=== PATIENT | female | born 1975 | race Caucasian/White ===

== ENCOUNTER 2022-07-23 10:43 | Emergency (ER) | payer OTHER, SELFPAY ==
[2022-07-23 10:50] VITALS: BP 126/62; PULSE 91; RESP 18; O2SAT 98
--- NOTE | 2022-07-23 10:52 | HMH.EDGENADL ---
Discharge Plan Disposition Patient Disposition: Home, Self-Care Prescriptions Prescriptions: New ondansetron 4 mg tablet,disintegrating 4 mg PO Q6H PRN (Reason: nausea and vomiting) 5 Days Qty: 20 0RF Referrals Follow up/Referrals: Provider,Referral, MD [Primary Care Provider] - See instructions Activity Restrictions/Add. Instructions Additional Instructions/Restrictions: Return with worsening abdominal pain or inability to tolerate anything by mouth. Otherwise this should be self-limiting viral illness that should be gone within 2 to 3 days. Please stay well-hydrated as discussed. Clinical Impressions Clinical Impression: Nausea vomiting and diarrhea Instructions Patient Instructions: DI for Diarrhea and Traveler's Diarrhea -- Adult, DI for Diarrhea and Traveler's Diarrhea -- Child, DI for Nausea -- Adult, DI for Nausea -- Child Discharge ED Provider: Jovan Packer General Adult HPI General Chief complaint: Nausea/Vomiting/Diarrhea Stated complaint: Vomiting, Diarrhea Time Seen by Provider: 07/23/22 10:52 History of Present Illness HPI narrative: 47-year-old female presenting with nausea vomiting diarrhea. She has a sick contact her son at home has the same symptoms currently. She states that she is vomiting too numerous to count times. No hematemesis nonbilious. No fevers. She has had some chills. Stools have been diarrhea in nature no hematochezia or melena. She has had some abdominal cramping some epigastric discomfort associated with this. Related Data Previous Rx's Medication Instructions Recorded ondansetron 4 mg disintegrating 4 mg PO Q6H PRN nausea and 07/23/22 tablet vomiting 5 days #20 tabs Allergies Allergy/AdvReac Type Severity Reaction Status Date / Time amitriptyline Allergy Verified 07/23/22 11:04 hydromorphone [From Dilaudid] Allergy Verified 07/23/22 11:04 morphine Allergy Verified 07/23/22 11:04 sulfamethoxazole Allergy Verified 07/23/22 11:04 [From Bactrim] trimethoprim [From Bactrim] Allergy Verified 07/23/22 11:04 [facility] Disclaimer: The information contained in this section may have been updated after the patient was seen, as this information can be updated by other users. Social History Smoking Status: Never smoker alcohol intake: never current occupational status: other Travel in the last 8 weeks: None ROS Obtained: Yes All systems reviewed & no additional complaints except as documented Physical Exam General General appearance: alert and in no apparent distress Respiratory Respiratory exam: Present normal lung sounds bilaterally Cardiovascular Cardiovascular exam: Present regular rate and other (Good capillary refill); Absent tachycardia Abdominal Exam Abdominal exam: Present soft and tenderness (Epigastric tenderness to deep palpation otherwise throughout the rest of her abdomen there is no tenderness no rebound no guarding no rigidity) Neurological Exam Neurological exam: Present alert and oriented X3 Medical Decision Making [place] Inquiry Pt receiving controlled substance: No Vital Signs: 07/23/22 10:58 07/23/22 10:50 07/23/22 11:30 Temperature 98.4 F Temperature Source Oral Pulse Rate 91 H 71 Pulse Rate [Left Radial] 96 H Respiratory Rate 20 18 18 Blood Pressure 126/62 102/49 L Blood Pressure [Right Arm] 126/62 Blood Pressure Mean 88 74 Blood Pressure Mean [Right Arm] 83 02 Sat by Pulse Oximetry 97 98 97 Oxygen Delivery Method Room Air Lab Data Lab results reviewed: Yes I reviewed the patient's lab results. Lab Results 07/23/22 11:10: WBC 12.2 H, RBC 4.69, Hgb 14.5, Hct 42.8, MCV 91.3, MCH 31.0, MCHC 33.9, RDW 12.9, Plt Count 266, MPV 8.5, Neut % (Auto) 86.5 H, Lymph % (Auto) 7.9 L, [place] % (Auto) 4.3, Eos % (Auto) 1.1, Baso % (Auto) 0.2, Neut # (Auto) 10.5 H, Lymph # (Auto) 1.0, [place] # (Auto) 0.5, Eos # (Auto) 0.1, Baso # (Auto) 0.0, Total Counted 100, Neutrophils % (Manual) 84 H, Lymphoc
[2022-07-23 10:58] VITALS: BP 126/62; PULSE 96; RESP 20; TEMP 36.9; O2SAT 97; BMI 38.9
[2022-07-23 11:27] LABS: Basophils % 0.2 % (0.1-2.0); Eosinophils # 0.1 K/mm3 (0.0-0.4); Eosinophils % 1.1 % (0.1-12.0); Hematocrit 42.8 % (37.0-47.0); Hemoglobin 14.5 g/dL (12.2-16.2); Lymphocytes % 7.9 % (10-50); Mean Corpuscular HGB Conc 33.9 g/dL (31.8-35.4); Mean Corpuscular Volume 91.3 fl (81-99); Mean Platelet Volume 8.5 fl (7.4-10.4); Monocytes # 0.5 K/mm3 (0.1-1.0); Monocytes % 4.3 % (1.7-9.3); Neutrophils # 10.5 K/mm3 (1.8-7.8); Neutrophils % 86.5 % (37.0-80.0); Platelet Count 266 K/mm3 (142-424); Red Blood Count 4.69 M/mm3 (4.20-5.40); Red Cell Distribution Width 12.9 % (11.5-17.5); White Blood Count 12.2 K/mm3 (4.8-10.8)
[2022-07-23 11:30] VITALS: BP 102/49; PULSE 71; RESP 18; O2SAT 97
[2022-07-23 11:32] LABS: MANUAL DIFFERENTIAL MANUAL DIFFERENTIAL (MANUAL DIFF)
[2022-07-23 11:54] LABS: Eosinophils % 1 % (0-3); Lymphocytes % 9 % (10-50); Monocytes % 6 % (2-9); Neutrophils % 84 % (42-76); Total Cells Counted 100
[2022-07-23 11:55] LABS: Platelet Estimate Normal; RBC Morphology Normal
[2022-07-23 12:18] LABS: Chloride 102 mmol/L (98-107); Potassium 3.8 mmoL/L (3.5-5.1); Sodium 135 mmol/L (136-145)
[2022-07-23 12:20] LABS: Blood Urea Nitrogen 21 mg/dl (7-17); Creatinine Clearance Estimated 190 mL/min (50-200); Estimated Glomerular Filt Rate 108 ml/min (>60); GFR (African American) 130 ML/MIN (>60)
[2022-07-23 12:21] LABS: Alanine Aminotransferase 17 U/L (12-78); Albumin Level 3.7 g/dl (3.5-5.0); Albumin/Globulin Ratio 1.2 (1.1-1.8); Alkaline Phosphatase 71 U/L (38-126); Anion Gap 10.8 mEq/L (5-15); Aspartate Amino Transferase 21 U/L (14-36); Bilirubin,Total 0.8 mg/dl (0.2-1.3); Calcium 8.2 mg/dl (8.4-10.2); Carbon Dioxide 26 mmol/L (22.0-30.0); Glucose 91 mg/dl (74-100); Lipase 32 U/L (23-300); Total Protein,Serum 6.7 g/dl (6.3-8.2)
[2022-07-23 12:48] VITALS: BP 117/78; PULSE 78; RESP 20; TEMP 36.9; O2SAT 98
== END 2022-07-23 12:50 | disposition home or self-care (01) ==
PROVIDERS: Emergency Provider Student in an Organized Health Care Education/Training Program
DX: R19.7 Diarrhea, unspecified; E86.0 Dehydration; R11.2 Nausea with vomiting, unspecified
CPT/HCPCS: 80053; 83690; 85007; 85025; 96361; 96374; 96375; 99284; J2405

== ENCOUNTER 2023-04-21 08:06 | Emergency (ER) | payer OTHER, SELFPAY ==
[2023-04-21 08:15] VITALS: BP 139/77; PULSE 74; RESP 19; TEMP 36.7; O2SAT 99; BMI 40.3
[2023-04-21 08:28] VITALS: BP 139/77; PULSE 74; RESP 19; TEMP 36.7; O2SAT 99
--- NOTE | 2023-04-21 08:34 | ED_ITS ---
Discharge Plan Disposition Patient Disposition: Home, Self-Care Condition: Good Prescriptions Prescriptions: New amoxicillin 875 mg tablet 875 mg PO Q12H Qty: 20 0RF ofloxacin 0.3 % drops 10 drp otic (ear) Q12H 14 Days Qty: 20 0RF Rx Instructions: in left ear as directed fluconazole 150 mg tablet 150 mg PO Q3D 1 Days Qty: 1 0RF No Action buspirone 10 mg tablet 10 mg PO TIDP PRN (Reason: Anxiety) Patient Comments: TAKE 1 TABLET BY MOUTH 3 TIMES DAILY NEEDED FOR ANXIETY. ergocalciferol (vitamin D2) 1,250 mcg (50,000 unit) capsule 1,250 mcg PO DAILY Patient Comments: TAKE 1 CAPSULE BY MOUTH ONCE A WEEK. azelastine 137 mcg (0.1 %) aerosol,spray 2 spray INTRANASAL DAILY Patient Comments: PLACE 2 SPRAYS INTO EACH NOSTRIL 2 TIMES DAILY oxycodone-acetaminophen 7.5-325 mg tablet 1 tab PO QID Patient Comments: TAKE 1 TABLET BY MOUTH FOUR TIMES A DAY FOR 30 DAYS fluticasone propionate 50 mcg/actuation spray,suspension 2 spray INTRANASAL DAILY Patient Comments: USE 1 SPRAY IN EACH NOSTRIL ONCE DAILY. Referrals Follow up/Referrals: Provider,Referral, MD [Primary Care Provider] - See instructions Activity Restrictions/Add. Instructions Additional Instructions/Restrictions: Take medication as prescribed Use ear drops as prescribed Follow up with your Family Doctor if no improvement or any worsening of symptms Over the counter Motrin and/or Tylenol for pain and fever Clinical Impressions Clinical Impression: Otitis media Qualifiers: Otitis media type: unspecified Laterality: left Qualified Code(s): H66.92 - Otitis media, unspecified, left ear Otitis externa Qualifiers: Otitis externa type: unspecified type Chronicity: unspecified Laterality: left Qualified Code(s): H60.92 - Unspecified otitis externa, left ear Stand Alone Forms Stand Alone Forms: Work/School Release Instructions Patient Instructions: Sore Throat, Middle Ear Infection, DI for Otitis Externa Discharge ED Provider: Geno Warner [facility] General Stated complaint: ear pain, sore throat Mode of Arrival: Ambulatory Source of Information: Patient Limitations: No Limitations Time Seen by Provider: 04/21/23 08:34 Description of Symptoms (Recalled from Triage Doc. by RN): PATIENT C/O SORE THROAT AND EAR PAIN X 2 DAYS HEENT Symptoms (Recalled from RN notes): Yes Resp Symptoms (Recalled from RN notes): No Skin Symptoms (Recalled from RN notes): No MS Symptoms (Recalled from RN notes): No Functional Status (Recalled from RN notes): WNL History of Present Illness Provider Complaint: Patient states that for the last couple days she has been having sore throat and pain in her left ear States that her ear is sore to the touch and hurts when she touches it or moves it so today she came in to get checked Related Data Home Medications Medication Instructions Recorded Confirmed azelastine 137 mcg (0.1 %) nasal 2 spray intranasal DAILY 04/21/23 04/21/23 spray aerosol buspirone 10 mg tablet 10 mg PO TIDP PRN Anxiety 04/21/23 04/21/23 ergocalciferol (vitamin D2) 1,250 1,250 mcg PO DAILY 04/21/23 04/21/23 mcg (50,000 unit) capsule fluticasone propionate 50 2 spray intranasal DAILY 04/21/23 04/21/23 mcg/actuation nasal spray,suspension oxycodone-acetaminophen 7.5 mg-325 1 tab PO QID 04/21/23 04/21/23 mg tablet Previous Rx's Medication Instructions Recorded amoxicillin 875 mg tablet 875 mg PO Q12H #20 tabs 04/21/23 fluconazole 150 mg tablet 150 mg PO Q3D 1 day #1 tab 04/21/23 ofloxacin 0.3 % ear drops 10 drp otic (ear) Q12H 14 days #20 04/21/23 mL Allergies Allergy/AdvReac Type Severity Reaction Status Date / Time amitriptyline Allergy Verified 07/23/22 11:04 hydromorphone [From Dilaudid] Allergy Verified 07/23/22 11:04 morphine Allergy Verified 07/23/22 11:04 sulfamethoxazole Allergy Verified 07/23/22 11:04 [From Bactrim] trimethoprim [From Bactrim] Allergy Verified 07/23/22 11:04 Worker's Comp Is this a Worker's Comp case?: No [facility] Disclaimer: The information contained in this section may have been updated after the patient was seen, as this information can be updated by other users. Medical History (Updated 04/21/23 @ 08:47 by Geno Warner APRN) Anxiety Migraine Surgical History (Updated 04/21/23 @ 08:24 by Winsome Orozco RN) History of appendectomy History of section History of cholecystectomy History of hysterectomy Social History (Updated 07/23/22 @ 12:42 by Jovan Packer MD) Smoking Status: Never smoker alcohol intake: never current occupational status: other Travel in the last 8 weeks: None ROS Obtained: Yes All systems reviewed & no additional complaints except as documented and Yes Systems reviewed as appropriate & no additional complaints except as documented Constitutional Constitutional: Reports system reviewed and no additional complaints, except as documented and Reports as per HPI ENT Ears, Nose, Mouth, and Throat: Reports system reviewed and no additional complaints, except as documented, Reports as per HPI, Reports otalgia and R eports sore throat Cardiovascular Cardiovascular: Reports system reviewed and no additional complaints, except as documented and Reports as per HPI Respiratory Respiratory: Reports system reviewed and no additional complaints, except as documented and Reports as per HPI Gastrointestinal Gastrointestingal: Reports system reviewed and no additional complaints, except as documented and as per HPI Physical Exam General General appearance: alert and in no apparent distress ENT ENT exam: Present mucous membranes moist Expanded ENT Exam External ear exam: Present pain with movement (left) and external tenderness TM/Canal exam: Left TM: erythema and loss of landmarks Respiratory Respiratory exam: Present normal lung sounds bilaterally; Absent respiratory distress or wheezes Cardiovascular Cardiovascular exam: Present regular rate, normal rhythm and normal heart sounds Neurological Exam Neurological exam: Present alert, oriented X3 and normal gait Medical Decision Making [place] Inquiry Pt receiving controlled substance: No [place] was queried for this patient: No Vital Signs: 04/21/23 08:15 04/21/23 08:28 Temperature 98.1 F 98.1 F Temperature Source Oral Pulse Rate 74 Pulse Rate [Right Brachial] 74 Respiratory Rate 19 19 Blood Pressure 139/77 Blood Pressure [Right Arm] 139/77 Blood Pressure Mean [Right Arm] 97 Blood Pressure Source [Right Arm] Automatic Cuff Blood Pressure Position [Right Arm] Sitting 02 Sat by Pulse Oximetry 99 Oxygen Delivery Method Room Air Lab Data Lab results reviewed: Yes I reviewed the patient's lab results. Medical Decision Narrative: Patient states that she has taken Diflucan before without complications or reactions
[2023-04-21 09:02] LABS: UTC Strep Screen (Rapid) Negative (Negative)
== END 2023-04-21 09:12 | disposition home or self-care (01) ==
PROVIDERS: Emergency Provider Nurse Practitioner
DX: H66.92 Otitis media, unspecified, left ear (principal); H60.92 Unspecified otitis externa, left ear; R07.0 Pain in throat
CPT/HCPCS: 87880; 99204; 99212; G0463

== ENCOUNTER 2023-05-22 08:52 | Emergency (ER) | payer OTHER, SELFPAY ==
[2023-05-22 08:53] VITALS: BP 118/88; PULSE 83; RESP 16; TEMP 36.7; O2SAT 99; BMI 34.9
--- NOTE | 2023-05-22 08:56 | HMH.EDGENADL ---
Discharge Plan Disposition Patient Disposition: Home, Self-Care Chief Complaint: Headache Prescriptions Prescriptions: No Action buspirone 10 mg tablet 10 mg PO TIDP PRN (Reason: Anxiety) Patient Comments: TAKE 1 TABLET BY MOUTH 3 TIMES DAILY NEEDED FOR ANXIETY. ergocalciferol (vitamin D2) 1,250 mcg (50,000 unit) capsule 1,250 mcg PO DAILY Patient Comments: TAKE 1 CAPSULE BY MOUTH ONCE A WEEK. azelastine 137 mcg (0.1 %) aerosol,spray 2 spray INTRANASAL DAILY Patient Comments: PLACE 2 SPRAYS INTO EACH NOSTRIL 2 TIMES DAILY oxycodone-acetaminophen 7.5-325 mg tablet 1 tab PO QID Patient Comments: TAKE 1 TABLET BY MOUTH FOUR TIMES A DAY FOR 30 DAYS fluticasone propionate 50 mcg/actuation spray,suspension 2 spray INTRANASAL DAILY Patient Comments: USE 1 SPRAY IN EACH NOSTRIL ONCE DAILY. amoxicillin 875 mg tablet 875 mg PO Q12H Qty: 20 0RF ofloxacin 0.3 % drops 10 drp otic (ear) Q12H 14 Days Qty: 20 0RF Rx Instructions: in left ear as directed fluconazole 150 mg tablet 150 mg PO Q3D 1 Days Qty: 1 0RF Referrals Follow up/Referrals: Provider,Referral, MD [Primary Care Provider] - See instructions Activity Restrictions/Add. Instructions Additional Instructions/Restrictions: Call your family doctor to establish care for this visit to the emergency department and schedule follow-up within 48 hours to ensure improvement. If you have any worsening of your condition or any other concerning signs or symptoms, return to the emergency department or your primary care doctor for further evaluation. Take Tylenol 1000 mg every 6 hours (4 times daily) and ibuprofen 400 mg every 6 hours (4 times daily) as needed with food and water to prevent GI upset and kidney damage. Clinical Impressions Clinical Impression: Migraine Qualifiers: Migraine type: unspecified Status migrainosus presence: with status migrainosus Intractability: intractable Qualified Code(s): G43.911 - Migraine, unspecified, intractable, with status migrainosus Discharge ED Provider: Kapil Chamberlain General Adult HPI General Chief complaint: Headache Stated complaint: headache, vomiting Time Seen by Provider: 05/22/23 08:53 History of Present Illness HPI narrative: 47-year-old female history of lupus, Sjogren's not currently on any medication, previous history of migraines not currently on prophylaxis medication presenting with headache. Patient states that she has had headaches on and off for the last 10 days. They have gotten worse over the past 24 hours really. 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 Patient states that headache starts in her neck, radiates upward through her scalp, is mostly left-sided. She states that after she woke up today, she vomited nonbloody, nonbilious vomiting and thinks the left side of her face was swollen. This is gone down since that time. No history of the symptoms in the past with her previous headaches, no fevers or chills, neck stiffness, or any other concerns. Related Data Home Medications Medication Instructions Recorded Confirmed azelastine 137 mcg (0.1 %) nasal 2 spray intranasal DAILY 04/21/23 04/21/23 spray aerosol buspirone 10 mg tablet 10 mg PO TIDP PRN Anxiety 04/21/23 04/21/23 ergocalciferol (vitamin D2) 1,250 1,250 mcg PO DAILY 04/21/23 04/21/23 mcg (50,000 unit) capsule fluticasone propionate 50 2 spray intranasal DAILY 04/21/23 04/21/23 mcg/actuation nasal spray,suspension oxycodone-acetaminophen 7.5 mg-325 1 tab PO QID 04/21/23 04/21/23 mg tablet Previous Rx's Medication Instructions Recorded amoxicillin 875 mg tablet 875 mg PO Q12H #20 tabs 04/21/23 fluconazole 150 mg tablet 150 mg PO Q3D 1 day #1 tab 04/21/23 ofloxacin 0.3 % ear drops 10 drp otic (ear) Q12H 14 days #20 04/21/23 mL Allergies Allergy/AdvReac Type Severity Reaction Status Date / Time amitriptyline Allergy Verified 07/23/22 11:04 hydromorphone [From Dilaudid] Allergy Verified 07/23/22 11:04 morphine Allergy Verified 07/23/22 11:04 sulfamethoxazole Allergy Verified 07/23/22 11:04 [From Bactrim] trimethoprim [From Bactrim] Allergy Verified 07/23/22 11:04 [facility] Disclaimer: The information contained in this section may have been updated after the patient was seen, as this information can be updated by other users. Medical History (Updated 05/22/23 @ 10:51 by Kapil Chamberlain MD) Anxiety Migraine Surgical History (Updated 04/21/23 @ 08:24 by Winsome Orozco RN) History of appendectomy History of section History of cholecystectomy History of hysterectomy Social History (Updated 07/23/22 @ 12:42 by Jovan Packer MD) Smoking Status: Current every day smoker alcohol intake: never current occupational status: other Travel in the last 8 weeks: None ROS Obtained: Yes All systems reviewed & no additional complaints except as documented Physical Exam General General appearance: alert and in no apparent distress Head Head exam: atraumatic and normocephalic Eye Eye exam: Present normal appearance, PERRL and EOMI ENT ENT exam: Present mucous membranes moist Neck Neck exam: Present normal inspection, full ROM and trachea midline Respiratory Respiratory exam: Absent respiratory distress, wheezes, stridor, accessory muscle use or prolonged expiratory phase Cardiovascular Cardiovascular exam: Present normal rhythm Abdominal Exam Abdominal exam: Present soft; Absent distention, tenderness, guarding, rebound or rigidity Extremities Exam Extremities exam: Absent edema Neurological Exam Neurological exam: Present alert, oriented X3, CN II-XII intact and normal gait; Absent motor sensory deficit Skin Skin exam: Present warm and dry; Absent diaphoresis or erythema Medical Decision Making Medical Records Medical records reviewed: Yes I reviewed the patient's medical records. [place] Inquiry Pt receiving controlled substance: No [place] was queried for this patient: No Vital Signs: 05/22/23 08:53 05/22/23 09:00 05/22/23 10:12 Temperature 98.0 F Temperature Source Oral Pulse Rate 65 58 L Pulse Rate [Left Radial] 83 Respiratory Rate 16 18 Blood Pressure 117/62 117/55 L Blood Pressure [Right Arm] 118/88 Blood Pressure Mean 80 75 Blood Pressure Mean [Right Arm] 98 02 Sat by Pulse Oximetry 99 100 98 Oxygen Delivery Method Room Air 05/22/23 10:30 Temperature Temperature Source Pulse Rate 58 L Pulse Rate [Left Radial] Respiratory Rate 20 Blood Pressure 113/63 Blood Pressure [Right Arm] Blood Pressure Mean 74 Blood Pressure Mean [Right Arm] 02 Sat by Pulse Oximetry 99 Oxygen Delivery Method Lab Data Lab Results 05/22/23 09:11: WBC 6.6, RBC 4.13 L, Hgb 13.1, Hct 38.8, MCV 94.1, MCH 31.7 H, MCHC 33.7, RDW 13.2, Plt Count 238, MPV 8.2, Neut % (Auto) 62.6, Lymph % (Auto) 29.0, [place] % (Auto) 5.2, Eos % (Auto) 2.1, Baso % (Auto) 1.0, Neut # (Auto) 4.1, Lymph # (Auto) 1.9, [place] # (Auto) 0.4, Eos # (Auto) 0.1, Baso # (Auto) 0.1, ESR 16, Sodium 139, Potassium 4.1, Chloride 106, Carbon Dioxide 30, Anion Gap 7.1, BUN 17, Creatinine 0.80, Estimated Creat Clear 132, Estimated GFR 77, Est GFR ( Amer) 93, Glucose 72 L, Calcium 8.9, Total Bilirubin 0.5, AST 26, ALT 21, Alkaline Phosphatase 68, C-Reactive Protein 3.0, Total Protein 7.2, Albumin 4.0, Globulin 3.2, Albumin/Globulin Ratio 1.3, HCG, Quant < 2 05/22/23 09:11 05/22/23 09:11 Orders (Tests/Meds): ED MEDICATIONS Discontinued Medications Generic Name Dose Route Start Last Admin Trade Name Sonnyq PRN Reason Stop Dose Admin Acetaminophen 1,000 mg 05/22/23 09:15 05/22/23 09:40 Acetaminophen 1,000mg/100ml Vial IV 05/22/23 09:16 1,000 mg ONCE ONE Administration Dexamethasone Sodium Phosphate 10 mg 05/22/23 09:15 05/22/23 09:40 Dexamethasone 4mg/Ml 1ml Vial IV 05/22/23 09:16 10 mg ONCE ONE Administration Diphenhydramine HCl 25 mg 05/22/23 09:15 05/22/23 09:42 Diphenhydramine 50mg/Ml Vial IV 05/22/23 09:16 25 mg ONCE ONE Administration Lactated Ringer's 1,000 mls @ 999 mls/hr 05/22/23 09:15 05/22/23 10:15 Lactated Ringer's 1000 Ml Bag IV 05/22/23 10:15 999 mls/hr .Q1H1M ONE Administration Iopamidol 100 ml 05/22/23 09:58 05/22/23 10:00 Iopamidol-370 (76%);100ml Bottle IV 05/22/23 09:59 100 ml ONCE ONE Administration Prochlorperazine Edisylate 10 mg 05/22/23 09:15 05/22/23 09:40 Prochlorperazine 10mg/2ml Vial IV 05/22/23 09:16 10 mg ONCE ONE Administration Sodium Chloride 50 ml 05/22/23 09:58 05/22/23 09:59 0.9 % Sodium Chloride 50 Ml Vial IV 05/22/23 09:59 50 ml ONCE ONE Administration Sodium Chloride 10 ml 05/22/23 09:58 05/22/23 09:59 Sodium Chloride 0.9% 10ml Syr (Rad Only) IV 05/22/23 09:59 10 ml ONCE ONE Administration ORDERS Category Date Time Status CT Venogram head Stat Cat Scan 05/22/23 09:[address] head/brain wo con Stat Cat Scan 05/22/23 09:17 Completed CBC w/Auto Diff [Complete Blood Count Auto Diff] Stat Lab 05/22/23 09:11 Completed CMP [Comprehensive Metabolic Panel] Stat Lab 05/22/23 09:11 Completed CRP [C-Reactive Protein] Stat Lab 05/22/23 09:11 Completed ESR [Erythrocyte Sedimentation Rate] Stat Lab 05/22/23 09:11 Completed HCG,Quantitative Stat Lab 05/22/23 09:11 Completed Medical Decision Narrative: 47-year-old female history of lupus, Sjogren's not currently on any medication, previous history of migraines not currently on prophylaxis medication presenting with headache. Patient states that she has had headaches on and off for the last 10 days. They have gotten worse over the past 24 hours really. 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 Patient states that headache starts in her neck, radiates upward through her scalp, is mostly left-sided. She states that after she woke up today, she vomited nonbloody, nonbilious vomiting and thinks the left side of her face was swollen. This is gone down since that time. No history of the symptoms in the past with her previous headaches, no fevers or chills, neck stiffness, or any other concerns. History was obtained via conversation with patient. On arrival, patient hemodynamically stable, alert, oriented x4, appropriate, GCS 15, moving all extremities spontaneously, pupils equal and reactive to light. Full physical exam performed and significant for neurologically intact female who is in no acute distress. Towel roll over her eyes because she has photophobia. No evidence of phonophobia. No obvious facial swelling, EOM abnormalities, or any other concerns on physical exam. Differential includes migraine, tension headache, cerebral DVT, intracranial bleed, vasculitis, among others. Patient was given Tylenol, Decadron, Benadryl, Compazine, fluid bolus for symptomatic management and correction of underlying abnormalities. Patient took 800 mg ibuprofen prior to arrival. Workup independently interpreted and significant for nonactionable CBC or chemistry. CT head without acute intracranial hemorrhage, CTV head without acute dural venous thrombosis. See radiology read for full review of final results. On reevaluation, patient feeling much better and ready to go home. Given patient presentation, workup, history, this most likely represents acute migraine headache. Because patient at baseline without signs or symptoms of clinical decompensation, deemed appropriate for discharge. Results were relayed to patient who voiced understanding and were agreeable to outpatient management and follow up. At the time of discharge the patient was hemodynamically stable, tolerating PO, and mobilizing appropriately. Critical Care Critical Care Time Critical Care Time: No
[2023-05-22 09:00] VITALS: BP 117/62; PULSE 65; RESP 18; O2SAT 100
--- NOTE | 2023-05-22 09:15 | CT_ITS ---
PROCEDURE INFORMATION: Exam: CTA Head With Contrast, Venography Exam date and time: 05/22/2023 9:52 AM Age: 47 years old Clinical indication: Pain; Headache; Additional info: New morning headache, L facial swelling, HX lupus TECHNIQUE: Imaging protocol: Computed tomography angiography of the head with contrast. Exam focused on the veins. 3D rendering (Not supervised by radiologist): MIP and/or 3D reconstructed images were created by the technologist. Radiation optimization: All CT scans at this facility use at least one of these dose optimization techniques: automated exposure control; mA and/or kV adjustment per patient size (includes targeted exams where dose is matched to clinical indication); or iterative reconstruction. Contrast material: ISOVUE 360; Contrast volume: 100 ml; Contrast route: INTRAVENOUS (IV); COMPARISON: CT HEAD/BRAIN WO CON 05/22/2023 9:42 AM FINDINGS: Superior sagittal sinus: Patent. Straight sinus: Patent. Transverse sinuses: Patent. Sigmoid sinuses: Patent. Internal jugular veins: Limited visualized internal jugular veins are patent. Brain: No definite mass, mass effect, or midline shift. Cerebral ventricles: No ventriculomegaly. Soft tissues: The left periorbital soft tissue swelling. IMPRESSION: No evidence of dural venous thrombus.
--- NOTE | 2023-05-22 09:17 | CT_ITS ---
PROCEDURE INFORMATION: Exam: CT Head Without Contrast Exam date and time: 05/22/2023 9:42 AM Age: 47 years old Clinical indication: Pain; Headache; Additional info: CONTRERAS facial swelling TECHNIQUE: Imaging protocol: Computed tomography of the head without contrast. Radiation optimization: All CT scans at this facility use at least one of these dose optimization techniques: automated exposure control; mA and/or kV adjustment per patient size (includes targeted exams where dose is matched to clinical indication); or iterative reconstruction. COMPARISON: No relevant prior studies available. FINDINGS: Brain: No hemorrhage. Unremarkable white matter for the patient's age. No mass effect. No evolving territorial infarct. Cerebral ventricles: No ventriculomegaly. Pituitary gland and sella: There is a partially empty sella turcica. Paranasal sinuses: Visualized sinuses are unremarkable. No fluid levels. Mastoid air cells: Visualized mastoid air cells are well aerated. Bones/joints: Unremarkable. No acute fracture. Soft tissues: Left periorbital soft tissue swelling. IMPRESSION: No acute intracranial abnormality seen.
[2023-05-22 09:22] LABS: Basophils # 0.1 K/mm3 (0-0.2); Eosinophils # 0.1 K/mm3 (0.0-0.4); Eosinophils % 2.1 % (0.1-12.0); Hematocrit 38.8 % (37.0-47.0); Hemoglobin 13.1 g/dL (12.2-16.2); Lymphocytes # 1.9 K/mm3 (0.7-4.5); Mean Corpuscular HGB Conc 33.7 g/dL (31.8-35.4); Mean Corpuscular Hemoglobin 31.7 pg (27.0-31.2); Mean Corpuscular Volume 94.1 fl (81-99); Mean Platelet Volume 8.2 fl (7.4-10.4); Monocytes # 0.4 K/mm3 (0.1-1.0); Monocytes % 5.2 % (1.7-9.3); Neutrophils # 4.1 K/mm3 (1.8-7.8); Neutrophils % 62.6 % (37.0-80.0); Platelet Count 238 K/mm3 (142-424); Red Blood Count 4.13 M/mm3 (4.20-5.40); Red Cell Distribution Width 13.2 % (11.5-17.5); White Blood Count 6.6 K/mm3 (4.8-10.8)
[2023-05-22 09:35] LABS: Chloride 106 mmol/L (98-107)
[2023-05-22 09:36] LABS: Potassium 4.1 mmoL/L (3.5-5.1); Sodium 139 mmol/L (136-145)
[2023-05-22 09:38] LABS: Alanine Aminotransferase 21 U/L (12-78); Alkaline Phosphatase 68 U/L (38-126); Aspartate Amino Transferase 26 U/L (14-36); Bilirubin,Total 0.5 mg/dl (0.2-1.3); Blood Urea Nitrogen 17 mg/dl (7-17); Creatinine Clearance Estimated 132 mL/min (50-200); Estimated Glomerular Filt Rate 77 ml/min (>60); GFR (African American) 93 ML/MIN (>60)
[2023-05-22 09:39] LABS: Albumin/Globulin Ratio 1.3 (1.1-1.8); Anion Gap 7.1 mEq/L (5-15); Calcium 8.9 mg/dl (8.4-10.2); Carbon Dioxide 30 mmol/L (22.0-30.0); Globulin 3.2 g/dL (1.3-3.2); Glucose 72 mg/dl (74-100); Total Protein,Serum 7.2 g/dl (6.3-8.2)
[2023-05-22] MEDS: ACETAMINOPHEN 1,000MG/100ML VIAL 1000 MG IV (09:40)
[2023-05-22] MEDS: DEXAMETHASONE 4MG/ML 1ML VIAL 10 MG IV (09:40)
[2023-05-22] MEDS: PROCHLORPERAZINE 10MG/2ML VIAL 10 MG IV (09:40)
[2023-05-22] MEDS: diphenhydrAMINE 50MG/ML VIAL 25 MG IV (09:42)
[2023-05-22 09:59] LABS: HCG,Quantitative < 2 mIU/ml (0-5.42)
[2023-05-22] MEDS: SODIUM CHLORIDE 0.9% 10ML SYR (RAD ONLY) 10 ML IV (09:59)
[2023-05-22] MEDS: 0.9 % SODIUM CHLORIDE 50 ML VIAL IV (09:59)
[2023-05-22] MEDS: IOPAMIDOL-370 (76%);100ML BOTTLE 100 ML IV (10:00)
[2023-05-22 10:02] LABS: Erythrocyte Sedimentation Rate 16 mm/hr (0-20)
[2023-05-22 10:12] VITALS: BP 117/55; PULSE 58; O2SAT 98
[2023-05-22] MEDS: LACTATED RINGERS 1000ML 1,000 ML 999 ML IV (10:15)
[2023-05-22 10:30] VITALS: BP 113/63; PULSE 58; RESP 20; O2SAT 99
[2023-05-22 11:07] VITALS: BP 124/66; PULSE 60; RESP 15; TEMP 36.7
== END 2023-05-22 11:08 | disposition home or self-care (01) ==
PROVIDERS: Emergency Provider Emergency Medicine
DX: G43.911 Migraine, unspecified, intractable, with status migrainosus (principal); M35.00 Sjogren syndrome, unspecified; R11.10 Vomiting, unspecified; F17.210 Nicotine dependence, cigarettes, uncomplicated
CPT/HCPCS: 70450; 70496; 80053; 84702; 85025; 85651; 86140; 96361; 96374; 96375; 99285; J0131; Q9967

== ENCOUNTER 2023-08-21 21:56 | Emergency (ER) | payer OTHER, SELFPAY ==
[2023-08-21 21:58] VITALS: BP 171/79; PULSE 83; RESP 16; TEMP 36.9; O2SAT 97; BMI 39.1
--- NOTE | 2023-08-21 23:04 | CT_ITS ---
PROCEDURE INFORMATION: Exam: CT Abdomen And Pelvis With Contrast Exam date and time: 08/21/2023 11:57 PM Age: 48 years old Clinical indication: Abdominal pain; Additional info: Epigastric abd pain TECHNIQUE: Imaging protocol: Computed tomography of the abdomen and pelvis with contrast. Radiation optimization: All CT scans at this facility use at least one of these dose optimization techniques: automated exposure control; mA and/or kV adjustment per patient size (includes targeted exams where dose is matched to clinical indication); or iterative reconstruction. Contrast material: ISOVUE; Contrast volume: 75 ml; Contrast route: IV; COMPARISON: No relevant prior studies available. FINDINGS: Liver: Normal. No mass. Gallbladder and bile ducts: Cholecystectomy. Pancreas: Normal. No ductal dilation. Spleen: Normal. No splenomegaly. Adrenal glands: Normal. No mass. Kidneys and ureters: Normal. No hydronephrosis. Stomach and bowel: Moderate stool within the proximal colon. Colonic diverticulosis. No obstruction. No mucosal thickening. Appendix: No evidence of appendicitis. Intraperitoneal space: Unremarkable. No free air. No significant fluid collection. Vasculature: Mild atherosclerosis. No abdominal aortic aneurysm. Lymph nodes: Unremarkable. No enlarged lymph nodes. Urinary bladder: Unremarkable as visualized. Reproductive: Hysterectomy. Bones/joints: Mild degenerative changes. No acute fracture. Soft tissues: Fat containing umbilical hernia. IMPRESSION: 1. No acute findings. 2. Colonic diverticulosis.
--- NOTE | 2023-08-21 23:06 | ED_ITS ---
Discharge Plan Disposition Patient Disposition: Home, Self-Care Prescriptions Prescriptions: New ondansetron HCl 4 mg tablet 4 mg PO Q8H PRN (Reason: nausea and vomiting) 5 Days Qty: 30 0RF No Action buspirone 10 mg tablet 10 mg PO TIDP PRN (Reason: Anxiety) Patient Comments: TAKE 1 TABLET BY MOUTH 3 TIMES DAILY NEEDED FOR ANXIETY. ergocalciferol (vitamin D2) 1,250 mcg (50,000 unit) capsule 1,250 mcg PO DAILY Patient Comments: TAKE 1 CAPSULE BY MOUTH ONCE A WEEK. azelastine 137 mcg (0.1 %) aerosol,spray 2 spray INTRANASAL DAILY Patient Comments: PLACE 2 SPRAYS INTO EACH NOSTRIL 2 TIMES DAILY oxycodone-acetaminophen 7.5-325 mg tablet 1 tab PO QID Patient Comments: TAKE 1 TABLET BY MOUTH FOUR TIMES A DAY FOR 30 DAYS fluticasone propionate 50 mcg/actuation spray,suspension 2 spray INTRANASAL DAILY Patient Comments: USE 1 SPRAY IN EACH NOSTRIL ONCE DAILY. amoxicillin 875 mg tablet 875 mg PO Q12H Qty: 20 0RF ofloxacin 0.3 % drops 10 drp otic (ear) Q12H 14 Days Qty: 20 0RF Rx Instructions: in left ear as directed fluconazole 150 mg tablet 150 mg PO Q3D 1 Days Qty: 1 0RF Referrals Follow up/Referrals: Provider,Referral, MD [Primary Care Provider] - See instructions Activity Restrictions/Add. Instructions Additional Instructions/Restrictions: Please use Pepto/Maalox as needed for pain. Please take Prilosec and Pepcid as prescribed. Please avoid NSAIDs. Please follow-up with your primary care provider. Please return to the emergency department if you develop any new or worsening symptoms or become concerned for your health. Clinical Impressions Clinical Impression: Gastritis Qualifiers: Gastritis type: unspecified gastritis Chronicity: acute Stand Alone Forms Stand Alone Forms: Work/School Release Instructions Patient Instructions: DI for Acute Abdominal Pain Discharge ED Provider: Ilan Mendoza Adult HPI General Chief complaint: Abdominal Pain Stated complaint: Abdominal Pain,HBP,face flushed,nausea Time Seen by Provider: 08/21/23 22:55 Mode of Arrival: Ambulatory Source of Information: Patient Limitations: No Limitations Description of Symptoms (Recalled from ER Triage Doc. by RN): pt c/o abd pain with nauesa x 3 days and High blood pressre History of Present Illness HPI narrative: 48-year-old female with history of lupus and Sjogren's on no immunosuppressants presents with abdominal pain. She reports that the pain started a few days ago but has been worsening. She reports it is burning, gnawing, localized in her epigastric region and radiating to her bellybutton. It is worse after eating, worse after drinking, especially coffee. She reports nothing like this has happened before. She has had her gallbladder out and had a , otherwise has had no abdominal surgeries. She does take ibuprofen intermittently for headaches, but does not take it every day. She was previously on immunosuppressants but stopped taking them approximately 9 months ago. She is taking Prilosec, Pepcid, Tums, but they have not been helpful. She took several doses of Pepcid today, reports that she feels somewhat dizzy and her face is flushed as well. She also reports that she thinks she is having somewhat darker stools over the last couple of days. Denies any diarrhea. She reports some nausea but no vomiting. Denies regular alcohol use Related Data Home Medications Medication Instructions Recorded Confirmed azelastine 137 mcg (0.1 %) nasal 2 spray intranasal DAILY 04/21/23 04/21/23 spray aerosol buspirone 10 mg tablet 10 mg PO TIDP PRN Anxiety 04/21/23 04/21/23 ergocalciferol (vitamin D2) 1,250 1,250 mcg PO DAILY 04/21/23 04/21/23 mcg (50,000 unit) capsule fluticasone propionate 50 2 spray intranasal DAILY 04/21/23 04/21/23 mcg/actuation nasal spray,suspension oxycodone-acetaminophen 7.5 mg-325 1 tab PO QID 04/21/23 04/21/23 mg tablet Previous Rx's Medication Instructions Recorded amoxicillin 875 mg tablet 875 mg PO Q12H #20 tabs 04/21/23 fluconazole 150 mg tablet 150 mg PO Q3D 1 day #1 tab 04/21/23 ofloxacin 0.3 % ear drops 10 drp otic (ear) Q12H 14 days #20 04/21/23 mL ondansetron HCl 4 mg tablet 4 mg PO Q8H PRN nausea and 08/22/23 vomiting 5 days #30 tabs Allergies Allergy/AdvReac Type Severity Reaction Status Date / Time amitriptyline Allergy Verified 07/23/22 11:04 hydromorphone [From Dilaudid] Allergy Verified 07/23/22 11:04 morphine Allergy Verified 07/23/22 11:04 sulfamethoxazole Allergy Verified 07/23/22 11:04 [From Bactrim] trimethoprim [From Bactrim] Allergy Verified 07/23/22 11:04 [facility] Disclaimer: The information contained in this section may have been updated after the patient was seen, as this information can be updated by other users. Medical History (Updated 08/22/23 @ 01:27 by Ilan Mendoza MD) Anxiety Migraine Surgical History (Updated 04/21/23 @ 08:24 by Winsome Orozco RN) History of hysterectomy History of section History of cholecystectomy History of appendectomy Social History (Updated 07/23/22 @ 12:42 by Jovan Packer MD) Smoking Status: Current every day smoker alcohol intake: never current occupational status: other Travel in the last 8 weeks: None ROS Obtained: Yes All systems reviewed & no additional complaints except as documented Physical Exam General General appearance: alert and in no apparent distress Head Head exam: atraumatic and normocephalic Eye Eye exam: Present normal appearance, PERRL and EOMI ENT ENT exam: Present normal oropharynx and normal external ear exam Neck Neck exam: Present normal inspection and full ROM Chest Chest inspection: Present normal inspection and symmetric chest wall rise; Absent tenderness Respiratory Respiratory exam: Present normal lung sounds bilaterally; Absent respiratory distress Cardiovascular Cardiovascular exam: Present regular rate and normal rhythm Abdominal Exam Abdominal exam: Present soft; Absent distention, tenderness or guarding Extremities Exam Extremities exam: Present normal inspection; Absent edema or joint swelling Back Exam Back exam: Present normal inspection; Absent tenderness Neurological Exam Neurological exam: Present alert and oriented X3; Absent motor sensory deficit Psychiatric Psychiatric exam: Present normal affect and normal mood Skin Skin exam: Present warm, dry and normal color Lymphatic Lymphatic Findings: no adenopathy Medical Decision Making Medical Records Medical records reviewed: Yes I reviewed the patient's medical records. [place] Inquiry Pt receiving controlled substance: No [place] was queried for this patient: No Vital Signs: 08/21/23 21:58 08/22/23 01:45 Temperature 98.4 F 97.9 F Temperature Source Oral Oral Pulse Rate 67 Pulse Rate [Right] 83 Respiratory Rate 16 16 Blood Pressure 160/97 H Blood Pressure [Right Arm] 171/79 H Blood Pressure Mean [Right Arm] 109 Blood Pressure Source Automatic Cuff Blood Pressure Position Sitting 02 Sat by Pulse Oximetry 97 Oxygen Delivery Method Room Air Lab Data Lab results reviewed: Yes I reviewed the patient's lab results. Lab Results 08/21/23 22:25: WBC 12.9 H, RBC 4.47, Hgb 14.2, Hct 42.4, MCV 94.8, MCH 31.8 H, MCHC 33.5, RDW 13.4, Plt Count 274, MPV 8.8, Neut % (Auto) 84.3 H, Lymph % (Auto) 10.6, Nicholas % (Auto) 4.6, Eos % (Auto) 0.1, Baso % (Auto) 0.5, Neut # (Auto) 10.9 H, Lymph # (Auto) 1.4, Nicholas # (Auto) 0.6, Eos # (Auto) 0.0, Baso # (Auto) 0.1, Sodium 139, Potassium 4.2, Chloride 108 H, Carbon Dioxide 21 L, Anion Gap 14.2, BUN 17, Creatinine 0.50 L, Estimated Creat Clear 227, Estimated GFR 132, Est GFR ( Amer) 160, Glucose 109 H, Calcium 10.1, Total Bilirubin 0.5, AST 35, ALT 22, Alkaline Phosphatase 85, Total Protein 7.8, Albumin 4.5, Globulin 3.3 H, Albumin/Globulin Ratio 1.4, Lipase 39, Serum HCG, Qual Negative 08/21/23 22:25 08/21/23 22:25 Orders (Tests/Meds): ED MEDICATIONS Discontinued Medications Generic Name Dose Route Start Last Admin Trade Name Freq PRN Reason Stop Dose Admin Belladonna Alkaloids 60 ml 08/21/23 23:04 08/21/23 23:12 Belladonna Alkaloids 60 Ml Ml PO 08/21/23 23:05 60 ml ONCE ONE Administration Fentanyl Citrate 25 mcg 08/21/23 23:12 08/21/23 23:15 Fentanyl 100mcg/2ml Vial IV 08/21/23 23:13 25 mcg ONCE ONE Administration Iopamidol 75 ml 08/22/23 00:01 08/22/23 00:02 Iopamidol-370 (76%);100ml Bottle IV 08/22/23 00:02 75 ml ONCE ONE Administration Lidocaine HCl 15 ml 08/22/23 00:28 08/22/23 00:30 Lidocaine 2% Viscous Clau 15ml Udc PO 08/22/23 00:29 15 ml ONCE ONE Administration Sodium Chloride 10 ml 08/22/23 00:01 08/22/23 00:02 Sodium Chloride 0.9% 10ml Syr (Rad Only) IV 09/21/23 00:00 10 ml NEEDED PRN Administration Maintain IV Site ORDERS Category Date Time Status CT abdomen pelvis w con Stat Cat Scan 08/21/23 23:04 Completed CBC w/Auto Diff [Complete Blood Count Auto Diff] Stat Lab 08/21/23 22:25 Completed CMP [Comprehensive Metabolic Panel] Stat Lab 08/21/23 22:25 Completed HCG Qualitative, Serum Stat Lab 08/21/23 22:25 Completed Lipase Stat Lab 08/21/23 22:25 Completed Medical Decision Narrative: 48-year-old female with history of lupus and Sjogren's, on no immunosuppression, presents with epigastric abdominal pain, burning in quality, worsening over the last several days.. History was obtained interactive discussion with patient, chart review. On arrival, patient is [afebrile, hemodynamically stable, satting appropriately, alert, oriented x4, GCS 15], moving all extremities spontaneously. Full physical exam performed and significant for mild epigastric abdominal tenderness. Differential includes but is not limited to gastritis, lupus flare, stomach ulcer, GERD, pancreatitis, upper GI bleed, Patient was given 25 of fentanyl, p.o. Tylenol, GI cocktail for symptomatic management and correction of underlying abnormalities. Workup initiated including CBC CMP lipase test CT abdomen pelvis with IV contrast. On re-evaluation, patient [remains afebrile, HD stable.] Reports pain was improved after GI cocktail, requesting additional medication. She was given viscous lidocaine with near instant relief. Laboratory workup independently interpreted by me and significant for minimal leukocytosis, no significant electrolyte derangements. Imaging independently interpreted by me and significant for colonic diverticulosis, otherwise unremarkable CT abdomen pelvis without acute pathology. See radiology read for full review of final results. Given patient history, exam and workup, patient's presentation most likely represents gastritis. Unclear underlying etiology, could be autoimmune in nature. Extensive discussion with patient regarding her presentation and workup. Recommend she follow-up with PCP for further evaluation and consideration of endoscopy. She was given instructions regarding symptomatic care. Procedures Risk/Benefits of Procedure(s) Were Explained: Yes Critical Care Critical Care Time Critical Care Time: No
[2023-08-21] MEDS: BELLADONNA ALKALOIDS 60 ML ML PO (23:12)
[2023-08-21 23:15] LABS: Basophils # 0.1 K/mm3 (0-0.2); Basophils % 0.5 % (0.1-2.0); Eosinophils % 0.1 % (0.1-12.0); Hematocrit 42.4 % (37.0-47.0); Hemoglobin 14.2 g/dL (12.2-16.2); Lymphocytes # 1.4 K/mm3 (0.7-4.5); Lymphocytes % 10.6 % (10-50); Mean Corpuscular HGB Conc 33.5 g/dL (31.8-35.4); Mean Corpuscular Hemoglobin 31.8 pg (27.0-31.2); Mean Corpuscular Volume 94.8 fl (81-99); Mean Platelet Volume 8.8 fl (7.4-10.4); Monocytes # 0.6 K/mm3 (0.1-1.0); Monocytes % 4.6 % (1.7-9.3); Neutrophils # 10.9 K/mm3 (1.8-7.8); Neutrophils % 84.3 % (37.0-80.0); Platelet Count 274 K/mm3 (142-424); Red Blood Count 4.47 M/mm3 (4.20-5.40); Red Cell Distribution Width 13.4 % (11.5-17.5); White Blood Count 12.9 K/mm3 (4.8-10.8)
[2023-08-21] MEDS: FENTANYL 100MCG/2ML VIAL 25 MCG IV (23:15)
[2023-08-21 23:21] LABS: Chloride 108 mmol/L (98-107); Potassium 4.2 mmoL/L (3.5-5.1); Sodium 139 mmol/L (136-145)
[2023-08-21 23:24] LABS: Alanine Aminotransferase 22 U/L (12-78); Albumin Level 4.5 g/dl (3.5-5.0); Albumin/Globulin Ratio 1.4 (1.1-1.8); Alkaline Phosphatase 85 U/L (38-126); Anion Gap 14.2 mEq/L (5-15); Aspartate Amino Transferase 35 U/L (14-36); Bilirubin,Total 0.5 mg/dl (0.2-1.3); Blood Urea Nitrogen 17 mg/dl (7-17); Calcium 10.1 mg/dl (8.4-10.2); Carbon Dioxide 21 mmol/L (22.0-30.0); Creatinine Clearance Estimated 227 mL/min (50-200); Estimated Glomerular Filt Rate 132 ml/min (>60); GFR (African American) 160 ML/MIN (>60); Globulin 3.3 g/dL (1.3-3.2); Glucose 109 mg/dl (74-100); Lipase 39 U/L (23-300); Total Protein,Serum 7.8 g/dl (6.3-8.2)
[2023-08-21 23:42] LABS: HCG Qualitative, Serum Negative (Negative)
[2023-08-22] MEDS: SODIUM CHLORIDE 0.9% 10ML SYR (RAD ONLY) 10 ML IV (00:02)
[2023-08-22] MEDS: IOPAMIDOL-370 (76%);100ML BOTTLE 75 ML IV (00:02)
[2023-08-22] MEDS: LIDOCAINE 2% VISCOUS SOL 15ML UDC 15 ML PO (00:30)
[2023-08-22 01:45] VITALS: BP 160/97; PULSE 67; RESP 16; TEMP 36.6; O2SAT 99
== END 2023-08-22 01:46 | disposition home or self-care (01) ==
PROVIDERS: Emergency Provider Emergency Medicine
DX: K29.00 Acute gastritis without bleeding (principal); R10.13 Epigastric pain; R42 Dizziness and giddiness; R11.0 Nausea; F17.210 Nicotine dependence, cigarettes, uncomplicated; M32.9 Systemic lupus erythematosus, unspecified; M35.00 Sjogren syndrome, unspecified
CPT/HCPCS: 74177; 80053; 83690; 84703; 85025; 96374; 99285; Q9967

== ENCOUNTER 2024-01-27 15:21 | Emergency (ER) | payer OTHER, SELFPAY ==
[2024-01-27 15:35] VITALS: BP 146/93; PULSE 83; RESP 18; TEMP 36.9; O2SAT 96; BMI 39.4
[2024-01-27 15:35] LABS: Microscopic, Urine URINE MICROSCOPIC (MICROSCOPIC)
[2024-01-27 15:38] LABS: Appearance,Urine CLEAR (Clear); Bilirubin,Urine Negative (Negative); Blood, Urine Negative (Negative); Color,Urine YELLOW (Yellow); Glucose,Urine (UA) Negative (Negative); Ketones,Urine Negative (Negative); Leukocyte Esterase,Urine Negative (Negative); Nitrate,Urine Negative (Negative); PH,Urine 7.5 (5.0-8.5); Protein,Urine Negative (Negative); Specific Gravity, Urine 1.015 (1.005-1.030); Urobilinogen,Urine 0.2 EU/dl (0.2)
--- NOTE | 2024-01-27 15:47 | EXP.UTC ---
Discharge Plan Disposition Patient Disposition: Home, Self-Care Condition: Good Prescriptions Prescriptions: New pantoprazole [Protonix] 20 mg tablet,delayed release (DR/EC) 20 mg PO DAILY 30 Days Qty: 30 5RF sucralfate [Carafate] 1 gram tablet 1 g PO QID 10 Days Qty: 40 0RF No Action ergocalciferol (vitamin D2) 1,250 mcg (50,000 unit) capsule 1,250 mcg PO DAILY Patient Comments: TAKE 1 CAPSULE BY MOUTH ONCE A WEEK. oxycodone-acetaminophen 7.5-325 mg tablet 1 tab PO QID Patient Comments: TAKE 1 TABLET BY MOUTH FOUR TIMES A DAY FOR 30 DAYS Referrals Follow up/Referrals: Jr Costello II, MD [Staff Physician] - See instructions Provider,MD Marv [Primary Care Provider] - See instructions Activity Restrictions/Add. Instructions Additional Instructions/Restrictions: Take the medications as directed. Follow up with your regular doctor. Follow up with Dr. 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 I put in a referral, but you will need to call and schedule an appointment. His office phone number will be on this paperwork. GO TO THE ER FOR ANY WORSENING SYMPTOMS Clinical Impressions Clinical Impression: Abdominal pain, Acid reflux Stand Alone Forms Stand Alone Forms: Work/School Release Instructions Patient Instructions: Gastroesophageal Reflux Disease -- Adolescent, DI for Gastroesophageal Reflux Disease (GERD), Pantoprazole Print Language Print Language: [place] Discharge ED Provider: Wilberto Núñez [facility] General Stated complaint: acid reflux, abdominal cramping. Time Seen by Provider: 01/27/24 15:47 History of Present Illness Provider Complaint: She states that for the 1 month she has had worsening acid reflux and gi upset. She denies abdominal pain. In the past, she has took protonix when she felt like this and it did help then. She stopped it because she ran out of it. Related Data Home Medications ?Medication ?Instructions ?Recorded ?Confirmed ergocalciferol (vitamin D2) 1,250 1,250 mcg PO DAILY 04/21/23 01/27/24 mcg (50,000 unit) capsule oxycodone-acetaminophen 7.5 mg-325 1 tab PO QID 04/21/23 01/27/24 mg tablet Previous Rx's ?Medication ?Instructions ?Recorded pantoprazole 20 mg tablet,delayed 20 mg PO DAILY 30 days #30 tabs 01/27/24 release (Protonix) sucralfate 1 gram tablet (Carafate) 1 g PO QID 10 days #40 tabs 01/27/24 Allergies Allergy/AdvReac Type Severity Reaction Status Date / Time amitriptyline Allergy Unknown Verified 01/27/24 15:50 allergy reaction hydromorphone [From Dilaudid] Allergy Unknown Verified 01/27/24 15:50 allergy reaction morphine Allergy Unknown Verified 01/27/24 15:50 allergy reaction ondansetron Allergy Unknown Verified 01/27/24 15:50 allergy reaction sulfamethoxazole Allergy Unknown Verified 01/27/24 15:50 [From Bactrim] allergy reaction sumatriptan [From Imitrex] Allergy Unknown Verified 01/27/24 15:50 allergy reaction trimethoprim [From Bactrim] Allergy Unknown Verified 01/27/24 15:50 allergy reaction PFSH PFSH Disclaimer: The information contained in this section may have been updated after the patient was seen, as this information can be updated by other users. Medical History (Updated 01/27/24 @ 16:14 by Wilberto Núñez APRN) Anxiety Migraine Surgical History (Updated 04/21/23 @ 08:24 by Winsome Orozco RN) History of hysterectomy History of section History of cholecystectomy History of appendectomy Social History (Updated 07/23/22 @ 12:42 by Jovan Packer MD) Smoking Status: Current every day smoker alcohol intake: never current occupational status: other Travel in the last 8 weeks: None ROS Obtained: Yes All systems reviewed & no additional complaints except as documented Constitutional Constitutional: Denies chills, Denies fever(s) and Reports poor appetite ENT Ears, Nose, Mouth, and Throat: Denies dizziness and Denies sore throat Cardiovascular Cardiovascular: Denies dyspnea Respiratory Respiratory: Denies chest congestion, Denies cough and Denies dyspnea Gastrointestinal Gastrointestingal: Reports as per HPI Genitourinary Female Genitourinary: Denies difficulty voiding, Denies dysuria, Denies hematuria, Denies urinary frequency, Denies urinary incontinence, Denies urinary hesitancy and Denies urinary urgency Musculoskeletal Musculoskeletal: Denies arthralgias Integumentary/Breasts Skin/Breast: Denies rash Neurologic Neurologic: Denies dizziness Physical Exam General General appearance: alert and in no apparent distress Head Head exam: atraumatic and normocephalic Eye Eye exam: Present normal appearance, PERRL and EOMI ENT ENT exam: Present normal exam, normal oropharynx, mucous membranes moist, TM's normal bilaterally and normal external ear exam Neck Neck exam: Present normal inspection, full ROM and trachea midline; Absent tenderness, meningismus or lymphadenopathy Chest Chest inspection: Present normal inspection and symmetric chest wall rise; Absent tenderness, rash or abscess Respiratory Respiratory exam: Present normal lung sounds bilaterally; Absent respiratory distress, wheezes or stridor Cardiovascular Cardiovascular exam: Present regular rate and normal rhythm; Absent irregular rhythm, systolic murmur, diastolic murmur or JVD Abdominal Exam Abdominal exam: Present soft and normal bowel sounds; Absent distention, tenderness, guarding, rebound, rigidity, psoas sign, obturator sign, heel tap sign, Corea's sign, Rovsing's sign or tenderness at McBurney's Point Extremities Exam Extremities exam: Present normal inspection and full ROM; Absent tenderness Back Exam Back exam: Present normal inspection and full ROM; Absent tenderness, CVA tenderness (R) or CVA tenderness (L) Neurological Exam Neurological exam: Present alert, oriented X3 and CN II-XII intact Psychiatric Psychiatric exam: Present normal affect and normal mood Skin Skin exam: Present warm, dry, intact and normal color Lymphatic Lymphatic Findings: no adenopathy Medical Decision Making Medical Records Medical records reviewed: No I reviewed the patient's medical records. Screening: Per USPSTF and CDC recommendations, given the prevalence of disease in our region, it is our hospital?s policy to screen for HIV and viral Hepatitis for all patients aged 18 and over and those with ongoing risk factors. [place] Inquiry Pt receiving controlled substance: No Lab Data Lab results reviewed: Yes I reviewed the patient's lab results. Orders (Tests/Meds): ORDERS Category Date Time Status UA [Urinalysis and Microscopic] Stat Lab 01/27/24 15:30 Received
[2024-01-27] MEDS: BELLADONNA ALKALOIDS 60 ML ML PO (16:00)
[2024-01-27 16:20] VITALS: BP 146/93; PULSE 83; RESP 18; TEMP 36.9; O2SAT 96
[2024-01-27 17:14] LABS: Bacteria,Urine 1+ /lpf; WBC,Urine Occasional #/hpf (0-3)
== END 2024-01-27 16:24 | disposition home or self-care (01) ==
PROVIDERS: Emergency Provider Nurse Practitioner Family
DX: R10.9 Unspecified abdominal pain (principal); K21.9 Gastro-esophageal reflux disease without esophagitis
CPT/HCPCS: 81001; 99213; G0381

== ENCOUNTER 2024-01-31 19:15 | Emergency (ER) | payer OTHER, SELFPAY ==
[2024-01-31 19:18] VITALS: BP 200/120; PULSE 87; RESP 18; TEMP 37.1; O2SAT 100; BMI 38.2
--- NOTE | 2024-01-31 19:32 | CT_ITS ---
PROCEDURE INFORMATION: Exam: CT Abdomen And Pelvis With Contrast Exam date and time: 01/31/2024 8:24 PM Age: 48 years old Clinical indication: Abdominal pain TECHNIQUE: Imaging protocol: Computed tomography of the abdomen and pelvis with contrast. Radiation optimization: All CT scans at this facility use at least one of these dose optimization techniques: automated exposure control; mA and/or kV adjustment per patient size (includes targeted exams where dose is matched to clinical indication); or iterative reconstruction. Contrast material: ISOVUE; Contrast volume: 75 ml; Contrast route: IV; COMPARISON: CT ABDOMEN PELVIS W CON 08/21/2023 11:57 PM FINDINGS: Lungs: Lung bases are clear. Liver: Normal. No mass. Gallbladder and biliary ducts: Status post cholecystectomy. No evident bile duct dilatation allowing for prior cholecystectomy. Pancreas: Normal. No ductal dilation. Spleen: Normal. No splenomegaly. Adrenal glands: Normal. No mass. Kidneys and ureters: Normal. No hydronephrosis. Stomach and bowel: Multiple diverticula in the sigmoid colon. Colon otherwise unremarkable. Appendix: No evidence of appendicitis. Intraperitoneal space: Unremarkable. No free air. No significant fluid collection. Vasculature: Unremarkable. No abdominal aortic aneurysm. Lymph nodes: Unremarkable. No enlarged lymph nodes. Urinary bladder: Unremarkable as visualized. Reproductive: Hysterectomy. Interval development of a benign-appearing 4.3 cm right adnexal cyst. Bones/joints: Unremarkable. No acute fracture. Soft tissues: Unremarkable. IMPRESSION: 1. No acute abnormalities of the abdomen and pelvis. 2. Interval development of a 4.3 cm right adnexal region cystic lesion. This may reflect a ovarian cyst. However, if the ovaries are known to be surgically absent some other indeterminate cystic lesion cannot be excluded and follow-up ultrasound or CT in 2-3 months for reassessment should be considered.
--- NOTE | 2024-01-31 19:35 | ED_ITS ---
<Statement entered by Julia Ortiz DO - 01/31/24 22:52> I was consulted by the KP, and we discussed the complexity of the problems being addressed. I approved the treatment and management plan for this patient's care in the emergency department, thus performing a substantive portion of the medical decision making. Julia Ortiz DO Discharge Plan Disposition Chief Complaint: Abdominal Pain Prescriptions Prescriptions: No Action ergocalciferol (vitamin D2) 1,250 mcg (50,000 unit) capsule 1,250 mcg PO DAILY Patient Comments: TAKE 1 CAPSULE BY MOUTH ONCE A WEEK. oxycodone-acetaminophen 7.5-325 mg tablet 1 tab PO QID Patient Comments: TAKE 1 TABLET BY MOUTH FOUR TIMES A DAY FOR 30 DAYS pantoprazole [Protonix] 20 mg tablet,delayed release (DR/EC) 20 mg PO DAILY 30 Days Qty: 30 5RF sucralfate [Carafate] 1 gram tablet 1 g PO QID 10 Days Qty: 40 0RF Referrals Follow up/Referrals: Provider,Referral, MD [Primary Care Provider] - See instructions Instructions Patient Instructions: DI for Acute Abdominal Pain Print Language Print Language: Brazilian Discharge ED Provider: Julia Ortiz General Adult HPI <Ivon Marie (ED), ACTUARIAL TECHNICIAN - Last Filed: 01/31/24 21:40> General Chief complaint: Abdominal Pain Stated complaint: vomiting, abd pain Time Seen by Provider: 01/31/24 19:23 Mode of Arrival: Ambulatory Source of Information: Patient Limitations: No Limitations Description of Symptoms (Recalled from ER Triage Doc. by RN): Patient presented to the ED for abd pain. Patient states she was seen in [facility] for abd pain 3-4 days ago and was told she had an ulcer and prescribed Protonix which has helped until today. Patient states a couple hours ago she started having nausea and vomited blood streaked emesis; she did take Protonix today and says it is the first day it has not helped. Patient has burning pain in epigastric area that radiates around into back. She was supposed to see GI but has not been able to yet. On side note, patient's blood pressure is 200/120- she has been out of her blood pressure medication for about a month. History of Present Illness HPI narrative: 48-year-old female presents to the ED today with complaint of epigastric abdominal pain that has been going on for about 2 weeks. She tells me that she is under a lot of stress and has been to the urgent treatment center 3 to 4 days ago and given Protonix. She says she was supposed to follow-up with GI but the Protonix that helped until today. She noticed that today it started to get worse. She had been taking Pepto-Bismol until her stool became black. She stopped that. She says the pain became worse this evening so she came here. She has lost 6 pounds in a week. She says eating food hurts. She says that she is in so much pain her blood pressure has risen to what it is now 200/120. She has been out of her blood pressure medicines for a month. She tells me that they have been at the pharmacy she just does not taken time to get them. 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 She does have lupus and Sjogren's. She is tearful because she is under so much stress and is in a lot of pain. She knows she needs to get in with GI as well. Patient denies any chest pain. Related Data Home Medications ?Medication ?Instructions ?Recorded ?Confirmed ergocalciferol (vitamin D2) 1,250 1,250 mcg PO DAILY 04/21/23 01/27/24 mcg (50,000 unit) capsule oxycodone-acetaminophen 7.5 mg-325 1 tab PO QID 04/21/23 01/27/24 mg tablet Previous Rx's ?Medication ?Instructions ?Recorded pantoprazole 20 mg tablet,delayed 20 mg PO DAILY 30 days #30 tabs 01/27/24 release (Protonix) sucralfate 1 gram tablet (Carafate) 1 g PO QID 10 days #40 tabs 01/27/24 Allergies Allergy/AdvReac Type Severity Reaction Status Date / Time amitriptyline Allergy Unknown Verified 01/27/24 15:50 allergy reaction hydromorphone [From Dilaudid] Allergy Unknown Verified 01/27/24 15:50 allergy reaction morphine Allergy Unknown Verified 01/27/24 15:50 allergy reaction ondansetron Allergy Unknown Verified 01/27/24 15:50 allergy reaction sulfamethoxazole Allergy Unknown Verified 01/27/24 15:50 [From Bactrim] allergy reaction sumatriptan [From Imitrex] Allergy Unknown Verified 01/27/24 15:50 allergy reaction trimethoprim [From Bactrim] Allergy Unknown Verified 01/27/24 15:50 allergy reaction PFSH <Ivon Marie (ED), ACTUARIAL TECHNICIAN - Last Filed: 01/31/24 21:40> PFS Disclaimer: The information contained in this section may have been updated after the patient was seen, as this information can be updated by other users. Medical History (Updated 01/27/24 @ 16:14 by Wilberto Núñez APRN) Anxiety Migraine Surgical History (Updated 04/21/23 @ 08:24 by Winsome Orozco RN) History of hysterectomy History of section History of cholecystectomy History of appendectomy Social History (Updated 07/23/22 @ 12:42 by Jovan aPcker MD) Smoking Status: Current every day smoker alcohol intake: never current occupational status: other Travel in the last 8 weeks: None <Ivon Marie (ED), ACTUARIAL TECHNICIAN - Last Filed: 01/31/24 21:40> ROS Obtained: Yes Systems reviewed as appropriate & no additional complaints except as documented Constitutional Constitutional: Reports as per HPI Physical Exam <Ivon Marie (ED), ACTUARIAL TECHNICIAN - Last Filed: 01/31/24 21:40> General General appearance: alert and in distress Head Head exam: atraumatic and normocephalic Eye Eye exam: Present normal appearance, PERRL and EOMI ENT ENT exam: Present normal exam, normal oropharynx and mucous membranes moist Neck Neck exam: Present normal inspection, full ROM and trachea midline Chest Chest inspection: Present normal inspection Respiratory Respiratory exam: Present normal lung sounds bilaterally Cardiovascular Cardiovascular exam: Present regular rate, normal rhythm, normal heart sounds, +S1 and +S2 Abdominal Exam Abdominal exam: Present soft and tenderness Abdominal tenderness: Present LUQ and epigastrium Extremities Exam Extremities exam: Present normal inspection, full ROM and normal capillary refill Neurological Exam Neurological exam: Present alert and oriented X3 Skin Skin exam: Present warm, dry and intact Medical Decision Making <Ivon Marie (ED), ACTUARIAL TECHNICIAN - Last Filed: 01/31/24 21:40> Medical Records Screening: Per USPSTF and CDC recommendations, given the prevalence of disease in our region, it is our hospital?s policy to screen for HIV and viral Hepatitis for all patients aged 18 and over and those with ongoing risk factors. [place] Inquiry Pt receiving controlled substance: No [place] was queried for this patient: No Vital Signs: 01/31/24 19:18 Temperature 98.7 F Temperature Source Oral Pulse Rate [Right Brachial] 87 Respiratory Rate 18 Blood Pressure [Right Arm] 200/120 H Blood Pressure Mean [Right Arm] 146 02 Sat by Pulse Oximetry 100 Oxygen Delivery Method Room Air Lab Data Lab Results 01/31/24 19:55: WBC 9.0, RBC 4.62, Hgb 14.5, Hct 42.6, MCV 92.2, MCH 31.4 H, MCHC 34.0, RDW 12.6, Plt Count 236, MPV 8.1, Neut % (Auto) 63.3, Lymph % (Auto) 28.9, [place] % (Auto) 5.2, Eos % (Auto) 1.0, Baso % (Auto) 1.5, Neut # (Auto) 5.7, Lymph # (Auto) 2.6, [place] # (Auto) 0.5, Eos # (Auto) 0.1, Baso # (Auto) 0.1, Sodium 138, Potassium 3.9, Chloride 104, Carbon Dioxide 27, Anion Gap 10.9, BUN 16, Creatinine 0.60, Estimated Creat Clear 185, Estimated GFR 107, Est GFR ( Amer) 130, Glucose 85, Calcium 9.8, Total Bilirubin 0.4, AST 31, ALT 18, Alkaline Phosphatase 64, Troponin I < 0.01, Total Protein 7.7, Albumin 4.4, Globulin 3.3 H, Albumin/Globulin Ratio 1.3, Lipase 40, Urine Color Yellow, Urine Appearance Clear, Urine pH 6.5, Ur Specific [place] >= 1.030, Urine Protein Negative, Urine Glucose (UA) Negative, Urine Ketones Negative, Urine Blood Negative, Urine Nitrate Negative, Urine Bilirubin Negative, Urine Urobilinogen 0.2, Ur Leukocyte Esterase Negative, Urine RBC 10-20, Urine WBC 3-5, Ur Squamous Epith Cells 10-20, Urine Bacteria 4+, Urine Mucus 4+, HIV 1&2 Antibody Rapid Nonreactive 01/31/24 19:55 01/31/24 19:55 Orders (Tests/Meds): ED MEDICATIONS Generic Name Dose Route Start Last Admin Trade Name Freq PRN Reason Stop Dose Admin Sodium Chloride 10 ml 01/31/24 19:31 01/31/24 20:09 Sodium Chloride 0.9% 10ml Vial IV 03/01/24 19:30 10 ml NEEDED PRN Administration dilute protonix Sodium Chloride 10 ml 01/31/24 20:36 01/31/24 20:36 Sodium Chloride 0.9% 10ml Syr (Rad Only) IV 03/01/24 20:35 10 ml NEEDED PRN Administration Maintain IV Site Sucralfate 1 gm 01/31/24 21:00 01/31/24 20:15 Sucralfate 1gm Tablet PO 03/01/24 20:59 1 gm ACHS TAYE Administration Discontinued Medications Generic Name Dose Route Start Last Admin Trade Name Nicolette PRN Reason Stop Dose Admin Iopamidol 75 ml 01/31/24 20:36 01/31/24 20:36 Iopamidol-370 (76%);100ml Bottle IV 01/31/24 20:37 75 ml ONCE ONE Administration Pantoprazole Sodium 40 mg 01/31/24 19:31 01/31/24 20:09 Pantoprazole 40mg Vial IV 01/31/24 19:32 40 mg ONCE ONE Administration Promethazine HCl 12.5 mg 01/31/24 19:34 01/31/24 20:09 Promethazine Hcl 25mg/Ml 1ml Vial IV 01/31/24 19:35 12.5 mg ONCE ONE Administration Sodium Chloride 25 ml 01/31/24 19:34 01/31/24 20:09 Sodium Chloride 0.9% 25ml Bag IV 01/31/24 19:35 25 ml ONCE ONE Administration ORDERS Category Date Time Status CT abdomen pelvis w con Stat Cat Scan 01/31/24 19:32 Completed Complete Blood Count Auto Diff Stat Lab 01/31/24 19:55 Completed Comprehensive Metabolic Panel Stat Lab 01/31/24 19:55 Completed HIV (1&2) Antibody Rapid Stat Lab 01/31/24 19:55 Completed Hep C Ab with Reflex to RNA Stat Lab 01/31/24 19:55 Received Lipase Stat Lab 01/31/24 19:55 Completed Troponin I Stat Lab 01/31/24 19:55 Completed Urinalysis and Microscopic Stat Lab 01/31/24 19:55 Completed Urine Culture Stat Micro 01/31/24 19:55 Received Medical Decision Narrative: Insert review patient is a 48-year-old female presenting to the emergency department for evaluation of abdominal pain. Patient is hemodynamically stable and nontoxic-appearing upon arrival, afebrile. Differential diagnosis includes ulcer, cholecystitis, pancreatitis among others. Workup will be conducted with hematologic labs, specific imaging including a CT scan. Initial inventions include analgesics, Carafate, Protonix. Initial workup reviewed by me which shows a negative CT with exception of a ovarian cyst which patient already knew about. Formal imaging read remarkable fo ovarian cyst which we saw on the CT scan but otherwise negative. Upon repeat evaluation patient was improved with both blood pressure and abdominal pain. We discussed picking up her blood pressure medication along with her Carafate and Protonix. Patient is safe for discharge home <Julia Ortiz, - Last Filed: 01/31/24 19:48> Vital Signs: 01/31/24 19:18 Temperature 98.7 F Temperature Source Oral Pulse Rate [Right Brachial] 87 Respiratory Rate 18 Blood Pressure [Right Arm] 200/120 H Blood Pressure Mean [Right Arm] 146 02 Sat by Pulse Oximetry 100 Oxygen Delivery Method Room Air Lab Data Lab Results 01/31/24 19:55: WBC 9.0, RBC 4.62, Hgb 14.5, Hct 42.6, MCV 92.2, MCH 31.4 H, MCHC 34.0, RDW 12.6, Plt Count 236, MPV 8.1, Neut % (Auto) 63.3, Lymph % (Auto) 28.9, [place]ws[place] % (Auto) 5.2, Eos % (Auto) 1.0, Baso % (Auto) 1.5, Neut # (Auto) 5.7, Lymph # (Auto) 2.6, [place] # (Auto) 0.5, Eos # (Auto) 0.1, Baso # (Auto) 0.1, Sodium 138, Potassium 3.9, Chloride 104, Carbon Dioxide 27, Anion Gap 10.9, BUN 16, Creatinine 0.60, Estimated Creat Clear 185, Estimated GFR 107, Est GFR ( Amer) 130, Glucose 85, Calcium 9.8, Total Bilirubin 0.4, AST 31, ALT 18, Alkaline Phosphatase 64, Troponin I < 0.01, Total Protein 7.7, Albumin 4.4, Globulin 3.3 H, Albumin/Globulin Ratio 1.3, Lipase 40, Urine Color Yellow, Urine Appearance Clear, Urine pH 6.5, Ur Specific [place] >= 1.030, Urine Protein Negative, Urine Glucose (UA) Negative, Urine Ketones Negative, Urine Blood Negative, Urine Nitrate Negative, Urine Bilirubin Negative, Urine Urobilinogen 0.2, Ur Leukocyte Esterase Negative, Urine RBC 10-20, Urine WBC 3-5, Ur Squamous Epith Cells 10-20, Urine Bacteria 4+, Urine Mucus 4+, HIV 1&2 Antibody Rapid Nonreactive Orders (Tests/Meds): ED MEDICATIONS Generic Name Dose Route Start Last Admin Trade Name Sonnyq PRN Reason Stop Dose Admin Sodium Chloride 10 ml 01/31/24 19:31 01/31/24 20:09 Sodium Chloride 0.9% 10ml Vial IV 03/01/24 19:30 10 ml NEEDED PRN Administration dilute protonix Sodium Chloride 10 ml 01/31/24 20:36 01/31/24 20:36 Sodium Chloride 0.9% 10ml Syr (Rad Only) IV 03/01/24 20:35 10 ml NEEDED PRN Administration Maintain IV Site Sucralfate 1 gm 01/31/24 21:00 01/31/24 20:15 Sucralfate 1gm Tablet PO 03/01/24 20:59 1 gm ACHS TAYE Administration Discontinued Medications Generic Name Dose Route Start Last Admin Trade Name Nicolette PRN Reason Stop Dose Admin Iopamidol 75 ml 01/31/24 20:36 01/31/24 20:36 Iopamidol-370 (76%);100ml Bottle IV 01/31/24 20:37 75 ml ONCE ONE Administration Pantoprazole Sodium 40 mg 01/31/24 19:31 01/31/24 20:09 Pantoprazole 40mg Vial IV 01/31/24 19:32 40 mg ONCE ONE Administration Promethazine HCl 12.5 mg 01/31/24 19:34 01/31/24 20:09 Promethazine Hcl 25mg/Ml 1ml Vial IV 01/31/24 19:35 12.5 mg ONCE ONE Administration Sodium Chloride 25 ml 01/31/24 19:34 01/31/24 20:09 Sodium Chloride 0.9% 25ml Bag IV 01/31/24 19:35 25 ml ONCE ONE Administration ORDERS Category Date Time Status CT abdomen pelvis w con Stat Cat Scan 01/31/24 19:32 Completed Complete Blood Count Auto Diff Stat Lab 01/31/24 19:55 Completed Comprehensive Metabolic Panel Stat Lab 01/31/24 19:55 Completed HIV (1&2) Antibody Rapid Stat Lab 01/31/24 19:55 Completed Hep C Ab with Reflex to RNA Stat Lab 01/31/24 19:55 Received Lipase Stat Lab 01/31/24 19:55 Completed Troponin I Stat Lab 01/31/24 19:55 Completed Urinalysis and Microscopic Stat Lab 01/31/24 19:55 Completed Urine Culture Stat Micro 01/31/24 19:55 Received ECG Data Tracing #1: I reviewed this ECG and interpreted as documented below: Normal sinus rhythm with a ventricular rate of 72 bpm. Normal axis and intervals. No acute ST changes concerning for ischemia. ECG initial impression date: 01/31/24 ECG initial impression time: 19:47 Critical Care <Ivon Marie (ED), ACTUARIAL TECHNICIAN - Last Filed: 01/31/24 21:40> Critical Care Time Critical Care Time: No
--- NOTE | 2024-01-31 19:44 | ECG_ITS ---
APPROVED REPORT Exam: Resting ECG HR:72 bpm ECG Measurements Heart Rate 72 AXES DC 145 P 69 QRSd 84 QRS 58 QT 383 T 51 QTc 407 Conclusion SINUS RHYTHM NORMAL ECG Electronically signed by : OH INGRAM, 01/31/2024 23:25:25
[2024-01-31 20:04] LABS: Microscopic, Urine URINE MICROSCOPIC (MICROSCOPIC)
[2024-01-31 20:06] LABS: Appearance,Urine CLEAR (Clear); Bilirubin,Urine Negative (Negative); Blood, Urine Negative (Negative); Color,Urine YELLOW (Yellow); Glucose,Urine (UA) Negative (Negative); Ketones,Urine Negative (Negative); Leukocyte Esterase,Urine Negative (Negative); Nitrate,Urine Negative (Negative); PH,Urine 6.5 (5.0-8.5); Protein,Urine Negative (Negative); Specific Gravity, Urine >= 1.030 (1.005-1.030); Urobilinogen,Urine 0.2 EU/dl (0.2)
[2024-01-31] MEDS: PANTOPRAZOLE 40MG VIAL 40 MG IV (20:09)
[2024-01-31] MEDS: SODIUM CHLORIDE 0.9% 10ML VIAL 10 ML IV (20:09)
[2024-01-31] MEDS: SODIUM CHLORIDE 0.9% 25ML BAG 25 ML IV (20:09)
[2024-01-31] MEDS: PROMETHAZINE HCL 25MG/ML 1ML VIAL 12.5 MG IV (20:09)
[2024-01-31 20:15] LABS: Albumin Level 4.4 g/dl (3.5-5.0); Chloride 104 mmol/L (98-107); Potassium 3.9 mmoL/L (3.5-5.1); Sodium 138 mmol/L (136-145)
[2024-01-31] MEDS: SUCRALFATE 1GM TABLET 1 GM PO (20:15)
[2024-01-31 20:17] LABS: Blood Urea Nitrogen 16 mg/dl (7-17); Creatinine Clearance Estimated 185 mL/min (50-200); Estimated Glomerular Filt Rate 107 ml/min (>60); GFR (African American) 130 ML/MIN (>60)
[2024-01-31 20:18] LABS: Alanine Aminotransferase 18 U/L (12-78); Albumin/Globulin Ratio 1.3 (1.1-1.8); Alkaline Phosphatase 64 U/L (38-126); Anion Gap 10.9 mEq/L (5-15); Aspartate Amino Transferase 31 U/L (14-36); Bilirubin,Total 0.4 mg/dl (0.2-1.3); Calcium 9.8 mg/dl (8.4-10.2); Carbon Dioxide 27 mmol/L (22.0-30.0); Globulin 3.3 g/dL (1.3-3.2); Glucose 85 mg/dl (74-100); Total Protein,Serum 7.7 g/dl (6.3-8.2)
[2024-01-31 20:20] LABS: Basophils # 0.1 K/mm3 (0-0.2); Basophils % 1.5 % (0.1-2.0); Eosinophils # 0.1 K/mm3 (0.0-0.4); Hematocrit 42.6 % (37.0-47.0); Hemoglobin 14.5 g/dL (12.2-16.2); Lymphocytes # 2.6 K/mm3 (0.7-4.5); Lymphocytes % 28.9 % (10-50); Mean Corpuscular Hemoglobin 31.4 pg (27.0-31.2); Mean Corpuscular Volume 92.2 fl (81-99); Mean Platelet Volume 8.1 fl (7.4-10.4); Monocytes # 0.5 K/mm3 (0.1-1.0); Monocytes % 5.2 % (1.7-9.3); Neutrophils # 5.7 K/mm3 (1.8-7.8); Neutrophils % 63.3 % (37.0-80.0); Platelet Count 236 K/mm3 (142-424); Red Blood Count 4.62 M/mm3 (4.20-5.40); Red Cell Distribution Width 12.6 % (11.5-17.5)
[2024-01-31 20:27] LABS: Bacteria,Urine 4+ /lpf; Mucus,Urine 4+ /lpf
[2024-01-31] MEDS: IOPAMIDOL-370 (76%);100ML BOTTLE 75 ML IV (20:36)
[2024-01-31] MEDS: SODIUM CHLORIDE 0.9% 10ML SYR (RAD ONLY) 10 ML IV (20:36)
[2024-01-31 20:48] LABS: Lipase 40 U/L (23-300)
[2024-01-31 21:02] LABS: Troponin I < 0.01 ng/ml (0.00-0.034)
[2024-01-31 21:21] LABS: HIV (1&2) Antibody Rapid NONREACTIVE (NONREACTIVE)
[2024-01-31 21:49] VITALS: BP 189/105; PULSE 74; RESP 18; TEMP 36.6; O2SAT 99
[2024-02-02 08:29] LABS: HCV Ab Non Reactive (Non Reactive)
== END 2024-01-31 21:51 | disposition home or self-care (01) ==
PROVIDERS: Nurse Practitioner; Emergency Provider Emergency Medicine
DX: K25.9 Gastric ulcer, unspecified as acute or chronic, without hemorrhage or perforation (principal); R10.13 Epigastric pain; R11.2 Nausea with vomiting, unspecified
CPT/HCPCS: 74177; 80053; 81001; 83690; 84484; 85025; 86803; 87086; 87389; 93005; 96374; 96375; 99285; J2550; Q9967

== ENCOUNTER 2024-02-13 10:20 | Day surgery (SDC) | payer OTHER, SELFPAY ==
--- NOTE | 2024-02-07 13:24 | SUR.PREOP ---
1324: left with arrival time and call back number.
[2024-02-11 12:41] VITALS: BMI 38.6
[2024-02-13] MEDS: LACTATED RINGERS 1000ML 1,000 ML 25 ML IV (10:36)
[2024-02-13 10:40] VITALS: BP 124/74; PULSE 57; RESP 18; TEMP 36.1; O2SAT 99
--- NOTE | 2024-02-13 10:58 | EXP.ANES.CKL ---
[facility] Disclaimer: The information contained in this section may have been updated after the patient was seen, as this information can be updated by other users. Medical History History of gastroesophageal reflux (GERD) Hypertension Anxiety Migraine Surgical History History of hysterectomy History of section History of cholecystectomy History of appendectomy Family History Other No significant family history Social History Smoking Status: Current every day smoker alcohol intake: never substance use type: denies use current occupational status: other Travel in the last 8 weeks: None [facility] Anesthesia Checklist Patient Identification Patient Identification: Arm Band Structural Data Admitted From: Home Planned Operative Procedure/s: EGD Consent for Planned Operative Procedure(s) Verified: Yes Verified Documents: Surgical Consent and History and Physical NPO Status Verified Time NPO: 00:00 Additional verifications Anesthesia Reactions: No Airway Assessment Mallampati Score:: Class II C-Spine Mobility Assessed: Yes TMJ Mobility Assessed: Yes Dentition: Good Dentition Neurological Assessment Level of Consciousness: Awake, Alert and Appropriate Anesthesia Plan Anesthesia Risk discussed: Yes Anesthesia Plan: Verified ASA Class: II Anesthesia Type: MAC
--- NOTE | 2024-02-13 11:02 | EXP.HP ---
History of Present Illness *Admission Date: 02/13/24 *Reason for visit:: Epigastric pain/nausea and vomiting/hematemesis *History of present illness: Mrs. Arizmendi is a 48-year-old female who is here for epigastric pain, nausea, vomiting and hematemesis. She has gone to the emergency department twice and urgent care once. She has been on Protonix and Carafate. She has a long history of chronic NSAID use.. The examination is deemed medically necessary for EGD. The patient has been seen, interviewed and examined prior to the procedure by both myself and the anesthesia provider. [facility] Disclaimer: The information contained in this section may have been updated after the patient was seen, as this information can be updated by other users. Medical History History of gastroesophageal reflux (GERD) Hypertension Anxiety Migraine Surgical History History of hysterectomy History of section History of cholecystectomy History of appendectomy Family History Other No significant family history Social History (Updated 02/13/24 @ 10:59 by Darin Calvo CRNA) Smoking Status: Current every day smoker alcohol intake: never substance use type: denies use current occupational status: other Travel in the last 8 weeks: None Review of Systems Review of Systems Review of systems (narrative): Negative *Cardiovascular Comments: Negative *Gastrointestinal Comments: Negative *Genitourinary Comments: Negative *Musculoskeletal Comments: Negative *Neurologic Comments: Negative Meds Home Medications and Allergies Home Medications ?Medication ?Instructions ?Recorded ?Confirmed ?Type ergocalciferol (vitamin D2) 1,250 1,250 mcg PO DAILY 04/21/23 02/11/24 History mcg (50,000 unit) capsule oxycodone-acetaminophen 7.5 mg-325 1 tab PO QID 04/21/23 02/11/24 History mg tablet amlodipine 2.5 mg tablet 2.5 mg PO DAILY 02/05/24 02/11/24 History pantoprazole 40 mg tablet,delayed 40 mg PO DAILY 4 weeks #30 tabs 02/05/24 02/11/24 Rx release (Protonix) sucralfate 1 gram tablet (Carafate) 1 g PO BID #60 tabs 02/05/24 02/11/24 Rx New Prescriptions to Start Prescriptions: Allergies Allergy/AdvReac Type Severity Reaction Status Date / Time amitriptyline Allergy Unknown Verified 02/13/24 10:38 allergy reaction hydromorphone [From Dilaudid] Allergy Unknown Verified 02/13/24 10:38 allergy reaction morphine Allergy Unknown Verified 02/13/24 10:38 allergy reaction ondansetron Allergy Unknown Verified 02/13/24 10:38 allergy reaction sulfamethoxazole Allergy Unknown Verified 02/13/24 10:38 [From Bactrim] allergy reaction sumatriptan [From Imitrex] Allergy Unknown Verified 02/13/24 10:38 allergy reaction trimethoprim [From Bactrim] Allergy Unknown Verified 02/13/24 10:38 allergy reaction Exam Data for Last 24 hours Vital signs and Labs for Last 24 Hours: Temp Pulse Resp BP Pulse Ox O2 Del Method 97.0 F L 57 L 18 124/74 99 Room Air 02/13/24 10:40 02/13/24 10:40 02/13/24 10:40 02/13/24 10:40 02/13/24 10:40 02/13/24 10:40 I & O for Last 24 hours: Intake & Output 02/10/24 02/11/24 02/12/24 02/13/24 23:59 23:59 23:59 23:59 Weight 225 lb *Routine HEENT Exam Head: Present normocephalic Eye: Present EOMI and PERRL ENT: Present mucous membranes moist *Routine Neck Exam Neck: Present supple *Routine Respiratory Exam Respiratory: Present CTA bilaterally *Routine Cardiovascular Exam Cardiovascular: Present RRR *Routine Abdominal Exam Abdominal: Present soft and normoactive bowel sounds; Absent tenderness *Routine Rectal Exam Rectal:: deferred *Routine Genitalia Exam Genitalia:: deferred *Routine Extremities Exam Extremities: Absent cyanosis, clubbing or edema *Routine Skin Exam Skin: Present warm; Absent rash *Routine Neurological Exam Neurological: Present alert and oriented X3 Assessment and Plan *Assessment and plan (1) Epigastric pain: Status: Acute Category: Medical Code(s): R10.13 - Epigastric pain (2) Nausea & vomiting: Status: Acute Category: Medical Code(s): R11.2 - Nausea with vomiting, unspecified (3) Hematemesis: Status: Acute Category: Medical Code(s): K92.0 - Hematemesis Plan A/P: 1. Epigastric pain, nausea and vomiting and hematemesis is the preprocedural diagnosis. The patient will be anesthetized/sedated using MAC sedation. The patient has been seen and examined. Cardiac and lung assessment prior to the examination is stable. Proceed with planned EGD
--- NOTE | 2024-02-13 11:06 | P.PCN_ITS ---
[facility] Procedure Note Date: 02/13/24 Time: 11:25 Procedure Note:: Upper Endoscopy Procedure Report: Esophagogastroduodenoscopy with cold biopsies and TTS balloon dilation Endoscopost: Jr Costello II, MD Referring Physician: Marely Gonzalez MD ([address] [place] [address]) Date of Procedure: February 13, 2024 Equipment: Olympus GIF 190 standard upper endoscope Sedation: MAC sedation Indications: Mrs. Arizmendi is a 48-year-old female who had influenza 3 to 4 weeks ago and has since had severe epigastric pain. She has been to the emergency department twice in urgent treatment center once. She has been on Protonix which did not help and this was increased from 20 to 40 mg. She also was on Carafate. Her CAT scan showed no significant abnormalities. Her boyfriend had H. pylori a year ago. The patient has been taking ibuprofen 800 mg once or twice a day for years. At [address] to the emergency department she had nausea, vomiting and had 1 episode of hematemesis. She has bloating, belching and gassiness. She is under a lot of stress. She reports no melena. Her father had gastric ulcers. The patient is having ongoing dyspepsia despite now taking Protonix twice daily. She can only take the Carafate once daily. She does report nausea, early satiety, bloating and some belching. She has occasional dysphagia. This is her first EGD. Procedure: Prior to the procedure, a history and physical exam was performed, and patient's medications and allergies were reviewed. The risks, benefits and alternatives of the sedation and procedure were discussed with the patient. All questions were answered and informed consent was obtained. The patient was brought to the procedure room. Patient identification and proposed procedure were verified by the physician and the nurse. The patient was placed in a left lateral decubitus position and the scope was passed under direct vision. Throughout the procedure, the patient's blood pressure, pulse, and oxygen saturations were monitored continuously. The upper GI endoscopy was accomplished without difficulty. The patient tolerated the procedure well. Findings: The scope was passed directly into the upper esophagus and advanced to the third portion of the duodenum. The post bulbar duodenum and duodenal bulb were normal with normal mucosa and conniventes. The scope was withdrawn through a normal duodenal bulb and pylorus into the stomach. There was some linear reactive gastropathy of the prepyloric antrum. There was also a clean-based healing antral ulcer (7-day mm) in the prepyloric region most consistent with NSAID induced ulceration. The remainder of the body and fundus of the stomach are grossly normal. Biopsies were taken along the lesser curvature to rule out H. pylori. Upon retroflexion there was a very small sliding 1 to 2 cm hiatal hernia. The scope was then withdrawn into the esophagus. There was no evidence of reflux esophagitis or Singh's. There was no Schatzki's ring or corrugation. There were no rings or strictures. There was evidence of tertiary contractions and mild esophageal dysmotility. The entire esophagus was dilated to 60 Georgian/20 mm with a TTS hydrostatic balloon. The remainder of the esophageal mucosa was normal. Impression: 1. Healing prepyloric antral clean-based gastric ulceration (7 to 8 mm) with adjacent regenerative mucosa 2. Linear reactive gastropathy with some bile reflux 3. Nonerosive GERD with moderate esophageal dysmotility and small 1 to 2 cm hiatal hernia status post dilation to 20 mm Plan: I will follow-up the biopsies to rule out H. pylori. I suspect that this is entirely NSAID ulceration. I would avoid NSAIDs altogether. Interestingly, 90% of NSAID ulcerations occur without clinical abdominal pain. I do feel that some of her dyspepsia is related to the mild gastropathy and functional dysp epsia. We will discuss treatment options. Clearly if she is using NSAIDs, I would add misoprostol. I would also consider other dyspeptic therapies including Iberogast.
[2024-02-13 11:10] VITALS: O2SAT 100
[2024-02-13 11:26] VITALS: BP 115/78; PULSE 74; RESP 14; TEMP 36.5; O2SAT 95
[2024-02-13 11:36] VITALS: BP 146/74; PULSE 76; RESP 14; O2SAT 96
[2024-02-13 11:46] VITALS: BP 135/86; PULSE 60; RESP 18; O2SAT 99
[2024-02-13 11:56] VITALS: BP 133/86; PULSE 61; RESP 18; O2SAT 98
== END 2024-02-13 12:17 | disposition home or self-care (01) ==
PROVIDERS: Visit Provider Internal Medicine Gastroenterology
PROC: 0DJ08ZZ Inspection of Upper Intestinal Tract, Via Natural or Artificial Opening Endoscopic (ICD-10-PCS; CPT 43235; principal; 2024-02-13 10:30)
DX: R10.13 Epigastric pain (principal); K92.0 Hematemesis; K25.9 Gastric ulcer, unspecified as acute or chronic, without hemorrhage or perforation; K44.9 Diaphragmatic hernia without obstruction or gangrene; K31.9 Disease of stomach and duodenum, unspecified; K21.9 Gastro-esophageal reflux disease without esophagitis; K22.4 Dyskinesia of esophagus
CPT/HCPCS: 43239; 43249; C1726; J7120

== ENCOUNTER 2024-02-24 08:30 | Emergency (ER) | payer OTHER, SELFPAY ==
[2024-02-24 08:45] VITALS: BP 141/76; PULSE 85; RESP 16; TEMP 37.1; O2SAT 96; BMI 38.5
--- NOTE | 2024-02-24 08:54 | EXP.UTC ---
Discharge Plan Disposition Patient Disposition: Home, Self-Care Condition: Good Prescriptions Prescriptions: New benzonatate 100 mg capsule 100 mg PO TID PRN (Reason: cough) Qty: 30 0RF No Action amlodipine 2.5 mg tablet 2.5 mg PO DAILY Patient Comments: TAKE 1 TABLET BY MOUTH EVERY DAY pantoprazole [Protonix] 40 mg tablet,delayed release (DR/EC) 40 mg PO DAILY 28 Days Qty: 30 2RF sucralfate [Carafate] 1 gram tablet 1 g PO BID Qty: 60 2RF Relistor 150 mg tablet 450 mg PO DAILY Qty: 90 12RF Rx Instructions: Please take 3 tablets p.o. daily misoprostol 100 mcg tablet 100 mcg PO BID Qty: 120 2RF Rx Instructions: Please take 1 tablet p.o. twice daily ergocalciferol (vitamin D2) 1,250 mcg (50,000 unit) capsule 1,250 mcg PO DAILY Patient Comments: TAKE 1 CAPSULE BY MOUTH ONCE A WEEK. oxycodone-acetaminophen 7.5-325 mg tablet 1 tab PO QID Patient Comments: TAKE 1 TABLET BY MOUTH FOUR TIMES A DAY FOR 30 DAYS Referrals Follow up/Referrals: Provider,Referral, MD [Primary Care Provider] - See instructions Activity Restrictions/Add. Instructions Additional Instructions/Restrictions: *Monitor Temp, Over the counter Motrin or Tylenol as directed/as needed Tylenol every 4 hours and Motrin every 6 hours (as long as your family doctor has told you that you can take it) for fever or pain. and straight to ER if unable to lower temp less than 101.0 after medication given *Warm salt water gargles may help to soothe the throat *Throat Lozenges? *Warm fluids like tea with honey may help to soothe the throat? *Sleep elevated *Humidifier/Vaporizer Follow up IMMEDIATELY for new or worsening symptoms or no Noticeable improvement over the next 48-72 hours. 911 for difficulty breathing or swallowing You were tested for today for COVID19 your test result should be back in the next 24 hours, you may check your results on the [facility] Clinical Impressions Clinical Impression: Viral syndrome Instructions Patient Instructions: DI for Viral Syndrome, Cough Print Language Print Language: Nigerian Discharge ED Provider: Geno Warner [facility] [place] H[place] General Stated complaint: body aches, low grade fever, cough Mode of Arrival: Ambulatory Source of Information: Patient Limitations: No Limitations Time Seen by Provider: 02/24/24 08:54 Description of Symptoms (Recalled from Triage Doc. by RN): Patient reports body aches, fever, cough, congestion and fatigue. HEENT Symptoms (Recalled from RN notes): Yes Resp Symptoms (Recalled from RN notes): No Skin Symptoms (Recalled from RN notes): No MS Symptoms (Recalled from RN notes): Yes Functional Status (Recalled from RN notes): wnl History of Present Illness Provider Complaint: Patient states that she started feeling bad yesterdays with body aches, chills, headache, feeling feverish and fatigue States she feels like she did when she had COVID States wants to get tested for flu and COVID States today she was still feeling bad so she came in to get tested Related Data Home Medications ?Medication ?Instructions ?Recorded ?Confirmed ergocalciferol (vitamin D2) 1,250 1,250 mcg PO DAILY 04/21/23 02/11/24 mcg (50,000 unit) capsule oxycodone-acetaminophen 7.5 mg-325 1 tab PO QID 04/21/23 02/11/24 mg tablet amlodipine 2.5 mg tablet 2.5 mg PO DAILY 02/05/24 02/11/24 Previous Rx's ?Medication ?Instructions ?Recorded pantoprazole 40 mg tablet,delayed 40 mg PO DAILY 4 weeks #30 tabs 02/05/24 release (Protonix) sucralfate 1 gram tablet (Carafate) 1 g PO BID #60 tabs 02/05/24 methylnaltrexone 150 mg tablet 450 mg (3 x 150 mg) PO DAILY #90 02/17/24 (Relistor) tabs misoprostol 100 mcg tablet 100 mcg PO BID #120 tabs 02/17/24 benzonatate 100 mg capsule 100 mg PO TID PRN cough #30 caps 02/24/24 Allergies Allergy/AdvReac Type Severity Reaction Status Date / Time amitriptyline Allergy Unknown Verified 02/13/24 10:38 allergy reaction hydromorphone [From Dilaudid] Allergy Unknown Verified 02/13/24 10:38 allergy reaction morphine Allergy Unknown Verified 02/13/24 10:38 allergy reaction ondansetron Allergy Unknown Verified 02/13/24 10:38 allergy reaction sulfamethoxazole Allergy Unknown Verified 02/13/24 10:38 [From Bactrim] allergy reaction sumatriptan [From Imitrex] Allergy Unknown Verified 02/13/24 10:38 allergy reaction trimethoprim [From Bactrim] Allergy Unknown Verified 02/13/24 10:38 allergy reaction Worker's Comp Is this a Worker's Comp case?: No [facility] Disclaimer: The information contained in this section may have been updated after the patient was seen, as this information can be updated by other users. Medical History (Updated 02/24/24 @ 09:03 by Geno Warner APRN) Gastric ulcer History of gastroesophageal reflux (GERD) Hypertension Anxiety Migraine Surgical History History of hysterectomy History of section History of cholecystectomy History of appendectomy Family History Other No significant family history Social History (Updated 02/13/24 @ 10:59 by Darin Calvo CRNA) Smoking Status: Current every day smoker alcohol intake: never substance use type: denies use current occupational status: other Travel in the last 8 weeks: None ROS Obtained: Yes All systems reviewed & no additional complaints except as documented and Yes Systems reviewed as appropriate & no additional complaints except as documented Constitutional Constitutional: Reports system reviewed and no additional complaints, except as documented, Reports as per HPI, Reports body ache, Reports chills, Reports fatigue, Reports fever(s) and Reports headache(s) ENT Ears, Nose, Mouth, and Throat: Reports system reviewed and no additional complaints, except as documented, Reports as per HPI and Reports headache(s) Cardiovascular Cardiovascular: Reports system reviewed and no additional complaints, except as documented and Reports as per HPI Respiratory Respiratory: Reports system reviewed and no additional complaints, except as documented and Reports as per HPI Gastrointestinal Gastrointestingal: Reports system reviewed and no additional complaints, except as documented and as per HPI Neurologic Neurologic: Reports headache(s) Endocrine Endocrine: Reports fatigue Physical Exam General General appearance: alert and in no apparent distress ENT ENT exam: Present normal exam, normal oropharynx, mucous membranes moist and TM's normal bilaterally Respiratory Respiratory exam: Present normal lung sounds bilaterally; Absent respiratory distress or wheezes Cardiovascular Cardiovascular exam: Present regular rate, normal rhythm and normal heart sounds Abdominal Exam Abdominal exam: Present soft and normal bowel sounds; Absent distention or tenderness Neurological Exam Neurological exam: Present alert, oriented X3 and normal gait Medical Decision Making Medical Records Screening: Per USPSTF and CDC recommendations, given the prevalence of disease in our region, it is our hospital?s policy to screen for HIV and viral Hepatitis for all patients aged 18 and over and those with ongoing risk factors. [place] Inquiry Pt receiving controlled substance: No [place] was queried for this patient: No Vital Signs: 02/24/24 08:45 Temperature 98.7 F Temperature Source Oral Pulse Rate [Radial] 85 Respiratory Rate 16 Blood Pressure [Right Arm] 141/76 H Blood Pressure Mean [Right Arm] 97 Blood Pressure Source [Right Arm] Automatic Cuff Blood Pressure Position [Right Arm] Sitting 02 Sat by Pulse Oximetry 96 Oxygen Delivery Method Room Air Lab Data Lab results reviewed: Yes I reviewed the patient's lab results.
[2024-02-24 08:59] LABS: UTC Influenza A Antigen Negative (Negative); UTC Influenza B Antigen Negative (Negative)
[2024-02-24 09:14] VITALS: BP 141/76; PULSE 85; RESP 16; TEMP 37.1; O2SAT 96
== END 2024-02-24 09:15 | disposition home or self-care (01) ==
PROVIDERS: Emergency Provider Nurse Practitioner
DX: B34.9 Viral infection, unspecified (principal); R05.9 Cough, unspecified; R50.9 Fever, unspecified; R53.83 Other fatigue; R09.81 Nasal congestion; R51.9 Headache, unspecified
CPT/HCPCS: 87635; 87804; 99212; G0381

== ENCOUNTER 2024-05-28 19:20 | Emergency (ER) | payer OTHER, SELFPAY ==
[2024-05-28 19:38] VITALS: BP 179/90; PULSE 83; RESP 18; TEMP 37.4; O2SAT 99; BMI 39.4
[2024-05-28 19:50] LABS: Coronavirus 19, PCR Not Detected (NotDetected); Influenza B, PCR Not Detected (NotDetected)
[2024-05-28 20:18] LABS: Influenza A, PCR Not Detected (NotDetected)
[2024-05-28 20:49] VITALS: BP 000/00; PULSE 0; RESP 0; TEMP -17.7; TEMP 0; O2SAT 0
== END 2024-05-28 20:50 | disposition left against medical advice (07) ==
PROVIDERS: Emergency Provider Emergency Medicine
DX: R11.0 Nausea (principal); M79.18 Myalgia, other site
CPT/HCPCS: 87636; 99281

== ENCOUNTER 2024-07-03 19:19 | Emergency (ER) | payer OTHER, SELFPAY ==
--- NOTE | 2024-07-03 19:22 | ECG_ITS ---
APPROVED REPORT Exam: Resting ECG HR:75 bpm ECG Measurements Heart Rate 75 AXES OK 143 P 56 QRSd 79 QRS 57 QT 375 T 52 QTc 404 Conclusion SINUS RHYTHM NORMAL ECG Electronically signed by : OH INGRAM, 07/03/2024 23:19:40
[2024-07-03 19:26] VITALS: BP 165/96; PULSE 80; RESP 18; TEMP 36.7; O2SAT 99; BMI 38.4
[2024-07-03 19:30] VITALS: BP 162/101; PULSE 77; RESP 15; O2SAT 100
--- NOTE | 2024-07-03 19:32 | XR_ITS ---
PROCEDURE INFORMATION: Exam: XR Chest Exam date and time: 07/03/2024 7:35 PM Age: 48 years old Clinical indication: Pain; Chest pressure; Additional info: Chest pain TECHNIQUE: Imaging protocol: Radiologic exam of the chest. Views: 2 views. COMPARISON: CT ABDOMEN PELVIS W CON 01/31/2024 8:24 PM FINDINGS: Lungs: Unremarkable. No consolidation. Pleural spaces: Unremarkable. No pleural effusion. No pneumothorax. Heart/Mediastinum: Unremarkable. No cardiomegaly. Bones/joints: Unremarkable. IMPRESSION: No acute findings.
--- NOTE | 2024-07-03 19:32 | CT_ITS ---
PROCEDURE INFORMATION: Exam: CT Head Without Contrast Exam date and time: 07/03/2024 7:43 PM Age: 48 years old Clinical indication: Pain; Headache; Additional info: Headache, new features TECHNIQUE: Imaging protocol: Computed tomography of the head without contrast. Radiation optimization: All CT scans at this facility use at least one of these dose optimization techniques: automated exposure control; mA and/or kV adjustment per patient size (includes targeted exams where dose is matched to clinical indication); or iterative reconstruction. COMPARISON: CT VENOGRAM HEAD 05/22/2023 9:52 AM FINDINGS: Brain: Normal. No hemorrhage. Unremarkable white matter. No mass effect. Cerebral ventricles: No ventriculomegaly. Paranasal sinuses: Visualized sinuses are unremarkable. No fluid levels. Mastoid air cells: Visualized mastoid air cells are well aerated. Bones: Unremarkable. No acute fracture. Soft tissues: Unremarkable. IMPRESSION: No acute intracranial abnormality.
[2024-07-03] MEDS: LACTATED RINGERS 1000ML 1,000 ML 999 ML IV (19:40)
[2024-07-03] MEDS: PROCHLORPERAZINE 10MG/2ML VIAL 5 MG IV (19:41)
[2024-07-03] MEDS: KETOROLAC 30MG/ML VIAL 15 MG IV (19:42)
--- NOTE | 2024-07-03 19:42 | ED_ITS ---
Discharge Plan Disposition Patient Disposition: Home, Self-Care Condition: Good Prescriptions Prescriptions: No Action amlodipine 2.5 mg tablet 2.5 mg PO DAILY Patient Comments: TAKE 1 TABLET BY MOUTH EVERY DAY pantoprazole [Protonix] 40 mg tablet,delayed release (DR/EC) 40 mg PO DAILY 28 Days Qty: 30 2RF sucralfate [Carafate] 1 gram tablet 1 g PO BID Qty: 60 2RF Relistor 150 mg tablet 450 mg PO DAILY Qty: 90 12RF Rx Instructions: Please take 3 tablets p.o. daily misoprostol 100 mcg tablet 100 mcg PO BID Qty: 120 2RF Rx Instructions: Please take 1 tablet p.o. twice daily ergocalciferol (vitamin D2) 1,250 mcg (50,000 unit) capsule 1,250 mcg PO DAILY Patient Comments: TAKE 1 CAPSULE BY MOUTH ONCE A WEEK. oxycodone-acetaminophen 7.5-325 mg tablet 1 tab PO QID Patient Comments: TAKE 1 TABLET BY MOUTH FOUR TIMES A DAY FOR 30 DAYS [id number]-[id number]-[id number] [Bromfed DM] 2-30-10 mg/5 mL syrup 10 ml PO Q6H PRN (Reason: cold symptoms) Qty: 200 0RF Referrals Follow up/Referrals: Mc Serrano MD [Staff Physician] - See instructions Provider,MD Marv [Primary Care Provider] - See instructions Josep Perla MD [Staff Physician] - See instructions Activity Restrictions/Add. Instructions Additional Instructions/Restrictions: You were evaluated in the emergency department today. At this time, your workup is very reassuring. Your heart enzyme is negative, your x-ray of your heart and lungs looks good, and your CT scan of your brain looks good. Given that you are feeling better after treatment of your migraine, I feel this likely was related to your migraine. Keep an eye on your blood pressure at home by taking it twice daily, once in the morning and once at night. Provide your primary care provider with a log of blood pressure so they can make adjustments to your medications as needed. Given your chest pain, I recommend close follow-up with cardiology. Return to the emergency department for new or worsening symptoms. Clinical Impressions Clinical Impression: Migraine, Chest pain, High blood pressure Stand Alone Forms Stand Alone Forms: Work/School Release Instructions Patient Instructions: DI for Migraine, DI for Atypical Chest Pain Print Language Print Language: Romansh Discharge ED Provider: Julia Ortiz [facility] General Chief Complaint: Chest Pain Stated Complaint: Chest Pain Time Seen by Provider: 07/03/24 19:20 Mode of Arrival: Ambulatory Source of Information: Patient Description of Symptoms (Recalled from ER Triage Doc. by RN): Patient ambulatory to ED with complaints of headache, elevated BP on home monitor, and intermitted chest pressure radiating to left arm. Patient states that she was shopping with daughter when she developed headache, and not feeling well. She states that she took tylenol and advil when returning home without relief. Patient reports on way to ER she developed chest pressure, and left arm numbness. Patient states she takes amlodipine daily for diagnosed HTN. History of Present Illness HPI narrative: This patient is a 48-year-old female with a history of hypertension and migraines presenting to the emergency department for evaluation with concern for high blood pressure, headache, and chest pain. Patient states that since she woke up this morning, she has been having really bad headaches that just have not gone away despite taking Tylenol and her usual medications at home. She notes that feels similar to prior migraines but slightly worse. She notes that it is gradually gotten worse. She also states that she is having significant nausea. No visual disturbance, photophobia, phonophobia. She also notes that she has been taking her blood pressure at home throughout the day given her severe headache, and she notes it has been high with systolics in the 150s and diastolics in the 100s. She also notes that she has developed chest pressure that radiates to her left arm. She states her left arm feels tingly. No other acute concerns or complaints noted. Related Data Home Medications ?Medication ?Instructions ?Recorded ?Confirmed ergocalciferol (vitamin D2) 1,250 1,250 mcg PO DAILY 04/21/23 02/11/24 mcg (50,000 unit) capsule oxycodone-acetaminophen 7.5 mg-325 1 tab PO QID 04/21/23 02/11/24 mg tablet amlodipine 2.5 mg tablet 2.5 mg PO DAILY 02/05/24 02/11/24 Previous Rx's ?Medication ?Instructions ?Recorded pantoprazole 40 mg tablet,delayed 40 mg PO DAILY 4 weeks #30 tabs 02/05/24 release (Protonix) sucralfate 1 gram tablet (Carafate) 1 g PO BID #60 tabs 02/05/24 methylnaltrexone 150 mg tablet 450 mg (3 x 150 mg) PO DAILY #90 02/17/24 (Relistor) tabs misoprostol 100 mcg tablet 100 mcg PO BID #120 tabs 02/17/24 nstbrfgbkciypjw-swvbzmiklzqwvre-XP 10 ml PO Q6H PRN cold symptoms 02/24/24 2 mg-30 mg-10 mg/5 mL oral syrup #200 mL (Bromfed DM) Allergies Allergy/AdvReac Type Severity Reaction Status Date / Time amitriptyline Allergy Unknown Verified 02/13/24 10:38 allergy reaction hydromorphone (From Dilaudid) Allergy Unknown Verified 02/13/24 10:38 allergy reaction morphine Allergy Unknown Verified 02/13/24 10:38 allergy reaction ondansetron Allergy Unknown Verified 02/13/24 10:38 allergy reaction sulfamethoxazole (From Allergy Unknown Verified 02/13/24 10:38 Bactrim) allergy reaction sumatriptan (From Imitrex) Allergy Unknown Verified 02/13/24 10:38 allergy reaction trimethoprim (From Bactrim) Allergy Unknown Verified 02/13/24 10:38 allergy reaction PFSH PFSH Disclaimer: The information contained in this section may have been updated after the patient was seen, as this information can be updated by other users. Medical History Gastric ulcer History of gastroesophageal reflux (GERD) Hypertension Anxiety Migraine Surgical History History of hysterectomy History of section History of cholecystectomy History of appendectomy Family History Other No significant family history Social History Smoking Status: Never smoker alcohol intake: never substance use type: denies use current occupational status: other Travel in the last 8 weeks: None Have you lived/traveled outside [place] in past 30 days?: No Contact w/someone who lives/traveled outside [place] past 30 days?: No Exposure to someone with infectious disease in past 14 days?: No Do you have a fever (greater than 100.4 F or 38 C)?: No Have you tested positive for COVID-19: No Exposed to someone with COVID-19 in past 14 days?: No Do you have a sore throat?: No Do you have a cough?: No Do you have any weakness?: No Do you have any diarrhea?: No Are you experiencing any unusual bleeding?: No Do you have any muscle aches/pain?: No Do you have any abdominal pain?: No Are you experiencing loss of taste or smell?: No ROS Obtained: Yes All systems reviewed & no additional complaints except as documented Physical Exam General General appearance: alert and in no apparent distress Head Head exam: atraumatic and normocephalic Eye Eye exam: Present normal appearance, PERRL and EOMI ENT ENT exam: Present normal exam, normal oropharynx, mucous membranes moist and normal external ear exam Neck Neck exam: Present normal inspection, full ROM and trachea midline; Absent tenderness Chest Chest inspection: Present normal inspection and symmetric chest wall rise; Absent tenderness Respiratory Respiratory exam: Present normal lung sounds bilaterally; Absent respiratory distress, wheezes, stridor or accessory muscle use Cardiovascular Cardiovascular exam: Present regular rate and normal rhythm Abdominal Exam Abdominal exam: Present soft; Absent distention, tenderness or guarding Extremities Exam Extremities exam: Present normal inspection, full ROM and normal capillary refill; Absent tenderness or edema Back Exam Back exam: Present normal inspection and full ROM; Absent tenderness Neurological Exam Neurological exam: Present alert, oriented X3, CN II-XII intact and normal gait; Absent motor sensory deficit Psychiatric Psychiatric exam: Present normal affect and normal mood Skin Skin exam: Present warm and dry HEART Score HEART Score HEART Score assessment performed?: Yes History (anamnesis): Slightly suspicious ECG: Normal Age: 45-65 years Risk factors: 1-2 risk factors Troponin: </= normal limit HEART Score: 2 Critical Care Critical Care Time Critical Care Time: No Medical Decision Making [place] Inquiry Pt receiving controlled substance: No Vital Signs Vital Signs: 07/03/24 19:26 07/03/24 19:30 07/03/24 19:49 Temperature 98.0 F Temperature Source Oral Pulse Rate 77 83 Pulse Rate [Left] 80 Respiratory Rate 18 15 Blood Pressure 162/101 H Blood Pressure [Right Arm] 165/96 H Blood Pressure Mean [Right Arm] 119 Blood Pressure Source Blood Pressure Source [Right Arm] Automatic Cuff Blood Pressure Position Blood Pressure Position [Right Arm] Supine 02 Sat by Pulse Oximetry 99 100 Oxygen Delivery Method Room Air 07/03/24 20:00 07/03/24 20:34 07/03/24 21:23 Temperature 97.9 F Temperature Source Oral Pulse Rate 72 65 78 Pulse Rate [Left] Respiratory Rate 23 16 Blood Pressure 140/86 145/85 H 128/72 Blood Pressure [Right Arm] Blood Pressure Mean [Right Arm] Blood Pressure Source Automatic Cuff Blood Pressure Source [Right Arm] Blood Pressure Position Supine Blood Pressure Position [Right Arm] 02 Sat by Pulse Oximetry 98 94 L Oxygen Delivery Method Room Air Lab Data Labs: Lab Results 07/03/24 19:42: WBC 7.9, RBC 4.63, Hgb 14.6, Hct 41.9, MCV 90.5, MCH 31.5 H, MCHC 34.8, RDW 12.1, Plt Count 273, MPV 9.9, Neut % (Auto) 58.8, Lymph % (Auto) 33.2, [place] % (Auto) 6.1, Eos % (Auto) 1.1, Baso % (Auto) 0.5, Neut # (Auto) 4.6, Lymph # (Auto) 2.6, [place] # (Auto) 0.5, Eos # (Auto) 0.1, Baso # (Auto) 0.0, Sodium 139, Potassium 3.8, Chloride 104, Carbon Dioxide 35 H, Anion Gap 3.8 L, BUN 12, Creatinine 0.70, Estimated Creat Clear 159, Estimated GFR 90, Est GFR ( Amer) 109, Glucose 80, Calcium 9.4, Total Bilirubin 0.5, AST 31, ALT 27, Alkaline Phosphatase 70, Troponin I < 0.01, Total Protein 8.1, Albumin 4.7, Globulin 3.4 H, Albumin/Globulin Ratio 1.4 07/03/24 19:42 07/03/24 19:42 Response Orders (Tests/Meds): ED MEDICATIONS Discontinued Medications Generic Name Dose Route Start Last Admin Trade Name Freq PRN Reason Stop Dose Admin Acetaminophen 1,000 mg 07/03/24 19:32 07/03/24 19:43 Acetaminophen 1,000mg/100ml Vial IV 07/03/24 19:33 1,000 mg ONCE ONE Administration Diphenhydramine HCl 50 mg 07/03/24 19:32 07/03/24 19:43 Diphenhydramine 50mg/Ml Vial IV 07/03/24 19:33 50 mg ONCE ONE Administration Lactated Ringer's 1,000 mls @ 999 mls/hr 07/03/24 19:32 07/03/24 19:40 Lactated Ringer's 1000 Ml Bag IV 07/03/24 20:32 999 mls/hr .Q1H1M ONE Administration Magnesium Sulfate 2 gm in 50 mls @ 50 mls/hr 07/03/24 19:32 07/03/24 19:45 Magnesium Sulfate 2gm/50ml Premix IV 07/03/24 20:31 50 mls/hr ONCE ONE Administration Ketorolac Tromethamine 15 mg 07/03/24 19:32 07/03/24 19:42 Ketorolac 30mg/Ml Vial IV 07/03/24 19:33 15 mg ONCE ONE Administration Prochlorperazine Edisylate 5 mg 07/03/24 19:32 07/03/24 19:41 Prochlorperazine 10mg/2ml Vial IV 07/03/24 19:33 5 mg ONCE ONE Administration ORDERS Category Date Time Status CT head/brain wo con Stat Cat Scan 07/03/24 19:32 Completed CXR 2 view (NOT portable) [XR chest 2V] Stat Exams 07/03/24 19:32 Completed Complete Blood Count Auto Diff Stat Lab 07/03/24 19:42 Completed Comprehensive Metabolic Panel Stat Lab 07/03/24 19:42 Completed Trop I [Troponin I] Stat Lab 07/03/24 19:42 Completed Troponin I Q3H Lab 07/03/24 22:45 Ordered Troponin I Q3H Lab 07/04/24 01:45 Ordered ECG Data Tracing #1: Attestation: I reviewed this ECG and interpreted as documented below: ECG Narrative: Normal sinus rhythm with a ventricular rate of [address] changes concerning for ischemia. Some artifact in V5. Normal intervals ECG initial impression date: 07/03/24 ECG initial impression time: 19:23 MDM Narrative Medical Decision Narrative: In summary, this patient is a 48-year-old female presenting to the Emergency Department for evaluation of headache, high blood pressure, and chest pain radiating down her left arm. Differential diagnoses considered include but are not limited to ACS, hypertensive urgency, hypertensive emergency, migraine, tension headache, anxiety. Ruling out the most morbid conditions drove assessment. It should be noted patient's history includes hypertension and migraines which is not at goal therapy. This complicates all aspects of care by increasing patient's risk for morbidity. On exam, the patient is sitting upright in no acute distress. She is neurologically intact without focal deficit. She has symmetric equal pulses bilaterally and has reassuring cardiopulmonary exam. Vitals are reassuring on cardiac telemetry with the exception of hypertension with systolics in the 160s. Workup included CBC, CMP, troponin, CT head without contrast, chest x-ray, EKG. I independently interpreted CT scan and chest x-ray prior to the radiologist read and noted no large space-occupying lesion of the brain, no intracranial hemorrhage, no significant cardiomegaly or focal lung consolidation. Please see their read for final interpretation. Labs were obtained that demonstrated reassuring CBC with no significant leukocytosis, reassuring chemistry with normal kidney function, negative troponin. Patient is PERC negative for pulmonary embolus, so CT PE and D-dimer not obtained. Patient was given a migraine cocktail of a bolus of IV fluids, IV Toradol, Compazine, Benadryl, acetaminophen, and 2 g of IV magnesium On reassessment, patient had great improvement after administration of migraine cocktail. Her blood pressure improved with now systolics in the 120s, she remains neurologically intact. Cardiopulmonary exam remains reassuring. Ultimately at this time, I feel her symptoms were likely accommodation of high blood pressure, migraine. I feel we have excluded acute life-threatening pathology and given the patient's reassuring exam, workup, and improvement in symptoms, I feel that she is appropriate for discharge home with close follow-up with primary care. Also gave her information for possible cardiology follow-up given her chest pain. She was discharged with strict return precautions and instructions for blood pressure monitoring at home
[2024-07-03] MEDS: ACETAMINOPHEN 1,000MG/100ML VIAL 1000 MG IV (19:43)
[2024-07-03] MEDS: diphenhydrAMINE 50MG/ML VIAL 50 MG IV (19:43)
[2024-07-03] MEDS: MAGNESIUM SULFATE IN WATER 2 GM/50 ML PIGGYBACK IV (19:45)
[2024-07-03 19:47] LABS: Basophils % 0.5 % (0.1-2.0); Eosinophils # 0.1 K/mm3 (0.0-0.4); Eosinophils % 1.1 % (0.1-12.0); Hematocrit 41.9 % (37.0-47.0); Hemoglobin 14.6 g/dL (12.2-16.2); Lymphocytes # 2.6 K/mm3 (0.7-4.5); Lymphocytes % 33.2 % (10-50); Mean Corpuscular HGB Conc 34.8 g/dL (31.8-35.4); Mean Corpuscular Hemoglobin 31.5 pg (27.0-31.2); Mean Corpuscular Volume 90.5 fl (81-99); Mean Platelet Volume 9.9 fl (7.4-10.4); Monocytes # 0.5 K/mm3 (0.1-1.0); Monocytes % 6.1 % (1.7-9.3); Neutrophils # 4.6 K/mm3 (1.8-7.8); Neutrophils % 58.8 % (37.0-80.0); Platelet Count 273 K/mm3 (142-424); Red Blood Count 4.63 M/mm3 (4.20-5.40); Red Cell Distribution Width 12.1 % (11.5-17.5); White Blood Count 7.9 K/mm3 (4.8-10.8)
[2024-07-03 19:49] VITALS: PULSE 83
[2024-07-03 19:57] LABS: Alanine Aminotransferase 27 U/L (12-78); Albumin Level 4.7 g/dl (3.5-5.0); Albumin/Globulin Ratio 1.4 (1.1-1.8); Alkaline Phosphatase 70 U/L (38-126); Anion Gap 3.8 mEq/L (5-15); Aspartate Amino Transferase 31 U/L (14-36); Bilirubin,Total 0.5 mg/dl (0.2-1.3); Blood Urea Nitrogen 12 mg/dl (7-17); Calcium 9.4 mg/dl (8.4-10.2); Carbon Dioxide 35 mmol/L (22.0-30.0); Chloride 104 mmol/L (98-107); Creatinine Clearance Estimated 159 mL/min (50-200); Estimated Glomerular Filt Rate 90 ml/min (>60); GFR (African American) 109 ML/MIN (>60); Globulin 3.4 g/dL (1.3-3.2); Glucose 80 mg/dl (74-100); Potassium 3.8 mmoL/L (3.5-5.1); Sodium 139 mmol/L (136-145); Total Protein,Serum 8.1 g/dl (6.3-8.2)
[2024-07-03 20:00] VITALS: BP 140/86; PULSE 72; RESP 23; O2SAT 98
[2024-07-03 20:15] LABS: Troponin I < 0.01 ng/ml (0.00-0.034)
[2024-07-03 20:34] VITALS: BP 145/85; PULSE 65; O2SAT 94
[2024-07-03 21:23] VITALS: BP 128/72; PULSE 78; RESP 16; TEMP 36.6; O2SAT 96
--- NOTE | 2024-07-03 21:24 | PC.NURSE ---
IV removed; catheter tip intact. Bleeding controlled
== END 2024-07-03 21:30 | disposition home or self-care (01) ==
PROVIDERS: Emergency Provider Emergency Medicine
DX: G43.909 Migraine, unspecified, not intractable, without status migrainosus (principal); R07.9 Chest pain, unspecified; R03.0 Elevated blood-pressure reading, without diagnosis of hypertension
CPT/HCPCS: 70450; 71046; 80053; 84484; 85025; 93005; 96365; 96375; 99285; J0131; J0780; J1200; J1885; J3475; J7120

== ENCOUNTER 2024-11-08 09:54 | Outpatient (CLI) | payer OTHER, SELFPAY ==
--- OUTSIDE RECORDS SUMMARY | 2016-09-03 20:00 | XMS_ITS | Continuity of Care Document ---
Author Organization [facility] Physicians Address [address] [place] [address] Phone Care Team Providers Care Magnetic Resonance Imaging Coordinator Name Role Phone Corporate MD, Doctor Unavailable Unavailable Allergies, Adverse Reactions, Alerts Substance Reaction Status Criticality morphine Active No Information HYDROMORPHONE HCL Active No Informa tion trimethoprim Active No Information sulfamethoxazole Active No Informat ion Medications Medication Instructions Dosage Effective Dates (start - stop) Status Comments Refresh Optive Advanced 0.5 %-1 %-0.5 % eye drops Instill 1 drop by ophthalmic route 4-5 times a day both eyes - Active bacitracin 500 unit/gram eye ointment apply to both eyelids every bedtime x 2 wks then continue twice weekly - Active Dry Eye Aurora Benefits 667 mg-250 unit capsule 2 capsules by mouth twice daily - Active Zoloft 100 mg tablet take 1 tablet by or al route every day 100 MG - Active biotin 1 mg tablet - Active Vitamin D ORAL - Active Heyburn 5 mg-325 mg tablet take 1 tablet by oral route every 6 hours as needed for pain - Active vitamin E 1,000 unit capsule - Active Procedures Procedure Date Medical Records Copied OFFICE/OUTPATIENT VISIT, EST OFFICE/OUTPATIENT VISIT, NEW MICROFLUID KARIN TEARS MICROFLUID KARIN TEARS Advance Directives Directive Yes / No Effective Date File Name No Information Encounters Encounter Description Practice Location Reason(s) For Visit Diagnoses Date Provider Providers Copied on Encounter [facility] Physician s, [address] [place], [address], [place] tel:[phone] [facility] [place] No Information 7 Corporate Doctor. [address] [place], [place], [id number], [place]. tel:[phone] Referring Provider: Doctor Timiate, [address] [place], [address] . tel:[phone] OFFICE/OUTPA TIENT VISIT, [facility] Physician s, [address] [place], [address], [place] [phone] - 1 stabbing pain (chief complaint) Sjogren's diseaseTear Film InsufficiencyFloppy eyelid syndromeSquamous blepharitis left upper eyelidSquamous blepharitis right upper eyelid 6 Mar Ordoñez. [address], [address], [place], [place], [id number], [place]. tel:[phone] Referring Provider: No Ref Doc No Referring Doc. OFFICE/OUTPA TIENT VISIT, [facility] Physician s, [address] [place], [address], [place] [phone] [facility] [place] pain (chief complaint) Tear Film InsufficiencySquamou s blepharitis right upper eyelidSquamous blepharitis left upper eyelid 6 Ann Martinez. [address] [place], [place], [id number], [place]. tel:[phone] Referring Provider: No Ref Doc No Referring Doc. Family History Family Member Type Diagnosis Age At Onset Mother Problem (finding) hypertension Maternal grandmother Problem (finding) hypertension Maternal grandmother Problem (finding) Maternal history of diabetes mellitus Mother Problem (finding) Maternal histo ry of diabetes mellitus Maternal grandmother Problem (finding) cataract Payers Payer name Insurance type Covered constitution party ID Authoriza tion(s) No Information Social History Type Description Quantity Date Captured Comments Sex Female Smoking Status No Information Chief Complaint And Reason For Visit No Information Reason For Referral Reason For Referral No Information History Of Present Illness Encounter Date Complaint History Of Prese nt Illness stabbing pain The 40 year old female presents for evaluation of stabbing pain in the right and left eyes. I feel like someone has an ice pick behind my eyes, the left eye is worse than right , patient states. Patient states it's affecting her vision. She once was driving and got a pain and her vision was very blurry. Patient states her eyes get very swollen and she has a terrible headache. Patient has been dx'd with Sjogren's by Dr. Harper per patient. Patient said this all started about 6 months ago but has gotten worse in the past 2 weeks. She says it doesn't happen everyday but it is frequent. Her eyes are very dry per patient. Patient says she's using all drops and wipes per [facility]. Patient says eyes are light sensitive. Patient is very upset about condition. Patient has also been dx'd with fibromyalgia. She was put on medication yesterday due to Sjogren's but can't recall the name. She says she's in the middle of a flare. pain The 40 year old female presents for evaluation of pain in the right and left eyes. It started about 6 month(s) ago. The onset was progressive. The patient feels it is unchanged. The condition is described as blurry vision and now having mucous in the morning. Pain is behind the eye and a headache. Sometimes she sees spots, other times vision is completely blurry. Is intermittent. Has a family hx of Sjogren's & Lupus....Hx as above Functional Status Date Functional Assessmen t No Information Instructions Date Instruction Additional Infor courtney - 2 weeks for dry eye follow up. Related to See impression details - Osmo normal but do es have staining OU, and Kianna's II is normal OU.Recommend Lid hygiene routine: Use microwaveable hot pack 2 x a day for 5-10 minutes. Follow immediately with lid cleanser (Lid & Lash) - sample givenBacitracin guru to lids OU qhs x 2 wks then cont 2 x a wk (sample given)Discussed importance of Aurora 3 EFA as part of daily routine. Recommend PRN Dry Eye Aurora Benefits 2 caps po bid. Ordering information given to pt (sample given) Dry eyes account for the patient's complaints. There is no evidence of permanent changes to the cornea. Explained that this condition does not have a cure. The options explained to the patient include topical lubricants, punctal plugs, and laser or thermal punctal occlusion. Dry eye patient information packet given to patient. Related to See impression details - Return - PRN Related to See i mpression details - Osmo normal but do es have staining OU Recommend Lid hygiene routine: Use microwaveable hot pack 2 x a day for 5-10 minutes. Follow immediately with lid cleanser (Lid & Lash) - sample given Bacitracin guru to lids OU qhs x 2 wks then cont 2 x a wk (sample given) Discussed importance of Aurora 3 EFA as part of daily routine. Recommend PRN Dry Eye Aurora Benefits 2 caps po bid. Ordering information given to pt (sample given)Refresh Advanced gtt (sample given) 4-5 x/day OUPatient wants Sjogrens test - to order blood work at [facility] - will call pt with resultsFollow up with certified endoscopy technician ([facility] [place], [place]) in a few monthsLetter to OD, Dr Marely Gonzalez and Dr Jackie Cardozo ([facility] [place])Letter to Related to See impression details Assessments Type Assessment Date No Information Patient Care Teams Name Effective Dates (start - stop) Status Members No Information
--- OUTSIDE RECORDS SUMMARY | 2022-10-26 04:51 | XMS_ITS | Continuity of Care Document ---
Author Organization [facility] Address [address] [place] [address] Phone Care Team Providers Care Motorcycle Assembler Name Role Phone Anmol ZUNIGA, Yon Unavailable Unavailable Allergies, Adverse Reactions, Alerts Substance Reaction Status Criticality phenytoin DifficultyBreathing, Swelling Active No Information morphine Swelling Active No Information SUMATRIPTAN SUCCINATE Allergy to Imitrex Active No Information sumatriptan Allergy to Imitrex Active No Inform ation trimethoprim Allergy to Bactrim Active No Inform ation sulfamethoxazole Allergy to Bactrim Active No In formation HYDROMORPHONE HCL Allergy to Dilaudid Active No Information morphine Active No Information Medications Medication Instructions Dosage Effective Dates (start - stop) Status Comments naproxen 500 mg tablet take 1 tablet by oral route 2 times every day with food 500 MG - Active diclofenac sodium 75 mg tablet,delayed release take 1 tablet by oral route 2 times every day 75 MG - Active hydroxychloroquine 200 mg tablet - Active oxycodone-acetaminophen 7.5 mg-325 mg tablet - Active Procedures Procedure Date Office/outpatient visit,est, mod 2022 X-ray exam of ankle, 2 views X-ray exam of foot, complete Ft arch suprt premold longit Ft arch suprt premold longit No Charge Office/outpatient visit,est, mod 2022 KO adj jnt pos rigid support Crutch underarm pair no wood Office/outpatient visit,newkelly 2022 X-ray exam of knee, 4+ views Ko elas w/ condyle pads & heri Advance Directives Directive Yes / No Effective Date File Name No Information Encounters Encounter Description Practice Location Reason(s) For Visit Diagnoses Date Provider Providers Copied on Encounter [facility] [address], [place], [address], [place] tel:[phone] Brenda Reyes No Information 3 Anmol Pimentelua. [address], [place], [address], [place]. tel:[phone] Office/outpa tient visit,est, mod [facility], [address], [place], [address], [place] tel:[phone] [facility] Posterior tibial tendinitis, left legFlat foot [pes planus] (acquired), left foot 3 Fei Molina. [address] [place], [place], [id number], [place]. tel:[phone] Referring Provider: Jesse Jackson, [place], [address] . tel:[phone] [facility] [place] [address] [place], [address], [place] tel:[phone] [facility] No Information 3 Fei Molina. [address] [place], [place], [id number], [place]. tel:[phone] Referring Provider: Jesse Jackson, [address] [place], [address] . tel:[phone] [facility], [facility] [place], [address], [place] tel:[phone] Brenda Reyes Rt tibial plateau Fx 09-12-22 (chief complaint) Nondisplaced fracture of lateral condyle of right tibia, initial encounter for closed fractureNondi sp fx of lateral condyle of r tibia, 7thD 3 Anmol Marvin. [address], [place], [facility], [place]. tel:[phone] Referring Provider: Yon Corea, [address], [place], [place], [facility]. tel:[phone] [facility] [place] [address] [place], [place], [facility], tel:[phone] [facility] No Information Sep-0 3 Anmol Marvin. [address], [place], [facility], [place]. tel:[phone] Referring Provider: Yon Corea, [address] [place], [facility]. tel:[phone] [facility] [place] [address] [place], [place], [facility], [place] tel:[phone] Brenda Reyes MRI results of the right knee (chief complaint) Nondisplaced fracture of lateral condyle of right tibia, initial encounter for closed fracture 3 Anmol Marvin. [address], [place], [facility], [place]. tel:[phone] Office/outpa tient visit,est, mod [facility] [place] [address] [place], [place], [facility], [place] tel:[phone] Brenda Reyes Nondisp fx of lateral condyle of right tibia, init 3 Anmol Marvin. [address], [place], [facility], [place]. tel:[phone] Referring Provider: Marely Gonzalez, [address] [place] [address] [address], [place], [address] . tel:[phone] [facility] [place] [address] [place], [place], [facility], [place] tel:[phone] Brenda Reyes No Information 3 Anmol Marvin. [address], [facility], [place]. tel:[phone] Referring Provider: Yon Corea, [address] [place], [place], [facility]. tel:[phone] Office/outpa tient visit,[facility] [place] [address] [place], [place], [facility], tel:[phone] Brenda Reyes Rt knee pain (chief complaint) Pain in right knee 3 Anmol Marvin. [address], [place], [facility], [place]. tel:[phone] Referring Provider: Marely Gonzalez, [address] [place] [address] [address], [place], [address] . tel:[phone] [facility] [place] [address] [place], [place], [facility], tel:[phone] Brenda Reyes No Information 3 Anmol Marvin. [address], [facility], [place]. tel:[phone] [facility] [place] [address] [place], [facility], [place] tel:[phone] Brenda Reyes No Information 3 Anmol Marvin. [address], [facility], [place]. tel:[phone] Referring Provider: Yon Corea, [address] [place], [place], [facility]. tel:[phone] [facility] [place] [address] [place], [place], [facility], [place] tel:[phone] Brenda Castrejon Family History of Diabetes 6 No Information Family History Family Member Type Diagnosis Age At Onset Mother Problem (finding) Diabetes mellitus Mother Problem (finding) Hypertension Gen Fam Hx Problem (finding) yes family hx of diabet es mellitus Payers Payer name Insurance type Covered green party ID Authoriza tion(s) [employer] [facility] Medicaid - [id number] 1 Social History Type Description Quantity Date Captured Comments Alcohol Use Details Unknown Caffeine Use Details Unknown Tobacco Use Status Smoking Status No Information Sex Female Sexual Orientation Choose not to disclose Gender Identity Choose not to disclose 023 Chief Complaint And Reason For Visit No Information Reason For Referral Reason For Referral No Information History Of Present Illness Encounter Date Complaint History Of Prese nt Illness ankle Rt tibial plateau Fx 09-12-22 Aida pastrana is a very pleasant 47-year-old female who returns clinic today for follow-up of her right knee. We are treating her nonoperatively for a right tibial plateau fracture which she experienced back in August. She has been compliant with her brace. She has been partial weightbearing. Overall she feels like she is improving. She does complain of some ongoing medial soreness today. MRI results of the right knee Nielsh estrella is a very pleasant 47-year-old female who returns to clinic today for follow-up, and MRI review of her right knee. She continues to complain of ongoing, severe pain. Rt knee pain Patient is a 47- year-old female presents clinic today for evaluation of her right knee. She says she injured her knee last night when she stepped into a hole, and her knee twisted. She says she felt, and heard a pop. Today she says she is unable to bear weight on her right knee. She says she is unable to bend or extend her knee. She complains of significant swelling throughout her whole lower leg. She complains of a feeling of tightness. She does mention that she has had a previous iliotibial band lengthening procedure 1 year ago at [place]. Today she localizes her pain diffusely about her knee. So far she is taken [id number] Tylenol with minimal relief. Functional Status Date Functional Assessmen t No Information Instructions Date Instruction Additional Infor mation Patient is doing delmer y well with her right lateral tibial plateau fracture. She has been compliant with her partial weightbearing status, as well as her knee brace. We reviewed her x-rays in detail and I do not see any collapse of her lateral tibial plateau. Her tenderness is much improved, as is her pain. Today recommend that we continue with conservative management for her tibial plateau fracture. Recommend that she continue with partial weightbearing with her knee brace for the next 4 weeks or so. She may return to work doing sitting work only starting tomorrow. We will give her a note for this. I will have her follow-up in 4 to 5 weeks for repeat evaluation, and new x-rays. Related to Nondisplaced fracture of lateral condyle of right tibia, initial encounter for closed fracture Reviewed MRI finding s with patient in detail today. Looks like her knee is stable ligamentously. She does not have an ACL or PCL tear which I was originally concerned for. She does have a grade 1 MCL sprain, as well as a lateral tibial plateau fracture. We discussed this in detail today. I recommended a trial of conservative management for her right knee injury. I will have her fitted for a postoperative knee brace for stability and support. This may remain open for full range of motion. We will get her fitted for some crutches today. She may go partial weightbearing over the next month. I would like to see her in 4 weeks for repeat evaluation, and a new x-ray. Related to Nondisplaced fracture of lateral condyle of right tibia, initial encounter for closed fracture Discussed ongoing ri ght knee pain the patient today. She had a significant injury yesterday when she stepped into a hole and felt a pop. Today she has significant swelling, and a large effusion on exam. Her range of motion is limited secondary to pain. Exam was extremely limited secondary to her significant pain and swelling. She does have diffuse tenderness about the knee. Given the nature of her injury I am concerned for significant internal derangement. Today I recommended that we get her fit for a hinged knee brace for stability and support. I will also start her on diclofenac as a daily, [id number] anti-inflammatory. I will also give her a prescription for Medrol Dosepak for her acute pain and inflammation. Additionally I recommended that we order an MRI of her right knee to further evaluate for internal derangement, including ACL tear. We will send a prescription of Valium so that she may go through with the MRI. We will see her back after the MRI is complete. Related to Pain in right knee Assessments Type Assessment Date No Information Patient Care Teams Name Effective Dates (start - stop) Status Members No Information
--- OUTSIDE RECORDS SUMMARY | 2024-09-10 15:15 | XMS_ITS | Encounter Summary ---
Author Organization [facility] [place] [address] Care Team Providers Care Cash Application Representative Name Role Phone Go Campos MD Unavailable [phone] Marely Gonzalez MD Primary Care Provider + Flavio Arreguin MD Unavailable [phone] Encounter Details Date Type Department Care Team (Latest Contact Info) Description 09/10/2024 3:15 PM EDT - 09/10/2024 11:59 PM EDT Hospital Encounter [facility] [address], [place] [id number] Sjogren syndrome with inflammatory arthritis; Sacroiliitis, not elsewhere classified Discharge Disposition: Home or Self Care Social History Tobacco Use Types Packs/Day Years Used Date Smoking Tobacco: Some Days Cigarettes 0.1 5 Started: 2007; Last attempted to quit: 07/14/2012 Smokeless Tobacco: Never Alcohol Use Standard Drinks/Week Comments Yes 0 (1 standard drink = 0.6 oz pur e alcohol) occ. Overall Financial Resource Strain (CARDIA) Answe r Date Recorded How hard is it for you to pa y for the very basics like food, housing, medical care, and heating? Not hard at all 01/06/2020 PHQ-2 Answer Date Recorded PHQ-2 Total Score 0 05/11/2024 Hunger Vital Sign Answer Date Recorded Within the past 12 months, y ou worried that your food would run out before you got the money to buy more. Never true 01/06/20 20 Within the past 12 months, t he food you bought just didn't last and you didn't have money to get more. Never true 01/06/2020 PRAPARE - Transportation Answer Date Re corded In the past 12 months, has l ack of transportation kept you from medical appointments or from getting medications? No 12/15 In the past 12 months, has l ack of transportation kept you from meetings, work, or from getting things needed for daily living? No 01/06/2020 Sexually Active Control Partners Comments Yes Condom Male NOT EVERY TIME Comments No Sex and Gender Information Value Date Recorded Sex Assigned at Not on file Legal Sex Female 1:26 PM EDT Gender Identity Not on file Sexual Orientation Not on file Occupation Industry Job Start Date Job End Date Not on file Not on file Not on file Not on file documented as of this encounter Functional Status * Is the person deaf or does he/she have serious difficulty hearing? Answer Date of Assessment Author No 05/11/2024 10:08 AM Nnamdi Tovar LPN * Is the person blind or does he/she have serious difficulty seeing even when wearing glasses? Answer Date of Assessment Author No 05/11/2024 10:08 AM Nnamdi Tovar LPN * Does this person have serious difficulty walking or climbing stairs? Answer Date of Assessment Author No 05/11/2024 10:08 AM Nnamdi Tovar LPN * Does this person have difficulty dressing or bathing? Answer Date of Assessment Author No 05/11/2024 10:08 AM Nnamdi Tovar LPN * Because of a physical, mental or emotional condition, does this person have difficulty doing errands alone such as visiting a doctor's office or shopping? Answer Date of Assessment Author No 05/11/2024 10:08 AM Nnamdi Tovar LPN documented as of this encounter Mental Status * Because of a physical, mental or emotional condition, does this person have serious difficulty concentrating, remembering or making decisions? Answer Entry Date Author No 05/11/2024 10:08 AM Nnamdi Tovar LPN documented in this encounter Medications at Time of Discharge amLODIPine (NORVASC) 5 mg Oral TabletIndications: Elevated blood pressure reading in office without diagnosis of hypertension,Myke cronin hypertension Take 1 Tablet by mouth daily. 90 Tablet 1 05/25/2024 Brompheniramine-Ps eudoeph-DM 2-30-10 mg/5 mL Oral SyrupIndications:I nfluenza B Take 5 mL by mouth every 4 hours as needed. 473 mL 06/04/2024 busPIRone (BUSPAR) 10 mg Oral TabletIndications: Generalized anxiety disorder Take 1 Tablet by mouth 3 times daily as needed for anxiety. 90 Tablet 1 04/05/2023 ergocalciferol (VITAMIN D) 1,250 mcg (50,000 unit) Oral CapsuleIndications :Vitamin D deficiency Take 1 Capsule by mouth once a week. 4 Capsule 2 01/15/2024 fish oil OTC (OMEGA-3 DHA-EPA 300 MG) 300-1,000 mg Oral Capsule, Delayed Release(E.C.)Indic ations:Sjogren's syndrome, with unspecified organ involvement Take 2 g by mouth daily. mupirocin (BACTROBAN) 2 % Top OintmentIndication s:Nasal sore Apply topically 3 times daily. 15 g 09/09/2024 olmesartan-hydroch lorothiazide (BENICAR HCT) 40-25 mg Oral TabletIndications: Essential hypertension Take 1 Tablet by mouth daily. 90 Tablet 1 06/26/2024 ondansetron (ZOFRAN-ODT) 4 mg Oral Tablet, Rapid DissolveIndication s:Flu-like symptoms Take 1 Tablet by mouth every 6 hours as needed for Nausea. 30 Tablet 06/04/2024 oxyCODONE-acetamin ophen (PERCOCET) 7.5-325 mg Oral Tablet TAKE 1 TABLET BY MOUTH 4 TIMES DAILY FOR 30 DAYS. DNF UNTIL 05/29/24 05/29/2024 progesterone (PROMETRIUM) 200 mg Oral Capsule 12/14/2021 valACYclovir (VALTREX) 500 mg Oral TabletIndications: Recurrent cold sores Take 1 Tablet by mouth daily. 90 Tablet 1 03/08/2023 pantoprazole (PROTONIX) 40 mg Oral Tablet, Delayed Release (E.C.)Indications: Epigastric abdominal pain,Acute superficial gastritis without hemorrhage Take 1 Tablet by mouth daily. 90 Tablet 1 08/22/2023 documented as of this encounter Discharge Disposition Disposition Code Departure Means Destination Home or Self Care documented in this encounter Plan of Treatment Not on file documented as of this encounter Goals Goal Patient Goal Type Associated Problems Recent Progress Patient-Stated? Author Maintain a healthy diet, exercise regularly and maintain an ideal body weight General No Bernie Hooks MA Stay Tobacco Free Lifestyle No Bernie Hooks MA documented as of this encounter Procedures Procedure Name Priority Date/Time Associated Diagnosis Comments URINALYSIS Routine 09/10/2024 3:30 PM EDT Sjogren syndrome with inflammatory arthritis Sacroiliitis, not elsewhere classified CBC WITH DIFF Routine 09/10/2024 3:23 PM EDT Sjogren syndrome with inflammatory arthritis COMPREHENSIVE METABOLIC PANEL Routine 09/10/2024 3:23 PM EDT Sjogren syndrome with inflammatory arthritis documented in this encounter Results * (ABNORMAL) URINALYSIS (09/10/2024 3:30 PM EDT) UA Color Light Yellow 09/10/2024 8:22 PM EDT [facility] UA Appear Clear Clear 09/10/2024 8:22 PM EDT [facility] UA Glucose Negative Negative mg/dL 09/10/2024 8:22 PM EDT [facility] UA Ketones Negative Negative mg/dL 09/10/2024 8:22 PM EDT [facility] UA Blood Negative Negative 09/10/2024 8:22 PM EDT [facility] UA pH 6.0 5.0 - 8.0 pH 09/10/2024 8:22 PM EDT [facility] UA Protein Negative Negative mg/dL 09/10/2024 8:22 PM EDT [facility] UA Urobilinogen Normal <=1 mg/dL 8:22 PM EDT [facility] UA Bili Negative Negative 09/10/2024 8:22 PM EDT [facility] UA Nitrite Negative Negative 09/10/2024 8:22 PM EDT [facility] UA Leuk Est 1+ (25 Ivett/mcl)(A) Negative 09/10/2024 8:22 PM EDT [facility] UA Spec Grav 1.026 1.001 - 1.035 no units 09/10/2024 8:22 PM EDT [facility] Comment:Reference range alejandrina d for random specimens only. UA WBC 1 0 - 4 /HPF 09/10/2024 8:22 PM EDT [facility] UA RBC 2 0 - 3 /HPF 09/10/2024 8:22 PM EDT [facility] UA Squam Epi 4+ /LPF 09/10/2024 8:22 PM EDT [facility] UA Mucus 2+ /LPF 09/10/2024 8:22 PM EDT [facility] UA Bacteria 4+(A) Negative /HPF 09/10/2024 8:22 PM EDT [facility] Urine STRUCTURE OF URINARY TRACT PROPER / Unknown 09/10/2024 3:30 PM EDT 09/10/2024 3:31 PM EDT Torri Santiago DO URINE ORDERABLES Final Result [facility] [address] [facility] , [place] [address] * CBC WITH DIFF (09/10/2024 3:23 PM EDT) WBC 7.7 3.7 - 10.3 x10(3)/mcL 09/10/2024 8:48 PM EDT [facility] RBC 4.50 3.90 - 5.20 x10(6)/mcL 09/10/2024 8:48 PM EDT [facility] Hgb 13.9 11.2 - 15.7 g/dL 09/10/2024 8:48 PM EDT [facility] Hct 42.5 34.0 - 45.0 % 09/10/2024 8:48 PM EDT [facility] MCV 94.4 80.0 - 100.0 fL 09/10/2024 8:48 PM EDT [facility] MCH 30.9 26.0 - 34.0 pg 09/10/2024 8:48 PM EDT [facility] MCHC 32.7 30.7 - 35.5 g/dL 09/10/2024 8:48 PM EDT [facility] RDW 12.2 <=14.9 % 09/10/2024 8:48 PM EDT [facility] Platelet 262 155 - 369 x10(3)/mcL 09/10/2024 8:48 PM EDT [facility] MPV 11.5 8.8 - 12.5 fL 09/10/2024 8:48 PM EDT [facility] Neut Percent 64.8 % 09/10/2024 8:48 PM EDT [facility] Comment:Neutrophils equals s egs plus bands Imm Gran% 0.3 % 09/10/2024 8:48 PM EDT [facility] Comment:Automated count of m etamyelocytes, myelocytes and promyelocytes. Lymph Percent 26.5 % 09/10/2024 8:48 PM EDT [facility] [place] Percent 6.4 % 09/10/2024 8:48 PM EDT [facility] Eos Percent 1.3 % 09/10/2024 8:48 PM EDT [facility] Baso Percent 0.7 % 09/10/2024 8:48 PM EDT [facility] Neut # 5.0 1.6 - 6.1 x10(3)/mcL 09/10/2024 8:48 PM EDT [facility] Comment:Neutrophils equals s egs plus bands IMMGRAN# 0.0 0.0 - 0.1 x10(3)/mcL 09/10/2024 8:48 PM EDT [facility] Comment:Automated count of m etamyelocytes, myelocytes and promyelocytes. An absolute IG <0.1 is reported as 0.0. Lymph # 2.0 1.2 - 3.9 x10(3)/mcL 09/10/2024 8:48 PM EDT [facility] [place] # 0.5 0.3 - 0.9 x10(3)/mcL 09/10/2024 8:48 PM EDT [facility] Eos# 0.1 0.0 - 0.5 x10(3)/mcL 09/10/2024 8:48 PM EDT [facility] Baso # 0.1 0.0 - 0.1 x10(3)/mcL 09/10/2024 8:48 PM EDT [facility] Blood VENOUS BLOOD / Unknown Venipuncture / Unknown 09/10/2024 3:23 PM EDT 09/10/2024 3:23 PM EDT Torri Santiago DO HEMATOLOGY ORDERABLES Final Res ult [facility] [address] [facility] , [address] [place] [id number] * COMPREHENSIVE METABOLIC PANEL (09/10/2024 3:23 PM EDT) Sodium 139 136 - 145 mmol/L 09/11/2024 12:15 AM EDT [facility] Potassium 4.3 3.5 - 5.0 mmol/L 09/11/2024 12:15 AM EDT [facility] Chloride 105 98 - 107 mmol/L 09/11/2024 12:15 AM EDT [facility] Total CO2 23 22 - 29 mmol/L 09/11/2024 12:15 AM EDT [facility] Anion Gap 11 7 - 16 mmol/L 09/11/2024 12:15 AM EDT [facility] Calcium 9.8 8.6 - 10.4 mg/dL 09/11/2024 12:15 AM EDT [facility] Glucose Lvl 89 70 - 99 mg/dL 09/11/2024 12:15 AM EDT [facility] BUN 16 6 - 20 mg/dL 09/11/2024 12:15 AM EDT [facility] Creatinine 0.73 0.51 - 1.30 mg/dL 09/11/2024 12:15 AM EDT [facility] Albumin 4.2 3.5 - 5.2 gm/dL 09/11/2024 12:15 AM EDT [facility] Total Protein 7.9 6.4 - 8.3 gm/dL 09/11/2024 12:15 AM EDT [facility] Bili Total 0.3 0.2 - 1.3 mg/dL 09/11/2024 12:15 AM EDT [facility] ALT 14 <=41 U/L 09/11/2024 12:15 AM EDT [facility] AST 16 <=40 U/L 09/11/2024 12:15 AM EDT [facility] Alk Phos 88 36 - 123 U/L 09/11/2024 12:15 AM EDT [facility] eGFR (CKD-EPIcr 2020) 101 >=60 mL/min/1.7 3 m2 09/11/2024 12:15 AM EDT [facility] Comment:Estimated GFR was ca lculated using the CKD-EPIcr (2020) equation refit without race. The equation is recommended by the [employer] - [place] [employer] Task Force. Blood VENOUS BLOOD / Unknown Venipuncture / Unknown 09/10/2024 3:23 PM EDT 09/10/2024 3:23 PM EDT Torri Santiago DO CHEMISTRY ORDERABLES Final Resu lt [facility] [address] [facility] , [place] [address] documented in this encounter Visit Diagnoses Diagnosis Sjogren syndrome with inflammatory arthritis Sacroiliitis, not elsewhere classified documented in this encounter Care Teams Cash Application Representative Relationship Specialty Start Date End Date Go Campos MD [address] [place] [address] PCP - OBGYN Obstetrics & Gynecology 06/02/11 Marely Gonzalez MD [address] [place] [address] PCP - General Family Medicine 01/07/13 Flavio Arreguin MD [address] [place] [address] Pain Medicine-Pain Medicine 10/20/21 documented as of this encounter
--- OUTSIDE RECORDS SUMMARY | 2024-09-21 11:43 | XMS_ITS | Encounter Summary ---
Author [place] [address] Care Team Providers Care Breakfast And Room Attendant Name Role Phone Go Campos MD Unavailable [phone] Marely Gonzalez MD Primary Care Provider + Flavio Arreguin MD Unavailable [phone] Reason for Visit * Reason Comments Abdominal Pain stomach ulcer acting up, ran out of protonix 4-5 days ago Encounter Details Date Type Department Care Team (Late st Contact Info) Description 09/21/2024 11:43 AM EDT - 09/21/2024 1:02 PM EDT Emergency [facility] Emergency [address] [place] [address] Toan Fernandez MD [address] [place] [address] Epigastric abdominal pain (Primary Dx) Discharge Disposition: Home or Self Care Social [...] on file documented as of this encounter Last Filed Vital Signs Vital Sign Reading Time Taken Comments Blood Pressure 144/92 09/21/2024 12:51 PM EDT Pulse 62 09/21/2024 11:32 AM EDT Temperature 36.3 C (97.3 F) 09/21/2024 11:34 AM EDT Respiratory Rate 18 09/21/2024 11:32 AM EDT Oxygen Saturation 100% 09/21/2024 1:00 PM EDT Inhaled Oxygen Concentration - - Weight 103 kg (227 lb) 09/21/2024 11:32 AM EDT Height 162.6 cm (5' 4 ) 09/21/2024 11:32 AM EDT Body Mass Index 38.96 09/21/2024 11:32 AM EDT documented in this encounter Functional Status * Is the [...] 05/11/2024 10:08 AM Nnamdi Tovar LPN * Suicide Severity Rating Answer Date of Assessment Author No Risk 09/21/2024 11:31 AM Opal Carpio RN * [place] Suicide Severity Rating Scale (Q shift for moderate and high) Question Answer Date of Assessment Author 1. In the past month, have y ou wished you were or wished you could go to sleep and not wake up? 0 09/21/2024 11:31 AM Opal Segura RN 2. In the past month, have y ou actually had any thoughts of killing yourself? (If no, skip to question 6) 0 09/21/2024 11:31 AM Opal Carpio RN 6. Have you ever done anythi ng, started to do anything, or prepared to do anything to end your life? 0 09/21/2024 11:31 AM Opal Carpio RN documented as of this encounter Mental Status * Because of a physical, mental or emotional condition, does this person have serious difficulty concentrating, remembering or making decisions? Answer Entry Date Author No 05/11/2024 10:08 AM Nnamdi Tovar LPN documented in this encounter Discharge Instructions * Discharge Instructions* Jackie Andersen PA - 09/21/2024 12:53 PM EDT Take Protonix daily. Follow-up with GI. Take Carafate as needed for pain. I recommend a bland diet.Return with worsening pain, vomiting or changing symptoms documented in this encounter Medications at Time [...] FOR 30 DAYS. DNF UNTIL 05/29/24 05/29/2024 pantoprazole (PROTONIX) 40 mg Oral Tablet, Delayed Release (E.C.)Indications: Epigastric abdominal pain,Acute superficial gastritis without hemorrhage Take 1 Tablet by mouth daily. 90 Tablet 1 09/21/2024 progesterone (PROMETRIUM) 200 mg Oral Capsule 12/14/2021 sucralfate (CARAFATE) 100 mg/mL Oral Suspension Take 10 mL by mouth 3 times daily as needed. 414 mL 09/21/2024 valACYclovir (VALTREX) 500 mg Oral TabletIndications: Recurrent cold sores Take 1 Tablet by mouth daily. 90 Tablet 1 03/08/2023 documented as of this encounter Ordered Prescriptions Prescription Sig Dispense Quantity Refills Last Filled Start Date End Date sucralfate (CARAFATE) 100 mg/mL Oral Suspension Take 10 mL by mouth 3 times daily as needed. 414 mL 09/21/2024 pantoprazole (PROTONIX) 40 mg Oral Tablet, Delayed Release (E.C.)Indications:E pigastric abdominal pain,Acute superficial gastritis without hemorrhage Take 1 Tablet by mouth daily. 90 Tablet 1 09/21/2024 documented in this encounter Discharge Disposition Disposition Code Departure Means Destination Comment s Home or Self Shelter documented in this encounter ED Notes * Jackie Andersen PA - 09/21/2024 11:30 AM EDT Chief Complaint Patient presents with Abdominal Pain stomach ulcer acting up, ran out of protonix 4-5 days ago 49-year-old female presenting with epigastric pain. Patient states she has a known stomach ulcer that was diagnosed via EGD 6 months ago. She has been on daily Protonix with control of her pain. States she ran out of her medication 5 days ago. States 2 days ago, she started having epigastric pain. Has been taking Pepto-Bismol without improvement of her pain. States she feels nauseous. No vomitingor diarrhea. Patient states this feels like stomach ulcer pain Abdominal Pain Associated symptoms: nausea Associated symptoms: no chest pain, no chills, no cough, no diarrhea, no dysuria, no fever, no shortness of breath and no vomiting Patient History Allergies Allergen Reactions Bactrim [Septra I.V.] Anxiety and Rash Ciprofloxacin Rash Clindamycin Swelling Facial swelling Dilaudid [Hydromorphone (Bulk)] Rash Severe burning of her skin Imitrex [Sumatriptan Succinate] Other (See Comments) Doesn't work Morphine Itching Amitriptyline Other (See Comments) Trimethoprim Other (See Comments) Zofran [Ondansetron Hcl] Anxiety Sulfa (Sulfonamide Antibiotics) Rash Sulfamethoxazole-Trimethoprim Rash Home Medications: Prior to Admission medications Medication Sig Start Date End Date Last Dose Authorizing Provider amLODIPine (NORVASC) 5 mg Oral Tablet Take 1 Tablet by mouth daily. 05/25/24 Flavio Garrido MD Uukmiftbkmgqifr-Neyvtoaqc-PS 2-30-10 mg/5 mL Oral Syrup Take 5 mL by mouth every 4 hours as needed. Patient not taking: Reported on 09/09/2024 06/04/24 Flavio Garrido MD busPIRone (BUSPAR) 10 mg Oral Tablet Take 1 Tablet by mouth 3 times daily as needed for anxiety. 04/05/23 Derrick Cline APRN ergocalciferol (VITAMIN D) 1,250 mcg (50,000 unit) Oral Capsule Take 1 Capsule by mouth once a week. 01/15/24 Derrick Cline APRN fish oil OTC (OMEGA-3 DHA-EPA 300 MG) 300-1,000 mg Oral Capsule, Delayed Release(E.C.) Take 2 g by mouth daily. Patient not taking: Reported on 09/09/2024 Provider, Historical mupirocin (BACTROBAN) 2 % Top Ointment Apply topically 3 times daily. 09/09/24 Torri Santiago DO olmesartan-hydrochlorothiazide (BENICAR HCT) 40-25 mg Oral Tablet Take 1 Tablet by mouth daily. 06/26/24 Marely Gonzalez MD ondansetron (ZOFRAN-ODT) 4 mg Oral Tablet, Rapid Dissolve Take 1 Tablet by mouth every 6 hours as needed for Nausea. Patient not taking: Reported on 09/09/2024 06/04/24 Flavio Garrido MD oxyCODONE-acetaminophen (PERCOCET) 7.5-325 mg Oral Tablet TAKE 1 TABLET BY MOUTH 4 TIMES DAILY FOR 30 DAYS. DNF UNTIL 05/29/24 05/29/24 Provider, Historical pantoprazole (PROTONIX) 40 mg Oral Tablet, Delayed Release (E.C.) Take 1 Tablet by mouth daily. 08/22/23 Flavio Garrido MD progesterone (PROMETRIUM) 200 mg Oral Capsule 12/14/21 Provider, Historical valACYclovir (VALTREX) 500 mg Oral Tablet Take 1 Tablet by mouth daily. 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 She started smoking about 17 years ago. She has a 0.5 pack-year smoking history. She has never used smokeless tobacco. She reports current alcohol use. She reports being sexually active and has had partner(s) who are male. She reports using the following method of control/protection: Condom. She reports that she does not use drugs. E-Cigarettes (such as Vapes or Juul) E-Cigarette Use Never User Family History: Family History Problem Relation Age of Onset Cancer Mother CERVICAL Substance Abuse Mother Drug abuse. Heart Disease Mother Lupus Mother Anesth Problems Mother trouble waking up Diabetes Maternal Grandmother Hypertension Paternal Grandfather Depression Father Mental Illness Father Substance Abuse Father Drug abuse. Arthritis Paternal Grandmother Heart Disease Paternal Grandmother Learning Disabilities Paternal Grandmother Vision Loss Paternal Grandmother Breast Cancer Neg Hx Colon Cancer Neg Hx Eclampsia Neg Hx Ovarian Cancer Neg Hx Labor Neg Hx Spont Abortions Neg Hx Stroke Neg Hx Surgical History: Past Surgical History: Procedure Laterality Date APPENDECTOMY age 13 SECTION CHOLECYSTECTOMY HYSTERECTOMY, TOTAL 09/17/2018 INCONTINENCE SURGERY SHOULDER ARTHROSCOPY Right 03/08/2015 RIGHT SHOULDER ARTHROSCOPIC ROTATOR CUFF REPAIR DECOMPRESSION ACROMIOPLASTY ACROMIOCLAVICULAR JOINTEXCISION; Surgeon: Jairo Finn MD; Location: [facility]; Service: Orthopedics Review of Systems Review of Systems Constitutional: Negative for chills and fever. HENT: Negative. Eyes: Negative. Respiratory: Negative for cough and shortness of breath. Cardiovascular: Negative for chest pain, palpitations and leg swelling. Gastrointestinal: Positive for abdominal pain and nausea. Negative for diarrhea and vomiting. Genitourinary: Negative for dysuria and frequency. Musculoskeletal: Negative. Skin: Negative for rash. Neurological: Negative. Psychiatric/Behavioral: Negative. All other systems reviewed and are negative. Physical Exam Blood pressure 134/83, pulse 62, temperature 97.3 ??F (36.3 ??C), resp. rate 18, height 5' 4 (1.626 m), weight 227 lb (103 kg), last menstrual period 08/11/2018, SpO2 100%, not currently . Physical Exam Vitals and nursing note reviewed. Constitutional: General: She is not in acute distress. Appearance: She is well-developed. Eyes: Conjunctiva/sclera: Conjunctivae normal. Pupils: Pupils are equal, round, and reactive to light. Cardiovascular: Rate and Rhythm: Normal rate and regular rhythm. Heart sounds: No murmur heard. No friction rub. No gallop. Pulmonary: Effort: Pulmonary effort is normal. Breath sounds: Normal breath sounds. Abdominal: General: Bowel sounds are normal. There is no distension. Palpations: Abdomen is soft. Tenderness: There is abdominal tenderness in the epigastric area. Musculoskeletal: Cervical back: Normal range of motion and neck supple. Lymphadenopathy: Cervical: No cervical adenopathy. Skin: General: Skin is warm and dry. Findings: No rash. Neurological: Mental Status: She is alert and oriented to person, place, and time. Radiology/EKG/Labs: Results for orders placed or performed during the hospital encounter of 09/21/24 CBC WITH DIFF Result Value Ref Range WBC 6.4 3.7 - 10.3 x10(3)/mcL RBC 4.25 3.90 - 5.20 x10(6)/mcL Hgb 13.3 11.2 - 15.7 g/dL Hct 39.2 34.0 - 45.0 % MCV 92.2 80.0 - 100.0 fL MCH 31.3 26.0 - 34.0 pg MCHC 33.9 30.7 - 35.5 g/dL RDW 11.8 <=14.9 % Platelet 256 155 - 369 x10(3)/mcL MPV 10.4 8.8 - 12.5 fL Neut Percent 58.6 % Imm Gran% 0.3 % Lymph Percent 30.9 % [place] Percent 7.8 % Eos Percent 1.9 % Baso Percent 0.5 % Neut # 3.8 1.6 - 6.1 x10(3)/mcL IMMGRAN# 0.0 0.0 - 0.1 x10(3)/mcL Lymph # 2.0 1.2 - 3.9 x10(3)/mcL [place] # 0.5 0.3 - 0.9 x10(3)/mcL Eos# 0.1 0.0 - 0.5 x10(3)/mcL Baso # 0.0 0.0 - 0.1 x10(3)/mcL COMPREHENSIVE METABOLIC PANEL Result Value Ref Range Sodium 138 136 - 145 mmol/L Potassium 4.4 3.5 - 5.0 mmol/L Chloride 105 98 - 107 mmol/L Total CO2 22 22 - 29 mmol/L Anion Gap 11 7 - 16 mmol/L Calcium 9.4 8.6 - 10.4 mg/dL Glucose Lvl 90 70 - 99 mg/dL BUN 14 6 - 20 mg/dL Creatinine 0.62 0.51 - 1.30 mg/dL Albumin 4.2 3.5 - 5.2 gm/dL Total Protein 7.6 6.4 - 8.3 gm/dL Bili Total 0.4 0.2 - 1.3 mg/dL ALT 14 <=41 U/L AST 24 <=40 U/L Alk Phos 85 36 - 123 U/L eGFR (CKD-EPIcr 2020) 109 >=60 mL/min/1.73 m2 LIPASE LEVEL Result Value Ref Range Lipase Lvl 18 13 - 60 U/L ED Course: Appropriate laboratory and radiology studies reviewed ED Clinical Impression: epigastric pain MDM Medical Decision Making 49-year-old female present with epigastric pain. Patient has known PUD. She has been off of her Protonix for 5 days. She does have epigastric tenderness here. No guarding or rebound. Basic lab work appears reassuring. She was given IV Protonix, Carafate and Phenergan with resolution of her pain. Likely PUD as a cause of her pain. Low suspicion for pancreatitis, perforated ulcer, or other acute emergent pathology. Do not believe any imaging is warranted. Will prescribe the Protonix and Carafate for pain symptoms. Recommend close GI follow-up. Return precautions were discussed Condition at Discharge/Transfer from Department: Stable This chart was completed using voice recognition technology and may contain unintended errors Jackie Andersen PA 09/21/24 [id number] Cosigned by Toan Fernandez MD at 09/21/2024 12:59 PM EDT Associated attestation - Toan Fernnadez MD - 09/21/2024 12:59 PM EDT I have participated in the care of this patient and I have reviewed and agree with all pertinent clinical information above including history, exam, and recommendations. I personally approve the management plan for this patient and take responsibility for patient management. I interpreted EKG/x-rays independently and results were as follows: CBC, CMP, lipase normal This chart was completed using voice recognition technology and may contain unintended errors documented in this encounter Plan of Treatment [...] Procedure Name Priority Date/Time Associated Diagnosis Comments CBC WITH DIFF STAT 09/21/2024 12:23 PM EDT LIPASE LEVEL STAT 09/21/2024 12:23 PM EDT COMPREHENSIVE METABOLIC PANEL STAT 09/21/2024 12:23 PM EDT documented in this encounter Results * LIPASE LEVEL (09/21/2024 12:23 PM EDT) Lipase Lvl 18 13 - 60 U/L 09/21/2024 12:44 PM EDT [facility] Blood VENOUS BLOOD / Unknown Venipuncture / Unknown 09/21/2024 12:23 PM EDT 09/21/2024 12:25 PM EDT us Jackie MACK CHEMISTRY ORDERABLES Final Res ult [facility] [address] [place] [address] * COMPREHENSIVE METABOLIC PANEL (09/21/2024 12:23 PM EDT) Sodium 138 136 - 145 mmol/L 09/21/2024 12:44 PM EDT [facility] Potassium 4.4 3.5 - 5.0 mmol/L 09/21/2024 12:44 PM EDT [facility] Chloride 105 98 - 107 mmol/L 09/21/2024 12:44 PM EDT [facility] Total CO2 22 22 - 29 mmol/L 09/21/2024 12:44 PM T [facility] Anion Gap 11 7 - 16 mmol/L 09/21/2024 12:44 PM T [facility] Calcium 9.4 8.6 - 10.4 mg/dL 09/21/2024 12:44 PM T [facility] Glucose Lvl 90 70 - 99 mg/dL 09/21/2024 12:44 PM T [facility] BUN 14 6 - 20 mg/dL 09/21/2024 12:44 PM T [facility] Creatinine 0.62 0.51 - 1.30 mg/dL 09/21/2024 12:44 PM T [facility] Albumin 4.2 3.5 - 5.2 gm/dL 09/21/2024 12:44 PM [facility] Total Protein 7.6 6.4 - 8.3 gm/dL 09/21/2024 12:44 PM T [facility] Bili Total 0.4 0.2 - 1.3 mg/dL 09/21/2024 12:44 PM T [facility] ALT 14 <=41 U/L 09/21/2024 12:44 PM [facility] AST 24 <=40 U/L 09/21/2024 12:44 PM EDT [facility] Alk Phos 85 36 - 123 U/L 09/21/2024 12:44 PM T [facility] eGFR (CKD-EPIcr 2020) 109 >=60 mL/min/1.7 3 m2 09/21/2024 12:44 PM EDT [facility] Comment:Estimated GFR was ca lculated using the CKD-EPIcr (2020) equation refit without race. The equation is recommended by the National Kidney Foundation - [place] [employer] of Neph[employer] Task Force. Blood VENOUS BLOOD / Unknown Venipuncture / Unknown 09/21/2024 12:23 PM EDT 09/21/2024 12:25 PM EDT us Jackie MACK CHEMISTRY ORDERABLES Final Res ult [facility] [address] [place], [place] [id number] * CBC WITH DIFF (09/21/2024 12:23 PM EDT) WBC 6.4 3.7 - 10.3 x10(3)/mcL 09/21/2024 12:27 PM EDT [facility] RBC 4.25 3.90 - 5.20 x10(6)/mcL 09/21/2024 12:27 PM EDT [facility] Hgb 13.3 11.2 - 15.7 g/dL 09/21/2024 12:27 PM EDT [facility] Hct 39.2 34.0 - 45.0 % 09/21/2024 12:27 PM EDT [facility] MCV 92.2 80.0 - 100.0 fL 09/21/2024 12:27 PM EDT [facility] MCH 31.3 26.0 - 34.0 pg 09/21/2024 12:27 PM EDT [facility] MCHC 33.9 30.7 - 35.5 g/dL 09/21/2024 12:27 PM EDT [facility] RDW 11.8 <=14.9 % 09/21/2024 12:27 PM EDT [facility] Platelet 256 155 - 369 x10(3)/mcL 09/21/2024 12:27 PM EDT [facility] MPV 10.4 8.8 - 12.5 fL 09/21/2024 12:27 PM EDT [facility] Neut Percent 58.6 % 09/21/2024 12:27 PM EDT [facility] Comment:Neutrophils equals s egs plus bands Imm Gran% 0.3 % 09/21/2024 12:27 PM EDT [facility] Comment:Automated count of m etamyelocytes, myelocytes and promyelocytes. Lymph Percent 30.9 % 09/21/2024 12:27 PM EDT [facility] [place] Percent 7.8 % 09/21/2024 12:27 PM EDT [facility] Eos Percent 1.9 % 09/21/2024 12:27 PM EDT [facility] Baso Percent 0.5 % 09/21/2024 12:27 PM EDT [facility] Neut # 3.8 1.6 - 6.1 x10(3)/[facility] 09/21/2024 12:27 PM EDT [facility] Comment:Neutrophils equals s egs plus bands IMMGRAN# 0.0 0.0 - 0.1 x10(3)/[facility] 09/21/2024 12:27 PM EDT [facility] Comment:Automated count of m etamyelocytes, myelocytes and promyelocytes. An absolute IG <0.1 is reported as 0.0. Lymph # 2.0 1.2 - 3.9 x10(3)/mcL 09/21/2024 12:27 PM EDT [facility] [place] # 0.5 0.3 - 0.9 x10(3)/[facility] 09/21/2024 12:27 PM EDT [facility] Eos# 0.1 0.0 - 0.5 x10(3)/[facility] 09/21/2024 12:27 PM EDT [facility] Baso # 0.0 0.0 - 0.1 x10(3)/[facility] 09/21/2024 12:27 PM EDT [facility] Blood VENOUS BLOOD / Unknown Venipuncture / Unknown 09/21/2024 12:23 PM EDT 09/21/2024 12:25 PM EDT Jackie MACK HEMATOLOGY ORDERABLES Final Re sult [facility] [address] [facility] [place] [address] documented in this encounter Visit Diagnoses Diagnosis Epigastric abdominal pain- Primary Abdominal pain, epigastric Acute superficial gastritis without hemorrhage documented in this encounter Administered Medications Inactive Administered Medications - up to 1 most recent administrations Medication Order MAR Action Action Date Dose Rate Site pantoprazole (PROTONIX) 40 mg in sodium chloride 0.9% 10 mL injection 40 mg, Intravenous, ONCE, 1 dose, On Sat09/21/24 at 1200, Reconstitute the appropriate number of 40 mg vials with 10 mL of 0.9% sodium chloride injection for EACH VIAL to a final concentration of approximately 4 mg/mL; administer total volume IV over a period of at least 2 minutes Given 09/21/2024 12:30 PM EDT 40 mg promethazine (PHENERGAN) tablet 25 mg 25 mg, Oral, ONCE, 1 dose, On Sat09/21/24 at 1200 Given 09/21/2024 12:30 PM EDT 25 mg sucralfate (CARAFATE) 100 mg/mL suspension 1 g 1 g, Oral, ONCE, 1 dose, On Sat09/21/24 at 1200, Hold enteral feeding 1 hour before and 1 hour after administration Given 09/21/2024 12:31 PM EDT 1 g documented in this encounter Discontinued Medications Medication Sig Discontinue Reason Start Date End Da te pantoprazole (PROTONIX) 40 mg Oral Tablet, Delayed Release (E.C.)Indications:Epigast reynaldo abdominal pain,Acute superficial gastritis without hemorrhage Take 1 Tablet by mouth daily. 08/22/2023 09/21/2024 documented as of this encounter Active and Recently Administered Medications Times are shown in EDT. Scheduled Medication Order 09/19/2024 09/20/2024 09/21/2024 pantoprazole (PROTONIX) 40 mg in sodium chloride 0.9% 10 mL injection (COMPLETED) 40 mg, Intravenous, ONCE, 1 dose, On Sat09/21/24 at 1200, Reconstitute the appropriate number of 40 mg vials with 10 mL of 0.9% sodium chloride injection for EACH VIAL to a final concentration of approximately 4 mg/mL; administer total volume IV over a period of at least 2 minutes 1230 (Given - Provid er: Wojciech Lindsay RN) promethazine (PHENERGAN) tablet 25 mg (COMPLETED) 25 mg, Oral, ONCE, 1 dose, On Sat09/21/24 at 1200 1230 (Given - Provid er: Wojciech Lindsay RN) sucralfate (CARAFATE) 100 mg/mL suspension 1 g (COMPLETED) 1 g, Oral, ONCE, 1 dose, On Sat09/21/24 at 1200, Hold enteral feeding 1 hour before and 1 hour after administration 1231 (Given - Provid er: Wojciech Lindsay RN) documented in this encounter Care Teams Breakfast And Room Attendant Relationship Specialty Start Date End Date Go Campos MD [address] [place] [address] PCP - OBGYN Obstetrics & Gynecology 06/02/11 Marely Gonzalez MD [address] [place] [address] PCP - General Family Medicine 01/07/13 Flavio Arreguin MD [address] [place] [address] Pain Medicine-Pain Medicine 10/20/21 documented as of this encounter
[2024-11-08 20:52] LABS: Coronavirus 19, PCR Not Detected (NotDetected); Influenza A, PCR Not Detected (NotDetected); Influenza B, PCR Not Detected (NotDetected)
--- OUTSIDE RECORDS SUMMARY | 2024-11-10 10:01 | XMS_ITS | Clinical Summary ---
Author Organization Healthcare Address [facility] [place] [id number] Care Team Providers Care Pedodontist Name Role Phone Unavailable Primary Care Provider Unavailabl e Encounters Date Type Department Care Team Description 09/02/2024 Telephone [facility] [address] [place] [address] Pcp, No from Last 3 Months Family History Medical History Relation Name Comments Bipolar disorder Father Conversions - Other Mother Sjogren' s disease Diabetes Mother Lupus Mother Relation Name Status Comments Father Mother Social History Tobacco Use Types Packs/Day Years Used Date Smoking Tobacco: Former Comments Unknown Sex and Gender Information Value Date Recorded Sex Assigned at Not on file Legal Sex Female 6:17 PM EDT Gender Identity Not on file Sexual Orientation Not on file Last Filed Vital Signs Vital Sign Reading Time Taken Comments Blood Pressure - - Pulse - - Temperature - - Respiratory Rate - - Oxygen Saturation - - Inhaled Oxygen Concentration - - Weight 117 kg (258 lb 4 oz) 05/17/2016 7:[address] Height 163.8 cm (5' 4.5 ) 05/17/2016 7:56 AM EST Body Mass Index 43.64 05/17/2016 7:56 AM EST Plan of Treatment Upcoming Encounters Date Type Department Care Team (Late st Contact Info) Description 11/19/2024 8:30 AM EDT Office Visit [facility] [address] [place] [address] Health Maintenance Due Date Last Done Comments [facility]-Depression Screening 1976 [facility]-HIV Screening 1976 [facility]-Hepatitis C Screening 1976 [facility]-/Child/Adol SDOH Screenings 1976 [facility]-DTaP,Tdap,and Td Vaccines (2 - Tdap) 03/16/1992 03/15/1992 [facility]- SDOH Screenings 1994 [facility]-Adult SDOH Screenings 1994 [facility]-Hepatitis B Vaccines (1 of 3 - 19+ 3-dose series) 07/16/1995 [facility]-Pap Smear 1997 [facility]-Cervical Cancer Screening 2006 [facility]-HPV/Cotest 2006 CT Colonography 2021 Colonoscopy 2021 FIT-DNA 2021 FIT 2021 FOBT 2021 Sigmoidoscopy 2021 [facility]-Colorectal Cancer Screening 2021 [id number] Vaccine ( season) 2023 12/02/2020, 11/11/2020 [facility]-Influenza Vaccine (#1) 12/14/202402/26, 03/07/2016, 01/21/2015, Additional history exists [facility]-Zoster Vaccines (1 of 2) 2026 [facility]-Hepatitis A Vaccines Aged Out 01/22/2018 No longer eligible based on patient's age to complete this topic HPV Vaccines Aged Out No longer eligi ble based on patient's age to complete this topic [facility]-HIB Vaccines Aged Out No longer e ligible based on patient's age to complete this topic [facility]-IPV Vaccines Aged Out No longer e ligible based on patient's age to complete this topic [facility]-Pneumococcal Vaccine: Pediatrics (0 to 5 Years) and At-Risk Patients (6 to 49 Years) Aged Out No longer eligible based on patient's age to complete this topic [facility]-Rotavirus Vaccines Aged Out No lo nger eligible based on patient's age to complete this topic Insurance [facility] MED[facility] [place] [facility]
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
--- OUTSIDE RECORDS SUMMARY | 2024-11-10 10:01 | XMS_ITS | Encounter Summary ---
Author Organization [facility] Address [address] [place] [address] Care Team Providers Care Oyster Culler Name Role Phone Marely Gonzalez MD Primary Care Provider Alan Villanueva MD Unavailable [phone] Dixie Doss MD Unavailable [phone] Angela Lee Unavailable [phone] Link Flores MD Unavailable [phone] Adamaris Ladd RN Unavailable [phone] Katrina Ruiz MD Unavailable Verenice Luevano RN Unavailable [phone] Encounter Details Date Type Department Care Team (Latest Contact Info) Description 12/28/2020 Preop Surgical Orders [facility] Physicians - Urogynecology, NyLu[place] Daniel BaileyM[address] [place] [phone] Adamaris Ladd, RN [address] [place] [address] Female pelvic pain (Primary Dx) Social History Tobacco Use Types Packs/Day Years Used Date Smoking Tobacco: Every Day Cigarettes 0.5 6 Started: 06/02/2012; Last attempted to quit: 09/10/2016 Smokeless Tobacco: Never Alcohol Use Standard Drinks/Week Comments No 0 (1 standard drink = 0.6 oz pur e alcohol) Comments No Sex and Gender Information Value Date Recorded Sex Assigned at Not on file Legal Sex Female 7:15 PM EST Gender Identity Not on file Sexual Orientation Not on file 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 No / Unsure 12/29/2020 9:24 AM EDT documented as of this encounter Plan of Treatment Not on file documented as of this encounter Visit Diagnoses Diagnosis Female pelvic pain- Primary Unspecified symptom associated with female genital organs documented in this encounter Care Teams Oyster Culler Relationship Specialty Start Date End Date Marely Gonzalez MD PCP - General Family Medicine 03/01/22 Alan Villanueva MD Family Medicine 05/31/14 Dixie Doss MD [address] [facility] [place] [address] Obstetrics & Gynecology 07/26/20 Angela Lee PA [address] [facility] [address] [place] [address] Physician Senior Chemical Process Engineer Urology 10/28/20 Link Flores MD [address] [facility] [place] [address] Female Pelvic Medicine and Reconstructive Surgery 12/12/20 Adamaris Ladd RN [address] [place] [address] Registered Nurse 12/28/20 Katrina Ruiz MD [address] [place] [address] Resident Obstetrics & Gynecology 03/01/21 Verenice Luevano, RN [address] [place] [address] Registered Nurse 03/01/21 documented as of this encounter
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
--- OUTSIDE RECORDS SUMMARY | 2024-11-10 10:01 | XMS_ITS | Encounter Summary ---
Author Organization [facility] Address [address] [place] [address] Care Team Providers Care Racing Manager Name Role Phone Marely Gonzalez MD Primary Care Provider [phone] Dorita Paulino MD Unavailable [phone] Duane Graves RN Unavailable Unavailable Sindy Oneill DEVELOPMENT TRAINER Unavailable [phone] Source Comments This information has been disclosed to you from confidential records protectfrom disclosure by state law. You shall make no further disclosure of thisinformation without the specific, written, and informed release of theindividual to whom it pertains, or as otherwise permitted by law. A generalauthorization for the release of medical or other information is not sufficientfor the purposes of the release of HIV test results or diagnoses. [id number] Health Encounter Details Date Type Department Care Team (Late st Contact Info) Description 06/22/2016 Orders Only [facility] at [facility] Office [address] [facility] [address] [place] [address] Arnulfo Sanchez MD [address] [facility] [address] [place] [address] Social History Tobacco Use Types Packs/Day Years Used Date Smoking Tobacco: Former Alcohol Use Standard Drinks/Week Comments Not Asked 0 (1 standard drink = 0.6 oz pur e alcohol) Comments Unknown Sex and Gender Information Value Date Recorded Sex Assigned at Female 08/15/2021 9:24 AM EDT Legal Sex Female 3:27 PM EST Gender Identity Female 08/15/2021 9:24 AM EDT Sexual Orientation Not on file documented as of this encounter Plan of Treatment Not on file documented as of this encounter Procedures Procedure Name Priority Date/Time Associated Diagnosis Comments [facility] EXTERNAL IMAGING 06/22/2016 4:55 PM EST documented in this encounter Results * [facility] External Imaging (06/22/2016 4:55 PM EST) Anatomical Region Laterality Modality Radiographic Hilda ging 06/22/2016 4:55 PM EST Narrative 06/23/2016 6:45 PM EST MRI SHOULDER RIGHT WO CONTRAST 06/22/2016 4:55 PM HISTORY: Chronic right shoulder pain M25.511-Pain in right [id number]-CM G89.29-Other chronic [id number] TECHNIQUE: Routine MRI of the right shoulder without contrast COMPARISON: February 15, 2014 FINDINGS: There are postsurgical changes of rotator cuff repair. No significant recurrent tear is identified. There is mild supraspinatus and infraspinatus tendinosis, with minor articular surface fraying at the dorsal supraspinatus fibers. The teres minor and subscapularis tendons are intact. Biceps tendon is intact. Degenerative signal within the superior labrum is noted. No significant chondral loss. No joint effusion. There is moderate fluid in the subacromial subdeltoid bursa. Probable postsurgical changes of subacromial decompression. There is no fracture or marrow replacing process. IMPRESSION: 1. No new or recurrent rotator cuff tear is identified. There is mild supraspinous and infraspinatus tendinosis with minimal articular surface fraying of the supraspinatus as described. 2. Moderate fluid within the subacromial subdeltoid bursa. If there has not been a recent subacromial injection, this is compatible with moderate bursitis. 3. Interval subacromial decompression. Procedure Note Unknown, Attending Provider - 06/24/2016 MRI SHOULDER RIGHT WO CONTRAST 06/22/2016 4:55 PM HISTORY: Chronic right shoulder pain M25.511-Pain in right [id number]-CM G89.29-Other chronic [id number]-CM TECHNIQUE: Routine MRI of the right shoulder without contrast COMPARISON: February 15, 2014 FINDINGS: There are postsurgical changes of rotator cuff repair. No significant recurrent tear is identified. There is mild supraspinatus and infraspinatus tendinosis, with minor articular surface fraying at the dorsal supraspinatus fibers. The teres minor and subscapularis tendons are intact. Biceps tendon is intact. Degenerative signal within the superior labrumis noted. No significant chondral loss. No joint effusion. There is moderate fluid in the subacromial subdeltoid bursa. Probable postsurgical changes of subacromial decompression. There is no fractureor marrow replacing process. IMPRESSION: 1. No new or recurrent rotator cuff tear is identified. There is mild supraspinous and infraspinatus tendinosis with minimal articular surface fraying of the supraspinatus as described. 2. Moderate fluid within the subacromial subdeltoid bursa. If there hasnot been a recent subacromial injection, this is compatible with moderatebursitis. 3. Interval subacromial decompression. Arnulfo Sanchez MD IMG DIAGNOSTIC IMAGING ORDERABLE S Final Result documented in this encounter Visit Diagnoses Not on filedocumented in this encounter Care Teams Racing Manager Relationship Specialty Start Date End Date Marely Gonzalez MD [address] [place] [address] PCP - General Family Medicine 06/19/16 Dorita Paulino MD [address] [place] [address] Surgeon Surgical Oncology 10/09/17 Duane Graves, NILSON Registered Nurse 11/28/17 Sindy Oneill, DEVELOPMENT TRAINER [facility] [place] [address] Nurse Practitioner Oncology 12/04/17 documented as of this encounter
--- OUTSIDE RECORDS SUMMARY | 2024-11-10 10:01 | XMS_ITS | Clinical Summary ---
Author Organization [facility] Address [address] [place] [id number] Care Team Providers Care Print Journalist Name Role Phone Marely Gonzalez MD Primary Care Provider [phone] Dorita Paulino MD Unavailable [phone] Duane Graves RN Unavailable Unavailable Sindy Oneill ACCESSIBILITY LIFT TECHNICIAN Unavailable [phone] Source Comments This information has been disclosed to you from confidential records protectedfrom disclosure by state law. You shall make no further disclosure of thisinformation without the specific, written, and informed release of theindividual to whom it pertains, or as otherwise permitted by law. A generalauthorization for the release of medical or other information is not sufficientfor the purposes of therelease of HIV test results or diagnoses. [id number] Allergies Active Allergy Reactions Criticality Noted Date Comments Amitriptyline Other (See Comments) 01/27/2024 Ciprofloxacin Rash High 06/19/2016 Clindamycin Anaphylaxis,Swelling High 10/25/2021 Facial swelling Facial swelling Cotrim Shortness Of Breath High 06/02/2014 Hydromorphone Shortness Of Breath,Other (See Comments) High 06/19/2016 Hydromorphone Hcl Shortness Of Breath High 7 Morphine Itching,Other (See Comments) High 06/27/2011 Ondansetron Hcl Nausea And Vomiting,Swelling,Ot her (See Comments) Medium 06/19/2016 swelling around my chest area per pt. Opioids - Morphine Analogues Anxiety Low 06/19/2016 Sulfa (Sulfonamide Antibiotics) Other (See Comments) 04/27/2021 Sulfamethoxazole-Trimeth oprim Other (See Comments),Rash,Short ness Of Breath High 06/19/2016 Sumatriptan Other (See Comments) 06/19/2016 Sumatriptan Succinate Other (See Comments) High 06/14 Doesn't work Trimethoprim Other (See Comments) 01/27/2024 Medications ergocalciferol (ERGOCALCIFEROL ) 50,000 unit capsule Take by mouth. 03/03/2018 Active busPIRone (BUSPAR) 5 MG tablet Take 1 tablet (5 mg total) by mouth 2 times a day. Active proMETHazine (PHENERGAN) 25 MG tablet Take 1 tablet (25 mg total) by mouth every 6 hours as needed for Nausea. 30 tablet 08/15/2021 Active diclofenac (VOLTAREN) 50 MG EC tablet Take 1 tablet (50 mg total) by mouth 2 times a day. 60 tablet 10/26/2022 Active oxyCODONE-aceta minophen (PRIMLEV) 7.5-300 mg per tablet Take 1 tablet by mouth every 6 hours as needed for Pain. Active aspirin 325 MG tablet Take 1 tablet (325 mg total) by mouth daily. 14 tablet 11/12/2022 Active naloxone (NARCAN) 4 mg/actuation Venturia Apply 1 spray in one nostril if needed. Call 911. May repeat dose in other nostril if no response in 3 minutes. 2 each 1 11/12/2022 Active senna-docusate (SENNOSIDES-DOC USATE SODIUM) 8.6-50 mg per tablet Take 1 tablet by mouth every 12 hours as needed for Constipation. 60 tablet 11/12/2022 Active proMETHazine (PHENERGAN) 25 MG tablet Take 1 tablet (25 mg total) by mouth every 6 hours as needed for Nausea. 30 tablet 11/13/2022 Active ibuprofen (MOTRIN) 800 MG tablet Take 1 tablet (800 mg total) by mouth every 8 hours as needed for Pain. 60 tablet 1 11/13/2022 Active acetaminophen (TYLENOL) 325 MG tablet Take 2 tablets (650 mg total) by mouth every 6 hours as needed. Do not exceed 3000 mg in one day 90 tablet 1 11/13/2022 Active ketorolac (TORADOL) 10 mg tabletIndicatio ns:Left hip pain Take 1 tablet (10 mg total) by mouth 3 times a day. 15 tablet 07/14/2024 Active Hospital, Clinic, or Other Facility Administered Medication Ordered Dose Route Frequency Start Date End Date Status betamethasone acetate-betamethasone sodium phosphate (CELESTONE) injection 6 mgIndications:Right hip pain 6 mg IAtc Once 12/07/2022 Active Active Problems Problem Noted Date Diagnosed Date S/P hip arthroscopy 08/30/2021 Tear of right gluteus medius tendon 10/14/2018 Overview (10/14/2018): Added automatically from request for surgery [id number] Fibroadenoma of left breast 11/11/2017 Overview (11/11/2017): Added automatically from request for surgery [id number] Right shoulder pain 01/23/2017 Shoulder impingement 01/23/2017 Sjogren's syndrome 09/03/2016 Left hip pain 06/21/2016 Labral tear of hip, degenerative 06/21/2016 Greater trochanteric bursitis of left hip 2016 Morbid obesity due to excess calories 04/24/2016 Intractable migraine with aura without status mi grainosus 04/24/2016 Ruptured ovarian cyst 06/12/2014 Nausea 05/15/2014 GERD (gastroesophageal reflux disease) 5 Depressive disorder, not elsewhere classified Chest pain 02/19/2013 Abnormal stress test 02/19/2013 Overview (11/12/2017): Overview: Cardiology consult Anticipate angio today Immunizations Immunization Administration Dates Next Due Influenza, unspecified 03/07/2016,2014,01/13/2014,2012 MMR 07/31/2013 Pneumococcal polysaccharide, 23-valent 02/18/2013 tdap 09/13/2012 Family History * Patient is adopted Medical History Relation Comments Depression Father Breast Cancer Maternal Grandmother Heart failure Mother Lupus Mother Seizures Mother Sjogren's syndrome Mother Relation Status Comments Father Alive Maternal Grandmother Mother Alive Social History Tobacco Use Types Packs/Day Years Used Date Smoking Tobacco: Every Day Cigarettes 0.3 10 Smokeless Tobacco: Never Tobacco Cessation:Ready to Q uit: Not Asked; Counseling Given: Not Answered Alcohol Use Standard Drinks/Week Comments No 0 (1 standard drink = 0.6 oz pur e alcohol) Comments No Sex and Gender Information Value Date Recorded Sex Assigned at Female 08/15/2021 9:24 AM EDT Legal Sex Female 3:27 PM EST Gender Identity Female 08/15/2021 9:24 AM EDT Sexual Orientation Not on file Last Filed Vital Signs Vital Sign Reading Time Taken Comments Blood Pressure 121/68 11/12/2022 3:15 PM EDT Pulse 57 11/12/2022 3:15 PM EDT Temperature 36.3 C (97.3 F) 11/12/2022 1:36 PM EDT Respiratory Rate 15 11/12/2022 3:15 PM EDT Oxygen Saturation 93% 11/12/2022 3:05 PM EDT Inhaled Oxygen Concentration 93% 11/12/2022 3 :05 PM EDT Weight 106.1 kg (234 lb) 01/30/2023 9:30 AM EDT Height 162.6 cm (5' 4 ) 01/30/2023 9:30 AM EDT Body Mass Index 40.17 01/30/2023 9:30 AM EDT Plan of Treatment Health Maintenance Due Date Last Done Comments ASCVD Assessment 1976 Abnormal Colonoscopy Follow Up 1976 Depression Monitoring (PHQ-9) 1976 Diabetes Screening 1976 Hepatitis C Screening (Scalixt) 1976 Alcohol Misuse Screening 1994 HIV Screening 1994 Immunization: Hepatitis B (1 of 3 - 19+ 3-dose series) 07/16/1995 Cervical Cancer Screening/Pa p Smear (Scalixt) 2006 Mammogram (Scalixt) 11/08/2019 11/07/2017, 7 Immunization: Pneumococcal ( 2 of 2 - PCV) 05/14/2020 05/14/2019, 11/06/2018, 09/11/2018, Additional history exists Cologuard (FIT-DNA) 2021 Colonoscopy 2021 Colorectal Cancer Screening (RampedMediahart) 2021 Stool Testing (gFOBT) 2021 Immunization: DTaP/Tdap/Td ( 3 - Td or Tdap) 09/13/2022 09/13/2012, 03/15/1992 Immunization: COVID-19 ( season) 2023 12/02/2020, 11/11/2020 Immunization: Influenza (MyC wells) (#1) 2024 05/14/2019, 11/06/2018, 09/11/2018, Additional history exists Medical Devices Implanted Type Area Tax Manager Public Device Identifier Shelf Expiration Date Model / Serial / Lot Hobucken Sut 5.5mm 3 Ft Healicoil Ulbrd Shldr Preld Cobraid Regenesorb Blk Serge - [id number] Implanted:Qty: 1 on 11/12/2022 by Venkatesh Cole MD at [facility] Plate Right: Hip [employer] 02/08/2023 [id number] / / [id number] Hobucken Sut 5.5mm Multifix S Ult Kntls Peek - [id number] Implanted:Qty: 1 on 11/12/2022 by Venkatesh Cole MD at [facility] Plate Right: Hip [employer] 08/16/2025 [id number] / / [id number] Hobucken Sut 5.5mm 3 Ft Healicoil Ulbrd Shldr Preld Cobraid Regenesorb Blk Serge - [id number] Implanted:Qty: 1 on 11/12/2022 by Venkatesh Cole MD at [facility] Plate Right: Hip [employer] 08/27/2023 [id number] / / [id number] Hobucken Sut 5.5mm Multifix S Ult Kntls Peek - [id number] Implanted:Qty: 1 on 11/12/2022 by Venkatesh Cole MD at [facility] Plate Right: Hip [employer] 11/08/2024 [id number] / / [id number] Procedures Procedure Name Priority Date/Time Associated Diagnosis Comments MAMMO DIAGNOSTIC DIGITAL BILATERAL INCL CAD Routine 11/07/2017 2:43 PM EDT Abnormal breast exam from Last 3 Months or Most Recently Relevant to Health Maintenance Results * Mammo Diagnostic Bilateral incl CAD (11/07/2017 2:43 PM EDT) Anatomical Region Laterality Modality Breast Bilateral Mammography 11/07/2017 1:44 PM EDT Impressions 11/07/2017 4:34 PM EDT IMPRESSION: 1. Mild interval growth of the left breast mass which may be within normal limits for a fibroadenoma. 2. Otherwise, no mammographic evidence of malignancy within either breast. Recommendation: The patient reports that she desires excision for the mass as it is symptomatic. This seems reasonable. If excision is not performed, then a 6-12 month follow-up ultrasound is recommended to document stability. These findings and recommendations were discussed with the patient and given to her in written form. A preliminary report was also provided for the patient's health care provider. ACR BI-RADS Category: 3 (probably benign) Approved by Shashank Foster on 11/07/2017 3:33 PM EDT I have personally reviewed the images and I agree with this report. Report Verified by: GAGE GRANADOS at 11/07/2017 4:34 PM EDT Narrative 11/07/2017 4:34 PM EDT Digital diagnostic bilateral breast mammogram with tomosynthesis and CAD, and targeted left breast ultrasound on 11/07/2017 1:44 PM EDT. Indication: The patient is a 42-year-old woman who underwent diagnostic workup for a palpable lump in the left breast in September 2016. This revealed a corresponding hypoechoic mass that was subsequently sampled with pathology demonstrating myxoid fibroadenoma. A six-month follow-up ultrasound was recommended to document stability. The patient presents today because the mass is tender, and she feels that it is increased in size. Comparison: Diagnostic mammogram dated 09/20/2016. Views performed:Combination 2-D/3-D digital mammograms of both breasts were obtained in the CC and MLO projections. Targeted left breast ultrasound was performed. Breast Density: There are scattered areas of fibroglandular density. Findings: The circumscribed, oval mass in the lateral aspect of the left breast at mid depth now measures 4.6 x 3.7 cm, previously measuring 4.1 x 3.5 cm on 09/20/2016. A tissue marker is present within the mass. No other suspicious masses, calcifications, or architectural distortions identified in either breast. Targeted ultrasound of the left breast at the 3:00 position 7 cm from the nipple again demonstrates the hypoechoic mass with gently lobulated margins. This mass is parallel lies in parallel orientation and measures 4.6 x 3.7 x 2.1 cm, previously 3.9 x 3.5 x 2.0 cm. Internal vascularity and posterior acoustic enhancement appear similar. Fredy Snider MD IMG MAMMOGRAPHY ORDERABLES Fin al Result from Last 3 Months or Most Recently Relevant to Health Maintenance Insurance [employer] MDCD [facility] Care Teams Print Journalist Relationship Specialty Start Date End Date Marely Gonzalez MD [address] [place] [address] PCP - General Family Medicine 06/19/16 Dorita Paulino MD [address] [place] [address] Surgeon Surgical Oncology 10/09/17 Duane Graves, NILSON Registered Nurse 11/28/17 Sindy Oneill, ACCESSIBILITY LIFT TECHNICIAN [address] [place] [address] [place] [address] Nurse Practitioner Oncology 12/04/17
--- OUTSIDE RECORDS SUMMARY | 2024-11-10 10:01 | XMS_ITS | Clinical Summary ---
Author Organization [facility] Address [address] [place] [address] Phone Care Team Providers Care Cnc Technician Name Role Phone Go Campos MD Unavailable [phone] Marely Gonzalez MD Primary Care Provider + Flavio Arreguin MD Unavailable [phone] Allergies Active Allergy Reactions Criticality Noted Date Comments Amitriptyline Other (See Comments) 01/27/2024 Septra I.V. Anxiety,Rash High 03/19/2012 Ciprofloxacin Rash High 09/26/2010 Clindamycin Swelling High 10/25/2021 Facial swelling Hydromorphone (Bulk) Rash High 12/16/2009 Severe burning of her skin Sumatriptan Succinate Other (See Comments) High 06/14 Doesn't work Morphine Itching High 06/27/2011 Sulfa (Sulfonamide Antibiotics) Rash Low 04/27/2021 Sulfamethoxazole-Trimeth oprim Rash Low 01/26/2021 Trimethoprim Other (See Comments) 01/27/2024 Ondansetron Hcl Anxiety 11/09/2022 Medications * This document contains information received from the source organization and may not represent a complete record from that organization. progesterone (PROMETRIUM) 200 mg Oral Capsule 2 Active valACYclovir (VALTREX) 500 mg Oral TabletIndication s:Recurrent cold sores Take 1 Tablet by mouth daily. 90 Tablet 1 3 Active busPIRone (BUSPAR) 10 mg Oral TabletIndication s:Generalized anxiety disorder Take 1 Tablet by mouth 3 times daily as needed for anxiety. 90 Tablet 1 3 Active fish oil OTC (OMEGA-3 DHA-EPA 300 MG) 300-1,000 mg Oral Capsule, Delayed Release(E.C.)Ind ications:Sjogren 's syndrome, with unspecified organ involvement Take 2 g by mouth daily. Active ergocalciferol (VITAMIN D) 1,250 mcg (50,000 unit) Oral CapsuleIndicatio ns:Vitamin D deficiency Take 1 Capsule by mouth once a week. 4 Capsule 2 4 Active amLODIPine (NORVASC) 5 mg Oral TabletIndication s:Elevated blood pressure reading in office without diagnosis of hypertension,Ess ential hypertension Take 1 Tablet by mouth daily. 90 Tablet 1 5 Active oxyCODONE-acetam inophen (PERCOCET) 7.5-325 mg Oral Tablet TAKE 1 TABLET BY MOUTH 4 TIMES DAILY FOR 30 DAYS. DNF UNTIL 05/29/24 5 Active ondansetron (ZOFRAN-ODT) 4 mg Oral Tablet, Rapid DissolveIndicati ons:Flu-like symptoms Take 1 Tablet by mouth every 6 hours as needed for Nausea. 30 Tablet 5 Active Additional Information Patient not taking.Reason: Pt electing to not take the medication, Reported on 09/09/2024 Brompheniramine- Pseudoeph-DM 2-30-10 mg/5 mL Oral SyrupIndications :Influenza B Take 5 mL by mouth every 4 hours as needed. 473 mL 5 Active Additional Information Patient not taking.Reason: Pt electing to not take the medication, Reported on 09/09/2024 olmesartan-hydro chlorothiazide (BENICAR HCT) 40-25 mg Oral TabletIndication s:Essential hypertension Take 1 Tablet by mouth daily. 90 Tablet 1 5 Active mupirocin (BACTROBAN) 2 % Top OintmentIndicati ons:Nasal sore Apply topically 3 times daily. 15 g 5 Active pantoprazole (PROTONIX) 40 mg Oral Tablet, Delayed Release (E.C.)Indication s:Epigastric abdominal pain,Acute superficial gastritis without hemorrhage Take 1 Tablet by mouth daily. 90 Tablet 1 5 Active sucralfate (CARAFATE) 100 mg/mL Oral Suspension Take 10 mL by mouth 3 times daily as needed. 414 mL 5 Active Active Problems Patient Care Coordination No te Formatting of this note migh t be different from the original. [place] 02/22/16, 11/10/15 05/06/2014, 01/16/13 UDS 11/10/15 CSTA 11/10/15 SOAPP 11/10/15 OPI 11/10/15 Utilization audit completed by Christy Zhang on 06/13/2020. 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 for pain ketorolac (TORADOL) injection 30 mg hold oral advil after toradol injection for 24 hours ok to take tylenol Tear of right gluteus medius tendon 10/14/2018 Overview (03/20/2023): Added automatically from request for surgery [id number] Vitamin D deficiency 02/28/2018 Assessment & Plan (01/16/2024 4:15 PM EDT): Orders: ergocalciferol (VITAMIN D) 1,250 mcg (50,000 unit) Oral Capsule; Take 1 Capsule by mouth once a week. Sjogren's syndrome 09/03/2016 Assessment & Plan (09/09/2024 1:00 PM EDT): Orders: COMPREHENSIVE METABOLIC PANEL; Future CBC WITH DIFF; Future methylPREDNISolone acetate (DEPO-Medrol) injection 80 mg URINALYSIS; Future labs ordered Recommend to follow up with Rheum- discussed the importance of seeing a itinerant teacher assistant to control symptoms Assessment & Plan (01/16/2024 4:15 PM EDT): Intractable migraine with aura without status mi grainosus 04/24/2016 Morbid obesity due to excess calories 04/24/2016 GERD (gastroesophageal reflux disease) 5 Major depressive disorder, recurrent episode, mi ld 05/15/2014 Chest pain 02/19/2013 Abnormal stress test 02/19/2013 Overview (02/19/2013): Cardiology consult Anticipate angio today Anxiety 02/19/2013 Overview (02/19/2013): Add on klonopin prn D/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 Increase zoloft to 100mg daily Resolved Problems Problem Noted Date Diagnosed Date Resolved Date Generalized pain 02/07/2022 05/05/2023 Low back pain 02/07/2022 05/05/2023 Nausea 05/15/2014 05/05/2023 Post- depression 11/15/201204/24 (vaginal after ) 09/20/2012 04/24/2016 Active labor 09/20/2012 11/15/2012 Previous delivery a ffecting , antepartum 09/16/2012 04/24/2016 Varicose veins of lower extr emity in 05/23/2012 04/24/2016 Low-lying placenta 04/21/2012 3 Overview (04/21/2012): Needs repeat u/s Previous section 02/15/2012 Overview (02/15/2012): Desires Encounter for supervision of other normal 01/24/2012 11/15/2012 AMA (advanced maternal age) multigravida 35+ 2 04/24/2016 Pelvic pain in female 2016 Encounters Date Type Department Care Team Description 09/21/2024 11:43 AM EDT - 09/21/2024 1:02 PM EDT Emergency [facility] [address] [place] [address] Toan Fernandez MD Epigastric abdominal pain (Primary Dx) Discharge Disposition: Home or Self Care 09/21/2024 Travel 09/14/2024 Results Follow-Up [facility] [address] [facility] [address] [place] [phone] Torri Satniago DO COMPREHENSIVE METABOLIC PANEL, CBC WITH DIFF, URINALYSIS 09/11/2024 Orders Only [facility] [address] [place] [phone] Katherine Silverman PA-C UTI (urinary tract infection), uncomplicated (Primary Dx) 09/11/2024 Telephone [facility] [address] [facility] [address] [place] [phone] Marely Gonzalez MD Results (UA) 09/10/2024 3:15 PM EDT - 09/10/2024 11:59 PM EDT Hospital Encounter [facility] [address] [place] [address] Sjogren syndrome with inflammatory arthritis; Sacroiliitis, not elsewhere classified Discharge Disposition: Home or Self Care 09/09/2024 11:50 AM EDT Office Visit [facility] [address] [place] [address] Torri Santiago DO Sjogren syndrome with inflammatory arthritis (Primary Dx); Fever, unspecified fever cause; Sacroiliitis, not elsewhere classified; Nasal sore; Fibromyalgia 08/18/2024 10:56 AM EDT - 08/18/2024 11:59 PM EDT Hospital Encounter [facility] [address] [place] [address] Lumbar radiculopathy Discharge Disposition: Home or Self Care from Last 3 Months Immunizations Immunization Administration Dates Next Due Hepatitis A, Adult 01/22/2018 Influenza Intradermal 03/07/2016,01/21/2015 Influenza Seasonal Injectable PF 020,11/06/2018,09/11/2018,08/11,07/09/2018,02/26/2018 Influenza Vaccine Quadrivalent 02/26/2018 Influenza Vaccine, Unspecifi ed Formulation 01/13/2014,02/17/2013 Influenza, Intradermal, Quad rivalent, Preservative Free 01/21/2015 MMR 07/31/2013 PPD Test 03/26/2016, 4,06/26/2013,10/27 Pneumococcal Polysaccharide 23 Valent ,11/06/2018,09/11/2018,08/11,07/09/2018,02/18/2013 Td, Unspecified Formulation 03/15/1992 Tdap 09/13/2012 Surgical History Surgery Date Site/Laterality Comments CHOLECYSTECTOMY SECTION APPENDECTOMY age 13 SHOULDER ARTHROSCOPY 03/08/2015 Right RIGHT SHOULDER ARTHROSCOPIC ROTATOR CUFF REPAIR DECOMPRESSION ACROMIOPLASTY ACROMIOCLAVICULAR JOINT EXCISION; Surgeon: Jairo Finn MD; Location: [facility]; Service: Orthopedics HYSTERECTOMY, TOTAL 09/17/2018 INCONTINENCE SURGERY Medical History Medical History Date Comments Pelvic pain in female Depression age 25 PID (pelvic inflammatory disease) STD (female) TRICH IN Mar(PID) Post- depression 11/15/2012 Migraines 2-3 x a month Neuromuscular disorder (HCC) Fibromyalgia 05/15/2014 Abnormal stress test negative an madhu Lupus Sjogren's disease Family History Medical History Relation Name Comments Depression Father Mental Illness Father Substance Abuse Father Drug abuse. Diabetes Maternal Grandmother Anesth Problems Mother trouble waki ng up Cancer Mother CERVICAL Heart Disease Mother Lupus Mother Substance Abuse Mother Drug abuse. Hypertension Paternal Grandfather Arthritis Paternal Grandmother Heart Disease Paternal Grandmother Learning Disabilities Paternal Grandmother Vision Loss Paternal Grandmother Breast Cancer Neg Hx Colon Cancer Neg Hx Eclampsia Neg Hx Ovarian Cancer Neg Hx Labor Neg Hx Spont Abortions Neg Hx Stroke Neg Hx Relation Name Status Comments Father Alive Maternal Grandfather Maternal Grandmother Alive Mother Alive Paternal Grandfather Paternal Grandmother Alive Social History Tobacco Use Types Packs/Day Years Used Date Smoking Tobacco: Some Days Cigarettes 0.1 5 Started: 2007; Last attempted to quit: 07/14/2012 Smokeless Tobacco: Never Tobacco Cessation:Ready to Q uit: Not Asked; Counseling Given: Not Answered Alcohol Use Standard Drinks/Week Comments Yes 0 [...] file Not on file Not on file Obstetrics History Para Term AB IAB SAB Ectopic Multiple Livin g Live Births 6 4 1 3 Date Outcome GA Total Labor Labor/2nd/3rd Weight Sex Type Anes PTL Gabriela A1 A5 Name Clin Comments:System Genera robert. Please review and update details. 1992 Para 41w 0d 7 lb 2 oz (3.232 kg) F Vag-Sp ont None Mica Delivery Location:[facility] 1994 Para 42w 0d 8 lb 5 oz (3.771 kg) F Vag-Sp ont None Saad ia Delivery Location:[facility] 2000 Para 39w 0d 6 lb 5 oz (2.863 kg) M CS-Uns pec Spinal Adriel Delivery Location:[facility] Comments:complete prev ia 2012 Term 39w 6d 6 lb 6 oz (2.892 kg) F SUCCES SFUL V Epidur al N 9 9 MYESHA ON,SUN SHINE BABY A [facility], Carrie Craft MD Delivery Location:[facility] Last Filed Vital Signs Vital Sign Reading [...] Mass Index 38.96 09/21/2024 11:32 AM EDT Plan of Treatment Health Maintenance Due Date Last Done Comments Hepatitis B Vaccine (1 of 3 - 19+ 3-dose series) 07/16/1995 Annual Wellness Exam 03/07/2017 03/07/2016 (Declined ) Breast Cancer Screening 11/08/2019 11/08/19 18, 11/07/2017, 09/20/2016 Pneumococcal Vaccine 0-49 (2 of 2 - PCV) 05/14/2020 05/14/2019, 11/06/2018, 09/11/2018, Additional history exists Cologuard 2021 Colon Cancer Screening 2021 Colonoscopy 2021 FIT 2021 Sigmoidoscopy 2021 Virtual Colonography 2021 DTaP/TDaP/Td (3 - Td or Tdap) 09/13/2022 09/13/2012, 03/15/1992 COVID-19 Vaccine ( - 2023- season) 2023 12/02/2020, 11/11/2020 Influenza Vaccine (#1) 2024 , 05/14/2019, 11/06/2018, Additional history exists Meningococcal B Vaccine Aged Out No l onger eligible based on patient's age to complete this topic Goals Goal Patient Goal Type Associated Problems Recent Progress Patient-Stated? Author Maintain a healthy diet, exercise regularly and maintain an ideal body weight General No Bernie Hooks MA Stay Tobacco Free Lifestyle No Bernie Hooks MA Procedures Procedure Name Priority Date/Time Associated Diagnosis Comments LIPASE LEVEL STAT 09/21/2024 12:23 PM EDT COMPREHENSIVE METABOLIC PANEL STAT 09/21/2024 12:23 PM EDT CBC WITH DIFF STAT 09/21/2024 12:23 PM EDT URINALYSIS Routine 09/10/2024 3:30 PM EDT Sjogren syndrome with inflammatory arthritis Sacroiliitis, not elsewhere classified CBC WITH DIFF Routine 09/10/2024 3:23 PM EDT Sjogren syndrome with inflammatory arthritis COMPREHENSIVE METABOLIC PANEL Routine 09/10/2024 3:23 PM EDT Sjogren syndrome with inflammatory arthritis POCT CEPHEID SARS COV-2 RNA + FLU A/B + RSV Routine 09/09/2024 12:38 PM EDT Fever, unspecified fever cause XR LUMBAR SPINE AP AND LATERAL Routine 08/18/2024 11:28 AM EDT Lumbar radiculopathy from Last 3 Months Results * CBC WITH DIFF (09/21/2024 12:23 PM EDT) Only the most recent of2 resultswithin the time period is included. WBC 6.4 3.7 - 10.3 x10(3)/mcL 09/21/2024 12:27 PM EDT [facility] RBC 4.25 3.90 - 5.20 x10(6)/mcL 09/21/2024 12:27 PM EDT [facility] Hgb 13.3 11.2 - 15.7 g/dL 09/21/2024 12:27 PM EDT [facility] Hct 39.2 34.0 - 45.0 % 09/21/2024 12:27 PM EDT [facility] MCV 92.2 80.0 - 100.0 fL 09/21/2024 12:27 PM EDT [facility] MCH 31.3 26.0 - 34.0 pg 09/21/2024 12:27 PM EDT [facility] MCHC 33.9 30.7 - 35.5 g/dL 09/21/2024 12:27 PM EDT [facility] RDW 11.8 <=14.9 % 09/21/2024 12:27 PM EDT [facility] Platelet 256 155 - 369 x10(3)/mcL 09/21/2024 12:27 PM EDT [facility] MPV 10.4 8.8 - 12.5 fL 09/21/2024 12:27 PM EDT [facility] Neut Percent 58.6 % 09/21/2024 12:27 PM EDT [facility] Comment:Neutrophils equals s egs plus bands Imm Gran% 0.3 % 09/21/2024 12:27 PM EDT [facility] Comment:Automated count of m etamyelocytes, myelocytes and promyelocytes. Lymph Percent 30.9 % 09/21/2024 12:27 PM EDT [facility] [place] Percent 7.8 % 09/21/2024 12:27 PM EDT [facility] Eos Percent 1.9 % 09/21/2024 12:27 PM EDT [facility] Baso Percent 0.5 % 09/21/2024 12:27 PM EDT [facility] Neut # 3.8 1.6 - 6.1 x10(3)/[facility] 09/21/2024 12:27 PM EDT [facility] Comment:Neutrophils equals s egs plus bands IMMGRAN# 0.0 0.0 - 0.1 x10(3)/mcL 09/21/2024 12:27 PM EDT [facility] Comment:Automated count of m etamyelocytes, myelocytes and promyelocytes. An absolute IG <0.1 is reported as 0.0. Lymph # 2.0 1.2 - 3.9 x10(3)/mcL 09/21/2024 12:27 PM EDT [facility] [place] # 0.5 0.3 - 0.9 x10(3)/mcL 09/21/2024 12:27 PM EDT [facility] Eos# 0.1 0.0 - 0.5 x10(3)/[facility] 09/21/2024 12:27 PM EDT [facility] Baso # 0.0 0.0 - 0.1 x10(3)/[facility] 09/21/2024 12:27 PM EDT [facility] Blood VENOUS BLOOD / Unknown Venipuncture / Unknown 09/21/2024 12:23 PM EDT 09/21/2024 12:25 PM EDT us Jackie MACK HEMATOLOGY ORDERABLES Final Re sult [facility] [address] [place] [address] * LIPASE LEVEL (09/21/2024 12:23 PM EDT) [facility] Lipase Lvl 18 13 - 60 U/L 09/21/2024 12:44 PM EDT [facility] Blood VENOUS BLOOD / Unknown Venipuncture / Unknown 09/21/2024 12:23 PM EDT 09/21/2024 12:25 PM EDT us Jackie MACK CHEMISTRY ORDERABLES Final Res ult [facility] [address] [place] [address] * COMPREHENSIVE METABOLIC PANEL (09/21/2024 12:23 PM EDT) Only the most recent of2 resultswithin the time period is included. [facility] Sodium 138 136 - 145 mmol/L 09/21/2024 12:44 PM EDT [facility] Potassium 4.4 3.5 - 5.0 mmol/L 09/21/2024 12:44 PM EDT [facility] Chloride 105 98 - 107 mmol/L 09/21/2024 12:44 PM EDT [facility] Total CO2 22 22 - 29 mmol/L 09/21/2024 12:44 PM EDT [facility] Anion Gap 11 7 - 16 mmol/L 09/21/2024 12:44 PM EDT [facility] Calcium 9.4 8.6 - 10.4 mg/dL 09/21/2024 12:44 PM EDT [facility] Glucose Lvl 90 70 - 99 mg/dL 09/21/2024 12:44 PM EDT [facility] BUN 14 6 - 20 mg/dL 09/21/2024 12:44 PM EDT [facility] Creatinine 0.62 0.51 - 1.30 mg/dL 09/21/2024 12:44 PM EDT [facility] Albumin 4.2 3.5 - 5.2 gm/dL 09/21/2024 12:44 PM EDT [facility] Total Protein 7.6 6.4 - 8.3 gm/dL 09/21/2024 12:44 PM EDT [facility] Bili Total 0.4 0.2 - 1.3 mg/dL 09/21/2024 12:44 PM EDT [facility] ALT 14 <=41 U/L 09/21/2024 12:44 PM EDT [facility] AST 24 <=40 U/L 09/21/2024 12:44 PM EDT [facility] Alk Phos 85 36 - 123 U/L 09/21/2024 12:44 PM EDT [facility] eGFR (CKD-EPIcr 2020) 109 >=60 mL/min/1.7 3 m2 09/21/2024 12:44 PM EDT [facility] Comment:Estimated GFR was ca lculated using the CKD-EPIcr (2020) equation refit without race. The equation is recommended by the [employer] - [place] [employer] of Nephrology Task Force. Blood VENOUS BLOOD / Unknown Venipuncture / Unknown 09/21/2024 12:23 PM EDT 09/21/2024 12:25 PM EDT us Jackie MACK CHEMISTRY ORDERABLES Final Res ult [address] [address] * (ABNORMAL) URINALYSIS (09/10/2024 3:30 PM EDT) UA Color Light Yellow 09/10/2024 8:22 PM EDT [facility] UA Appear Clear Clear 09/10/2024 8:22 PM EDT [facility] UA Glucose Negative Negative mg/dL 09/10/2024 8:22 PM EDT [facility] UA Ketones Negative Negative mg/dL 09/10/2024 8:22 PM EDT [facility] UA Blood Negative Negative 09/10/2024 8:22 PM [...] URINE ORDERABLES Final Result [facility] [address] [facility] , [place] [address] * POCT CEPHEID SARS COV-2 RNA + FLU A/B + RSV (09/09/2024 12:38 PM EDT) SARS COV-2 RNA Negative Negative, Invalid [facility] INFLUENZA A Negative Negative, Invalid SEP OFFICE INFLUENZA B Negative Negative, Invalid SEP OFFICE RSV Negative Negative, Invalid SEP OFFICE Lot Number SEP OFFICE Expiration Date SEP OFFICE SeriAl # SEP OFFICE Control Line Yes YES/NO SEP OFFICE 09/09/2024 12:3 8 PM EDT Torri Medel Summmitchell DO POINT OF CARE TEST ORDERABLES F inal Result SEP OFFICE * XR LUMBAR SPINE AP AND LATERAL (08/18/2024 11:28 AM EDT) Anatomical Region Laterality Modality L-spine Radiographic Hilda ging 08/18/2024 11:2 8 AM EDT Impressions 08/18/2024 12:32 PM EDT No acute abnormality of the lumbar spine. - Note: Radiology results need to be interpreted within a comprehensive clinical context. If you have questions about the radiology report, please contact the office of the ordering clinician. Narrative 08/18/2024 12:32 PM EDT AP AND LATERAL LUMBAR SPINE, 08/18/2024 11:28 AM CLINICAL HISTORY: M54.16-Radiculopathy, lumbar [id number] COMPARISON: 05/23/19 PROCEDURE COMMENTS: Minimum of 3 views lumbar spine per protocol. FINDINGS: No acute fracture. Moderate disc height loss at L1-L4. Multilevel spurring anteriorly. Procedure Note Lidia Wilson MD - 08/18/2024 AP AND LATERAL LUMBAR SPINE, 08/18/2024 11:28 AM CLINICAL HISTORY: M54.16-Radiculopathy, lumbar [id number] COMPARISON: 05/23/19 PROCEDURE COMMENTS: Minimum of 3 views lumbar spine per protocol. FINDINGS: No acute fracture. Moderate disc height loss at L1-L4. Multilevel spurring anteriorly. IMPRESSION: No acute abnormality of the lumbar spine. - Note: Radiology results need to be interpreted within a comprehensiveclinical context. If you have questions about the radiology report, please contactthe office of the ordering clinician. [place] PRODUCTION BORING MACHINE OPERATOR IMG DIAGNOSTIC IMAGING OR DERABLES Final Result from Last 3 Months Insurance Advance Directives For more information, please contact: [phone] * Full Code (Latest Code Status on File) Date Activated Date Inactivated Comments 05/14/2014 11:26 PM 05/15/2014 9:48 PM * Full Code Date Activated Date Inactivated Comments 09/19/2012 7:03 PM 09/21/2012 9:13 PM Care Teams Cnc Technician Relationship Specialty Start Date End Date Go Campos MD [address] [place] [address] PCP - OBGYN Obstetrics & Gynecology 06/02/11 Marely Gonzalez MD [address] [place] [address] PCP - General Family Medicine 01/07/13 Flavio Arreguin MD [address] [place] [address] Pain Medicine-Pain Medicine 10/20/21
--- OUTSIDE RECORDS SUMMARY | 2024-11-10 10:01 | XMS_ITS | Encounter Summary ---
Author Organization [facility] Address [address] [place] [id number] Care Team Providers Care Ticket Seller Name Role Phone Marely Gonzalez MD Primary Care Provider [phone] Dorita Paulino MD Unavailable [phone] Duane Graves RN Unavailable Unavailable Sindy Oneill PIPE TESTER Unavailable [phone] Source Comments This information has been disclosed [...] release of HIV test results or diagnoses. [id number] Encounter Details Date Type Department Care Team (Late st Contact Info) Description 09/18/2016 Orders Only [facility] [address] [place] [address] Marely Gonzalez MD [address] [place] [address] [place] [address] Left breast lump (Primary Dx) Social History Tobacco Use Types [...] on file documented as of this encounter Results * (ABNORMAL) Mammo Diagnostic Bilateral incl CAD (09/20/2016 1:47 PM EDT) Anatomical Region Laterality Modality Breast Bilateral Mammography 09/20/2016 11:1 1 AM EDT Impressions 09/20/2016 1:35 PM EDT IMPRESSION: A dominant palpable 3.9 cm left breast mass may represent a large fibroadenoma or phyllodes tumor. Malignancy cannot be excluded and histological sampling is indicated. No mammographic evidence of malignancy in the right breast. Recommendation: Ultrasound-guided core biopsy of left breast the mass at the 3:00. These findings and recommendations were discussed with the patient and given to her in written form. She was taken to the master scheduler to schedule an appointment for the recommended procedure. ACR BI-RADS Category: 4 (suspicious) Report Verified by: ASHUTOSH BABCOCK M.D. at 09/20/2016 1:35 PM EDT Narrative 09/20/2016 1:35 PM EDT Digital diagnostic bilateral breast mammogram with tomosynthesis and CAD, targeted left breast ultrasound on 09/20/2016 11:11 AM EDT. Indication: 41-year-old female patient who presents for evaluation of a newly palpable left breast mass with pain. Comparison: None. This is baseline mammogram. Views performed: Full-field MLO and CC views of both breasts using 2-D 3-D combination. A 2-D full field 90 degrees ML view of the left breast. The 2-D mammograms were double read with CAD image bad cloth checker. Targeted left breast ultrasound. Breast Density: There are scattered areas of fibroglandular density. Findings: There is an oval hyperdense mass in the upper outer posterior aspect of the left breast, up to 4 cm in maximal dimension. A triangular marker overlying the mass indicates this to be concerning palpable abnormality. There is no mass in the right breast. No architectural distortion or concerning microcalcifications are seen in either breast. Targeted ultrasound of the left breast is performed at the site of palpable mass, at 3:00 7 cm from the nipple. A well circumscribed hypoechoic solid mass with parallel orientation is identified, measuring 2.0 x 3.9 x 3.5 cm. There is mild posterior acoustic enhancement. A moderate intrinsic vascularity is seen in the mass on color Doppler study. Targeted ultrasound of the left axilla reveals several normal appearing lymph nodes with prominent fatty ana. No left axillary lymphadenopathy is noted. Marely Gonzalez MD IMG MAMMOGRAPHY ORDERABLES Final Result documented in this encounter Visit Diagnoses Diagnosis Left breast lump- Primary Left breast lump documented in this encounter Care Teams Ticket Seller Relationship Specialty Start Date End Date Marely Gonzalez MD [address] [place] [address] PCP - General Family Medicine 06/19/16 Dorita Paulino MD [address] [place] [address] [place] [address] Surgeon Surgical Oncology 10/09/17 Duane Graves, NILSON Registered Nurse 11/28/17 Sindy Oneill, PIPE TESTER [address] [place] [address] [place] [id number] Nurse Practitioner Oncology 12/04/17 documented as of this encounter
--- OUTSIDE RECORDS SUMMARY | 2024-11-10 10:02 | XMS_ITS | Data Portability ---
Author Organization [facility] Address [address] [place] [address] Care Team Providers Care Affiliate Manager Name Role Phone ORTEGA BOWLES Primary Care Provider Lisa verde Assessment Encounter Date Assessment Date Assessment LastModified by Organization Details LastModified Time 03/24/2024 03/24/2024 Pain History: 48-year-old female comes in for evaluation of her widespread joint pain due to osteoarthritis. Her main areas include bilateral hips. She did also have pain stemming from fibromyalgia, Sjogren's, lupus. She does follow with rheumatology for these. She states she is now at a point where her schedule is more open to where she can undergo hip injection with our office. She was previously getting these at an orthopedics office with benefit. Her hip pain is described as stiff, aching, sharp, throbbing. Pain is made worse with standing, walking, increased activity, weather change. Relieving factors include pain medication, sitting, rest, injections. She denies any progressive numbness tingling or weakness in lower extremities. This is an established patient with chronic pain that has been treated here since 2021. Past Medical History: Lupus, Sjogren's Imaging: MAGING:Right hp MRI in Ortho notes October 2022: This shows some arthritic change within the joint with chronic labral wearing and tearing as well as some cartilage thinning. She does have a complete gluteus medius and minimus tendon tears with some retraction. She has significant inflammation about the trochanteric bursal area. She has some early fatty atrophy of the gluteus medius and minimus muscles. ASSESSMENT: 1. Right hip abductor tendon tears. 2. Right hip arthritis. CT CERVICAL SPINE WITHOUT CONTRAST, 01/19/2021: Straightening of the normal cervical lordosis appears similar, either positional or due to muscle spasm. No fracture, malalignment, or prevertebral soft tissue swelling. Minor discogenic degeneration at C5-6 appears similar. Very mild left-sided facet arthropathy at C7-T1. Surgical evaluation/ history: Right-sided hip arthroscopic surgery [facility] 2021 with improvement (Right hip arthroscopy with trochanteric bursectomy and IT band lengthening) 11/12/2022 - Surgical Procedure: Right hip open gluteus medius and minimus repair, and trochanteric bursectomy Conservative Treatments: Patient has failed conservative measures for greater than 6 weeks including physical therapy/chiropr actic care/spinal manipulation, a monitored home exercise program, and/or NSAIDs within the last six months. Interventional treatment history: Please note she was previously receiving hip injections with orthopedics. She was given warning that she needs to continue these with our office unless she is switching practices. Her last injection was 08/20/2023. She states these have been helpful. Previous analgesics: Gabapentin 300 mg 1 3 times a day-D/C'd secondary to sedation. Hydrocodone, Cymbalta, Lyrica Current analgesics: Percocet 7.5/325 mg 1 4 times a day. Compliance Monitoring: UDS performed today. I will send out for results. GOLD/OARS/INS PECT was reviewed and is appropriate Last UDS confirmation was 01/27/2024 and appropriate Based on the patients urine confirmation (LCMS) results, the patient's overall risk level will remain the same. I would consider the patient to be moderate risk based on these new results. In response to the patient's risk level and urine confirmation I plan to continue the patient's opioid prescription. Anticoagulant/A ntiplatelet Medications: Denies Follow-up in 60 days. This dictation is generated using voice recognition technology. There may be unintended errors. [email or web address] Not available 03/24/2024 09:35:30 05/26/2024 05/26/2024 Pain History: 48-year-old female returns for follow-up of her widespread joint pain due to osteoarthritis. Worst area is bilateral hips. She also has pain from fibromyalgia Sjogren's and lupus. She also sees rheumatology. She is scheduled for a bilateral hip injection tomorrow. She states she has been dealing with a lot of schedule changes and did not request for work. She is going into work today to see if she can be let off to come into her injection. We have had issues getting her scheduled for this. 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 She did also recently quit smoking 2 days ago per her report. Her hip pain is described as stiff, aching, sharp, throbbing. Pain is made worse with standing, walking, increased activity, weather change. Relieving factors include pain medication, sitting, rest, injections. She denies any progressive numbness tingling or weakness in lower extremities. She states she is try to find a pharmacy that carries a different production worker of the Percocet. She states she deals with nausea with some of the manufacturers. For now she does not want to change pharmacies. This is an established patient with chronic pain that has been treated here since 2021. Past Medical History: Lupus, Sjogren's Imaging: MAGING:Right hp MRI in Ortho notes October 2022: This shows some arthritic change within the joint with chronic labral wearing and tearing as well as some cartilage thinning. She does have a complete gluteus medius and minimus tendon tears with some retraction. She has significant inflammation about the trochanteric bursal area. She has some early fatty atrophy of the gluteus medius and minimus muscles. ASSESSMENT: 1. Right hip abductor tendon tears. 2. Right hip arthritis. CT CERVICAL SPINE WITHOUT CONTRAST, 01/19/2021: Straightening of the normal cervical lordosis appears similar, either positional or due to muscle spasm. No fracture, malalignment, or prevertebral soft tissue swelling. Minor discogenic degeneration at C5-6 appears similar. Very mild left-sided facet arthropathy at C7-T1. Surgical evaluation/ history: Right-sided hip arthroscopic surgery [facility] 2021 with improvement (Right hip arthroscopy with trochanteric bursectomy and IT band lengthening) 11/12/2022 - Surgical Procedure: Right hip open gluteus medius and minimus repair, and trochanteric bursectomy Conservative Treatments: Patient has failed conservative measures for greater than 6 weeks including physical therapy/chiropr actic care/spinal manipulation, a monitored home exercise program, and/or NSAIDs within the last six months. Interventional treatment history: Please note she was previously receiving hip injections with orthopedics. She was given warning that she needs to continue these with our office unless she is switching practices. Her last injection was 08/20/2023. She states these have been helpful. Previous analgesics: Gabapentin 300 mg 1 3 times a day-D/C'd secondary to sedation. Hydrocodone, Cymbalta, Lyrica Current analgesics: Percocet 7.5/325 mg 1 4 times a day. Compliance Monitoring: UDS performed today. I will send out for results. GOLD/OARS/INS PECT was reviewed and is appropriate Last UDS confirmation was 03/24/2024 and appropriate Based on the patients urine confirmation (LCMS) results, the patient's overall risk level will remain the same. I would consider the patient to be moderate risk based on these new results. In response to the patient's risk level and urine confirmation I plan to continue the patient's opioid prescription. Anticoagulant/A ntiplatelet Medications: Denies Follow-up in 60 days. This dictation is generated using voice recognition technology. There may be unintended errors. [email or web address] Not available 05/26/2024 09:49:18 07/24/2024 07/24/2024 Pain History: 49-year-old female here for follow-up regarding her bilateral hip pain. She has other areas of joint pain due to osteoarthritis. She has overlapping symptoms of fibromyalgia, Sjogren's, lupus. She does see rheumatology. We did perform bilateral hip intra-articular steroid injections on 05/27/2024. She called a few days after the injection with symptoms of feeling funny. . She states she was having headaches, high blood pressure, flushing. She does not want to receive any further steroid injections. She states she is seeing orthopedic and they are considering her possible hip surgery. She is going to undergo some imaging so they can evaluate the plan. They do have her on oral Toradol to help but she does feel her pain complaints have worsened. She is having pain radiating from the low back around the left hip down the leg. Did advise her that it may be some nerve root impingement coming from the low back. We will give her an order for an x-ray lumbar spine and advised her to perform exercises 3 times a week 30 minutes at a time. May consider MRI in the future if radiating leg pain persists. Her hip pain is described as stiff, aching, sharp, throbbing. Pain is made worse with standing, walking, increased activity, weather change. Relieving factors include pain medication, sitting, rest. She denies any progressive numbness tingling or weakness in lower extremities. This is an established patient with chronic pain that has been treated here since 2021. Past Medical History: Lupus, Sjogren's, fibromyalgia Imaging: IMAGING:Right hip MRI in Ortho notes October 2022: This shows some arthritic change within the joint with chronic labral wearing and tearing as well as some cartilage thinning. She does have a complete gluteus medius and minimus tendon tears with some retraction. She has significant inflammation about the trochanteric bursal area. She has some early fatty atrophy of the gluteus medius and minimus muscles. ASSESSMENT: 1. Right hip abductor tendon tears. 2. Right hip arthritis. CT CERVICAL SPINE WITHOUT CONTRAST, 01/19/2021: Straightening of the normal cervical lordosis appears similar, either positional or due to muscle spasm. No fracture, malalignment, or prevertebral soft tissue swelling. Minor discogenic degeneration at C5-6 appears similar. Very mild left-sided facet arthropathy at C7-T1. Surgical evaluation/ history: Right-sided hip arthroscopic surgery [facility] 2021 with improvement (Right hip arthroscopy with trochanteric bursectomy and IT band lengthening) 11/12/2022 - Surgical Procedure: Right hip open gluteus medius and minimus repair, and trochanteric bursectomy Conservative Treatments: Patient has failed conservative measures for greater than 6 weeks including physical therapy/chiropr actic care/spinal manipulation, a monitored home exercise program, and/or NSAIDs within the last six months. Interventional treatment history: Bilateral intra-articular hip injections May 2024. Patient developed headache, high BP, flushing. She does not want to repeat steroid injections. Previous analgesics: Gabapentin 300 mg 1 3 times a day-D/C'd secondary to sedation. Hydrocodone, Cymbalta, Lyrica Current analgesics: Percocet 7.5/325 mg 1 4 times a day. Compliance Monitoring: UDS performed today. I will send out for results. GOLD/OARS/INS PECT was reviewed and is appropriate Last UDS confirmation was 03/24/2024 and appropriate Based on the patients urine confirmation (LCMS) results, the patient's overall risk level will remain the same. I would consider the patient to be moderate risk based on these new results. In response to the patient's risk level and urine confirmation I plan to continue the patient's opioid prescription. Anticoagulant/A ntiplatelet Medications: Denies Follow-up in 60 days. This dictation is generated using voice recognition technology. There may be unintended errors. [email or web address] Not available 07/25/2024 17:01:03 09/21/2024 09/21/2024 Pain History: 49-year-old female returns for evaluation of her bilateral hip pain as well as low back pain. Last visit we did order a lumbar x-ray as she does experience pain radiating down the left leg. X-ray results reviewed and does show degenerative disc disease L1-L4 along with spondylosis. She could be experiencing pain on the leg from an actual hip joint issue versus possible radicular pain. She states that orthopedics are trying to get an MRI of the left hip approved. She has had 2 prior replacements of the right hip and is unsure if she has a similar issue on the left side. Will await the results of her left hip MRI. We could consider MRI lumbar later. She has been performing physician directed home exercise without relief. I did also discuss that we could offer lumbar MBB/RFA for facet mediated spine pain. She was given a handout on this to review today. She did request an increase in her pain medication today. I did advise her we would like to consider nonopiate therapies rather than increase her opiates. Patient did request an IM Toradol injection today. She states she has had a migraine for 3 days and the Toradol does help relieve this. Please note the patient does not want to receive any injections with steroids. She had a reaction with intra-articular hip injection with our office due to the steroid of flushing and high blood pressure. This is an established patient with chronic pain that has been treated here since 2021. Past Medical History: Lupus, Sjogren's, fibromyalgia Imaging: X-ray lumbar spine 08/18/2024: Moderate disc height loss L1-L4. Multilevel spurring anteriorly. X-ray hip from Ortho notes 2023 right hip: This shows some arthritic change within the joint with chronic labral wearing and tearing as well as some cartilage thinning. She does have a complete gluteus medius and minimus tendon tears with some retraction. She has significant inflammation about the trochanteric bursal area. She has some early fatty atrophy of the gluteus medius and minimus muscles. ASSESSMENT: 1. Right hip abductor tendon tears. 2. Right hip arthritis. CT CERVICAL SPINE WITHOUT CONTRAST, 01/19/2021: Straightening of the normal cervical lordosis appears similar, either positional or due to muscle spasm. No fracture, malalignment, or prevertebral soft tissue swelling. Minor discogenic degeneration at C5-6 appears similar. Very mild left-sided facet arthropathy at C7-T1. Surgical evaluation/ history: Right-sided hip arthroscopic surgery [facility] 2021 with improvement (Right hip arthroscopy with trochanteric bursectomy and IT band lengthening) 11/12/2022 - Surgical Procedure: Right hip open gluteus medius and minimus repair, and trochanteric bursectomy Conservative Treatments: Patient has failed conservative measures for greater than 6 weeks including physical therapy/chiropr actic care/spinal manipulation, a monitored home exercise program, and/or NSAIDs within the last six months. Interventional treatment history: Bilateral intra-articular hip injections May 2024. Patient developed headache, high BP, flushing. She does not want to repeat steroid injections. Previous analgesics: Gabapentin 300 mg 1 3 times a day-D/C'd secondary to sedation. Hydrocodone, Cymbalta, Lyrica Current analgesics: Percocet 7.5/325 mg 1 4 times a day. Compliance Monitoring: UDS performed today. I will send out for results. GOLD/OARS/INS PECT was reviewed and is appropriate Last UDS confirmation was 07/24/24 and appropriate Based on the patients urine confirmation (LCMS) results, the patient's overall risk level will remain the same. I would consider the patient to be moderate risk based on these new results. In response to the patient's risk level and urine confirmation I plan to continue the patient's opioid prescription. Anticoagulant/A ntiplatelet Medications: Denies Follow-up in 60 days. This dictation is generated using voice recognition technology. There may be unintended errors. [email or web address] Not available 09/21/2024 08:54:28 Plan of Treatment Reminders Order Date Submit Date Provider Last Modified By Organization Details Last Modified Time Details Appointments FOLLOW UP 15 2024 08:00A Gianfranco VALDIVIA NP Not available Not available Not available Lab drug screen, urine 2024 025 [facility], [facility], [address] [place] [address], [id number], 09/24/2024 11:53:21 drug screen, urine 2024 025 [facility], [facility], [address] [place] [address], [id number], 07/29/2024 16:09:28 drug screen, urine 2023 024 [facility], [facility], [address] [place] [address], [id number], 03/30/2024 14:30:34 Referral None recorded. Procedures intra-art icular injection , hip (PROC) - Bilateral HIP INJECTION 2023 024 [email or web address] Not available 03/25/2024 13:59:32 Surgeries None recorded. Imaging XR, lumbosacr al spine, 2 or 3 view - low back pain with radiation down left leg 2024 025 [facility], [address], [place], [address], 09/08/2024 10:22:03 Medication Orders Percocet 7.5 mg-325 mg tablet 2024 025 [facility], [address] [facility] [place], [address], 09/25/2024 09:12:46 Percocet 7.5 mg-325 mg tablet 2024 025 [facility], [address] [place], [address], 10/21/2024 10:48:40 Percocet 7.5 mg-325 mg tablet 2024 025 [facility], [address], [place], [address], 07/27/2024 08:48:34 Percocet 7.5 mg-325 mg tablet 2024 025 [facility], [address], [place], [address], 08/26/2024 09:14:15 Percocet 7.5 mg-325 mg tablet 2024 025 [facility], [address], [place], [address], 05/26/2024 09:59:38 Percocet 7.5 mg-325 mg tablet 2024 025 [facility], [address], [place], [address], 05/26/2024 09:59:38 Percocet 7.5 mg-325 mg tablet 2023 024 [facility], [address], [place], [address], 03/24/2024 15:07:53 Percocet 7.5 mg-325 mg tablet 2023 024 [facility], [address], [place], [address], 03/24/2024 15:07:54 Patient TargetsNo targets recorded. Patient Instructions Encounter Date Encounter Id Patient Instructions Last Modified By Organization Details Last Modified Time 03/24/2024 [id number] advance directives: care instructions [email or web address] Not available 03/24/2024 23:03:07 depression and chronic disease: care instructions [email or web address] Not available 03/24/2024 23:03:07 safe use of opioid pain medicine: care instructions [email or web address] Not available 03/24/2024 23:03:07 hip arthritis: care instructions [email or web address] Not available 03/24/2024 23:03:07 05/27/2024 [id number] hip arthritis: care instructions [email or web address] Not available 06/01/2024 14:31:17 07/24/2024 [id number] back stretches: exercises [email or web address] Not available 07/25/2024 17:01:54 Reason for Referral None Reported. Results Created Date Observation Date Name Description Value Unit Range Abnormal Flag Note LastModifiedBy Organization Detail LastModifiedTime 05/29/19 intra -navi cular injec tion, hip (PROC ) No observ ation record ed. [email or web address] Not Available 2024 10:04:19 09/09/19 25 08/18/2024 XR, lumbo sacra l spine , 2 or 3 view No observ ation record ed. [email or web address] [address], [place], [address], 09/21/2024 08:53:38 Result Notes None recorded. 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 Active 2021 Flavio Arreguin MD [address] [place] [address], [phone] , [facility] 2 09:14:18 Fibromyalgia 076710482 Active 2021 Flavio Arreguin MD [address] [place] [address], [phone] , [facility] 2 09:14:26 Overweight 911742280 Active 2023 WADE VALDIVIA NP [address] [place] [address], [phone] , [facility] 4 09:47:45 Chronic pain 33122395 Active 2023 WADE VALDIVIA NP [address] [place] [address], [phone] , [facility] 4 09:47:45 Osteoarthriti s of hip 623592989 Active 2023 WADE VALDIVIA NP [address] [place], [address] , [place] [facility] 4 09:48:24 Muscle pain 54665570 Active 2024 ROSELINE CHING MD [address] [place], [address] , [place] [facility] 5 09:50:36 Lumbar radiculopathy 081714648 Active 2024 WADE VALDIVIA NP [address] [place], [address] , [place] [facility] 5 09:42:57 Lumbar spondylosis 830763999 Active 2024 WADE VALDIVIA NP [address] [place], [address] , [place] [facility] 5 08:52:45 Keratoconjunc tivitis sicca, in Sj gren's syndrome 51609078 Active 2024 [place] amado [place] - [facility] 5 10:49:00 Problem Notes None recorded. Procedures Surgical History Date Name Laterality Status Provider Name and Address Organization Details Recorded Time 5 IM Injection completed Jeffrey Langley [place] [facility] 09/21/2024 08:44:44 5 Hip Joint Injection Fluoro completed Laurie Lozano [place] [facility] 05/27/2024 15:57:09 5 IM Injection completed Ana Lilia Moffett [place] - [facility] 05/27/2024 15:52:16 4 Hip Joint Injection Fluoro cancelled Christiana Mason [place] - [facility] 01/30/2024 08:31:41 Hip Surgery completed Ana Lilia Moffett [place] - [facility] 10/10/2021 09:01:37 General Surgery completed Bindu Sandoval [place] - [facility] 01/07/2023 09:55:05 Imaging Results None recorded. Procedure Notes None recorded. Medical Equipment None Reported. Allergies Allergen ID Allergen Name Allergen Category Reaction Reaction Severity Criticality Documentation Date Start Date Code Code System Note Provider Name and Address Organization Details Recorded Time 533751 morphine medicatio n nausea rash respirato ry distress Not available Not available Not available Not available 10/10/2021 7052 RxNorm PHILLIP Ann - [facility] 2 09:01:26 088191 Imitrex medicatio n Not available Not available Not available 10/10/2021 84210 3 RxNorm PHILLIP Ann [facility] 2 09:01:50 611648 Bactrim medicatio n Not available Not available Not available 10/10/2021 76515 9 RxNorm PHILLIP Ann - [facility] 2 09:02:03 711453 Zofran medicatio n Not available Not available Not available 10/10/2021 10225 RxNorm PHILLIP Ann - [facility] 2 09:02:20 Medications Name Sig Start Date Stop Date Status Note LastModified by Organization Details LastModified Time progesteron e 200 mg ir capsule TAKE ONE CAPSULE BY MOUTH AT BEDTIME 11/17 completed Not Available Not Available Not Available tetracyclin e 500 mg capsule TAKE 1 CAPSULE BY MOUTH FOUR TIMES A DAY 03/24 completed Not Available Not Available Not Available cyclobenzap rine 10 mg tablet 10/10 completed Not Available Not Available Not Available amoxicillin 500 mg capsule TAKE 1 CAPSULE BY MOUTH TWICE A DAY FOR 7 DAYS 09/06 completed Not Available Not Available Not Available fluconazole 100 mg tablet TAKE 1 TABLET BY MOUTH EVERY DAY FOR 2 WEEKS 11/17 completed Not Available Not Available Not Available promethazin e-DM 6.25 mg-15 mg/5 mL oral syrup TAKE 5 ML BY MOUTH EVERY 6 HOURS NEEDED 04/30 completed Not Available Not Available Not Available neomycin-po lymyxin-hyd rocort 3.5 mg/mL-10,00 0 unit/mL-1 % ear solution 03/24 completed Not Available Not Available Not Available nystatin 100,000 unit/mL oral suspension TAKE 5 ML BY MOUTH 4 TIMES DAILY FOR 14 DAYS. SHAKE WELL active Not Available Not Available No t Available acetaminoph en 325 mg tablet TAKE 2 TABLETS (650 MG TOTAL) BY MOUTH EVERY 6 HOURS NEEDED. DO NOT EXCEED 3000 MG IN ONE DAY 11/17 completed Not Available Not Available Not Available prednisone 10 mg tablet 09/06 completed Not Available Not Available Not Available gabapentin 600 mg tablet 10/10 completed Not Available Not Available Not Available doxycycline hyclate 100 mg capsule TAKE 1 CAPSULE BY MOUTH TWICE A DAY FOR 2 WEEKS 11/08 completed Not Available Not Available Not Available clindamycin HCl 300 mg capsule 02/26 completed Not Available Not Available Not Available oxybutynin chloride ER 10 mg tablet,exte nded release 24 hr 11/17 completed Not Available Not Available Not Available azithromyci n 250 mg tablet TAKE 2 TABLETS BY MOUTH TODAY, THEN TAKE 1 TABLET DAILY FOR 4 DAYS 04/30 completed Not Available Not Available Not Available aspirin 325 mg tablet TAKE 1 TABLET BY MOUTH EVERY DAY active Not Available Not Available No t Available ibuprofen 800 mg tablet TAKE 1 TABLET BY MOUTH EVERY 8 HOURS NEEDED FOR PAIN active Not Available Not Available No t Available fluconazole 150 mg tablet TAKE 1 TABLET BY MOUTH EVERY DAY ONE DOSE 03/24 completed Not Available Not Available Not Available benzonatate 200 mg capsule TAKE 1 CAPSULE BY MOUTH 3 TIMES DAILY NEEDED FOR COUGH FOR UP TO 10 DAYS. 04/30 completed Not Available Not Available Not Available valacyclovi r 1 gram tablet TAKE 2 TABLETS BY MOUTH TWICE A DAY FOR 2 DAYS TAKE THIS BEFORE STARTING THE SUPPRESSI ON THERAPY 11/17 completed Not Available Not Available Not Available sucralfate 100 mg/mL oral suspension TAKE 10 ML BY MOUTH 3 TIMES DAILY NEEDED. SHAKE WELL active Not Available Not Available No t Available fluconazole 200 mg tablet TAKE 1 TABLET BY MOUTH EVERY DAY FOR 3 DAYS 09/06 completed Not Available Not Available Not Available meloxicam 15 mg tablet TAKE 1 TABLET BY MOUTH EVERY DAY 11/08 completed Not Available Not Available Not Available sucralfate 1 gram tablet TAKE 1 TABLET BY MOUTH FOUR TIMES A DAY FOR 10 DAYS 03/24 completed Not Available Not Available Not Available phenazopyri dine 200 mg tablet TAKE 1 TABLET BY MOUTH 3 TIMES DAILY NEEDED FOR UP TO 2 DAYS. active Not Available Not Available No t Available ondansetron HCl 4 mg tablet TAKE 1 TABLET BY MOUTH EVERY 6 HOURS NEEDED FOR NAUSEA. active Not Available Not Available No t Available prednisone 20 mg tablet 02/26 completed Not Available Not Available Not Available dexamethaso ne 6 mg tablet TAKE 1 TABLET BY MOUTH 2 TIMES DAILY (WITH MEALS) FOR 5 DAYS. 11/17 completed Not Available Not Available Not Available penicillin V potassium 500 mg tablet TAKE 1 TABLET BY MOUTH THREE TIMES A DAY FOR 10 DAYS 11/08 completed Not Available Not Available Not Available amlodipine 2.5 mg tablet TAKE 1 TABLET BY MOUTH EVERY DAY active Not Available Not Available No t Available metronidazo le 500 mg tablet TAKE 1 TABLET BY MOUTH THREE TIMES A DAY active Not Available Not Available No t Available amlodipine 5 mg tablet active Not Available Not Available Not Available valacyclovi r 500 mg tablet TAKE 1 TABLET BY MOUTH EVERY DAY SUPPRES KEN THERAPY 11/17 completed Not Available Not Available Not Available acetaminoph en 500 mg tablet TAKE 2 TABLETS BY MOUTH EVERY 8 HOURS 10/10 completed Not Available Not Available Not Available triamcinolo ne acetonide 0.1 % topical cream 1 KP APPLIED TOPICALLY EVERY 8 HOURS 10 DAYS 11/17 completed Not Available Not Available Not Available ketorolac 10 mg tablet TAKE 1 TABLET BY MOUTH 3 TIMES A DAY. active Not Available Not Available No t Available pantoprazol e 20 mg tablet,cla yed release TAKE 1 TABLET BY MOUTH EVERY DAY active Not Available Not Available No t Available oxycodone-a cetaminophe n 5 mg-325 mg tablet 10/10 completed Not Available Not Available Not Available ofloxacin 0.3 % ear drops INSTILL 10 DROPS INTO THE EAR(S) EVERY 12 HOURS FOR 14 DAYS IN LEFT EAR DIRECTED 11/17 completed Not Available Not Available Not Available amoxicillin 875 mg tablet TAKE 1 TABLET BY MOUTH TWICE DAILY FOR 10 DAYS 05/14 completed Not Available Not Available Not Available methocarbam ol 750 mg tablet 11/17 completed Not Available Not Available Not Available lidocaine HCl 4 % (40 mg/mL) mucosal solution SWISH AND SPIT 2ML BY MOUTH 3 TIMES DAILY NEEDED FOR ORAL PAIN FOR 5 DAYS 11/17 completed Not Available Not Available Not Available gentamicin 0.3 % eye drops PLACE 2 DROPS INTO THE LEFT EYE 4 TIMES DAILY FOR 7 DAYS active Not Available Not Available No t Available phenazopyri dine 100 mg tablet TAKE 1 TABLET BY MOUTH TWICE DAILY AFTER MEALS FOR 2 DAYS active Not Available Not Available No t Available doxycycline monohydrate 100 mg capsule TAKE 1 CAPSULE BY MOUTH TWICE A DAY FOR 10 DAYS 04/30 completed Not Available Not Available Not Available cephalexin 500 mg capsule TAKE 1 CAPSULE BY MOUTH 2 TIMES DAILY FOR 7 DAYS. active Not Available Not Available No t Available pantoprazol e 40 mg tablet,cal yed release TAKE 1 TABLET BY MOUTH DAILY. active Not Available Not Available No t Available oseltamivir 75 mg capsule TAKE 1 CAPSULE BY MOUTH TWICE A DAY FOR 5 DAYS 03/24 completed Not Available Not Available Not Available buspirone 10 mg tablet TAKE 1 TABLET BY MOUTH 3 TIMES DAILY NEEDED FOR ANXIETY. 11/17 completed Not Available Not Available Not Available promethazin e 25 mg tablet TAKE 1 TABLET BY MOUTH EVERY 6 HOURS NEEDED FOR NAUSEA 11/17 completed Not Available Not Available Not Available progesteron e micronized 200 mg capsule 11/17 completed Not Available Not Available Not Available misoprostol 100 mcg tablet TAKE 1 TABLET BY MOUTH TWICE A DAY active Not Available Not Available No t Available gabapentin 300 mg capsule Take 1 capsule 3 times a day by oral route for 30 days. 11/17 completed Not Available Not Available Not Available lidocaine HCl 2 % mucosal solution TAKE 10 ML BY MOUTH NEEDED FOR MOUTH PAIN FOR UP TO 3 DAYS. 03/24 completed Not Available Not Available Not Available omeprazole 20 mg capsule,del ayed release TAKE 1 CAPSULE BY MOUTH TWICE A DAY 11/17 completed Not Available Not Available Not Available diclofenac sodium 75 mg tablet,cal yed release TAKE 1 TABLET BY MOUTH TWICE A DAY 11/08 completed Not Available Not Available Not Available mupirocin 2 % topical ointment APPLY TOPICALLY TO THE AFFECTED AREA(S) 3 TIMES DAILY. active Not Available Not Available No t Available diclofenac sodium 50 mg tablet,cal yed release 11/17 completed Not Available Not Available Not Available ergocalcife rol (vitamin D2) 1,250 mcg (50,000 unit) capsule TAKE 1 CAPSULE BY MOUTH ONCE A WEEK. active Not Available Not Available No t Available azelastine 137 mcg (0.1 %) nasal spray PLACE 2 SPRAYS INTO EACH NOSTRIL 2 TIMES DAILY 11/17 completed Not Available Not Available Not Available hydroxychlo roquine 200 mg tablet TAKE 1 TABLET BY MOUTH TWICE A DAY 11/17 completed Not Available Not Available Not Available ibuprofen 600 mg tablet TAKE 1 TABLET BY MOUTH EVERY 8 HOURS 10/10 completed Not Available Not Available Not Available oxycodone-a cetaminophe n 7.5 mg-325 mg tablet TAKE 1 TABLET BY MOUTH 4 TIMES A DAY FOR 30 DAYS. * DNF UNTIL 10-24 active Not Available Not Available No t Available methylpredn isolone 4 mg tablets in a dose pack TAKE 6 TABLETS ON DAY 1 DIRECTED ON PACKAGE AND DECREASE BY 1 TAB EACH DAY FOR A TOTAL OF 6 DAYS 11/08 completed Not Available Not Available Not Available albuterol sulfate HFA 90 mcg/actuati on aerosol inhaler INHALE 2 PUFFS INTO THE LUNGS EVERY 4 HOURS NEEDED FOR WHEEZING. active Not Available Not Available No t Available bromphenira mine-pseudo ephedrine-D M 2 mg-30 mg-10 mg/5 mL oral syrup TAKE 5 ML BY MOUTH EVERY 4 HOURS NEEDED. active Not Available Not Available No t Available ondansetron 4 mg disintegrat ing tablet DISSOLVE 1 TABLET ON THE TONGUE EVERY 6 HOURS NEEDED FOR NAUSEA. active Not Available Not Available No t Available cefdinir 300 mg capsule TAKE 1 CAPSULE BY MOUTH TWICE A DAY FOR 10 DAYS 04/30 completed Not Available Not Available Not Available fluticasone propionate 50 mcg/actuati on nasal spray,suspe nsion USE 1 SPRAY IN EACH NOSTRIL ONCE DAILY. 11/17 completed Not Available Not Available Not Available doxycycline hyclate 100 mg tablet TAKE 1 TABLET BY MOUTH 2 TIMES DAILY FOR 5 DAYS. 03/24 completed Not Available Not Available Not Available dicyclomine 10 mg capsule TAKE 1 CAPSULE BY MOUTH 4 TIMES A DAY FOR 5 DAYS 11/17 completed Not Available Not Available Not Available naproxen 500 mg tablet 11/17 completed Not Available Not Available Not Available diazepam 5 mg tablet TAKE 1 TABLET (5 MG TOTAL) BY MOUTH EVERY 6 HOURS NEEDED FOR ANXIETY FOR UP TO 1 DAY. 07/22 completed Not Available Not Available Not Available amoxicillin 875 mg-potassiu m clavulanate 125 mg tablet TAKE 1 TABLET BY MOUTH EVERY 12 HOURS FOR 7 DAYS. 03/24 completed Not Available Not Available Not Available oxycodone 5 mg tablet TAKE 1 TABLET (5 MG TOTAL) BY MOUTH EVERY 8 HOURS NEEDED FOR PAIN FOR UP TO 7 DAYS 05/13 completed Not Available Not Available Not Available Stomach Relief 262 mg/15 mL oral suspension TAKE 30ML BY MOUTH FOUR TIMES A DAY FOR 10 DAYS 11/17 completed Not Available Not Available Not Available azithromyci n 500 mg tablet 09/06 completed Not Available Not Available Not Available olmesartan 40 mg-hydrochl orothiazide 25 mg tablet TAKE 1 TABLET BY MOUTH EVERY DAY active Not Available Not Available No t Available nitrofurant oin monohydrate /macrocryst als 100 mg capsule TAKE 1 CAPSULE BY MOUTH 2 TIMES DAILY FOR 7 DAYS. active Not Available Not Available No t Available Senexon-S 8.6 mg-50 mg tablet TAKE 1 TABLET BY MOUTH EVERY 12 HOURS NEEDED FOR CONSTIPAT ION. 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 Thyroid 11/17 completed Not Available Not Available Not Available [facility] 10 billion cell-200 mg chewable tablet TAKE 1 TABLET BY MOUTH EVERY DAY 11/17 completed Not Available Not Available Not Available naloxone 4 mg/actuatio n nasal spray PLEASE SEE ATTACHED FOR DETAILED DIRECTION S active Not Available Not Available No t Available Paxlovid 300 mg (150 mg x 2)-100 mg tablets in a dose pack TAKE 2 TABS OF NIRMATREL VIR (150MG EACH) AND 1 TAB OF RITONAVIR (100MG EACH) TWICE DAILY FOR 5 DAYS active Not Available Not Available No t Available Paxlovid 150 mg-100 mg tablets in a dose pack (Moderate Renal Dose) TAKE 1 TABLET OF NIRMATREL VIR AND 1 TABLET OF RITONAVIR BY MOUTH TWICE A DAY FOR 5 DAYS 05/13 completed Not Available Not Available Not Available Vitals Date Recorded Body height Body mass index (BMI) Body weight Pain severity - 0-10 verbal numeric rating [Score] - Reported Heart rate Oxygen saturation Oxygen saturation in Arterial blood by Pulse oximetry Systolic And Diastolic Provider Name and Address Organization Details Last Updated DateTime 5 162.56 cm 40 kg/m2 623320. 02 g 7 65 /min 98 % 98 % 156/87 mm[Hg] Jeffrey [facility] 5 09:14:32 Date Recorded Body height Body mass index (BMI) Body weight Pain severity - 0-10 verbal numeric rating [Score] - Reported Provider Name and Address Organization Details Last Updated DateTime 07/24/2024 162.56 cm 38.3 kg/m2 888355.1 g [facility] 07/24/2024 09:29:28 Date Recorded Body height Body mass index (BMI) Body weight Pain severity - 0-10 verbal numeric rating [Score] - Reported Provider Name and Address Organization Details Last Updated DateTime 09/21/2024 162.56 cm 38.3 kg/m2 193854.1 g 8 [facility] 09/21/2024 08:15:52 Date Recorded Body height Pain severity - 0-10 verbal numeric rating [Score] - Reported Heart rate Oxygen saturation Oxygen saturation in Arterial blood by Pulse oximetry Body mass index (BMI) Body weight Systolic And Diastolic Provider Name and Address Organization Details Last Updated DateTime 4 162.56 cm 6 70 /min 98 % 98 % 39.5 kg/m2 258931. 25 g 133/80 mm[Hg] Ana Lilia FISHER [facility] 4 08:55:52 Social History Question Answer Notes LastModified by Organizat ion Details LastModified Time Tobacco Smoking Status Current Every Day Smoker Ana Lilia amado [facility] 10/10/2021 09:05:26 Do You Have An Advance Directive? No [email or web address] Information n ot available 11/18/2023 In The 14 Days Before Symptom Onset, Have You Had Close Contact With A Laboratory-confirm ed COVID-19 While That Case Was Ill? No [email or web address] Information n ot available 10/10/2021 In The 14 Days Before Symptom Onset, Have You Had Close Contact With A Person Who Is Under Investigation For COVID-19 While That Person Was Ill? No Information not available 10/10/2021 What Type Of Diet Are You Following? REGULAR [email or web address] Information n ot available 10/10/2021 What Is The Highest Grade Or Level Of School You Have Completed Or The Highest Degree You Have Received? [id number] [email or web address] Information not available 10/10/2021 How Many Times Per Week Do You Exercise? 1-2 Times Per Week [email or web address] Information not available 10/10/2021 Do You Have A Medical Power Of Stem Shaper? No [email or web address] Information not available 11/18/2023 What Was The Date Of Your Most Recent Tobacco Screening? 09/21/2024 [email or web address] Information not available 09/16/2024 What Is Your Relationship Status? Single [email or web address] Information not available 10/10/2021 How Much Tobacco Do You Smoke? 1 PPD [email or web address] Information not available 10/10/2021 How Many Years Have You Smoked Tobacco? 30 [email or web address] Information not available 10/10/2021 Sex: Unknown Functional Status Question Answer Note LastModified by Organizat ion Details LastModified Time How many times per week do you consume alcohol? 1-2 times per week [email or web address] Information not available 10/10/2021 Do you use any illicit or recreational drugs? No Information not available 10/10/2021 What is your level of alcohol consumption? Occasional [email or web address] Information not available 10/10/2021 Are you currently employed? Yes Information not available 10/10/2021 Are you able to walk? YESWOREST [email or web address] Information not available 10/10/2021 What is your occupation? [employer] [email or web address] Information not available 10/10/2021 What is your exercise level? Occasional [email or web address] Information not available 10/10/2021 Mental Status None recorded. Family History Relationship Description Onset Age of this Age Resolved Age Notes LastModified by Organization Details LastModified Time Father No current problems or disability [email or web address] Not available 09/14 09:04:39 Mother No current problems or disability [email or web address] Not available 09/14 09:04:39 Medical History Condition Response Bipolar Disease N Coronary Artery Disease N Gout N Atrial Fibrillation N Head Trauma/Injury N Depression N COPD N Anxiety Disorder N Acid Reflux (GERD) N Cancer N Stroke N Rheumatoid Arthritis Y Fibromyalgia Y Headaches N Kidney Disease N DVT N Peptic Ulcer Disease N Bleeding Disorder N CHF N AIDS/HIV N Asthma N Substance Abuse N Hepatitis N Chronic Low Back Pain N Seizure Disorder N Thyroid Disease N Hernia N Skin Disorder N High Cholesterol N Liver Disease N Autoimmune Disease Y Osteoarthritis N Neurosurgery N Anemia N Heart Attack (AR) N Diabetes N Cardiomyopathy N Inflammatory Bowel Disease N Dementia N Sleep Apnea N Heart Disease N Hypertension N Osteoporosis N Gynecological HistoryNo gynecological history recorded. Obstetrics History GPAL:G 0 P 0 0 0 0 Past Encounters Encounter ID Performer Location Encounter Start Date Encounter Closed Date Diagnosis/Indication Diagnosis SNOMED-CT Code Diagnosis ICD10 Code Diagnosis Note [id number] Flavio Arreguin MD [facility] [address] [facility] [address] [place] [address] 10/10/2021 08:47:15 10/10/2021 09:30:40 Long-term drug therapy 839837501 Z79.899 The urine sample is being sent for quantitati ve LCMS analysis of illicit drugs (Cocaine, Methamphet amine, Heroin, Fentanyl, THC, Synthetic Cannabinoi ds, Kratom, MDMA, PCP, and Synthetic Stimulants , Opiates (Codeine, Hydrocodon e, Hydromorph one, and Morphine), Oxycodone, Oxymorphon e, Methadone, Synthetic Opioids (Tramadol, Tapentadol , and Buprenorph ine), Benzodiaze pines (Alprazola m, Clonazepam , Lorazepam, Diazepam, Nordazepam , Oxazepam, and Temazepam) , Gabapentin , Pregabalin , Muscle Relaxants (Carisopro dol, Cyclobenza peter, and Meprobamat e), Ketamine, Nalaxone, and Amphetamin e, as this patient is being prescribed opioid medication s for the first time at this practice. The purpose of this analysis is to confirm the patients stated medication usage and to establish baseline medication and metabolite quantities , and to evaluate for use of medication s that are not prescribed or reported by the patient. 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 Send for LCMS confirmati on of Opiates (Codeine, Hydrocodon e, Hydromorph one, Morphine, and Heroin) as these are frequently used and/or abused pain medication s amongst chronic pain patients in our community. Send for LCMS confirmati on of Synthetic Opioids (Fentanyl, Methadone, Tramadol, Tapentadol , and Buprenorph ine) as these drugs will not be detected in Opiate IA testing and these are also frequently used and/or abused pain medication s in our community. Sj gren's syndrome 30093826 M35.00 Fibromyalgia 060620844 M 79.7 [id number] Flavio Arreguin MD [facility] [address] [address] 02/26/2022 13:08:26 02/26/2022 13:29:49 Fibromyalgia 754961227 M79.7 Sj gren's syndrome 84093999 M35.00 Long-term drug therapy 989831988 Z79.283 [id number] Flavio Arreguin MD [facility] [address] [place] [address] 04/30/2022 08:09:28 04/30/2022 08:37:55 Long-term drug therapy 995405165 Z79.899 Fibromyalgia 316843547 M 79.7 Sj gren's syndrome 86653402 M35.00 [id number] Emmie Maldonado APRN [facility] [address] [place] [address] 07/10/2022 15:22:30 07/10/2022 15:42:51 Sj gren's syndrome 54524100 M35.00 Fibromyalgia 959983634 M 79.7 Long-term drug therapy 401392840 Z79.737 [id number] Flavio Arreguin MD [facility] [address] [place] [address] 09/06/2022 14:48:30 09/06/2022 15:34:18 Long-term drug therapy 051678036 Z79.899 Fibromyalgia 312299887 M 79.7 Sj gren's syndrome 00187089 M35.00 [id number] Flavio Arreguin MD [facility] [address] [place] [address] 11/08/2022 08:43:41 11/08/2022 09:16:56 Long-term drug therapy 016151163 Z79.891 Fibromyalgia 609730653 M 79.7 Sj gren's syndrome 02280126 M35.00 [id number] Flavio Arreguin MD [facility] [address] [place] [address] 01/07/2023 09:45:19 01/07/2023 10:16:04 Fibromyalgia 941450477 M79.7 Sj gren's syndrome 35412083 M35.00 Long-term drug therapy 111723250 Z79.891 Send for LCMS confirmati on of Oxycodone and Oxymorphon e to confirm the quantitati ve levels of these drugs that the patient is prescribed . Send urine sample for LCMS testing for Benzodiaze pines (Alprazola m, Clonazepam , Lorazepam, Diazepam, Nordiazepa m, Oxazepam, and Temazepam) to confirm the quantitati ve levels of these drugs and their metabolite s, as the patient is prescribed this family of medication s, and the preliminar y qualitativ e screen is positive. There are multiple drugs within this family that could register as a positive qualitativ e screen for Benzodiaze pines. The LCMS analysis is necessary to evaluate which drug with the family that the patient is taking, as well as to evaluate drug and metabolite levels. Benzodiaze pines are highly abused anxiolytic s and MEMORIAL MARKER DESIGNER depressant s that can cause respirator y depression and accidental drug overdose when taken with other MEM[employer] MARKER DESIGNER depressant s such as opioids. Send for LCMS confirmati on of Gabapentin to confirm the quantitati ve level of this drug and its metabolite as it will not be detected in qualitativ e screen and the patient is currently prescribed Gabapentin . [id number] Flavio Arreguin MD [facility] [address] [place] [address] 03/26/2023 10:41:19 03/26/2023 11:09:48 Long-term drug therapy 898138642 Z79.899 Up to date Informed Consent and Opioid Agreement have been signed and incorporat ed into the chart. Patient has been provided written educationa l materials regarding potential adverse effects of retirement opioid therapy MEDICAL INDICATION S: Pain has been refractory to repeated attempts at conservati ve management , is of a moderate to severe degree and an organic source is suspected. The medication prescribed will be used in conjuction with a comprehens mago pain program to meet the establishe d goals. Urine drug screening is regularly performed to monitor compliance during active treatment for medication misuse or diversion. GOLD/OAR S has been reviewed and documented to assure compliance with dosing scheduling , pain agreement MY OVERALL IMPRESSION IS THAT THIS PATIENT IS BENEFITING FROM OPIOID THERAPY. Fibromyalgia 509525910 M 79.7 Sj gren's syndrome 48861812 M35.00 [id number] MD [facility] [place] [address] [place] [address] 05/14/2023 09:36:07 05/14/2023 10:18:51 Fibromyalgia 763416595 M79.7 Sj gren's syndrome 10301053 M35.00 Long-term drug therapy 228895312 Z79.449 [id number] Derrick Mendez MD [place] [place] [address] [place] [address] 07/23/2023 08:42:40 07/23/2023 09:02:10 Sj gren's syndrome 69758069 M35.00 Fibromyalgia 712454593 M 79.7 Long-term drug therapy 066627729 Z79.615 [id number] MD [facility] [place] [address] [place] [address] 09/17/2023 08:57:37 09/17/2023 09:33:20 Long-term drug therapy 492301472 Z79.891 Send for LCMS confirmati on of Oxycodone and Oxymorphon e to confirm the quantitati ve levels of these drugs that the patient is prescribed . Fibromyalgia 589363674 M 79.7 Sj gren's syndrome 75808603 M35.00 Chronic pain 20088976 G8 9.29 [id number] Flavio Arreguin MD [place] [address] [place] [address] 11/18/2023 09:19:01 11/18/2023 09:52:46 Long-term drug therapy 038294781 Z79.899 Send for LCMS confirmati on of Oxycodone and Oxymorphon e to confirm the quantitati ve levels of these drugs that the patient is prescribed . Overweight 924840716 E66 .3 Hypertensi on screening 926698106 Z13.6 Chronic pain 36504809 G8 9.29 Fibromyalgia 060771914 M 79.7 Sj gren's syndrome 94077851 M35.00 Osteoarthritis of hip 23 8684583 M16.9 [id number] Flavio Arreguin MD [place] [address] [place] [address] 01/27/2024 10:59:12 01/27/2024 11:22:35 Long-term drug therapy 650763036 Z79.899 Osteoarthritis of hip 23 9478304 M16.9 Patient did schedule for bilateral hip injections . We did give her approval to receive IM Toradol injection the same day. Her previous orthopedic s would inject this into the joint. I discussed that we do not offer to order those injections into the joint as this is not recommende d. Sj gren's syndrome 88337029 M35.00 We will continue with the medication regimen same dose and frequency. Medication allows for improved mobility and increased activity tolerance Chronic pain 19386340 G8 9.29 [id number] ROSELINE CHING MD [facility] [address] [place] [address] 03/24/2024 08:42:46 03/24/2024 09:23:16 Long-term drug therapy 502491027 Z79.891 Chronic pain 52050535 G8 9.29 Osteoarthritis of hip 23 8713729 M16.9 Patient had to schedule her previous hip injections the past that she did have the flu and COVID. She would not like to proceed with bilateral hip injections . We do have approval that she can receive IM Toradol injection the same day as she states her previous Ortho would inject this into the joint. We did advise her that we do not offer Toradol injection into the joint as it is not recommende d. I will move forth requesting the hip injections today. Sj gren's syndrome [id number] M35.00 Patient reports continued benefit with use of the medication regimen. She states she is able to maintain daily activities , perform household duties, continue to work full-time. No side effects noted. Will continue at same dose and frequency. [id number] ROSELINE CHING MD [facility] [address] [place] [address] 05/27/2024 15:34:28 05/27/2024 15:57:27 Osteoarthritis of hip [id number] M16.9 Muscle pain [id number] M79 .10 [id number] MD Fransisco MURO [place] [address] [place] [address] 05/26/2024 09:09:39 05/26/2024 09:34:13 Chronic pain [id number] G89.29 Osteoarthritis of hip 23 [id number] M16.9 Patient is scheduled for bilateral hip injections tomorrow. She states that she forgot about this appointmen t and scheduled to work. She is going in today after this appointmen t to see if she can be let off to come into the injection. We have had issues with her scheduling this and rescheduli ng. We do have approval that she can receive IM Toradol injection the same day as she states her previous Ortho would inject this into the joint. We did advise her that we do not offer Toradol injection into the joint as it is not recommende d. Sj gren's syndrome [id number] M35.00 We will continue her current medication regimen without change. She states it does allow her to continue to work, perform daily task, engage in hobbies as pain allows. No side effects. [id number] MD [facility] [address] [place] [address] 07/24/2024 09:18:52 07/24/2024 09:47:48 Long-term current use of drug therapy [id number] Z79.899 Send for LCMS confirmati on of Oxycodone and Oxymorphon e to confirm the quantitati ve levels of these drugs that the patient is prescribed . Osteoarthritis of hip 23 [id number] M16.9 Patient received some relief with the hip injection in May however she had a reaction to the steroid. She does not want to receive any further steroid injections . She has decided to move forward with further imaging of her hip with Ortho. They may decide on surgery. Sj gren's syndrome [id number] M35.00 No changes made with medication regimen today. Patient reports that they are able to perform their daily activities with more ease. Their quality of life is improved. They have improved activity tolerance. No side effects noted. Chronic pain [id number] G8 9.29 Lumbar radiculopathy 128 195956 M54.16 [id number] BRENNA KATZ MD [facility] [address] [place] [address] 09/21/2024 08:09:51 09/21/2024 08:44:50 Osteoarthritis of hip [id number] M16.9 Patient received some relief with the hip injection in May however she had a reaction to the steroid. She does not want to receive any further steroid injections . She has decided to move forward with further imaging of her hip with Ortho. She is awaiting approval of her MRI to discuss possible hip replacemen t on the left side. 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 I also advised her if they are planning a surgery for her left hip we do not want to increase medication prior to surgery. We will continue with their current medication at same dose and frequency. Patient states they are able to complete daily tasks, the range of motion is improved, as well as improved functional ity with use of this. They deny any side effects. Chronic pain [id number] G8 9.29 Long-term current use of drug therapy [id number] Z79.899 Send for LCMS confirmati on of Oxycodone and Oxymorphon e to confirm the quantitati ve levels of these drugs that the patient is prescribed . Lumbar spondylosis 52578 0009 M47.816 I did review with the patient we could consider lumbar MBB's as she does not want to receive any type of steroid injection. She states she would like to review the handout and let us know. Health Concerns Section Related Observation LastModified by Organization Detai ls LastModified Time None Recorded Concern Status LastModified by Organization Details LastModified Time None Recorded Advance Directives Directive N: Payers Insurance Date Sequence Insurance Name Policy Number Policy Anderson Covered Member ID Anderson Member ID Guarantor Name 10/08/2024 1 [employer] [facility] (MEDICAID HMO) Landy Arizmendi [id number] Landy Arizmendi OBGyn Episode No OBEpisode recorded.
--- OUTSIDE RECORDS SUMMARY | 2024-11-10 10:02 | XMS_ITS | Encounter Summary ---
Author Organization [place] [address] Care Team Providers Care Hand Cementer Name Role Phone Go Campos MD Unavailable [phone] Marely Gonzalez MD Primary Care Provider + Flavio Arreguin MD Unavailable [phone] Encounter Details Date Type Department Care Team (Latest Contact Info) Description 09/14/2024 Results Follow-Up [facility] [address] [facility] [address] [place] [phone] Torri Santiago, DO [address]30 [facility] [address] [place] [address] [id number] COMPREHENSIVE METABOLIC PANEL, CBC WITH DIFF, URINALYSIS Social History Tobacco Use Types Packs/Day Years [...] Nnamdi Tovar LPN documented in this encounter Plan of Treatment Not on file documented as of this encounter Goals Goal Patient Goal Type Associated Problems Recent Progress Patient-Stated? Author Maintain a healthy diet, exercise regularly and maintain an ideal body weight General No Bernie Hooks MA Stay Tobacco Free Lifestyle No Bernie Hooks MA documented as of this encounter Visit Diagnoses Not on filedocumented in this encounter Care Teams Hand Cementer Relationship Specialty Start Date End Date Go Campos MD [address] [place] [address] PCP - OBGYN Obstetrics & Gynecology 06/02/11 Marely Gonzalez MD [address] [place] [address] PCP - General Family Medicine 01/07/13 Flavio Arreguin MD [address] [place] [address] Pain Medicine-Pain Medicine 10/20/21 documented as of this encounter
--- OUTSIDE RECORDS SUMMARY | 2024-11-10 10:02 | XMS_ITS | Encounter Summary ---
Author Organization [place] [address] Care Team Providers Care Diamond Blender Name Role Phone Go Campos MD Unavailable Marely Gonzalez MD Primary Care Provider + Flavio Arreguin MD Unavailable [phone] Reason for Visit * Reason Onset Date Comments Results 09/11/2024 UA Encounter Details Date Type Department Care Team (Late st Contact Info) Description 09/11/2024 Telephone [facility] [address] [facility] [address] [place] [phone] Marely Gonzalez MD [address]30 [facility] [address] [place] [phone] Results (UA) Social History Tobacco Use Types Packs/Day Years [...] Nnamdi Tovar LPN documented in this encounter Ordered Prescriptions Prescription Sig Dispense Quantity Refills Last Filled Start Date End Date nitrofurantoin, macrocrystal-monohy drate, (MACROBID) 100 mg Oral CapsuleIndications: UTI (urinary tract infection), uncomplicated Take 1 Capsule by mouth 2 times daily for 7 days. 14 Capsule 09/11/2024 documented in this encounter Miscellaneous Notes * Telephone Encounter - Rhonda Pearce MA - 09/11/2024 4:12 PM EDT patient informed * Telephone Encounter - Katherine Silverman PA-C - 09/11/2024 2:00 PM EDT Antibiotic sent to the pharmacy and urine culture ordered * Telephone Encounter - Rhonda Pearce MA - 09/11/2024 1:14 PM EDT Pt states she is having frequent urination/ distended belly and kidney pain * Telephone Encounter - Katherine Silverman PA-C - 09/11/2024 1:09 PM EDT Blood work looks good UA shows leuks with some bacteria - no culture was ordered. Is she having urinary symptoms? * Telephone Encounter - Rhonda Pearce MA - 09/11/2024 12:46 PM EDT Please advise * Telephone Encounter - Rosario Albarran - 09/11/2024 12:20 PM EDT Select the most appropriate reason for this telephone message: Test Result(s) Purpose of call: Patient seeking results Type of test: Lab Date of test: 09/10 Who ordered the test: Dr Santiago Where was test performed: [facility] Return Method of Communication: Phone Call Additional Information: Pt states she is having frequent urination/ distended belly and kidney pain documented in this encounter Plan of Treatment Not on file documented as of this encounter Goals Goal Patient Goal Type Associated Problems Recent Progress Patient-Stated? Author Maintain a healthy diet, exercise regularly and maintain an ideal body weight General No Bernie Hooks MA Stay Tobacco Free Lifestyle Bernie Ferguson MA documented as of this encounter Visit Diagnoses Diagnosis UTI (urinary tract infection), uncomplicated Urinary tract infection, site not specified documented in this encounter Discontinued Medications Medication Sig Discontinue Reason Start Date End Da te nitrofurantoin, macrocrystal-monohydrate, (MACROBID) 100 mg Oral CapsuleIndications:UTI (urinary tract infection), uncomplicated Take 1 Capsule by mouth 2 times daily for 7 days. Reorder 09/11/2024 09/11/2024 documented as of this encounter Care Teams Diamond Blender Relationship Specialty Start Date End Date Go Campos MD [address] [place] [address] PCP - OBGYN Obstetrics & Gynecology 06/02/11 Marely Gonzalez MD [address] [place] [address] PCP - General Family Medicine 01/07/13 Flavio Arreguin MD [address] [place] [address] Pain Medicine-Pain Medicine 10/20/21 documented as of this encounter
--- OUTSIDE RECORDS SUMMARY | 2024-11-10 10:02 | XMS_ITS | Encounter Summary ---
Author Organization [place] [address] Care Team Providers Care Content Specialist Name Role Phone Go Campos MD Unavailable [phone] Marely Gonzalez MD Primary Care Provider + Flavio Arreguin MD Unavailable [phone] Encounter Details Date Type Department Care Team (Late st Contact Info) Description 09/11/2024 Orders Only [facility] [address]30 [facility] [address] [place] [phone] Katherine Silverman PA-C [address]30 [facility] [address] [place] [address] [phone] UTI (urinary tract infection), uncomplicated (Primary Dx) Social History Tobacco Use Types [...] 14 Capsule 09/11/2024 documented in this encounter Plan of Treatment Scheduled Orders Name Type Priority Associated Diagnoses Orde r Schedule URINE CULTURE (NO STAIN) Microbiology Routine UTI (urinary tract infection), uncomplicated 1 Occurrences starting 09/11/2024 until 09/11/2025 documented as of this encounter Goals Goal Patient Goal Type Associated Problems Recent Progress Patient-Stated? Author Maintain a healthy diet, exercise regularly and maintain an ideal body weight General No Bernie Hooks MA Stay Tobacco Free Lifestyle No Bernie Hooks MA documented as of this encounter Visit Diagnoses Diagnosis UTI (urinary tract infection), uncomplicated- Primary Urinary tract infection, site not specified documented in this encounter Care Teams Content Specialist Relationship Specialty Start Date End Date Go Campos MD [address] [place] [address] PCP - OBGYN Obstetrics & Gynecology 06/02/11 Marely Gonzalez MD [address] [place] [address] PCP - General Family Medicine 01/07/13 Flavio Arreguin MD [address] [place] [address] Pain Medicine-Pain Medicine 10/20/21 documented as of this encounter
--- OUTSIDE RECORDS SUMMARY | 2024-11-10 10:02 | XMS_ITS | Encounter Summary ---
Author Organization [facility] Address [address] [place], [place] [address] Care Team Providers Care Warehouse Incentive Selector Name Role Phone Marely Gonzalez MD Primary Care Provider Alan Villanueva MD Unavailable [phone] Dixie Doss MD Unavailable [phone] Angela Lee Unavailable Link Flores MD Unavailable [phone] Adamaris Ladd RN Unavailable [phone] Katrina Ruiz MD Unavailable Verenice Luevano RN Unavailable [phone] Reason for Visit * Reason Onset Date Comments Scheduling 09/25/2018 Encounter Details Date Type Department Care Team (Late st Contact Info) Description 09/25/2018 Telephone [facility] Physicians - Obstetrics & Gynecology, [place] [address] [place] [address] Dixie Doss MD [address] [place] [address] Scheduling Social History Tobacco Use Types Packs/Day Years Used Date Smoking Tobacco: Former Cigarettes 0.5 6 0 06/02/2012 - 09/10/2016 Smokeless Tobacco: Never Alcohol Use Standard Drinks/Week Comments No 0 (1 standard drink = 0.6 oz pur e alcohol) Comments No Sex and Gender Information Value Date Recorded Sex Assigned at Not on file Legal Sex Female 7:15 PM EST Gender Identity Not on file Sexual Orientation Not on file 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 Pt is peeing 50cc every 4 mins, Pt is having spasms. Pt kidneys are hurting. When pt pees it takes her breath away. Pt has a fever 101.6. * Telephone Encounter - Dixie Doss MD - 09/25/2018 1:35 PM EDT Patient has had catheter taken out several times to early and is not giving her bladder time to heal from the surgery. We can try another antibiotic, but I would wait until we get the culture back She cancelled her appointment yesterday She needs to be taking her oybutinin, or we can change to the detrol There is not much more I can do if she is not going to follow our recommendations. * Telephone Encounter - Monica Flores RMA - 09/25/2018 1:10 PM EDT Pt is only peeing a little at time but she feels like she has to pee all of the time. Pt stated it is painful into her back. Pt is unable to sleep. Pt stated it is hurting into her bladder and kidney. Pt took a hot shower and it did not help. * Telephone Encounter - Monica Flores RMA - 09/25/2018 11:49 AM EDT Pt called to scheduled follow up Pt is taking Keflex 500mg capsule and stated it is not helping. Pt has to use the bathroom all of the time and it is painful. Pt wanted to know if there is anything else you can do? documented in this encounter Plan of Treatment Not on file documented as of this encounter Visit Diagnoses Not on filedocumented in this encounter Care Teams Warehouse Incentive Selector Relationship Specialty Start Date End Date Marely Gonzalez MD PCP - General Family Medicine 03/01/22 Alan Villanueva MD Family Medicine 05/31/14 Dixie Doss [place] [facility] [address] Obstetrics & Gynecology 07/26/20 Angela Lee PA [address] [facility] [address] [place] [address] Physician Homicide Detective Urology 10/28/20 Link Flores MD [address] [facility]. [address] [place] [address] Female Pelvic Medicine and Reconstructive Surgery 12/12/20 Adamaris Ladd RN [address] [place] [address] Registered Nurse 12/28/20 Katrina Ruiz MD [address] [place] [address] Resident Obstetrics & Gynecology 03/01/21 Verenice Luevano, RN [address] [place] [id number] Registered Nurse 03/01/21 documented as of this encounter
--- OUTSIDE RECORDS SUMMARY | 2024-11-10 10:02 | XMS_ITS | Encounter Summary ---
Author Organization [facility] Address [address] [place], [place] [address] Care Team Providers Care Pharmacy Benefits Coordinator Name Role Phone Marely Gonzalez MD Primary Care Provider Alan Villanueva MD Unavailable [phone] Dixie Doss MD Unavailable [phone] Angela Lee Unavailable [phone] Link Flores MD Unavailable [phone] Adamaris Ladd RN Unavailable [phone] Katrina Ruiz MD Unavailable Verenice Luevano RN Unavailable [phone] Encounter Details Date Type Department Care Team (Latest Contact Info) Description 08/28/2018 Preop Surgical Orders [facility] Physicians - Obstetrics & Gynecology, [place] [address] [place] [address] Dixie Doss MD [address] [facility] [place] [place] [address] Prolapse of posterior vaginal wall; Female stress incontinence; Sterilization consult Social History Tobacco Use Types Packs/Day Years Used Date Smoking Tobacco: Former Cigarettes 0.5 12.4 S tarted: 06/02/2012 Smokeless Tobacco: Never Alcohol Use Standard Drinks/Week Comments No 0 (1 standard drink = 0.6 oz pur e alcohol) Comments No Sex and Gender Information Value Date Recorded Sex Assigned at Not on file Legal Sex Female 7:15 PM EST Gender Identity Not on file Sexual Orientation Not on file 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 file Not on file Not on file documented as of this encounter Plan of Treatment Not on file documented as of this encounter Results * CBC (COMPLETE BLOOD COUNT) (09/12/2018 2:25 PM EDT) WBC 7.7 3.8 - 10.8 10*3/uL [facility] RBC 4.23 3.80 - 5.10 10*6/uL [facility] Hemoglobin 13.6 11.7 - 15.5 g/dL [facility] Hematocrit Blood 39.4 35.0 - 45.0 % [facility] MCV 93.1 80.0 - 100.0 fL [facility] MCH 32.2 27.0 - 33.0 pg [facility] MCHC 34.6 32.0 - 36.0 g/dL [facility] RDW 13.1 11.0 - 15.0 % [facility] Platelets 259 140 - 400 10*3/uL [facility] MPV 9.0 7.5 - 11.5 fL [facility] Whole Blood (Blood) 09/12/2018 2:25 PM EDT 09/12/2018 2:22 PM EDT us Dixie Doss MD HEMATOLOGY ORDERABLES Fin al Result Performing Organization Address City/State/[facility] Co de Phone Number [facility] [address] documented in this encounter Visit Diagnoses Diagnosis Prolapse of posterior vaginal wall Unspecified prolapse of vaginal kruger Female stress incontinence Sterilization consult Other general counseling and advice for contraceptive management documented in this encounter Care Teams Pharmacy Benefits Coordinator Relationship Specialty Start Date End Date Marely Gonzalez MD PCP - General Family Medicine 03/01/22 Alan Villanueva MD Family Medicine 05/31/14 Dixie Doss MD [address] [facility] [place] [address] [place] [address] Obstetrics & Gynecology 07/26/20 Angela Lee PA [address] [facility] [address] [place] [address] Physician Director Of Vendor Management Urology 10/28/20 Link Flores MD [address] [facility] [address] [place] [address] Female Pelvic Medicine and Reconstructive Surgery 12/12/20 Adamaris Ladd RN [address] [place] [phone] Registered Nurse 12/28/20 Katrina Ruiz MD [address] [place] [address] Resident Obstetrics & Gynecology 03/01/21 Verenice Luevano RN [address] [place], [place] [address] Registered Nurse 03/01/21 documented as of this encounter
--- OUTSIDE RECORDS SUMMARY | 2024-11-10 10:02 | XMS_ITS | Encounter Summary ---
Author Organization [place] [address] Care Team Providers Care Radio Communications Superintendent Name Role Phone Go Campos MD Unavailable [phone] Marely Gonzalez MD Primary Care Provider + Flavio Arreguin MD Unavailable [phone] Encounter Details Date Type Department Care Team (Late st Contact Info) Description 01/24/2018 Lab Requisition [facility] [place] [address] Maggi Crouch, SPECIAL CLASS WELDER [address] [place], [place] [id number] Encounter for general adult medical examination without abnormal findings Social History Tobacco Use Types Packs/Day Years Used Date Smoking Tobacco: Former Cigarettes 0.1 5 0 2007 - 07/14/2012 Smokeless Tobacco: Never Alcohol Use Standard Drinks/Week Comments Yes 0 (1 standard drink = 0.6 oz pur e alcohol) occasionally on holidays Sexually Active Control Partners Comments Yes Condom [...] hearing? Answer Date of Assessment Author No 07/12/2017 9:23 AM EDT Nereyda Pedroza MA * Is the person blind or does he/she have serious difficulty seeing even when wearing glasses? Answer Date of Assessment Author No 07/12/2017 9:23 AM Nereyda Rhodes MA * Does this person have serious difficulty walking or climbing stairs? Answer Date of Assessment Author No 07/12/2017 9:23 AM EDT Nereyda Pedroza MA * Does this person have difficulty dressing or bathing? Answer Date of Assessment Author No 07/12/2017 9:23 AM EDT Nereyda Pedroza MA * Because of a physical, mental or emotional condition, does this person have difficulty doing errands alone such as visiting a doctor's office or shopping? Answer Date of Assessment Author No 07/12/2017 9:23 AM Nereyda Rhodes MA documented as of this encounter Mental Status * Because of a physical, mental or emotional condition, does this person have serious difficulty concentrating, remembering or making decisions? Answer Entry Date Author No 07/12/2017 9:23 AM Nereyda Rhodes MA documented in this encounter Plan of Treatment [...] Procedure Name Priority Date/Time Associated Diagnosis Comments HPV HIGH RISK Routine 01/24/2018 12:06 PM EDT Encounter for general adult medical examination without abnormal findings WIND SITE MANAGER CYTOLOGY REQUEST (PAP ONLY) Routine 01/22/2018 12:00 PM EDT Encounter for general adult medical examination without abnormal findings documented in this encounter Results * HPV HIGH RISK (01/24/2018 12:06 PM EDT) HPV HR Not Detected Not Detected 01/26/2018 11:17 AM EDT [facility] [employer] Thin Prep SPECIMEN FROM UTERINE CERVIX / Unknown 01/24/2018 12:06 PM EDT 01/24/2018 3:06 PM EDT Narrative [facility] - 01/26/2018 11:17 AM EDT This test was performed using the FDA Approved APTIMA HPV mRNA assay which detects E6/E7 messenger RNA of High Risk HPV types (16, 18, 31, 33, 35, 39, 45, 51, 52, 56, 58, 59, 66, and 68). This assay is intended for use in women 21 years or older with ASC-US cervical cytology or women 30 years or older. This assay is not intended to substitute for regular cervical cytology screening. Detection of HPV using the APTIMA HPV Assay does not differentiate HPV types and cannot evaluate persistence of any one type. The use of this assay has not been evaluated for the management of HPV vaccinated women, women with prior ablative or excisional therapy, hysterectomy, or who are . Sensitivities may be affected by collection methods, stage of infection, and the presence of interfering substances. Results of this assay should be interpreted in conjunction with other available laboratory and clinical data. Maggi Crouch APRN MICROBIOLOGY - GENERAL ORDER ROBERTO Final Result [facility] [address] [place] [address] , [place] [address] * WIND SITE MANAGER CYTOLOGY REQUEST (PAP ONLY) (01/22/2018 12:00 PM EDT) CASE REPORT Gynecologic Cytology Report Case: [id number] Authorizing Provider: Maggi Crouch APRN Collected: 01/22/2018 1200 First Screen: Stacey Lindo CT Received: 01/25/2018 0905 Specimen: LIQUID-BASED PAP - CERVICAL/ENDOCERV ICAL, Cervix, Endocervical 01/28/2018 3:09 PM EDT [facility] PAP FINAL DIAGNOSIS Negative for intraepithelial lesion or malignancy 01/28/2018 3:09 PM EDT [facility] at 1509 EDT MICROSCOPIC DESCRIPTION Microscopic examination is performed and the findings corroborate the diagnosis. 01/28/2018 3:09 PM EDT [facility] PAP SMEAR ADEQUACY Satisfactory for evaluation 01/28/2018 3:09 PM EDT [facility] PAP ORGANISMS NOTED Fungal organisms present consistent with hailey. 01/28/2018 3:09 PM EDT [facility] ENDOCERVICAL T-ZONE Transformation zone present 01/28/2018 3:09 PM EDT [facility] EMBEDDED IMAGES 8 3:09 PM EDT [facility] PAP DISCLAIMER The Pap Smear is a screening test that aids in the detection of cervical cancer and cancer precursors. Both false positive and false negative results can occur. The test should be used at regular intervals, and positive results should be confirmed before definitive therapy. Processed using the ThinPrep Holter Scanning Technician Automated cytology screening device (JDCPhosphate). 01/28/2018 3:09 PM EDT [facility] Thin Prep ENDOCERVICAL STRUCTURE / Unknown 01/22/2018 12:00 PM EDT 01/25/2018 9:05 AM EDT us Maggi Crouch SPECIAL CLASS WELDER CYTOLOGY ORDERABLES [place] [address] documented in this encounter Visit Diagnoses Diagnosis Encounter for general adult medical examination without abnormal findings Routine general medical examination at a health care facility documented in this encounter Additional Health Concerns Infection Onset Date Last Indicated Resolved Time R/O COVID-19 11/25/2019 11/25/2019 01/05/2020 7:58 AM EDT R/O COVID-19 03/12/2020 03/12/2020 03/12/2020 9:58 PM EST COVID-19 04/04/2020 04/04/2020 04/24/2020 10:1 4 PM EST R/O COVID-19 12/06/2020 12/06/2020 12/06/2020 2:24 PM EDT R/O COVID-19 01/07/2021 01/07/2021 01/08/2021 1:02 AM EDT R/O COVID-19 02/21/2021 02/21/2021 02/21/2021 10:2 0 AM EST R/O COVID-19 06/08/2021 06/08/2021 06/09/2021 3:04 PM EST R/O COVID-19 04/11/2022 04/11/2022 04/11/2022 7:49 AM EST R/O COVID-19 04/21/2022 04/21/2022 04/21/2022 3:55 PM EST COVID-19 03/20/2023 03/20/2023 04/09/2023 10:1 2 PM EST INFLUENZA 01/15/2024 01/15/2024 01/29/2024 10:1 3 PM EDT INFLUENZA 02/26/2024 02/26/2024 03/11/2024 10:1 2 PM EST COVID-19 03/20/2024 03/20/2024 04/09/2024 10:1 3 PM EST COVID-19 06/04/2024 06/04/2024 06/24/2024 10:1 2 PM EDT Assessment Noted Time PHQ-9 Depression Total Score: 2 07/13/19 9:23 AM EDT PHQ-2 Depression Total Score: 2 07/13/19 18 9:23 AM EDT documented as of this encounter Care Teams Radio Communications Superintendent Relationship Specialty Start Date End Date Go Campos MD [address] [place] [address] PCP - OBGYN Obstetrics & Gynecology 06/02/11 Marely Gonzalez MD [address] [place] [address] PCP - General Family Medicine 01/07/13 Flavio Arreguin MD [address] [place] [address] Pain Medicine-Pain Medicine 10/20/21 documented as of this encounter
--- OUTSIDE RECORDS SUMMARY | 2024-11-10 10:02 | XMS_ITS | Continuity of Care Document ---
Author Organization [facility], [place] Address [address] [place] [address] Care Team Providers Care Equipment Scheduler Name Role Phone ORTEGA BOWLES Primary Care Provider Lisa verde Assessment Encounter Date Assessment Date Assessment LastModified by Organization Details LastModified Time 09/21/2024 09/21/2024 Pain History: 49-year-old female returns [...] Surgical evaluation/ history: Right-sided hip arthroscopic surgery [facility] 2021 with improvement (Right hip arthroscopy with [...] recognition technology. There may be unintended errors. [email or web address] Not available 09/21/2024 08:54:28 Plan of Treatment Reminders Order Date Submit Date Provider Last Modified By Organization Details Last Modified Time Details Appointments FOLLOW UP 15 2024 08:00A Gianfranco VALDIVIA , JOAQUIM Not available Not available Not available Lab drug screen, urine 2024 025 [facility], [facility], [address] [place] [address], [address], 09/24/2024 11:53:21 Referral None recorded. Procedures None recorded. Surgeries None recorded. Imaging None recorded. Medication Orders Percocet 7.5 mg-325 mg tablet 2024 025 [facility], [address] [facility] [place], [address], 09/25/2024 09:12:46 Percocet 7.5 mg-325 mg tablet 2024 025 [facility], [address] [place], [address], 10/21/2024 10:48:40 Patient TargetsNo targets recorded. Patient InstructionsNo instructions recorded. Reason for Referral None Reported. Results Created Date Observation Date Name Description Value Unit Range Abnormal Flag Note LastModifiedBy Organization Detail LastModifiedTime 09/09/19 25 08/18/2024 XR, lumbo sacra l spine , 2 or 3 view No observ ation record ed. [email or web address] [facility] [address], [place], [address], 09/21/2024 08:53:38 Result Notes None recorded. 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 Flavio Arreguin MD [address] [place] [address], [phone] , [place] [facility] 2 09:14:18 Fibromyalgia 828221768 Active 2021 Flavio Arreguin MD [address] [place] [address], [phone] , [place] [facility] 2 09:14:26 Overweight 250265648 Active 2023 WADE VALDIVIA NP [address] [place] [address], [address] , [place] [facility] 4 09:47:45 Chronic pain 95269642 Active 2023 WADE VALDIVIA NP [address] [place] [address], [address] , [place] [facility] 4 09:47:45 Osteoarthriti s of hip 928534767 Active 2023 WADE VALDIVIA NP [address] [place] [address], [address] , [place] [facility] 4 09:48:24 Muscle pain 33004336 Active 2024 ROSELINE CHING MD [address] [place] [address], [address] , [place] [facility] 5 09:50:36 Lumbar radiculopathy 175677144 Active 2024 WADE VALDIVIA NP [address] [place] [address], [address] , [place] [facility] 5 09:42:57 Lumbar spondylosis 501779496 Active 2024 WADE VALDIVIA NP [address] [place] [address], [address] , [place] [facility] 5 08:52:45 Keratoconjunc tivitis sicca, in Sj gren's syndrome 57728303 Active 2024 Jeffrey amado, [place] - [facility] 5 10:49:00 Problem Notes None recorded. Procedures Surgical History Date Name Laterality Status Provider Name and Address Organization Details Recorded Time 5 IM Injection completed Jeffrey Tishadalberto [place] - [facility] 09/21/2024 08:44:44 5 Hip Joint Injection Fluoro completed Laurie Lozano [facility] 05/27/2024 15:57:09 5 IM Injection completed Ana Lilia Moffett [facility] 05/27/2024 15:52:16 4 Hip Joint Injection Fluoro cancelled Christiana Mason [facility] 01/30/2024 08:31:41 Hip Surgery completed Ana Lilia Moffett [facility] 10/10/2021 09:01:37 General Surgery completed Bindu Sandoval [facility] 01/07/2023 09:55:05 Imaging Results None recorded. Procedure Notes None recorded. Medical Equipment None Reported. Allergies Allergen ID Allergen Name Allergen Category Reaction Reaction Severity Criticality Documentation Date Start Date Code Code System Note Provider Name and Address Organization Details Recorded Time 653659 morphine medicatio n nausea rash respirato ry distress Not available Not available Not available Not available 10/10/2021 7052 RxNorm PHILLIP [place] - [facility] 2 09:01:26 441872 Imitrex medicatio n Not available Not available Not available 10/10/2021 49946 3 RxNorm PHILLIP [place] - [facility] 2 09:01:50 602411 Bactrim medicatio n Not available Not available Not available 10/10/2021 49624 9 RxNorm PHILLIP [place] - [facility] 2 09:02:03 622100 Zofran medicatio n Not available Not available Not available 10/10/2021 81471 RxNorm PHILLIP [facility] - [facility] 2 09:02:20 Medications Name Sig Start Date [...] No t Available pantoprazol e 20 mg tablet,cal yed release TAKE 1 TABLET [...] completed Not Available Not Available Not Available [employer] Thyroid 11/17 completed Not Available Not Available Not Available [facility] 10 billion cell-200 mg chewable [...] Updated DateTime 09/21/2024 162.56 cm 38.3 kg/m2 382667.1 g 8 Jeffrey Langley [facility] 09/21/2024 08:15:52 Social History Question Answer Notes LastModified by Organizat ion Details LastModified Time Tobacco Smoking Status Current Every Day [facility] 10/10/2021 09:05:26 Do You Have An Advance Directive? No Information n ot available 11/18/2023 In The 14 Days Before Symptom Onset, Have You Had Close Contact With A Laboratory-confirm ed COVID-19 While That Case Was Ill? No Information n ot available 10/10/2021 In The 14 Days Before Symptom Onset, Have You Had Close Contact With A Person Who Is Under Investigation For COVID-19 While That Person Was Ill? No [email or web address] Information not available 10/10/2021 What Type Of Diet Are You Following? REGULAR [email or web address] Information n ot available 10/10/2021 What Is The Highest Grade Or Level Of School You Have Completed Or The Highest Degree You Have Received? AW63152-3 [email or web address] Information not available 10/10/2021 How Many Times Per Week Do You Exercise? 1-2 Times Per Week [email or web address] Information not available 10/10/2021 Do You Have A Medical Power Of Information Broker? No [email or web address] Information not available 11/18/2023 What Was The Date Of Your Most Recent Tobacco Screening? 09/21/2024 [email or web address] Information not available 09/16/2024 What Is Your Relationship Status? Single [email or web address] Information not available 10/10/2021 How Much Tobacco Do You Smoke? 1 PPD [email or web address] Information not available 10/10/2021 How Many Years Have You Smoked Tobacco? 30 Information not available 10/10/2021 Sex: Unknown Functional Status Question Answer Note LastModified by Organizat ion Details LastModified Time How many times per week do you consume alcohol? 1-2 times per week Information not available 10/10/2021 Do you use any illicit or recreational drugs? No [email or web address] Information not available 10/10/2021 What is your level of alcohol consumption? Occasional Information not available 10/10/2021 Are you currently employed? Yes [email or web address] Information not available 10/10/2021 Are you able to walk? YESWOREST [email or web address] Information not available 10/10/2021 What is your occupation? [employer]BE [employer] Information not available 10/10/2021 What is your exercise level? Occasional [email or web address] Information not available 10/10/2021 Mental Status None recorded. Family History Relationship Description Onset Age of this Age Resolved Age Notes LastModified by Organization Details LastModified Time Father No current problems or disability [email or web address] Not available 09/14 09:04:39 Mother No current problems or disability Not available 09/14 09:04:39 Medical History Condition Response Bipolar Disease N Coronary Artery Disease N Gout N Seizure Disorder N Thyroid Disease N Atrial Fibrillation N Hernia N Head Trauma/Injury N COPD N Depression N Anxiety Disorder N Acid Reflux (GERD) N Cancer N Skin Disorder N Stroke N High Cholesterol N Liver Disease N Rheumatoid Arthritis Y Fibromyalgia Y Headaches N Autoimmune Disease Y Kidney Disease N Osteoarthritis N Neurosurgery N DVT N Peptic Ulcer Disease N Anemia N Heart Attack ([place]) N Diabetes N Cardiomyopathy N Bleeding Disorder N CHF N AIDS/HIV N Inflammatory Bowel Disease N Dementia N Asthma N Substance Abuse N Sleep Apnea N Hepatitis N Heart Disease N Chronic Low Back Pain N Hypertension N Osteoporosis N Gynecological HistoryNo gynecological history recorded. Obstetrics History GPAL:G 0 P 0 0 0 0 Past Encounters Encounter ID Performer Location Encounter Start Date Encounter Closed Date Diagnosis/Indication Diagnosis SNOMED-CT Code Diagnosis ICD10 Code Diagnosis Note [id number] BRENNA KATZ MD [place] [address] [place] [address] 09/21/2024 08:09:51 09/21/2024 08:44:50 Osteoarthritis of hip 463939952 M16.9 Patient received some relief with the [...] on the left side. Sj gren's syndrome 23790676 M35.00 I discussed with the patient that [...] They deny any side effects. Chronic pain 39286644 G8 9.29 Long-term current use of drug therapy 167242231 Z79.899 Send for LCMS confirmati on of Oxycodone and Oxymorphon e to confirm the quantitati ve levels of these drugs that the patient is prescribed . Lumbar spondylosis 59995 0009 M47.816 I did review with the patient we could consider lumbar MBB's as she does not want to receive any type of steroid injection. She states she would like to review the handout and let us know. Health Concerns Section Related Observation LastModified by Organization Detai ls LastModified Time None Recorded Concern Status LastModified by Organization Details LastModified Time None Recorded Payers Encounter Date Sequence Insurance Name Policy Number Policy Anderson Covered Member ID Anderson Member ID Guarantor Name 09/21/2024 1 [employer] [facility] (MEDICAID HMO) Landy Arizmendi [id number] Landy Arizmendi OBGyn Episode No OBEpisode recorded.
--- OUTSIDE RECORDS SUMMARY | 2024-11-10 10:02 | XMS_ITS | Encounter Summary ---
Author Organization [facility] [place] [address] Care Team Providers Care Welcome Wagon Host/Hostess Name Role Phone Go Campos MD Unavailable [phone] Marely Gonzalez MD Primary Care Provider + Flavio Arreguin MD Unavailable [phone] Encounter Details Date Type Department Care Team (Latest Contact Info) Description 09/21/2024 Travel Social History Tobacco Use Types Packs/Day Years [...] 09/21/2024 11:31 AM Opal Carpio RN * [place] Suicide Severity Rating Scale (Q shift for [...] on filedocumented in this encounter Care Teams Welcome Wagon Host/Hostess Relationship Specialty Start Date End Date Go Campos MD [address] [place] [address] PCP - OBGYN Obstetrics & Gynecology 06/02/11 Marely Gonzalez MD [address] [place] [address] PCP - General Family Medicine 01/07/13 Flavio Arreguin MD [address] [place] [address] Pain Medicine-Pain Medicine 10/20/21 documented as of this encounter
== END 2024-11-08 23:59 | disposition home or self-care (01) ==
LOC: LAB.DROPOF 11-10 09:54
PROVIDERS: Visit Provider Student in an Organized Health Care Education/Training Program
DX: J06.9 Acute upper respiratory infection, unspecified (principal)
CPT/HCPCS: 87631

== ENCOUNTER 2024-11-30 11:32 | Emergency (ER) | payer OTHER, SELFPAY ==
[2024-11-30 12:04] VITALS: BP 138/81; PULSE 74; RESP 18; TEMP 36.9; O2SAT 99; BMI 37.8
--- NOTE | 2024-11-30 12:25 | PC.NURSE ---
Registration came to inform nursing staff that patient had decided to leave without seeing physician.
--- OUTSIDE RECORDS SUMMARY | 2024-11-30 12:25 | XMS_ITS | Clinical Summary ---
Author Organization Healthcare Address [facility] [place] [address] Care Team Providers Care Float Phlebotomist Name Role Phone Unavailable Primary Care Provider Unavailabl e Encounters Date Type Department Care Team Description 09/02/2024 Telephone [facility] [address] [place] [address] Pcp, No from Last 3 Months Family [...] 05/17/2016 7:56 AM EST Plan of Treatment Health Maintenance Due Date Last Done Comments [facility]-Depression Screening 1976 [facility]-HIV Screening 1976 [facility]-Hepatitis C Screening 1976 [facility]-Infant/Child/Adol SDOH Screenings 1976 [facility]-DTaP,Tdap,and Td Vaccines (2 - Tdap) 03/16/1992 03/15/1992 [facility]- SDOH Screenings 1994 [facility]-Adult SDOH Screenings 1994 [facility]-Hepatitis B Vaccines (1 of 3 - 19+ 3-dose series) 07/16/1995 [facility]-Pap Smear 1997 [facility]-Cervical Cancer Screening 2006 [facility]-HPV/Cotest 2006 CT Colonography 2021 Colonoscopy 2021 FIT-DNA 2021 FIT 2021 FOBT 2021 Sigmoidoscopy 2021 [facility]-Colorectal Cancer Screening 2021 [id number] Vaccine ( season) 2023 12/02/2020, 11/11/2020 [facility]-Influenza [...] age to complete this topic Insurance [facility]ETNA [facility] MEDICAID [place] MED[place] [place]
--- OUTSIDE RECORDS SUMMARY | 2024-11-30 12:25 | XMS_ITS | Clinical Summary ---
Author Organization [facility] Address [address] [place] [address] Care Team Providers Care Transportation Aide Name Role Phone Marely Gonzalez MD Primary Care Provider [phone] Dorita Paulino MD Unavailable [phone] Duane Graves RN Unavailable Unavailable Sindy Oneill SALES AND SERVICE CHANGE LEADER Unavailable [phone] Source Comments This information has been disclosed [...] therelease of HIV test results or diagnoses. [id number] Allergies Active Allergy Reactions Criticality Noted Date [...] tablet 11/12/2022 Active naloxone (NARCAN) 4 mg/actuation Hawkeye Apply 1 spray in one nostril if [...] (10/14/2018): Added automatically from request for surgery [id number] Fibroadenoma of left breast 11/11/2017 Overview (11/11/2017): Added automatically from request for surgery [id number] Right shoulder pain 01/23/2017 Shoulder impingement 01/23/2017 [...] 1976 Diabetes Screening 1976 Hepatitis C Screening (DataPopt) 1976 Alcohol Misuse Screening 1994 HIV Screening 1994 Immunization: Hepatitis B (1 of 3 - 19+ 3-dose series) 07/16/1995 Cervical Cancer Screening/Pa p Smear (DataPopt) 2006 Mammogram (DataPopt) 11/08/2019 11/07/2017, 7 Immunization: Pneumococcal ( 2 of 2 - PCV) 05/14/2020 05/14/2019, 11/06/2018, 09/11/2018, Additional history exists Cologuard (FIT-DNA) 2021 Colonoscopy 2021 Colorectal Cancer Screening (The Echo Systemhart) 2021 Stool Testing (gFOBT) 2021 Immunization: DTaP/Tdap/Td ( 3 - Td or Tdap) 09/13/2022 09/13/2012, 03/15/1992 Immunization: COVID-19 ( season) 2023 12/02/2020, 11/11/2020 Immunization: Influenza (MyC wells) (#1) 2024 05/14/2019, 11/06/2018, 09/11/2018, Additional history exists Medical Devices Implanted Type Area Local Company Flatbed Truck Driver Device Identifier Shelf Expiration Date Model / Serial / Lot [place] Sut 5.5mm 3 Ft Healicoil Ulbrd Shldr Preld Cobraid Regenesorb Blk Serge - [id number] Implanted:Qty: 1 on 11/12/2022 by Venkatesh Cole MD at [facility] Plate Right: Hip [employer] ENDOSCOPY 02/08/2023 [id number] / / [id number] [place] Sut 5.5mm Multifix S Ult Kntls Peek - [id number] Implanted:Qty: 1 on 11/12/2022 by Venkatesh Cole MD at [facility] Plate Right: Hip [employer] 08/16/2025 [id number] / / [id number] [place] Sut 5.5mm 3 Ft Healicoil Ulbrd Shldr Preld Cobraid Regenesorb Blk Serge - [id number] Implanted:Qty: 1 on 11/12/2022 by Venkatesh Cole MD at [facility] Plate Right: Hip [employer]W ENDOSCOPY 08/27/2023 [id number] / / [id number] [place] Sut 5.5mm Multifix S Ult Kntls Peek - [id number] Implanted:Qty: 1 on 11/12/2022 by Venkatesh Cole MD at [facility] Plate Right: Hip [employer]OS[employer] 11/08/2024 [id number] / / [id number] Procedures Procedure Name Priority Date/Time Associated Diagnosis [...] Relevant to Health Maintenance Insurance AETNA MDCD [facility] Care Teams Transportation Aide Relationship Specialty Start Date End Date Marely Gonzalez MD [address] [facility] [place] [address] PCP - General Family Medicine 06/19/16 Dorita Paulino MD [address] [facility] [place] [address] Surgeon Surgical Oncology 10/09/17 Duane Graves, NILSON Registered Nurse 11/28/17 Sindy Oneill, SALES AND SERVICE CHANGE LEADER [address] [place] [address] [place] [address] Nurse Practitioner Oncology 12/04/17
--- OUTSIDE RECORDS SUMMARY | 2024-11-30 12:25 | XMS_ITS | Clinical Summary ---
Author Organization [facility] Address [address] [place] [address], [address] [place] [address] Care Team Providers Care Strategic Advisor Name Role Phone Marely Gonzalez MD Primary [...] 5:32 AM 06/12/2014 3:27 PM Care Teams Strategic Advisor Relationship Specialty Start Date End Date Marely Gonzalez MD PCP - General 04/07/15
--- OUTSIDE RECORDS SUMMARY | 2024-11-30 12:25 | XMS_ITS | Encounter Summary ---
Author Organization [place] [address] Care Team Providers Care Procurement Accountant Name Role Phone Go Campos MD Unavailable [phone] Marely Gonzalez MD Primary Care Provider + Flavio Arreguin MD Unavailable [phone] Reason for Visit * Reason Onset Date Comments 911/Red Flag 11/30/2024 numbness in r mcintyre nd and arm Encounter Details Date Type Department Care Team (Late st Contact Info) Description 11/30/2024 Nurse Triage [facility] [address] [facility] [address] [place] [address] Marely Gonzalez MD [address] [facility] [address] [place] [address] Social History Tobacco Use Types Packs/Day Years [...] Nnamdi Tovar LPN documented in this encounter Miscellaneous Notes * Telephone Encounter - Maylin Rodríguez RN - 11/30/2024 10:30 AM EDT Nurse Triage Call -Chief Complaint: right hand numb and tingling. Started when waking up this am and not going away. -Reported by: Patient -Vitals: No vitals obtained on this call -Disposition per protocol: Call 911 -Follow up/Concerns: Pt will consider 911 but will go to ED. Reason for Disposition New neurologic deficit that is present NOW, sudden onset of ANY of the following: * Weakness of theface, arm, or leg on one side of the body* Numbness of the face, arm, or leg on one side of the body* Loss of speech or garbled speech Protocols used: Neurologic Fqtefze-P-FT * Telephone Encounter - Bernie Hinton - 11/30/2024 10:24 AM EDT Select the most appropriate reason for this telephone message: 911 Emergency Who is calling (be specific): Patient Symptoms/Situation: numbness in r hand and arm happened today when pt woke up , a little puffy in the hand Were emergency services dispatched: No If No, was the patient advised to call 911 or proceed to the nearest emergency department if they are experiencing a life threatening condition: Yes, pt would be willing to go to ED but requested to speak to a nurse first Return Method of Communication: Phone Call Was patient transferred to Nurse Triage for additional help? Yes (remember to route this message [facility] Nurse Triage [place] # [id number]) Additional Information: N/A documented in this encounter Plan of Treatment [...] on filedocumented in this encounter Care Teams Procurement Accountant Relationship Specialty Start Date End Date Go Campos MD [address] [place] [address] PCP - OBGYN Obstetrics & Gynecology 06/02/11 Marely Gonzalez MD [address] [place] [address] PCP - General Family Medicine 01/07/13 Flavio Arreguin MD [address] [place] [address] Pain Medicine-Pain Medicine 10/20/21 documented as of this encounter
--- OUTSIDE RECORDS SUMMARY | 2024-11-30 12:25 | XMS_ITS | Encounter Summary ---
Author Organization [facility] Address [address] [place] [address] Care Team Providers Care Hand Tool Lapper Name Role Phone Marely Gonzalez MD Primary Care Provider Alan Villanueva MD Unavailable [phone] Dixie Doss MD Unavailable [phone] Angela Lee Unavailable [phone] Link Flores MD Unavailable [phone] Adamaris Ladd RN Unavailable [phone] Katrina Ruiz MD Unavailable Verenice Luevano RN Unavailable [phone] Encounter Details Date Type Department Care Team (Latest Contact Info) Description 12/28/2020 Preop Surgical Orders [facility] Physicians - Urogynecology, [place]is Daniel [address] [place] [phone] Adamaris Ladd, RN [address] [place] [address] Female pelvic pain (Primary Dx) Social History [...] 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 [place] [address] Female Pelvic Medicine and Reconstructive Surgery 12/12/20 Adamaris Ladd RN [address] [place] [address] Registered Nurse 12/28/20 Katrina Ruiz MD [address] [place] [address] Resident Obstetrics & Gynecology 03/01/21 Verenice Luevano, RN [address] [place] [address] Registered Nurse 03/01/21 documented as of this encounter
--- OUTSIDE RECORDS SUMMARY | 2024-11-30 12:25 | XMS_ITS | Clinical Summary ---
Author Organization [facility] Address [address] [place], [place] [address] Care Team Providers Care Vacuum Forming Machine Operator Name Role Phone Marely Gonzalez MD Primary Care Provider Alan Villanueva MD Unavailable [phone] Dixie Doss MD Unavailable [phone] Angela Lee Unavailable [phone] Link Flores MD Unavailable [phone] Adamaris Ladd RN Unavailable [phone] Katrina Ruiz MD Unavailable Verenice Luevano RN Unavailable [phone] Allergies Active Allergy Reactions Criticality Noted [...] the patient, Quantity 1 box, Lot Number [id number], Expiration 01-02 42.5 g 0 Active Additional [...] (12/28/2020): Added automatically from request for surgery [id number] Morbid obesity 09/18/2018 Menorrhagia 09/17/2018 Stress incontinence [...] week 12/11/2021 How often do you attend [facility] or bahai services? More than 4 times per year 12/11/2021 Do you belong to any clubs o r organizations such as bahai groups, unions, fraternal or athletic groups, or [...] Date Recorded PHQ-9 Auto Total 0 12/11/2021 [facility] - Occupational Stress Questionnaire Answer Date [...] place to sleep or slept in a prison (including now)? 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 Not on file Not [...] 11/06/2018, 09/11/2018, Additional history exists [facility] Advance Directives For more information, please contact: [phone] * Full Code (Latest Code Status on File) Date Activated Date Inactivated Comments 09/17/2018 8:47 PM 09/27/2018 4:02 PM No automated chest compression devices for VAD Patients Care Teams Vacuum Forming Machine Operator Relationship Specialty Start Date End Date Marely Gonzalez MD PCP - General Family Medicine 03/01/22 Alan Villanueva MD Family Medicine 05/31/14 Dixie Doss MD [address] [facility][Note 3] [place] [address] Obstetrics & Gynecology 07/26/20 Angela Lee PA [address] [place] [address] [place] [address] Physician Director Of Business Development Urology 10/28/20 Link Flores MD [address] [place] [address]. [address] [place] [address] Female Pelvic Medicine and Reconstructive Surgery 12/12/20 Adamaris Ladd RN [address] [place] [address] Registered Nurse 12/28/20 Katrina Ruiz MD [address] [place] [address] Resident Obstetrics & Gynecology 03/01/21 Verenice Luevano, RN [address] [place] [address] Registered Nurse 03/01/21
--- OUTSIDE RECORDS SUMMARY | 2024-11-30 12:26 | XMS_ITS | Encounter Summary ---
Author Organization [facility] Address [address] [place], [place] [address] Care Team Providers Care Bar Hostess Name Role Phone Marely Gonzalez MD Primary Care Provider Alan Villanueva MD Unavailable [phone] Dixie Doss MD Unavailable [phone] Angela Lee Unavailable [phone] Link Flores MD Unavailable [phone] Adamaris Ladd RN Unavailable [phone] Katrina Ruiz MD Unavailable Verenice Luevano RN Unavailable [phone] Reason for Visit * Reason Onset Date Comments Scheduling 09/25/2018 Encounter Details Date Type Department Care Team (Late st Contact Info) Description 09/25/2018 Telephone [facility] Physicians - Obstetrics & Gynecology, [place] [address] [place] [address] Dixie Doss MD [address] [place] [address] Scheduling Social History Tobacco Use [...] 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 [address] [place] [address] Female Pelvic Medicine and Reconstructive Surgery 12/12/20 Adamaris Ladd RN [address] [place] [address] Registered Nurse 12/28/20 Katrina Ruiz MD [address] [place] [address] Resident Obstetrics & Gynecology 03/01/21 Verenice Luevano, RN [address] [place] [id number] Registered Nurse 03/01/21 documented as of this encounter
--- OUTSIDE RECORDS SUMMARY | 2024-11-30 12:26 | XMS_ITS | Encounter Summary ---
Author Organization [facility] Address [address] [place] [address] Care Team Providers Care Tile Shader Name Role Phone Marely Gonzalez MD Primary Care Provider Alan Villanueva MD Unavailable [phone] Dixie Doss MD Unavailable [phone] Angela Lee Unavailable [phone] Link Flores MD Unavailable [phone] Adamaris Ladd RN Unavailable [phone] Katrina Ruiz MD Unavailable Verenice Luevano RN Unavailable [phone] Encounter Details Date Type Department Care Team (Latest Contact Info) Description 08/28/2018 Preop Surgical Orders [facility] Physicians - Obstetrics & Gynecology, [place] [address] [place] [address] Dixie Doss MD [address] [place] [address] Prolapse of posterior vaginal wall; Female stress incontinence; Sterilization consult Social History Tobacco Use Types Packs/Day Years Used Date Smoking Tobacco: Former Cigarettes 0.5 12.5 S tarted: 06/02/2012 Smokeless Tobacco: Never Alcohol Use Standard Drinks/Week Comments No 0 (1 standard drink = 0.6 oz pur e alcohol) Comments No Sex and Gender Information Value Date Recorded Sex Assigned at Not on file Legal Sex Female 7:15 PM EST Gender Identity Not on file Sexual Orientation Not on file 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 Not on file Not [...] ORDERABLES Fin al Result Performing Organization Address City/State/[facility] Co de Phone Number [facility] [address] documented in this encounter Visit Diagnoses Diagnosis Prolapse of posterior vaginal wall Unspecified prolapse of vaginal kruger Female stress incontinence Sterilization consult Other general counseling and advice for contraceptive management documented in this encounter Care Teams Tile Shader Relationship Specialty Start Date End Date Marely Gonzalez MD PCP - General Family Medicine 03/01/22 Alan Villanueva MD Family Medicine 05/31/14 Dixie Doss MD [address] [facility] [address] Obstetrics & Gynecology 07/26/20 Angela Lee PA [address] [facility] [address] [place] [address] Physician Tonsorial Artist Urology 10/28/20 Link Flores MD [address] [facility] [address] [place] [address] Female Pelvic Medicine and Reconstructive Surgery 12/12/20 Adamaris Ladd RN [address] [place] [address] Registered Nurse 12/28/20 Katrina Ruiz MD [address] [place] [address] Resident Obstetrics & Gynecology 03/01/21 Verenice Luevano RN [address] [place], [place] [address] Registered Nurse 03/01/21 documented as of this encounter
--- OUTSIDE RECORDS SUMMARY | 2024-11-30 12:26 | XMS_ITS | Encounter Summary ---
Author Organization [place] [address] Care Team Providers Care Operational Intelligence Analyst Name Role Phone Go Campos MD Unavailable [phone] Marely Gonzalez MD Primary Care Provider + Flavio Arreguin MD Unavailable [phone] Encounter Details Date Type Department Care Team (Late st Contact Info) Description 01/24/2018 Lab Requisition [facility] [place] [address] Maggi Crouch, BRIQUETTER OPERATOR [address] [place], [place] [id number] Encounter for general adult medical examination without [...] general adult medical examination without abnormal findings DESKTOP ARCHITECT CYTOLOGY REQUEST (PAP ONLY) Routine 01/22/2018 12:00 PM EDT Encounter for general adult medical examination without abnormal findings documented in this encounter Results * HPV HIGH RISK (01/24/2018 12:06 PM EDT) HPV HR Not Detected Not Detected 01/26/2018 11:17 AM EDT [facility] Zumigo Thin Prep SPECIMEN FROM UTERINE CERVIX / Unknown 01/24/2018 12:06 PM EDT 01/24/2018 3:06 PM EDT Narrative Countdown - 01/26/2018 11:17 AM EDT This test [...] MICROBIOLOGY - GENERAL ORDER ROBERTO Final Result Countdown [address] [place] [address] , [place] [address] * DESKTOP ARCHITECT CYTOLOGY REQUEST (PAP ONLY) (01/22/2018 12:00 PM EDT) CASE REPORT Gynecologic Cytology Report Case: [id number] Authorizing Provider: Maggi Crouch APRN Collected: 01/22/2018 1200 First Screen: Stacey Lindo CT Received: 01/25/2018 0905 Specimen: LIQUID-BASED PAP - CERVICAL/ENDOCERV ICAL, Cervix, Endocervical 01/28/2018 3:09 PM EDT [facility] PAP FINAL DIAGNOSIS Negative for intraepithelial lesion or malignancy 01/28/2018 3:09 PM EDT [facility] at 1509 EDT MICROSCOPIC DESCRIPTION Microscopic examination is performed and the findings corroborate the diagnosis. 01/28/2018 3:09 PM EDT [facility] PAP SMEAR ADEQUACY Satisfactory for evaluation 01/28/2018 3:09 PM EDT [facility] PAP ORGANISMS NOTED Fungal organisms present consistent with hailey. 01/28/2018 3:09 PM EDT [facility] ENDOCERVICAL T-ZONE Transformation zone present 01/28/2018 3:09 PM EDT [facility] EMBEDDED IMAGES 8 3:09 PM EDT [facility] PAP DISCLAIMER The Pap Smear is a screening test that aids in the detection of cervical cancer and cancer precursors. Both false positive and false negative results can occur. The test should be used at regular intervals, and positive results should be confirmed before definitive therapy. Processed using the ThinPrep Oven Dauber Automated cytology screening device ([employer]). 01/28/2018 3:09 PM EDT [facility] Thin Prep ENDOCERVICAL STRUCTURE / Unknown 01/22/2018 12:00 PM EDT 01/25/2018 9:05 AM EDT us Maggi Crouch BRIQUETTER OPERATOR CYTOLOGY [place]AB[place] [address] documented in this encounter Visit Diagnoses Diagnosis [...] documented as of this encounter Care Teams Operational Intelligence Analyst Relationship Specialty Start Date End Date Go Campos MD [address] [place] [address] PCP - OBGYN Obstetrics & Gynecology 06/02/11 Marely Gonzalez MD [address] [place] [address] PCP - General Family Medicine 01/07/13 Flavio Arreguin MD [address] [place] [address] Pain Medicine-Pain Medicine 10/20/21 documented as of this encounter
--- OUTSIDE RECORDS SUMMARY | 2024-11-30 12:26 | XMS_ITS | Encounter Summary ---
Author Organization [facility] Address [address] [place] [address] Care Team Providers Care Dental Professional Name Role Phone aMrely Gonzalez MD Primary Care Provider + [phone] Dorita Paulino MD Unavailable [phone] Duane Graves RN Unavailable Unavailable Sindy Oneill PAINTER AND BODY MECHANIC APPRENTICE Unavailable [phone] Source Comments This information has been disclosed [...] release of HIV test results or diagnoses. [id number] Health Encounter Details Date Type Department Care Team (Late st Contact Info) Description 06/22/2016 Orders Only [facility] Office [address] [facility] [address] [place] [address] Arnulfo Sanchez MD [address] [facility] [address] [place] [address] Social History Tobacco Use Types [...] Procedure Name Priority Date/Time Associated Diagnosis Comments [facility] EXTERNAL IM[facility] 06/22/2016 4:55 PM EST documented in this encounter Results * [facility] External Imaging (06/22/2016 4:55 PM EST) Anatomical Region Laterality Modality Radiographic Hilda ging 06/22/2016 4:55 PM EST Narrative 06/23/2016 6:45 PM EST MRI SHOULDER RIGHT WO CONTRAST 06/22/2016 4:55 PM HISTORY: Chronic right shoulder pain M25.511-Pain in right btnkexoj-CSC-58-CM G89.29-Other chronic xpiw-VZU-65-CM TECHNIQUE: Routine MRI of the right shoulder [...] Chronic right shoulder pain M25.511-Pain in right shhoqpgg-LAE-85-CM G89.29-Other chronic xpte-PFA-21-CM TECHNIQUE: Routine MRI of the right shoulder [...] on filedocumented in this encounter Care Teams Dental Professional Relationship Specialty Start Date End Date Marely Gonzalez MD [address] [facility] [place] [address] PCP - General Family Medicine 06/19/16 Dorita Paulino MD [address] [facility] [place] [address] Surgeon Surgical Oncology 10/09/17 Duane Graves, NILSON Registered Nurse 11/28/17 Sindy Oneill, PAINTER AND BODY MECHANIC APPRENTICE [employer] [place] [address] Nurse Practitioner Oncology 12/04/17 documented as of this encounter
--- OUTSIDE RECORDS SUMMARY | 2024-11-30 12:26 | XMS_ITS | Encounter Summary ---
Author Organization [place] [address] Care Team Providers Care Case Management Specialist Name Role Phone Go Campos MD Unavailable [phone] Marely Gonzalez MD Primary Care Provider + Flavio Arreguin MD Unavailable [phone] Encounter Details Date Type Department Care Team (Latest Contact Info) Description 09/14/2024 Results Follow-Up [facility] [address] [facility] [address] [place] [address] Torri Santiago, DO [address] [facility] [address] [place] [address] [id number] COMPREHENSIVE METABOLIC PANEL, CBC WITH DIFF, URINALYSIS [...] Assessment Author No Risk 09/21/2024 11:31 AM EDT Opal Snider RN * Sharkey Suicide Severity Rating Scale (Q shift for [...] on filedocumented in this encounter Care Teams Case Management Specialist Relationship Specialty Start Date End Date Go Campos MD [address] [place] [address] PCP - OBGYN Obstetrics & Gynecology 06/02/11 Marely Gonzalez MD [address] [place] [address] PCP - General Family Medicine 01/07/13 Flavio Arreguin MD [address] [place] [address] Pain Medicine-Pain Medicine 10/20/21 documented as of this encounter
--- OUTSIDE RECORDS SUMMARY | 2024-11-30 12:26 | XMS_ITS | Encounter Summary ---
Author Organization [facility] [place] Address [address] [place] [address] Care Team Providers Care Limnologist Name Role Phone Marely Gonzalez MD Primary Care Provider [phone] Dorita Paulino MD Unavailable [phone] Duane Graves RN Unavailable Unavailable Sindy Oneill OFF PREMISE SERVICE REPRESENTATIVE Unavailable [phone] Source Comments This information has been disclosed [...] release of HIV test results or diagnoses. [id number] Encounter Details Date Type Department Care Team (Late st Contact Info) Description 09/18/2016 Orders Only [facility] [address] [place] [address] Marely Gonzalez MD [address] [place] [address] [place] [address] Left breast lump (Primary Dx) Social History [...] written form. She was taken to the group chief operator to schedule an appointment for the recommended [...] mammograms were double read with CAD image apple checker. Targeted left breast ultrasound. Breast Density: [...] lump documented in this encounter Care Teams Limnologist Relationship Specialty Start Date End Date Marely Gonzalez MD [address] [facility] [place] [address] PCP - General Family Medicine 06/19/16 Dorita Paulino MD [address] [place] [address] [place] [address] Surgeon Surgical Oncology 10/09/17 Duane Graves, NILSON Registered Nurse 11/28/17 Sindy Oneill, OFF PREMISE SERVICE REPRESENTATIVE [address] [place] [address] [place] [phone] Nurse Practitioner Oncology 12/04/17 documented as of this encounter
== END 2024-11-30 12:27 | disposition left against medical advice (07) ==
PROVIDERS: Emergency Provider Student in an Organized Health Care Education/Training Program
DX: Z53.21 Procedure and treatment not carried out due to patient leaving prior to being seen by health care provider (principal)
CPT/HCPCS: 99211; 99283

== ENCOUNTER 2025-02-20 10:34 | Outpatient (CLI) | payer OTHER, SELFPAY ==
--- OUTSIDE RECORDS SUMMARY | 2024-12-30 07:30 | XMS_ITS | Encounter Summary ---
Author Organization [place] [address] Care Team Providers Care Brazer Electronic Name Role Phone Go Campos MD Unavailable [phone] Marely Gonzalez MD Primary Care Provider + Flavio Arreguin MD Unavailable [phone] Reason for Referral * Consultation (Routine) - Pending Review Specialty Diagnoses / Procedures Referred By Per iraheta Referred To Contact Diagnoses Sjogren syndrome with inflammatory arthritis Fibromyalgia watermelon inspector (current) use of opiate analgesic Chronic pain syndrome Procedures IA OFFICE/OUTPATIENT NEW MODERATE MDM 45 MINUTES Derrick Cline APRN [address] [address] Phone: tel: fax: Referral ID Status Reason Start Date Expiration Date Visits Requested Visits Authorized [id number] Pending Review Specialty Services Required 12/30/2024 12/30/2025 99 99 Question Answer Reason for referral: sjogrens, pain Reason for Visit * Reason Comments Follow-up FMLA paperwork Encounter Details Date Type Department Care Team (Late st Contact Info) Description 12/30/2024 8:30 AM EDT Office Visit [facility] [address] [facility] [address] [place] [phone] Derrick Cline APRN [address] [facility] [address] [place] [address] Sjogren syndrome with inflammatory arthritis (Primary Dx); Fibromyalgia; shelter (current) use of opiate analgesic; Chronic pain syndrome; Acute cough; Acute bacterial sinusitis; Right hip pain Social History Tobacco Use Types Packs/Day Years [...] Sign Reading Time Taken Comments Blood Pressure 122/78 12/30/2024 8:54 AM EDT Pulse 73 12/30/2024 8:54 AM EDT Temperature 36.4 C (97.5 F) 12/30/2024 8:54 AM EDT Respiratory Rate - - Oxygen Saturation 98% 12/30/2024 8:54 AM EDT Inhaled Oxygen Concentration - - Weight 103.3 kg (227 lb 12.8 oz) 12/30/2024 8:54 AM EDT Height 162.6 cm (5' 4 ) 12/30/2024 8:54 AM EDT Body Mass Index 39.1 12/30/2024 8:54 AM EDT documented in this encounter Functional [...] Refills Last Filled Start Date End Date amoxicillin-clavul anate (AUGMENTIN) 875-125 mg Oral TabletIndications: Acute cough,Acute bacterial sinusitis Take 1 Tablet by mouth 2 times daily for 10 days. 20 Tablet 12/30/2024 Brompheniramine-Ps eudoeph-DM 2-30-10 mg/5 mL Oral Syrup Take 5 mL by mouth nightly as needed for Other (cough). 118 mL 12/30/2024 5 benzonatate (TESSALON) 200 mg Oral CapsuleIndications :Acute cough Take 1 Capsule by mouth 2 times daily as needed for Cough for up to 10 days. 20 Capsule 12/30/2024 5 documented in this encounter Progress Notes * Derrick Cline APRN - 12/30/2024 8:30 AM EDTAssociated Problem(s): Sjogren's syndrome Orders: ??? AMB REFERRAL TO RHEUMATOLOGY * Derrick Cline APRN - 12/30/2024 8:30 AM EDTAssociated Problem(s): Fibromyalgia Orders: ??? AMB REFERRAL TO RHEUMATOLOGY * Derrick Cline APRN - 12/30/2024 8:30 AM EDTAssociated Problem(s): watermelon inspector (current) use of opiate analgesic Orders: ??? AMB REFERRAL TO RHEUMATOLOGY * Derrick Cline APRN - 12/30/2024 8:30 AM EDTAssociated Problem(s): Chronic pain Goals: - maintain lowest amount of pain medication to manage ADLs comfortably - sees Pain management Orders: ??? AMB REFERRAL TO RHEUMATOLOGY * Derrick Cline APRN - 12/30/2024 8:30 AM EDT Assessment & Plan Sjogren syndrome with inflammatory arthritis Orders: ??? AMB REFERRAL TO RHEUMATOLOGY Fibromyalgia Orders: ??? AMB REFERRAL TO RHEUMATOLOGY watermelon inspector (current) use of opiate analgesic Orders: ??? AMB REFERRAL TO RHEUMATOLOGY Chronic pain syndrome Goals: - maintain lowest amount of pain medication to manage ADLs comfortably - sees Pain management Orders: ??? AMB REFERRAL TO RHEUMATOLOGY Acute cough Orders: ??? benzonatate (TESSALON) 200 mg Oral Capsule; Take 1 Capsule by mouth 2 times daily as needed forCough for up to 10 days. ??? amoxicillin-clavulanate (AUGMENTIN) 875-125 mg Oral Tablet; Take 1 Tablet by mouth 2 times daily for 10 days. Acute bacterial sinusitis Orders: ??? amoxicillin-clavulanate (AUGMENTIN) 875-125 mg Oral Tablet; Take 1 Tablet by mouth 2 times daily for 10 days. Right hip pain Paperwork for fmla filled out and faxed Progress Note: Vitals: 12/30/24 0854 BP: 122/78 BP Location: Left arm Patient Position: Sitting Pulse: 73 Temp: 97.5 ??F (36.4 ??C) TempSrc: Temporal SpO2: 98% Weight: 227 lb 12.8 oz (103.3 kg) Height: 5' 4 (1.626 m) Body mass index is 39.1 kg/m??. SUBJECTIVE: Chief Complaint Patient presents with ??? Follow-up FMLA paperwork HPI: Pt presents today for FMLA paperwork. Would like to discuss infusions. Has sjogrens, chronic pain Will have flares periodically with pain mostly in hands and hips, will be very tired, low grade fevers Sees pain management, sees rheumatology Fmla paperwork for periods when she has these flares and cannot work Cough, congestion for a week No fever right now Seeing ortho Has fracture at top of femur right side On crutches Is going to have dexa scan soon Is willing to take medication for osteopenia/porosis based off dexa results if need be Review of Systems Constitutional: Negative for appetite change, fatigue and fever. HENT: Positive for congestion. Negative for sore throat. Respiratory: Positive for cough. Negative for shortness of breath. Cardiovascular: Negative for chest pain, palpitations and leg swelling. Gastrointestinal: Negative for abdominal pain, diarrhea and vomiting. Genitourinary: Negative for dysuria and hematuria. Musculoskeletal: Positive for arthralgias, back pain and gait problem (right now has fracture, on crutches). Skin: Negative for rash. Neurological: Negative for dizziness, syncope and light-headedness. Psychiatric/Behavioral: Negative for dysphoric mood. The patient is not nervous/anxious. OBJECTIVE: Physical Exam Vitals reviewed. Constitutional: Appearance: Normal appearance. HENT: Head: Normocephalic. Right Ear: Tympanic membrane normal. Left Ear: Tympanic membrane normal. Nose: Congestion present. Mouth/Throat: Mouth: Mucous membranes are moist. Eyes: Extraocular Movements: Extraocular movements intact. Pupils: Pupils are equal, round, and reactive to light. Neck: Vascular: No carotid bruit. Cardiovascular: Rate and Rhythm: Normal rate and regular rhythm. Heart sounds: Normal heart sounds. Pulmonary: Effort: Pulmonary effort is normal. Breath sounds: Normal breath sounds. Abdominal: General: There is no distension. Palpations: Abdomen is soft. Musculoskeletal: Cervical back: Normal range of motion and neck supple. Right lower leg: No edema. Left lower leg: No edema. Lymphadenopathy: Cervical: No cervical adenopathy. Skin: General: Skin is warm and dry. Findings: No rash. Neurological: Mental Status: She is alert and oriented to person, place, and time. Psychiatric: Mood and Affect: Mood normal. Behavior: Behavior normal. documented in this encounter Plan of Treatment Upcoming Encounters Date Type Department Care Team (Late st Contact Info) Description 03/03/2025 9:20 AM EST Office Visit [facility] [address] [facility] [address] [place] [phone] Katherine Silverman PA-C [address] [facility] [address] [place] [phone] Scheduled Referrals Name Type Priority Associated Diagnoses Orde r Schedule AMB REFERRAL TO RHEUMATOLOGY Outpatient Referral Routine Sjogren syndrome with inflammatory arthritis Fibromyalgia watermelon inspector (current) use of opiate analgesic Chronic pain syndrome Ordered: 12/30/2024 documented as of this encounter Goals Goal Patient Goal Type Associated Problems Recent Progress Patient-Stated? Author Maintain a healthy diet, exercise regularly and maintain an ideal body weight General No Bernie Hooks MA Stay Tobacco Free Lifestyle No Bernie Hooks MA documented as of this encounter Visit Diagnoses Diagnosis Sjogren syndrome with inflammatory arthritis- Primary Fibromyalgia Mylagia and myositis, unspecified shelter (current) use of opiate analgesic Chronic pain syndrome Acute cough Acute bacterial sinusitis Acute sinusitis, unspecified Right hip pain Pain in joint, pelvic region and thigh documented in this encounter Discontinued Medications Medication Sig Discontinue Reason Start Date End Da te Brompheniramine-Pseudoeph -DM 2-30-10 mg/5 mL Oral SyrupIndications:Influenz a B Take 5 mL by mouth every 4 hours as needed. DELETE-Duplicate 06/04/2024 12/30/2024 documented as of this encounter Historical Medications * This list may reflect changes made after this encounter. suzetrigine (JOURNAVX) 50 mg Oral Tablet Take 50 mg by mouth every 12 hours. 12/22/2024 01/05/2025 added in this encounter Care Teams Brazer Electronic Relationship Specialty Start Date End Date Go Campos MD [address] [place] [address] PCP - OBGYN Obstetrics & Gynecology 06/02/11 Marely Gonzalez MD [address] [place] [address] PCP - General Family Medicine 01/07/13 Flavio Arreguin MD [address] [place] [address] Pain Medicine-Pain Medicine 10/20/21 documented as of this encounter
--- OUTSIDE RECORDS SUMMARY | 2025-01-06 15:43 | XMS_ITS | Encounter Summary ---
Author Organization [facility] Address [address] [place] [address] Care Team Providers Care Rat Breeder Name Role Phone Marely Gonzalez MD Primary Care Provider [phone] Dorita Paulino MD Unavailable [phone] Duane Graves RN Unavailable Unavailable Sindy Oneill THREADER Unavailable [phone] Source Comments This information has been disclosed [...] release of HIV test results or diagnoses. [id number] Reason for Referral * Imaging/Cardiovascular Scan (Routine) - New Request Specialty Diagnoses / Procedures Referred By Contac t Referred To Contact Radiology Procedures MR Hip Outside Exam System, Provider Not In [address] [address] Referral ID Status Reason Start Date Expiration Date V isits Requested Visits Authorized [id number] New Request 01/06/2025 07/05/2025 1 1 Reason for Visit * Imaging/Cardiovascular Scan (Routine) - New Request Specialty Diagnoses / Procedures Referred By Contac t Referred To Contact Radiology Procedures MR Hip Outside Exam System, Provider Not In [address] [address] Referral ID Status Reason Start Date Expiration Date V isits Requested Visits Authorized [id number] New Request 01/06/2025 07/05/2025 1 1 Encounter Details Date Type Department Care Team (Latest Contact Info) Description 01/06/2025 4:43 PM EDT - 01/06/2025 11:59 PM EDT Hospital Encounter [facility] Radiology [address] [place] [phone] System, Provider Not In Discharge Disposition: Home or Self Care WITHOUT Home Care Services Social History Tobacco Use Types Packs/Day Years Used Date Smoking Tobacco: Every Day Cigarettes 0.3 10 Smokeless Tobacco: Never Alcohol Use Standard Drinks/Week Comments No 0 (1 standard drink = 0.6 oz pur e alcohol) Comments No Sex and Gender Information Value Date Recorded Sex Assigned at Female 08/15/2021 9:24 AM EDT Legal Sex Female 3:27 PM EST Gender Identity Female 08/15/2021 9:24 AM EDT Sexual Orientation Not on file documented as of this encounter Medications at Time of Discharge acetaminophen (TYLENOL) 325 MG tablet Take 2 tablets (650 mg total) by mouth every 6 hours as needed. Do not exceed 3000 mg in one day 90 tablet 1 11/13/2022 aspirin 325 MG tablet Take 1 tablet (325 mg total) by mouth daily. 14 tablet 11/12/2022 busPIRone (BUSPAR) 5 MG tablet Take 1 tablet (5 mg total) by mouth 2 times a day. diclofenac (VOLTAREN) 50 MG EC tablet Take 1 tablet (50 mg total) by mouth 2 times a day. 60 tablet 10/26/2022 ergocalciferol (ERGOCALCIFEROL) 50,000 unit capsule Take by mouth. 03/03/2018 ibuprofen (MOTRIN) 800 MG tablet Take 1 tablet (800 mg total) by mouth every 8 hours as needed for Pain. 60 tablet 1 11/13/2022 ketorolac (TORADOL) 10 mg tabletIndications :Left hip pain Take 1 tablet (10 mg total) by mouth 3 times a day. 15 tablet 07/14/2024 naloxone (NARCAN) 4 mg/actuation Conception Apply 1 spray in one nostril if needed. Call 911. May repeat dose in other nostril if no response in 3 minutes. 2 each 1 11/12/2022 oxyCODONE-acetami nophen (PRIMLEV) 7.5-300 mg per tablet Take 1 tablet by mouth every 6 hours as needed for Pain. proMETHazine (PHENERGAN) 25 MG tablet Take 1 tablet (25 mg total) by mouth every 6 hours as needed for Nausea. 30 tablet 08/15/2021 proMETHazine (PHENERGAN) 25 MG tablet Take 1 tablet (25 mg total) by mouth every 6 hours as needed for Nausea. 30 tablet 11/13/2022 senna-docusate (SENNOSIDES-DOCUS ATE SODIUM) 8.6-50 mg per tablet Take 1 tablet by mouth every 12 hours as needed for Constipation. 60 tablet 11/12/2022 documented as of this encounter Plan of Treatment Upcoming Encounters Date Type Department Care Team (Latest Contact Info) Description 03/30/2025 12:35 PM EST Hospital Encounter [facility] Same Day Surgery [address] [place] [phone] Weston Culp MD [address] [phone] 03/30/2025 12:35 PM EST - 03/30/2025 2:55 PM EST Surgery [facility] Same Day Surgery [address] [place] [phone] Weston Culp MD [address] [phone] RIGHT TOTAL HIP ARTHROPLASTY Scheduled Procedures Name Priority Associated Diagnoses Date/Ti me ARTHROPLASTY HIP TOTAL ANTERIOR APPROACH Closed fracture of head of right femur with delayed healing 03/30/2025 12:35 PM EST documented as of this encounter Procedures Procedure Name Priority Date/Time Associated Diagnosis Comments MR HIP OUTSIDE EXAM Routine 01/06/2025 4 :43 PM EDT documented in this encounter Results * MR Hip Outside Exam (01/06/2025 4:43 PM EDT) Narrative 01/06/2025 4:43 PM EDT Images associated with this accession number were presented to us for comparison to an examination performed here. us Provider Not In System IMG MRI ORDERABLES Final Result documented in this encounter Visit Diagnoses Not on filedocumented in this encounter Additional Health Concerns Assessment Noted Time PHQ-9 Depression Total Score: 2 11/08/19 18 1:00 PM EDT documented as of this encounter Care Teams Rat Breeder Relationship Specialty Start Date End Date Marely Gonzalez MD [address] [facility] [place] [address] PCP - General Family Medicine 06/19/16 Dorita Paulino MD [address] [facility] [place] [address] Surgeon Surgical Oncology 10/09/17 Duane Graves, NILSON Registered Nurse 11/28/17 Sindy Oneill, THREADER [address] [place] [phone] Nurse Practitioner Oncology 12/04/17 documented as of this encounter
--- OUTSIDE RECORDS SUMMARY | 2025-01-09 14:15 | XMS_ITS | Encounter Summary ---
Author Organization [place] [address] Care Team Providers Care Tufting Creeler Name Role Phone Go Campos MD Unavailable [phone] Marely Gonzalez MD Primary Care Provider + Flavio Arreguin MD Unavailable [phone] Encounter Details Date Type Department Care Team (Late st Contact Info) Description 01/09/2025 3:15 PM EDT Telemedicine SEP Virtual Health Video Visits [address] [place] [address] Ninfa Taylor, [employer]ENT[employer] [address], [place] [id number] Thrush, oral (Primary Dx) Social History Tobacco Use Types [...] Nnamdi Tovar LPN documented in this encounter Patient Instructions * Attachments The following attachments cannot be sent through Care Everywhere. * Thrush in adults (Swiss) documented in this encounter Ordered Prescriptions Prescription Sig Dispense Quantity Refills Last Filled Start Date End Date nystatin (MYCOSTATIN) 100,000 unit/mL Oral SuspensionIndicatio ns:Thrush, oral Take 5 mL by mouth 4 times daily for 14 days. 280 mL 01/09/2025 01/23/2025 documented in this encounter Progress Notes * Ninfa Taylor, NINA - 01/09/2025 3:15 PM EDT Images from the original note were not included. Landy Edwards is a 49 y.o. female Chief Complaint: No chief complaint on file. This virtual health visit is being conducted using a Video Visit (live, interactive video and audio), in accordance with [facility] telehealth laws and policies, and in a private space with a secure platform. Patient has reviewed the terms and conditions of service as part of the registration for today's visit.. HISTORY OF PRESENT ILLNESS - SUBJECTIVE Patient presents with C/O mouth pain, hurting to swallow, white patches in mouth, x2days. On AMOX. Treated for vaginal yeast. Also has femoral head fractures. MEDICAL HISTORY Immunization History Administered Date(s) Administered Hepatitis A, Adult 01/22/2018 Influenza Intradermal 01/21/2015, 03/07/2016 Influenza Seasonal Injectable PF 02/26/2018, 07/09/2018, 08/11/2018, 09/11/2018, 11/06/2018, 05/14/2019 Influenza Vaccine Quadrivalent 02/26/2018 Influenza Vaccine, Unspecified Formulation 02/17/2013, 01/13/2014 Influenza, Intradermal, Quadrivalent, Preservative Free 01/21/2015 MMR 07/31/2013 PPD Test 10/27/2010, 06/26/2013, 07/31/2013, 03/26/2016 BrightRoll SARS-CoV-2 Vaccine 12+ Yrs (Purple Cap) 11/11/2020, 12/02/2020 Pneumococcal Polysaccharide 23 Valent 02/18/2013, 07/09/2018, 08/11/2018, 09/11/2018, 11/06/2018, 05/14/2019 Td, Unspecified Formulation 03/15/1992 Tdap 09/13/2012 Health Maintenance Due Topic Date Due Hepatitis B Vaccine (1 of 3 - 19+ 3-dose series) Never done Annual Wellness Exam 03/07/2017 Breast Cancer Screening 11/08/2019 Pneumococcal Vaccine 0-49 (2 of 2 - PCV) 05/14/2020 Colon Cancer Screening Never done DTaP/TDaP/Td (3 - Td or Tdap) 09/13/2022 Influenza Vaccine (1) 12/14/2024 COVID-19 Vaccine (3 - 2024- season) 2024 Current Outpatient Medications on File Prior to Visit Medication Sig Dispense Refill amLODIPine (NORVASC) 5 mg Oral Tablet Take 1 Tablet by mouth daily. 90 Tablet 1 amoxicillin-clavulanate (AUGMENTIN) 875-125 mg Oral Tablet Take 1 Tablet by mouth 2 times daily for10 days. 20 Tablet 0 benzonatate (TESSALON) 200 mg Oral Capsule Take 1 Capsule by mouth 2 times daily as needed for Cough for up to 10 days. 20 Capsule 0 Ypioucxoxuxuaei-Spsbiokwe-MM 2-30-10 mg/5 mL Oral Syrup Take 5 mL by mouth nightly as needed for Other (cough). 118 mL 0 busPIRone (BUSPAR) 10 mg Oral Tablet Take 1 Tablet by mouth 3 times daily as needed for anxiety. 90Tablet 1 ergocalciferol (VITAMIN D) 1,250 mcg (50,000 unit) Oral Capsule Take 1 Capsule by mouth once a week. 4 Capsule 2 fish oil OTC (OMEGA-3 DHA-EPA 300 MG) 300-1,000 mg Oral Capsule, Delayed Release(E.C.) Take 2 g by mouth daily. (Patient not taking: Reported on 01/09/2025) mupirocin (BACTROBAN) 2 % Top Ointment Apply topically 3 times daily. 15 g 0 olmesartan-hydrochlorothiazide (BENICAR HCT) 40-25 mg Oral Tablet Take 1 Tablet by mouth daily. 90 Tablet 1 ondansetron (ZOFRAN-ODT) 4 mg Oral Tablet, Rapid Dissolve Take 1 Tablet by mouth every 6 hours as needed for Nausea. (Patient not taking: Reported on 01/09/2025) 30 Tablet 0 oxyCODONE-acetaminophen (PERCOCET) 7.5-325 mg Oral Tablet TAKE 1 TABLET BY MOUTH 4 TIMES DAILY FOR 30 DAYS. DNF UNTIL 05/29/24 pantoprazole (PROTONIX) 40 mg Oral Tablet, Delayed Release (E.C.) Take 1 Tablet by mouth daily. 90 Tablet 1 progesterone (PROMETRIUM) 200 mg Oral Capsule sucralfate (CARAFATE) 100 mg/mL Oral Suspension Take 10 mL by mouth 3 times daily as needed. 414 mL0 valACYclovir (VALTREX) 500 mg Oral Tablet Take 1 Tablet by mouth daily. 90 Tablet 1 No current facility-administered medications on file prior to visit. REVIEW OF SYSTEMS Review of Systems Constitutional: Negative for chills, diaphoresis, fever, malaise/fatigue and weight loss. HENT: Positive for sore throat. Negative for congestion, ear discharge, ear pain, hearing loss, nosebleeds, sinus pain and tinnitus. Eyes: Negative for blurred vision, double vision, photophobia, pain, discharge and redness. Respiratory: Negative for cough, hemoptysis, sputum production, shortness of breath, wheezing and stridor. Gastrointestinal: Negative for abdominal pain, constipation, diarrhea, melena, nausea and vomiting. Musculoskeletal: Negative for back pain, falls, joint pain, myalgias and neck pain. Skin: Negative for itching and rash. Neurological: Negative for dizziness, focal weakness and headaches. Psychiatric/Behavioral: Negative for depression. The patient is not nervous/anxious. PHYSICAL EXAM - OBJECTIVE Physical Exam Constitutional: General: She is not in acute distress. Appearance: Normal appearance. She is not ill-appearing, toxic-appearing or diaphoretic. HENT: Mouth/Throat: Comments: Creamy white patches of tongue. Pulmonary: Effort: Pulmonary effort is normal. No respiratory distress. Skin: Coloration: Skin is not jaundiced or pale. Neurological: Mental Status: She is alert. Psychiatric: Mood and Affect: Mood normal. Behavior: Behavior normal. Thought Content: Thought content normal. Judgment: Judgment normal. ASSESSMENT AND PLAN Diagnoses and all orders for this visit: Thrush, oral - nystatin (MYCOSTATIN) 100,000 unit/mL Oral Suspension; Take 5 mL by mouth 4 times daily for 14 days. Dispense: 280 mL; Refill: 0 Discussion: Mouth appearance consistent with thrush. Just finished augmentin. Instructed patient to begin medication as prescribed. Discussed increasing fluids and rest. If no improvement of symptoms or symptoms begin to worsen please seek medical attention. Patient agreeable to plan. Educated patient and/or family members regarding the care plan and instructions listed on the AfterVisit Summary [AVS] for today's visit. The patient and/or family members verbalized full understanding of the care plan and instructions given on the AVS for today's visit. A new medicine was prescribed during this office visit. I did discuss with the patient the reason for prescribing this new medication. I also did inform the patient of possible likely side effects, but also encouraged the patient to read the medication insert that will accompany their prescription and encouraged them to discuss any questions about the insert with their pharmacist. The patient wasinstructed to call if having side effects or possible allergic reaction after taking. I also discussed with the risk of stopping the medication or deviating from prescribing instructions. Dosing instructions are present on the AVS and the patient is aware. I inquired both patient and/or family of any questions and answered accordingly. Ninfa Taylor APRN Return if symptoms worsen or fail to improve. documented in this encounter Plan of Treatment Upcoming Encounters Date Type Department Care Team (Late st Contact Info) Description 03/03/2025 9:20 AM EST Office Visit [facility] [address] [address] Katherine Silverman PA-C [address] [address] documented as of this encounter Goals Goal Patient Goal Type Associated Problems Recent Progress Patient-Stated? Author Maintain a healthy diet, exercise regularly and maintain an ideal body weight General No Bernie Hooks MA Stay Tobacco Free Lifestyle No Bernie Hooks MA documented as of this encounter Visit Diagnoses Diagnosis Thrush, oral- Primary Candidiasis of mouth documented in this encounter Care Teams Tufting Creeler Relationship Specialty Start Date End Date Go Campos MD [address] [place] [address] PCP - OBGYN Obstetrics & Gynecology 06/02/11 Marely Gonzalez MD [address] [place] [address] PCP - General Family Medicine 01/07/13 Flavio Arreguin MD [address] [place] [address] Pain Medicine-Pain Medicine 10/20/21 documented as of this encounter
--- OUTSIDE RECORDS SUMMARY | 2025-01-19 13:20 | XMS_ITS | Encounter Summary ---
Author Organization [facility] Address [address] [place] [id number] Care Team Providers Care Religion Professor Name Role Phone Marely Gnozalez MD Primary Care Provider + [phone] Dorita Paulino MD Unavailable [phone] Duane Graves RN Unavailable Unavailable Sindy Oneill ED MANAGER Unavailable [phone] Source Comments This information has been disclosed [...] release of HIV test results or diagnoses. [id number] Reason for Visit * Reason Comments NPV, bone health NPV, bone health Encounter Details Date Type Department Care Team (Latest Contact Info) Description 01/19/2025 2:20 PM EDT Office Visit [facility] [address] [facility] [address] [phone] Cailin Brumfield PA [address] [facility] [address] [place] [address] Postmenopausal osteoporosis (Primary Dx); Vitamin D deficiency; History of fracture Social History Tobacco Use Types Packs/Day Years [...] - Inhaled Oxygen Concentration - - Weight 103.9 kg (229 lb) 01/19/2025 2:32 PM EDT Height - - Body Mass Index 39.31 01/30/2023 9:30 AM EDT documented in this encounter Patient Instructions * Patient Instructions* MARTINA Fields - 01/19/2025 2:20 PM EDT Osteoporosis: - Calcium: 1200mg daily (diet +/- supplements) - Recommend increasing dietary intake and/or start calcium citrate 500mg 1-2 times / day depending on dietary intake - Avoid exceeding 1500mg total daily - Vitamin D: continue 50,000 units weekly - Will recheck vitamin D levels and adjust as needed pending the results - Please get DXA scan and labs done - Please call [phone] to schedule DXA - Recommend quitting smoking - Please follow-up with the dentist as soon as possible to get any invasive dental procedures done prior to starting treatment. Will typically wait until 2- 3 months after all invasive dental procedures are done before starting treatment to ensure adequate gum healing - Follow-up with MARTINA Cunningham after getting DXA and labs to review results and discuss treatment options. - Please call our office [phone] to schedule your follow-up. Bisphosphonates General Information Bisphosphonates are a class of drugs that are used for prevention and treatment of osteoporosis. These medications come in both oral (Fosamax??, Actonel??, and Boniva??) and IV (Reclast?? ) form. They work by slowing the activity of osteoclasts (cells that remove bone) and allowing osteoblasts (cells that make new bone) to catch up. They been shown to reduce the risk of fractures of the spine, hip and other non-vertebral sites. Fracture reduction has been shown after 6 months of use, but treatment is usually continued long-term for 3-10 years depending on individual risk factors. These medications are safe and generally well tolerated. The most common side effects include irritation of the esophagus, indigestion, heartburn, and musculoskeletal aches and pains. When this is a problem it usually shows up after the first few doses - switching to a different bisphosphonate may help. Other side effects include transient hypocalcemia and renal impairment. These symptoms are more likely to occur in patients with reduced kidney function, hypoparathyroidism, and calcium and/or vitamin D deficiency. Therefore, it is important for patients to have lab work done and get adequate calcium and vitamin D. Rare side effects include osteonecrosis of the jaw (ONJ) and atypical femur fractures (AFF). Most cases of ONJ and AFF have been reported in cancer patients receiving prolonged IV treatment at much higher doses than is used for osteoporosis. These side effects are uncommon in cancer patients and rare in osteoporosis patients. Symptoms of ONJ include pain, swelling, exposed bone, and localized infection. Risk of ONJ while on a Bisphosphonate increases with dental extractions, dental implants, poorly fitting dentures, immune compromised disease states, glucocorticoids, and smoking. Patients should get any invasive dental procedures done prior to starting these medications and should maintain r egular follow-up with the dentist. Warning signs of an AFF include dull aches or pains in the thighor groin - these symptoms should be reported and evaluated. Overall, for most patients with osteoporosis, the benefits of treatment far outweigh the risks. Oral Bisphosphonates are available in different doses that may be taken once a day or once a week. Most patients prefer once a week dosing for convenience. Oral Bisphosphonates must be taken on an empty stomach (usually first thing in the morning) with a 6-8 oz glass of water only. After taking, donot take any other medications, supplements, food, or drinks for at least 30 minutes. It is also important to remain upright (sitting or standing, but not laying down or reclining) for at least 30 minutes after taking. ZOLEDRONATE (ZOLEDRONIC ACID, RECLAST??) Reclast?? is a medication in the same category (bisphosphonate) as Fosamax??, Actonel??, and Boniva??). For treatment of osteoporosis, Reclast?? is given intravenously, over 15-30 minutes, with treatment repeated once a year. This treatment is usually used for 3-6 years depending on bone density and risk of fracture. This same medication is used to treat complications of cancer under the brand name Zometa??. Reclast?? has been shown to improve bone density and bone turnover markers in women with postmenopausal osteoporosis and to reduce the risk of spine, hip and non-vertebral fracture fractures. It is particularly useful for patients who cannot take oral medications or do not tolerate them. About one-third of patients experience a reaction to their first dose of Reclast that feels like the flu (fever and muscle aches), though it is not contagious. It is probably advisable to take acetaminophen (Tylenol??) or ibuprofen for a day or two before the treatment and for at least 24 hours afterwards. These same medications can be used to relieve symptoms of this reaction. Less than 1% of p atients will get iritis (inflammation of the iris of the eye) that may be painful but usually resolves in a few days. Kidney damage has been reported in patients with cancer given high doses of zoledronic acid over short periods. This should not be a problem with the regimen used to treat osteoporosis, but a test of kidney function (blood creatinine level) should be checked before Reclast?? is given. Low blood calcium can also occur in patients who are deficient in calcium and/or vitamin D, so this should be checked as well. Bisphosphonates have been associated with a condition called osteonecrosis of the jaw (ONJ). Most cases of ONJ have been in cancer patients getting treatment every 3 or 4 weeks, much higher than the dose used to treat osteoporosis. This problem is uncommon in cancer patients and rare in patients treated for osteoporosis. Drugs in this class may cause bone or muscle pain. Recent reports suggest a possible link between long-term bisphosphonate use and the development of ???atypical?? fractures. These fractures usually occur in the femur (thigh bone) and are associated with pain in the region of the fracture. It is not clear if bisphosphonates actually cause this problem - these fractures could just be a less common complication of osteoporosis. For most patients with osteoporosis, the benefits of treatment far outweigh the risks. Forteo-General Info Sheet Forteo?? is the brand name for teriparatide, or 1,34 recombinant human parathyroid hormone (1,34 rhPTH). Forteo is approved for treating men and women with osteoporosis who are at high risk of fractures. Forteo works by stimulating cells that make new bone. Forteo is given by daily subcutaneous injection (under the skin). The technique is much like givingan insulin shot but simpler. Forteo is injected using a ???pen??? device. Each Forteo Pen comes pre-filled with medicine for 4 weeks (28 days). After 28 days, patients simply throw away the pen and continue treatment with a new pen. Most patients are able to give their own injections. The injectioncan be given any time of the day without regard for meals or activity. Forteo is generally well tolerated. Most patients have no apparent side effects. A small percentagehave mild nausea, dizziness or leg cramps which usually subside with continued treatment or stop and not recur after a brief period off treatment. High blood calcium levels may also occur but are usually mild and temporary. Studies in rats showed that Forteo in high doses (8 to 50 times higher than the dose used in humans) given for long periods caused malignant bone tumors. A dose of Forteo three times higher than usedto treat osteoporosis in humans was found to be safe in this same strain of rats. Although there isno evidence that Forteo predisposes to bone tumors in people, Forteo should not be given to patients at risk for development of bone tumors such as patients previously treated with radiation, patients with Paget???s disease of bone or patients with an unexplained elevation of a blood test called alkaline phosphatase. Forteo is given for no more than two years of continuous therapy. After Forteo is discontinued, treatment with another medication is usually recommended to maintain the benefits. * Attachments The following attachments cannot be sent through Care Everywhere. * Denosumab Injection (Osteoporosis) (Vietnamese) * Abaloparatide Injection (Vietnamese) * Romosozumab Injection (Vietnamese) documented in this encounter Progress Notes * MARTINA Fields - 01/19/2025 2:20 PM EDT Images from the original note were not included. ORTHOPEDICS BONE HEALTH PROGRAM Referred by: MARTINA Boothe PCP: Marely Gonzalez MD CC: Bone health evaluation Patient ID: 49 y.o. female HPI: Landy Arizmendi is a 49 y.o. female with a PMHx of Lupus, Sjogren's syndrome, fibromyalgia, HTN, vitamin D deficiency, GERD, lumbar spondylosis, and osteoarthritis who presents to clinic today for evaluation and medical management of their bone health. Patient has been seeing MARTINA Boothe for right hip pain. She has a history of right hip open gluteus medius and minimus repair and trochanteric persectomy performed in 2022. She was doing well post-surgery until recently when she woke up in November 2024 with increased pain in the right hip, which is now worse in the groin area. She denies any injuries preceding the onset of pain, but states she did have a fall after the pain had already started due to her leg giving out. She had an MRI done last month revealing a subchondral fracture in the right anterior femoral head and anterior acetabulum. She is currently being treated non-op with a period of NWB. She previously fell in a hole in her yard while gardening in 2022, which led to her sustaining a right tibia fracture (non-op) and right gluteal tears s/p surgical repair (as mentioned above). She has never had a DXA scan but states she was previously told she had osteoporosis based on some other prior imaging that she had. She has never been treated for osteoporosis however. She has a longstanding history of vitamin D deficiency from 2582-9043 and has been taking vitamin D 50K IU weekly for several years. Of note, patient reports diffuse bone and joint pain with tenderness, which is likely due to her Lupus, Sjogren's syndrome, fibromyalgia, and osteoarthritis. She is established with Pain Medicine. Was previously following with Rheumatology but has not seen them in a few years. She is planning on re- establishing care with Rheumatology. Current Osteoporosis Treatment: Vitamin D 50K IU weekly x several years Previous Osteoporosis Treatment: none DXA: none Osteoporosis Risk Factors: Non-Modifiable: Hx of fracture as an adult: Right hip subchondral fracture (11/2024) - no proceeding injury Right tibia fracture (2022) - fell in a hole in her yard while gardening Family Hx of hip fracture: unsure Family Hx of osteoporosis: yes - mother Height loss: yes - 1 Potentially Modifiable: Tobacco use: 3-4 cigarettes / day; started at 19yo Alcohol excess (>2 drinks/day in women or >3 drinks/day in men): no Caffeine excess (> 2 servings / day): 1-2 cups of coffee daily Low body weight (<127 lbs): no Early menopause (<45 yo): 43yo s/p hysterectomy and BSO in 2018 HRT: testosterone pellets; currently 3mo overdue Low calcium intake (lifelong): yogurt and cheese 3-4x / week, regular OJ 3x / week, cottage cheese a couple times / week, milk 2-3x / week, dark leafy green vegetables frequently Vit D deficiency: previously from 1164-4955 Recurrent falls: no Ambulatory status: independent @ baseline 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: 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; 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 Dental health: previously had 4 teeth extracted; currently has some cracked teeth Last dentist appt: 2023 Plan for dental procedures: is scheduled to see the dentist within the next 3mo to either get her cracked teeth fixed or an extraction and partial plate PMHx Risks: Malignancy: no Autoimmune disorders: yes - Lupus and Sjogren's syndrome Thyroid disease: no Parathyroid disease: no Renal disease: no Kidney stones: no Heartburn / ulcers: yes - GERD and h/o gastric ulcer in 2023 DM: no AK: no CVA: no Medication Risks: Prolonged steroid use: gets joint injections frequently Chemotherapy: no AED's: no PPI: yes - Protonix SSRI: no HTN meds: no HCTZ ROS: Significant weight gain/loss: no Back pain: yes Swallowing complications: no Frequent N/V: no Past Medical / Surgical History: Past Medical History: Diagnosis Date Degenerative tear of acetabular labrum of left hip Fibromyalgia Migraine Sjogren's disease ([facility]) Problem List[1] Past Surgical History: Procedure Laterality Date BREAST BIOPSY Left 11/22/2017 Procedure: Excision of left breast mass; Surgeon: Dorita Paulino MD; Location: [facility]; Service: General; Laterality: Left; SECTION CHOLECYSTECTOMY HIP ARTHROSCOPY Right 08/15/2021 Procedure: RIGHT ARTHROSCOPY HIP, GREATER TROCHANTERIC BURSECTOMY; Surgeon: Venkatesh Cole MD; [place] [facility] [place] Service: Orthopedics; Laterality: Right; SHOULDER SURGERY Medications: Current Outpatient Medications Medication Sig acetaminophen Take 2 tablets (650 mg total) by mouth every 6 hours as needed. Do not exceed 3000 mgin one day aspirin Take 1 tablet (325 mg total) by mouth daily. busPIRone Take 1 tablet (5 mg total) by mouth 2 times a day. diclofenac Take 1 tablet (50 mg total) by mouth 2 times a day. ergocalciferol Take by mouth. ibuprofen Take 1 tablet (800 mg total) by mouth every 8 hours as needed for Pain. ketorolac Take 1 tablet (10 mg total) by mouth 3 times a day. naloxone Apply 1 spray in one nostril if needed. Call 911. May repeat dose in other nostril if no response in 3 minutes. oxyCODONE-acetaminophen Take 1 tablet by mouth every 6 hours as needed for Pain. proMETHazine Take 1 tablet (25 mg total) by mouth every 6 hours as needed for Nausea. proMETHazine Take 1 tablet (25 mg total) by mouth every 6 hours as needed for Nausea. senna-docusate Take 1 tablet by mouth every 12 hours as needed for Constipation. Current Facility-Administered Medications Medication Dose Frequency Provider Last Admin betamethasone acetate-betamethasone sodium phosphate 6 mg Once Arnulfo Sanchez MD PE: There were no vitals filed for this visit. General: Well-nourished, well-developed, A&O, NAD Vascular: Limbs warm and well perfused Neuro: Sensation intact to light touch MSK: Ambulating with crutches. Moving extremities freely. LABS: No results found for: GLUCOSE , BUN , CREATININE , K , BCR , PHOS , ALBUMIN , EGFR , GFRNONAFRAM No results found for: PTH , CALCIUM , CAION , PHOS , MG No results found for: [id number] No results found for: ALT , AST , GGT , ALKPHOS , BILITOT , ALBUMIN , PROT No results found for: TSH , D1ODDFE , H8YGCBU , T3FREE , FREET4 , THYROIDAB IMAGING: ASSESSMENT: Landy Arizmendi is a 49 y.o. female with osteoporosis in the setting of prior fragility fractures and vitamin D deficiency PLAN: Risk Factors: postmenopausal (43yo s/p BUTCH-BSO), h/o fractures, family history of osteoporosis, Lupus, Sjogren's syndrome, current tobacco use, vitamin D deficiency, low dietary calcium intake, PPI use Reviewed prior labs. Vitamin D previously low from 5971-4314. Most recent vitamin D and TSH wnl in 10/2023. CMP and CBC wnl in 09/2024. Will order a baseline DXA scan and repeat labs (CMP, vitamin D-25, and thyroid panel) Calcium: target 1200 mg daily (diet +/- supplements) Recommended increasing dietary intake and/or starting calcium citrate 500mg 1-2 times daily Vitamin D: continue 50K IU weekly Pharmacological Therapy: TBD pending work-up and dental clearance Informational handouts provided on possible treatment options. Will discuss further at follow-up. Patient currently has some cracked teeth and has not seen the dentist since 2023. Instructed patient to follow-up with the dentist and get any possible invasive dental procedures done as soon as possible to avoid delaying treatment. Discussed lifestyle factors pertaining to bone health including tobacco, excess alcohol / caffeine,weight-bearing exercises, and fall prevention Recommended smoking cessation Follow-up after getting labs and DXA to review results and discuss pharmacological management Educated patient on osteoporosis and risk of fractures. Reviewed treatment options and associated risks and benefits. Provided patient with calcium handout and [employer] fracture prevention flyer.All questions were answered to the patient's satisfaction. Patient is agreeable with above plan. Cailin Brumfield PA-C Total time independently spent on today's visit was 36 minutes. This time included: rvyu-jd-szaq time evaluating the patient as well as additional opw-cyjr-sy-face time spent on: preparing to see the patient (eg, review of tests), obtaining and/or reviewing separately obtained history, counseling and educating the family/caregiver , ordering medications, tests, or procedures,documenting clinical information in the electronic or other health record, independently interpreting results and communicating results to the patient/family/caregiver, providing care coordination , and performing eup-ejss-tn-face activities. [1] Patient Active Problem List Diagnosis Left hip pain Labral tear of hip, degenerative Greater trochanteric bursitis of left hip Right shoulder pain Shoulder impingement Fibroadenoma of left breast Sjogren's syndrome (CMS-HCC) Ruptured ovarian cyst Nausea Morbid obesity due to excess calories (CMS-HCC) Intractable migraine with aura without status migrainosus GERD (gastroesophageal reflux disease) Depressive disorder, not elsewhere classified Chest pain Abnormal stress test Tear of right gluteus medius tendon S/P hip arthroscopy Right hip pain Insufficiency fracture of femur ([facility]) documented in this encounter Plan of Treatment Upcoming Encounters Date Type Department Care Team (Latest Contact Info) Description 03/30/2025 12:35 PM EST Hospital Encounter [facility] Same Day [facility] [address] [place] [phone] Weston Culp MD [address] [facility] [address] [place] [phone] 03/30/2025 12:35 PM EST - 03/30/2025 2:55 PM EST Surgery [facility] [address] [place] [phone] Weston Culp MD [address] [facility] [address] [place] [phone] RIGHT TOTAL HIP ARTHROPLASTY Scheduled Orders Name Type Priority Associated Diagnoses Orde r Schedule DXA bone density axial skeleton Imaging Routine Postmenopausal osteoporosis Vitamin D deficiency History of fracture 1 Occurrences starting 01/19/2025 until 07/20/2026 DXA bone density peripheral Imaging Routine Postmenopausal osteoporosis Vitamin D deficiency History of fracture 1 Occurrences starting 01/19/2025 until 07/20/2026 DXA Vertebral Fracture Assessment Imaging Routine Postmenopausal osteoporosis Vitamin D deficiency History of fracture 1 Occurrences starting 01/19/2025 until 01/19/2026 Scheduled Procedures Name Priority Associated Diagnoses Date/Ti me ARTHROPLASTY HIP TOTAL ANTERIOR APPROACH Closed fracture of head of right femur with delayed healing 03/30/2025 12:35 PM EST documented as of this encounter Results * T4, free (01/19/2025 4:12 PM EDT) Free T4 0.85 0.61 - 1.76 ng/dL 01/19/2025 6:08 PM EDT [facility]ALTH LAB Comment:Biotin megadosing (c onsumption >300 mcg/day) may falsely elevate free T4. When indicated, discontinue megadosing for 1 week and repeat testing. Serum 01/19/2025 4:12 PM EDT 01/19/2025 4:59 PM EDT Cailin Brumfield PA LAB BLOOD ORDERABLES Final Resul t Performing Organization Address [facility]/ZIP Co de Phone Number [facility] [address] [facility] * TSH (Thyroid Stimulating Hormone) (01/19/2025 4:12 PM EDT) TSH 1.54 0.45 - 4.12 uIU/mL 01/19/2025 6:06 PM EDT [facility] Serum 01/19/2025 4:12 PM EDT 01/19/2025 4:59 PM EDT us Cailin Brumfield PA LAB BLOOD ORDERABLES Final Resul t Performing Organization Address [facility] de Phone Number [facility] [address] [facility] * (ABNORMAL) Vitamin D 25 hydroxy (01/19/2025 4:12 PM EDT) Vit D, 25-Hydroxy 26.0(L) 30.0 - 100.0 ng/mL 01/19/2025 6:29 PM EDT [facility] Comment: Vitamin D deficiency has been defined by the [place] of Medicine (IOM) and an Endocrine Society practice guideline as a level of serum 25-OH Vitamin D less than 20 ng/mL. The Endocrine Society went on to further define Vitamin D insufficiency as a level between 21-29 ng/mL. 1) IOM. 2011 Dietary reference intakes for calcium and D. [place] D.C: The National Academies Press 2) Autumn SALOMON, Holly ROSAS, Francheska CONTRERAS, et al. Evaluation, treatment, and prevention of Vitamin D deficiency: an Endocrine Society clinical practice guideline. JCEM. 2010; 96(7):1911-30. Serum 01/19/2025 4:12 PM EDT 01/19/2025 4:59 PM EDT us Cailin MACK LAB BLOOD ORDERABLES Final Resul t [facility] [address] [facility] [place] [id number], [facility] * Comprehensive metabolic panel (01/19/2025 4:12 PM EDT) Sodium 139 133 - 146 mmol/L 01/19/2025 5:56 PM EDT [facility] Potassium 4.3 3.5 - 5.3 mmol/L 01/19/2025 5:56 PM EDT [facility] Chloride 102 98 - 110 mmol/L 01/19/2025 5:56 PM EDT [facility] CO2 31 21 - 33 mmol/L 01/19/2025 5:56 PM EDT [facility] Anion Gap 6 3 - 16 mmol/L 01/19/2025 5:56 PM EDT [facility] BUN 13 7 - 25 mg/dL 01/19/2025 5:56 PM EDT [facility] Creatinine 0.62 0.60 - 1.30 mg/dL 01/19/2025 5:56 PM EDT [facility] Glucose 80 70 - 100 mg/dL 01/19/2025 5:56 PM EDT [facility] Calcium 9.8 8.6 - 10.3 mg/dL 01/19/2025 5:56 PM EDT [facility] Total Bilirubin 0.3 0.0 - 1.5 mg/dL 01/19/2025 5:56 PM EDT [facility] AST 15 13 - 39 U/L 01/19/2025 5:56 PM EDT [facility] ALT 16 7 - 52 U/L 01/19/2025 5:56 PM EDT [facility] Alkaline Phosphatase 79 36 - 125 U/L 01/19/2025 5:56 PM EDT [facility] Total Protein 7.6 6.4 - 8.9 g/dL 01/19/2025 5:56 PM EDT [facility] Albumin 4.2 3.5 - 5.7 g/dL 01/19/2025 5:56 PM EDT [facility] Osmolality, Calculated 287 278 - 305 mOsm/kg 01/19/2025 5:56 PM EDT [facility] EGFR >90 01/19/2025 5:56 PM EDT [facility] Comment: As of 2021, the estimated GFR is calculated using the 2020 Chronic Kidney Disease Epidemiology Collaboration (CKD-EPI) equation. In line with the NKF-ASN Task Force Recommendations, this equation does not include a coefficient for race. A single eGFR value is calculated for each patient. The reference interval is >60 mL/min/1.73m2. eGFR values greater than 90 will be reported as >90mL/min/1.73m2. Reference: Kevin C, Antonio M, Carla DC, Yoav ND, Angus CA, To LA, et al. A Unifying Approach for GFR Estimation: Recommendations of the NKF-ASN Task Force on Reassessing the inclusion of Race in Diagnosing Kidney Disease. Am J Kidney Dis. 2020. GFR is estimated using creatinine, age, and sex. Patient's values should be interpreted as a trend. Below 90 mL/min/1.73m2, the patient may have renal disease. For additional information: www.kidney.org Plasma 01/19/2025 4:12 PM EDT 01/19/2025 4:59 PM EDT [facility] BLOOD ORDERABLES Final Resul t Performing Organization Address City/State/[facility] Co de Phone Number [facility] [address] documented in this encounter Visit Diagnoses Diagnosis Postmenopausal osteoporosis- Primary Vitamin D deficiency Unspecified vitamin D deficiency History of fracture Personal history of traumatic fracture Closed fracture of head of right femur with delayed healing documented in this encounter Additional Health Concerns Assessment Noted Time PHQ-9 Depression Total Score: 2 11/08/19 18 1:00 PM EDT documented as of this encounter Care Teams Religion Professor Relationship Specialty Start Date End Date Marely Gonzalez MD [address] [facility] [place] [address] PCP - General Family Medicine 06/19/16 Dorita Paulino MD [address] [facility] [place] [address] Surgeon Surgical Oncology 10/09/17 Duane Graves, NILSON Registered Nurse 11/28/17 Sindy Oneill, ED MANAGER [address] [place] [phone] Nurse Practitioner Oncology 12/04/17 documented as of this encounter
--- OUTSIDE RECORDS SUMMARY | 2025-01-19 15:05 | XMS_ITS | Encounter Summary ---
Author Organization [facility] Address [address] [place] [address] Care Team Providers Care Real Estate Administrative Assistant Name Role Phone Marely Gonzalez MD Primary Care Provider + [phone] Dorita Paulino MD Unavailable [phone] Duane Graves RN Unavailable Unavailable Sindy Oneill PAN WASHER HAND Unavailable [phone] Source Comments This information has been disclosed [...] release of HIV test results or diagnoses. [id number] Health Reason for Visit * Reason Comments Labs Only Encounter Details Date Type Department Care Team (Late st Contact Info) Description 01/19/2025 4:05 PM EDT Specimen [facility] [address] [facility] [address] [place] [address] Cailin Brumfield PA 222 [facility] [address] [place] [address] Postmenopausal osteoporosis; Vitamin D deficiency; History of fracture Social [...] Description 03/30/2025 12:35 PM EST Hospital Encounter [facility] Same Day Surgery [address] [place] [phone] Weston Culp MD 222 [facility] [address] [place] [phone] 03/30/2025 12:35 PM EST - 03/30/2025 2:55 PM EST Surgery [facility] Same Day Surgery [address] [place] [phone] Weston Culp MD [address] [phone] RIGHT TOTAL HIP ARTHROPLASTY Scheduled Procedures Name Priority Associated Diagnoses Date/Ti me ARTHROPLASTY HIP TOTAL ANTERIOR APPROACH Closed fracture of head of right femur with delayed healing 03/30/2025 12:35 PM EST documented as of this encounter Procedures Procedure Name Priority Date/Time Associated Diagnosis Comments VITAMIN D 25 HYDROXY Routine 01/19/2025 4:12 PM EDT Postmenopausal osteoporosis Vitamin D deficiency History of fracture TSH Routine 01/19/2025 4:12 PM EDT Postmenopausal osteoporosis Vitamin D deficiency History of fracture T4, FREE Routine 01/19/2025 4:12 PM EDT Postmenopausal osteoporosis Vitamin D deficiency History of fracture COMPREHENSIVE METABOLIC PANEL Routine 01/19/2025 4:12 PM EDT Postmenopausal osteoporosis Vitamin D deficiency History of fracture documented in this encounter Results * T4, free (01/19/2025 4:12 PM EDT) Free T4 0.85 0.61 - 1.76 ng/dL 01/19/2025 6:08 PM EDT [facility] Comment:Biotin megadosing (c onsumption >300 mcg/day) may falsely elevate free T4. When indicated, discontinue megadosing for 1 week and repeat testing. Serum 01/19/2025 4:12 PM EDT 01/19/2025 4:59 PM EDT [facility] BLOOD ORDERABLES Final Resul t Performing Organization Address [facility] Co de Phone Number [facility] [address] [facility]. [address] * TSH (Thyroid Stimulating Hormone) (01/19/2025 4:12 PM EDT) TSH 1.54 0.45 - 4.12 uIU/mL 01/19/2025 6:06 PM EDT [facility] Serum 01/19/2025 4:12 PM EDT 01/19/2025 4:59 PM EDT us Cail[facility] BLOOD ORDERABLES Final Resul t Performing Organization Address [facility] de Phone Number [facility] [address] [facility]. [address] * (ABNORMAL) Vitamin D 25 hydroxy (01/19/2025 4:12 PM EDT) Vit D, 25-Hydroxy 26.0(L) 30.0 - 100.0 ng/mL 01/19/2025 6:29 PM EDT [facility] Comment: Vitamin D deficiency has been defined by the Pione[employer] of Medicine (IOM) and an Endocrine Society practice guideline as a level of serum 25-OH Vitamin D less than 20 ng/mL. The Endocrine Society went on to further define Vitamin D insufficiency as a level between 21-29 ng/mL. 1) IOM. 2011 Dietary reference intakes for calcium and D. Rutherford D.C: The National Academies Press 2) Autumn MF, Holly NC, Francheska CONTRERAS, et al. Evaluation, treatment, and prevention of Vitamin D deficiency: an Endocrine Society clinical practice guideline. JCEM. 2010; 96(7):1911-30. Serum 01/19/2025 4:12 PM EDT 01/19/2025 4:59 PM EDT us [facility] BLOOD ORDERABLES Final Resul t [facility] [address] [place] [address], [facility] * Comprehensive metabolic panel (01/19/2025 4:12 PM EDT) Sodium 139 133 - 146 mmol/L 01/19/2025 5:56 PM EDT [facility] Potassium 4.3 3.5 - 5.3 mmol/L 01/19/2025 5:56 PM EDT [facility] Chloride 102 98 - 110 mmol/L 01/19/2025 5:56 PM EDT [facility] CO2 31 21 - 33 mmol/L 01/19/2025 5:56 PM EDT [facility] Anion Gap 6 3 - 16 mmol/L 01/19/2025 5:56 PM EDT [facility] BUN 13 7 - 25 mg/dL 01/19/2025 5:56 PM EDT [facility] Creatinine 0.62 0.60 - 1.30 mg/dL 01/19/2025 5:56 PM EDT [facility] Glucose 80 70 - 100 mg/dL 01/19/2025 5:56 PM EDT [facility] Calcium 9.8 8.6 - 10.3 mg/dL 01/19/2025 5:56 PM EDT [facility] Total Bilirubin 0.3 0.0 - 1.5 mg/dL 01/19/2025 5:56 PM EDT [facility] AST 15 13 - 39 U/L 01/19/2025 5:56 PM EDT [facility] ALT 16 7 - 52 U/L 01/19/2025 5:56 PM EDT [facility] Alkaline Phosphatase 79 36 - 125 U/L 01/19/2025 5:56 PM EDT [facility] Total Protein 7.6 6.4 - 8.9 g/dL 01/19/2025 5:56 PM EDT [facility] Albumin 4.2 3.5 - 5.7 g/dL 01/19/2025 5:56 PM EDT [facility] Osmolality, Calculated 287 278 - 305 mOsm/kg 01/19/2025 5:56 PM EDT [facility] EGFR >90 01/19/2025 5:56 PM EDT [facility] Comment: As of 2021, the estimated [...] [facility] BLOOD ORDERABLES Final Resul t [facility] [address] documented in this encounter Visit Diagnoses Diagnosis Postmenopausal osteoporosis Vitamin D deficiency Unspecified vitamin D deficiency History of fracture Personal history of traumatic fracture Closed fracture of head of right femur with delayed healing documented in this encounter Additional Health Concerns Assessment Noted Time PHQ-9 Depression Total Score: 2 11/08/19 18 1:00 PM EDT documented as of this encounter Care Teams Real Estate Administrative Assistant Relationship Specialty Start Date End Date Marely Gonzalez MD [address] [place] [address] PCP - General Family Medicine 06/19/16 Dorita Paulino MD [address] [place] [place] [address] Surgeon Surgical Oncology 10/09/17 Duane Graves, NILSON Registered Nurse 11/28/17 Sindy Oneill, PAN WASHER HAND [address] [place] [address] [place] [address] Nurse Practitioner Oncology 12/04/17 documented as of this encounter
--- OUTSIDE RECORDS SUMMARY | 2025-01-22 07:45 | XMS_ITS | Encounter Summary ---
Author Organization [facility] Address [address] [place] [address] Care Team Providers Care Electrical Design Technologist Name Role Phone Marely Gonzalez MD Primary Care Provider + [phone] Dorita Paulino MD Unavailable [phone] Duane Graves RN Unavailable Unavailable Sindy Oneill [employer]OTYPE [employer] Unavailable [phone] Source Comments This information has been disclosed [...] release of HIV test results or diagnoses. [id number] Encounter Details Date Type Department Care Team (Late st Contact Info) Description 01/22/2025 8:45 AM EDT - 01/22/2025 11:59 PM EDT Hospital Encounter [facility] [address] [place] [phone] Venkatesh Cole MD [address] [facility] [address] [place] [address] Right hip pain Discharge Disposition: Home or Self Care WITHOUT [...] total) by mouth 2 times a day. diazePAM (VALIUM) 5 MG tabletIndication s:anxiety Take 1 tab 30 min prior to MRI. May take additional tab immediately before MRI. Indications: anxiety 2 tablet 01/22/2025 diclofenac (VOLTAREN) 50 MG EC tablet Take 1 tablet (50 mg total) by mouth 2 times a day. 60 tablet 10/26/2022 ergocalciferol (ERGOCALCIFEROL) 50,000 unit capsule Take by mouth. 03/03/2018 ibuprofen (MOTRIN) 800 MG tablet Take 1 tablet (800 mg total) by mouth every 8 hours as needed for Pain. 60 tablet 1 11/13/2022 ketorolac (TORADOL) 10 mg tabletIndication s:Left hip pain Take 1 tablet (10 mg total) by mouth 3 times a day. 15 tablet 07/14/2024 naloxone (NARCAN) 4 mg/actuation [place] Apply 1 spray in one nostril if needed. Call 911. May repeat dose in other nostril if no response in 3 minutes. 2 each 1 11/12/2022 oxyCODONE-acetam inophen (PRIMLEV) 7.5-300 mg per tablet Take 1 [...] needed for Nausea. 30 tablet 11/13/2022 senna-docusate (SENNOSIDES-DOCU SATE SODIUM) 8.6-50 mg per tablet Take 1 tablet by mouth every 12 hours as needed for Constipation. 60 tablet 11/12/2022 documented as of this encounter Plan of Treatment Upcoming Encounters Date Type Department Care Team (Latest Contact Info) Description 03/30/2025 12:35 PM EST Hospital Encounter [facility] Same Day Surgery [address] [place] [phone] Weston Culp MD [address] [phone] 03/30/2025 12:35 PM EST - 03/30/2025 2:55 PM EST Surgery [facility] Same Day Surgery [address] [place] [phone] Weston Culp MD [address] [phone] RIGHT TOTAL HIP ARTHROPLASTY Scheduled Procedures Name Priority Associated Diagnoses Date/Ti me ARTHROPLASTY HIP TOTAL ANTERIOR APPROACH Closed fracture of head of right femur with delayed healing 03/30/2025 12:35 PM EST documented as of this encounter Procedures Procedure Name Priority Date/Time Associated Diagnosis Comments XR HIP RIGHT 2-3 VIEWS INCLUDING AP PELVIS Routine 01/22/2025 10:24 AM EDT Right hip pain documented in this encounter Results * X-ray Hip Right 2-3 vws incl AP Pelvis (01/22/2025 10:24 AM EDT) Anatomical Region Laterality Modality Hip, Pelvis Radiographic Hilda ging 01/22/2025 10:0 3 AM EDT Impressions 01/26/2025 4:18 PM EDT IMPRESSION: Mild bilateral hip osteoarthritis with no acute osseous abnormality. Approved by Manny Grayson MD on 01/26/2025 2:34 PM EDT I have personally reviewed the images and I agree with this report. Report Verified by: Noah Brannon MD at 01/26/2025 4:18 PM EDT Narrative 01/26/2025 4:18 PM EDT EXAM: XR HIP RIGHT 2-3 VIEWS INCLUDING AP PELVIS INDICATION: Right hip pain TECHNIQUE: 3 views of pelvis and right hip COMPARISON: 12/04/2024. FINDINGS: No acute fracture or malalignment. Mild bilateral hip joint space loss and osteophyte formation. Bilateral greater trochanter enthesophyte formation, greater on the right. Soft tissues are unremarkable. Mild sacroiliac joint arthrosis. Procedure Note Noah Brannon MD - 01/26/2025 EXAM: XR HIP RIGHT 2-3 VIEWS INCLUDING AP PELVIS INDICATION: Right hip pain TECHNIQUE: 3 views of pelvis and right hip COMPARISON: 12/04/2024. FINDINGS: No acute fracture or malalignment. Mild bilateral hip joint space loss andosteophyte formation. Bilateral greater trochanter enthesophyte formation,greater on the right. Soft tissues are unremarkable. Mild sacroiliac jointarthrosis. IMPRESSION: Mild bilateral hip osteoarthritis with no acute osseous abnormality. Approved by Manny Grayson MD on 01/26/2025 2:34 PM EDT I have personally reviewed the images and I agree with this report. Report Verified by: Noah Brannon MD at 01/26/2025 4:18 PM EDT Venkatesh Cole MD IMG DIAGNOSTIC IMAGING ORDERA BLES Final Result documented in this encounter Visit Diagnoses Diagnosis Right hip pain Pain in joint, pelvic region and thigh Closed fracture of head of right femur with delayed healing documented in this encounter Additional Health Concerns Assessment Noted Time PHQ-9 Depression Total Score: 2 11/08/19 18 1:00 PM EDT documented as of this encounter Care Teams Electrical Design Technologist Relationship Specialty Start Date End Date Marely Gonzalez MD 1 [facility] [place] [address] PCP - General Family Medicine 06/19/16 Dorita Paulino MD 1 [facility] [place] [address] Surgeon Surgical Oncology 10/09/17 Duane Graves, RN Registered Nurse 11/28/17 Sindy Oneill, NIKKY [address] [place] [phone] Nurse Practitioner Oncology 12/04/17 documented as of this encounter
--- OUTSIDE RECORDS SUMMARY | 2025-01-22 08:45 | XMS_ITS | Encounter Summary ---
Author Organization [facility] Address [address] [place] [address] Care Team Providers Care Laboratory Sample Carrier Name Role Phone Marely Gonzalez MD Primary Care Provider + [phone] Dorita Paulino MD Unavailable [phone] Duane Graves RN Unavailable Unavailable Sindy Oneill MANAGER [employer] Unavailable [phone] Source Comments This information has been disclosed [...] release of HIV test results or diagnoses. [id number] Reason for Referral * Imaging/Cardiovascular Scan (Routine) - Authorized Specialty Diagnoses / Procedures Referred By Contac t Referred To Contact Radiology Diagnoses Right hip pain Procedures MRI Hip Right WO Venkatesh Childers MD [address] [address] Phone: tel: fax: Referral ID Status Reason Start Date Expiration Date V isits Requested Visits Authorized [id number] Authorized 01/22/2025 07/21/2025 1 1 Reason for Visit * Reason Comments Establish Care R hip pain Encounter Details Date Type Department Care Team (Late st Contact Info) Description 01/22/2025 9:45 AM EDT Office Visit [facility] Orthopaedics at [facility] [address] [place] [address] Derrick Morrissey PA 222 [facility] [address] [place] [address] Venkatesh Childers MD [address] [facility] [address] [place] [address] Right hip pain (Primary Dx) Social History Tobacco Use [...] - - Weight 103.9 kg (229 lb) 01/22/2025 9:47 AM EDT Height - - Body Mass Index 39.31 01/30/2023 9:30 AM EDT documented in this encounter Progress Notes * Venkatesh Childers MD - 01/22/2025 9:45 AM EDT Landy Arizmendi [id number] Chief Complaint: Right hip pain Subjective: History of Present Illness Landy Arizmendi is a 49 year old female with a history of right femoral head subchondral fracture. She was seen by JULISSA Brumfield for bone health evaluation recently. She has been trying to keep weight off of the RLE with assistance of crutches but has been struggling which is making her L hip pain worse. She reports increased right hip pain that she localizes to the right groin and lateral hip with radiation down the anterolateral thigh. She denies sensation changes or N/T. ROS: All others negative except for as stated in HPI Physical Exam: Vitals: 01/22/25 0947 Weight: (!) 229 lb (103.9 kg) Right HIP: Supine AROM: Flexion: 30, significant pain Significant pain with log roll localized to the groin Tenderness: significant tenderness at GT 5/5 strength: HF/HE, Quad, Hamstring, TA, G/S Sensation intact to light touch DP/SP/Sap/Yifan/Tibial Films: My independent review of 3 view Right hip films shows no acute fracture. mild joint space narrowing. Chronic changes at greater trochanter. Subchondral fracture difficult to visualize due to anterior location but no visible collapse/crescent sign. Assessment: Right hip subchondral fracture Plan: We reviewed her xray findings with her today as well as the concern for non-healing of the fracture given her continued pain. We recommended she obtain a repeat MRI to evaluate for collapse vs healing. We discussed if she has development of collapse, she may be a candidate for REMI. If not, wemay consider an injection. This may be done in both hips as she also has left hip pain. If she wereto move towards the route of REMI, we discussed that we would refer her to see Dr. Gates for this. All questions were answered. The patient was agreeable to this plan and will plan to see her back after the MRI to review it together. TROY TRIMBLE MD Orthopedic Surgery Resident Staff Addendum: Patient seen, examined, and evaluated with the resident. Agree with the note above, which I have edited. VENKATESH CHILDERS MD documented in this encounter Plan of Treatment Upcoming Encounters Date Type Department Care Team (Latest Contact Info) Description 03/30/2025 12:35 PM EST Hospital Encounter [facility] Same Day Surgery [address] [place] [phone] Weston Culp MD [address] [phone] 03/30/2025 12:35 PM EST - 03/30/2025 2:55 PM EST Surgery [facility] Same Day Surgery [address] [place] [phone] Weston Culp MD 222 [facility] [address] [place] [phone] RIGHT TOTAL HIP ARTHROPLASTY Scheduled Orders Name Type Priority Associated Diagnoses Orde r Schedule MRI Hip Right WO Imaging Routine Right hip pain 1 Occurrences starting 01/22/2025 until 01/22/2026 Scheduled Procedures Name Priority Associated Diagnoses Date/Ti me ARTHROPLASTY HIP TOTAL ANTERIOR APPROACH Closed fracture of head of right femur with delayed healing 03/30/2025 12:35 PM EST documented as of this encounter Results * X-ray Hip Right [...] MD at 01/26/2025 4:18 PM EDT Venkatesh Childers MD IMG DIAGNOSTIC IMAGING ORDERA BLES Final Result documented in this encounter Visit Diagnoses Diagnosis Right hip pain- Primary Pain in joint, pelvic region and thigh Right hip pain Pain in joint, pelvic region and thigh Closed fracture of head of right femur with delayed healing documented in this encounter Additional Health Concerns Assessment Noted Time PHQ-9 Depression Total Score: 2 11/08/19 18 1:00 PM EDT documented as of this encounter Care Teams Laboratory Sample Carrier Relationship Specialty Start Date End Date Marely Gonzalez MD [address] [facility] [place] [address] PCP - General Family Medicine 06/19/16 Dorita Paulino MD [address] [place] [address] Surgeon Surgical Oncology 10/09/17 Duane Graves, RN Registered Nurse 11/28/17 Sindy Oneill, MANAGER [employer] [address] [place] [phone] Nurse Practitioner Oncology 12/04/17 documented as of this encounter
--- OUTSIDE RECORDS SUMMARY | 2025-02-01 14:30 | XMS_ITS | Encounter Summary ---
Author Organization [facility] Address [address] [place] [address] Care Team Providers Care Edger Runner Name Role Phone Marely Gonzalez MD Primary Care Provider +- [phone] Dorita Paulino MD Unavailable [phone] Duane Graves RN Unavailable Unavailable Sindy Oneill LEISURE TRAVEL AGENT Unavailable [phone] Source Comments This information has been disclosed [...] release of HIV test results or diagnoses. [id number] Reason for Referral * Imaging/Cardiovascular Scan (Routine) - New Request Specialty Diagnoses / Procedures Referred By Contac t Referred To Contact Radiology Procedures MR Hip Outside Exam System, Provider Not In [address] [address] Referral ID Status Reason Start Date Expiration Date V isits Requested Visits Authorized [id number] New Request 02/01/2025 07/31/2025 1 1 Reason for Visit * Imaging/Cardiovascular Scan (Routine) - New Request Specialty Diagnoses / Procedures Referred By Contac t Referred To Contact Radiology Procedures MR Hip Outside Exam System, Provider Not In [address] [address] Referral ID Status Reason Start Date Expiration Date V isits Requested Visits Authorized [id number] New Request 02/01/2025 07/31/2025 1 1 Encounter Details Date Type Department Care Team (Latest Contact Info) Description 02/01/2025 3:30 PM EDT - 02/01/2025 11:59 PM EDT Hospital Encounter [facility] Radiology [address] [place] [phone] System, Provider Not In Discharge Disposition: Home [...] 15 tablet 07/14/2024 naloxone (NARCAN) 4 mg/actuation [place] Apply 1 spray in one nostril if [...] Description 03/30/2025 12:35 PM EST Hospital Encounter [facility] Same Day Surgery [address] [place] [phone] Weston Culp MD [address] [place] [phone] 03/30/2025 12:35 PM EST - 03/30/2025 2:55 PM EST Surgery [facility] Same Day Surgery [address] [place] [phone] Weston Culp MD [address] [place] [phone] RIGHT TOTAL HIP ARTHROPLASTY Scheduled Procedures Name Priority Associated Diagnoses Date/Ti me ARTHROPLASTY HIP TOTAL ANTERIOR APPROACH Closed fracture of head of right femur with delayed healing 03/30/2025 12:35 PM EST documented as of this encounter Procedures Procedure Name Priority Date/Time Associated Diagnosis Comments MR HIP OUTSIDE EXAM Routine 02/01/2025 3 :30 PM EDT documented in this encounter Results * MR Hip Outside Exam (02/01/2025 3:30 PM EDT) Narrative 02/01/2025 3:30 PM EDT Images associated with this accession [...] documented as of this encounter Care Teams Edger Runner Relationship Specialty Start Date End Date Marely Gonzalez MD [address] [facility] [address] [place] [id number] [phone] - General Family Medicine 06/19/16 Dorita Paulino MD [address] [facility] [place] [address] Surgeon Surgical Oncology 10/09/17 Duane Graves, NILSON Registered Nurse 11/28/17 Sindy Oneill, LEISURE TRAVEL AGENT [address] [place] [phone] Nurse Practitioner Oncology 12/04/17 documented as of this encounter
--- OUTSIDE RECORDS SUMMARY | 2025-02-02 08:45 | XMS_ITS | Encounter Summary ---
Author Organization [facility] Address [address] [place] [address] Care Team Providers Care Hard Rock Drill Operator Name Role Phone Marely Gonzalez MD Primary Care Provider + [phone] Dorita Paulino MD Unavailable [phone] Duane Graves RN Unavailable Unavailable Sindy Oneill TRAVELING OPERATOR Unavailable [phone] Source Comments This information has been disclosed [...] release of HIV test results or diagnoses. [id number] Health Reason for Visit * Reason Comments Follow-up R hip MRI Review Encounter Details Date Type Department Care Team (Late st Contact Info) Description 02/02/2025 9:45 AM EDT Office Visit [facility] Orthopaedics at [facility] [address] [place] [address] Venkatesh Childers MD [address] [facility] [address] [place] [address] Insufficiency fracture of femur, right, initial encounter ([facility]) (Primary Dx); Right hip pain; Greater trochanteric pain syndrome of left lower extremity Social History Tobacco Use Types Packs/Day Years [...] - - Weight 103.9 kg (229 lb) 02/02/2025 10:16 AM EDT Height - - Body Mass Index 39.31 01/30/2023 9:30 AM EDT documented in this encounter Progress Notes * Venkatesh Childers MD - 02/02/2025 12:37 PM EDT [facility] PATIENT NAME: LANDY TSE DATE OF : 1975 CSN: [id number] PROVIDER: VENKATESH CHILDERS MD VISIT DATE: 02/02/2025 OFFICE NOTE LOCATION: [facility] HISTORY OF PRESENT ILLNESS: Landy Tse comes in today for her right hip. Again, she has beenhaving some pain for some time. She was seeing Dr. Sanchez. She has gotten some intra-articular injections. We saw her in November where she was having increasing right hip pain. Her previous injections probably in the left hip. She had severe pain. We ended up getting MRI which showed that she had subchondral fracture in the anterior femoral head and acetabulum without any collapse. No significant cartilage loss. We asked her to be nonweightbearing. We also got her set up with [facility] Brumfield for bone [employer]. The patient continued to have pain. She states it has gotten worse. I recently saw her anddecided to get a repeat MRI. She comes in for review of that. Pain is predominantly in the groin and thigh. She states it can sometimes radiate around posteriorly and down her leg. She is also complaining of some left trochanteric type pain. Patient's exam is unchanged. She has significant pain with any rotation of her hip. She has trochanteric tenderness on the left hip. IMAGING: Patient's MRI is independently reviewed by me. This shows worsening of the edema within the femoral head. There are again areas that appear to be either subchondral fracture versus developing osteonecrosis. Cartilage is mostly intact with some mild areas of wear. ASSESSMENT: Right hip subchondral fracture. PLAN: I went over the imaging results with the patient. She states that her pain is continued to get worse. She is having trouble walking. She has been on crutches. She states the left one starting to bother her. I think the left one is predominantly some trochanteric bursitis likely from crutches and limping. I did provide her with atrochanteric injection for that today per the procedure note in Epic. At this point, regarding her right hip, I think the best treatment might be total hip arthroplasty. Given her body habitus, I am unsure I could effectively do this through an anterior approach. I recommend she see Dr. Gates. She asked me if Dr. Culp would potentially do it. I told her that he uses the same approach I do and may have the same reservations. She would like to try and meet with him and see if he would do an anterior approach on her. I told her I will message him. I told her if not then she may have to have thisdone by Dr. Gates. I reassured her that Dr. Gates is a very good surgeon and would treat her very well. Everything was explained in detail. All questions were answered. VENKATESH CHILDERS MD CU/AQ DD:?? 02/02/2025 12:37:04 DT:?? 02/02/2025 20:34:23 JOB#: [id number] * Ru Franco MA - 02/02/2025 9:45 AM EDT This injection is documented for VENKATESH CHILDERS MD. Per provider's instructions, the patient was prepped for a right hip cortisone injection by VENKATESH CHILDERS MD - as well as drug and allergies were reviewed. The appropriate medication was drawn, and documented. A behavioral medical director was also present to assist with the injection. The injection was administered by VENKATESH CHILDERS MD. The patient was then educated on what to expect following the injection. All questions were answered. A verbal consent was obtained and a verbal timeout was performed on 02/02/2025 at 11:55 AM. RU FRANCO MA * Venkatesh Childers MD - 02/02/2025 9:45 AM EDT R hip subchondral fx & L GT pain. Full note to follow. PROCEDURE NOTE: After explanation of the risks, benefits, and alternatives, the patient consented for a trochanteric bursal injection. The lateral aspect of the left hip was prepped with Betadine at the point of maximal tenderness on the greater trochanter. The trochanteric bursa was then sterilelyinjected with 80 mg of Kenalog and 3 mL of Marcaine after palpating the greater trochanter with the tip of the needle. The fluid flowed freely. The wound was cleaned with alcohol and dressed with a Band-Aid. The patient tolerated the procedure well without any complications. documented in this encounter Plan of Treatment Upcoming Encounters Date Type Department Care Team (Latest Contact Info) Description 03/30/2025 12:35 PM EST Hospital Encounter [facility] Same Day Surgery [address] [place] [phone] Weston Culp MD [address] [place] [phone] 03/30/2025 12:35 PM EST - 03/30/2025 2:55 PM EST Surgery [facility] Same Day Surgery [address] [place] [phone] Weston Culp MD [address] [place] [phone] RIGHT TOTAL HIP ARTHROPLASTY Scheduled Procedures Name Priority Associated Diagnoses Date/Ti me ARTHROPLASTY HIP TOTAL ANTERIOR APPROACH Closed fracture of head of right femur with delayed healing 03/30/2025 12:35 PM EST documented as of this encounter Visit Diagnoses Diagnosis Insufficiency fracture of femur, right, initial encounter ([facility])- Primary Right hip pain Pain in joint, pelvic region and thigh Greater trochanteric pain syndrome of left lower extremity Closed fracture of head of right femur with delayed healing documented in this encounter Administered Medications Inactive Administered Medications - up to 3 most recent administrations Medication Order MAR Action Action Date Dose Rate Site BUPivacaine HCl (MARCAINE) 0.5 % (5 mg/mL) injection 15 mg 15 mg (3 mL), Subcutaneous, Once, On Sat02/02/25 at 1300, For 1 doseIndications:Right hip pain Given 02/02/2025 3:17 PM EDT 15 mg Other triamcinolone acetonide (KENALOG-40) injection 80 mg 80 mg, Other, Once, On Sat02/02/25 at 1300, For 1 doseIndications:Right hip pain Given 02/02/2025 3:18 PM EDT 80 mg documented in this encounter Additional Health Concerns Assessment Noted Time PHQ-9 Depression Total Score: 2 11/08/19 18 1:00 PM EDT documented as of this encounter Care Teams Hard Rock Drill Operator Relationship Specialty Start Date End Date Marely Gonzalez MD [address] [place] [address] PCP - General Family Medicine 06/19/16 Dorita Paulino MD [address] [place] [address] Surgeon Surgical Oncology 10/09/17 Duane Graves, NILSON Registered Nurse 11/28/17 Sindy Oneill, TRAVELING OPERATOR [address] [place] [phone] Nurse Practitioner Oncology 12/04/17 documented as of this encounter
--- OUTSIDE RECORDS SUMMARY | 2025-02-03 12:59 | XMS_ITS | Encounter Summary ---
Author Organization [facility] Address [address] [place] [address] Care Team Providers Care Pest Control Technician Name Role Phone Marely Gonzalez MD Primary Care Provider +- [phone] Dorita Paulino MD Unavailable [phone] Duane Graves RN Unavailable Unavailable Sindy Oneill PICTURE FRAMER Unavailable [phone] Source Comments This information has been disclosed [...] release of HIV test results or diagnoses. [id number] Reason for Referral * Imaging/Cardiovascular Scan (Routine) - New Request Specialty Diagnoses / Procedures Referred By Contac t Referred To Contact Radiology Procedures MR Hip Outside Exam System, Provider Not In [address] [address] Referral ID Status Reason Start Date Expiration Date V isits Requested Visits Authorized [id number] New Request 02/03/2025 08/02/2025 1 1 Reason for Visit * Imaging/Cardiovascular Scan (Routine) - New Request Specialty Diagnoses / Procedures Referred By Contac t Referred To Contact Radiology Procedures MR Hip Outside Exam System, Provider Not In [address] [address] Referral ID Status Reason Start Date Expiration Date V isits Requested Visits Authorized [id number] New Request 02/03/2025 08/02/2025 1 1 Encounter Details Date Type Department Care Team (Latest Contact Info) Description 02/03/2025 1:59 PM EDT - 02/03/2025 11:59 PM EDT Hospital Encounter [facility] Radiology [address] [place] [phone] System, Provider Not In Discharge Disposition: Home [...] 15 tablet 07/14/2024 naloxone (NARCAN) 4 mg/actuation [place] Apply 1 spray in one nostril if [...] Description 03/30/2025 12:35 PM EST Hospital Encounter [facility] Same Day Surgery [address] [place] [phone] Weston Culp MD [address] [place] [phone] 03/30/2025 12:35 PM EST - 03/30/2025 2:55 PM EST Surgery [facility] Same Day Surgery [address] [place] [phone] Weston Culp MD [address] [place] [phone] RIGHT TOTAL HIP ARTHROPLASTY Scheduled Procedures Name Priority Associated Diagnoses Date/Ti me ARTHROPLASTY HIP TOTAL ANTERIOR APPROACH Closed fracture of head of right femur with delayed healing 03/30/2025 12:35 PM EST documented as of this encounter Procedures Procedure Name Priority Date/Time Associated Diagnosis Comments MR HIP OUTSIDE EXAM Routine 02/03/2025 1 :59 PM EDT documented in this encounter Results * MR Hip Outside Exam (02/03/2025 1:59 PM EDT) Narrative 02/03/2025 1:59 PM EDT Images associated with this accession [...] documented as of this encounter Care Teams Pest Control Technician Relationship Specialty Start Date End Date Marely Gonzalez MD [address] [facility] [address] [place] [id number] [phone] PCP - General Family Medicine 06/19/16 Dorita Paulino MD [address] [facility] [place] [address] Surgeon Surgical Oncology 10/09/17 Duane Graves, NILSON Registered Nurse 11/28/17 Sindy Oneill, PICTURE FRAMER [address] [place] [phone] Nurse Practitioner Oncology 12/04/17 documented as of this encounter
--- OUTSIDE RECORDS SUMMARY | 2025-02-04 12:03 | XMS_ITS | Encounter Summary ---
Author Organization Healthcare Address [address] [place] [address] Care Team Providers Care Inbound Call Center Representative Name Role Phone Marely Gonzalez MD Primary Care Provider + Encounter Details Date Type Department Care Team (Latest Contact Info) Description 02/04/2025 1:03 PM EDT - 02/04/2025 11:59 PM EDT Hospital Encounter [facility] [address] [place] [address] Hip pain, right Discharge Disposition: Home or Self Care Social History Tobacco Use Types Packs/Day Years Used Date Smoking Tobacco: Former Cigarettes Smokeless Tobacco: Never Alcohol Use Standard Drinks/Week Comments Never 0 (1 standard drink = 0.6 oz pur e alcohol) Comments Unknown Sex and Gender Information Value Date Recorded Sex Assigned at Not on file Legal Sex Female 6:17 PM EDT Gender Identity Not on file Sexual Orientation Not on file documented as of this encounter Medications at Time of Discharge amLODIPine (Norvasc) 5 MG tablet Take 1 tablet by mouth daily. busPIRone (Buspar) 5 MG tablet Take 1 tablet by mouth twice a day. oxyCODONE-acetami nophen (Percocet) 7.5-325 MG tablet TAKE 1 TABLET BY MOUTH 4 TIMES DAILY. DNF UNTIL 01/23/25 05/29/2024 pantoprazole (Protonix) 40 MG EC tablet Take 1 tablet by mouth daily. documented as of this encounter Plan of Treatment Not on file documented as of this encounter Procedures Procedure Name Priority Date/Time Associated Diagnosis Comments XR HIP RIGHT 4+ VIEWS Routine 02/04/2025 1:08 PM EDT Hip pain, right documented in this encounter Results * New Patient Under 50: XR Hip (AP Pelvis Standing with Stephon Marker / Frog Leg Lateral Standing / 45-Degree Brothers / False Profile Standing) (02/04/2025 1:08 PM EDT) Anatomical Region Laterality Modality Lower Extremities, Hip Right Digital R adiography Impressions 02/04/2025 1:45 PM EDT Mild degenerative changes of the bilateral hip. CRITICAL RESULT: No. COMMUNICATION: Per this written report. Drafted by Des Lynn MD on 02/04/2025 1:43 PM Final report signed by Des Lynn MD on 02/04/2025 1:45 PM Narrative 02/04/2025 1:45 PM EDT CLINICAL INDICATION: hip pain TECHNIQUE: XR HIP RIGHT 4+ VIEWS COMPARISON: May 17, 2016. FINDINGS: 4 views of the right hip show minimal degenerative changes at the superior rim of the bilateral acetabulum. Hip joint space and alignment are normal. Degenerative enthesopathic changes of the bilateral greater trochanter. No fracture or osteonecrosis. Pubic symphysis is normal. Degenerative changes of the bilateral sacroiliac joint. Procedure Note Des Lynn MD - 02/04/2025 CLINICAL INDICATION: hip pain TECHNIQUE: XR HIP RIGHT 4+ VIEWS COMPARISON: May 17, 2016. FINDINGS: 4 views of the right hip show minimal degenerative changes at the superiorrim of the bilateral acetabulum. Hip joint space and alignment are normal.Degenerative enthesopathic changes of the bilateral greater trochanter. Nofracture or osteonecrosis. Pubic symphysis is normal. Degenerative changesof the bilateral sacroiliac joint. IMPRESSION: Mild degenerative changes of the bilateral hip. CRITICAL RESULT: No. COMMUNICATION: Per this written report. Drafted by Des Lynn MD on 02/04/2025 1:43 PM Final report signed by Des Lynn MD on 02/04/2025 1:45 PM Angela MACK IMG XR PROCEDURES Final Resul t documented in this encounter Visit Diagnoses Diagnosis Hip pain, right Pain in joint, pelvic region and thigh documented in this encounter Additional Health Concerns Assessment Noted Time A fall risk assessment has been complete d for the patient 02/04/2025 1:24 PM EDT A Body Mass Index follow-up plan has been documented for the patient 02/04/2025 2:14 PM EDT documented as of this encounter Care Teams Inbound Call Center Representative Relationship Specialty Start Date End Date Marely Gonzalez MD [address] [facility] [address] [place] [phone] PCP - General 01/28/25 documented as of this encounter
--- OUTSIDE RECORDS SUMMARY | 2025-02-04 12:20 | XMS_ITS | Encounter Summary ---
Author Organization Healthcare Address [address] [place] [address] Care Team Providers Care Electro Mechanical Technician Name Role Phone Marely Gonzalez MD Primary Care Provider + Reason for Visit * Reason Comments Consult * Consultation (Routine) - Closed Specialty Diagnoses / Procedures Referred By Per iraheta Referred To Contact Orthopaedic Surgery Diagnoses Right hip pain System, Provider Not In, [address] [place] [address] Medical Office Building [facility] [address] [facility], [address] [place] [address] Phone: tel: fax: Referral ID Status Reason Start Date Expiration Date V isits Requested Visits Authorized [id number] Closed Specialty Services Required 02/08/2025 08/10/2026 1 1 Encounter Details Date Type Department Care Team (Latest Contact Info) Description 02/04/2025 1:20 PM EDT Office Visit Medical Office Building [facility] [address], [address] [place] [address] Angela Mckeon PA [address] [place] [address] Subchondral insufficiency fracture of condyle of right femur, initial encounter (Primary Dx) Social History Tobacco Use Types Packs/Day Years Used Date Smoking Tobacco: Former Cigarettes Smokeless Tobacco: Never Tobacco Cessation:Counseling Given: Not Answered Alcohol Use Standard Drinks/Week Comments Never 0 [...] Sign Reading Time Taken Comments Blood Pressure 124/80 02/04/2025 1:17 PM EDT Pulse 65 02/04/2025 1:17 PM EDT Temperature - - Respiratory Rate - - Oxygen Saturation 94% 02/04/2025 1:17 PM EDT Inhaled Oxygen Concentration - - Weight 106 kg (233 lb 11 oz) 02/04/2025 1:17 PM EDT Height 162.6 cm (5' 4 ) 02/04/2025 1:17 PM EDT Body Mass Index 40.11 02/04/2025 1:17 PM EDT documented in this encounter Miscellaneous Notes * Progress Notes - Angela Mckeon PA - 02/04/2025 1:20 PM EDT Subjective: Landy Arizmendi is a 49 y.o. y/o female who comes in today for evaluation of right hip pain. The patient localizes the pain/problem to the anterior hip/groin. The patient has had the problem for several months. The problem began without injury or inciting event. The patient reports the pain as Burning and Sharp. The patient reports the pain as severe. The pain/problem is better with protected weight bearing. The pain/problem is worse with increased activity. The pain is constant. She was evaluated for this by the [facility] and [facility] in [facility]. Patientreports she was informed she would require total hip arthroplasty, but the surgeon at the [facility] only performs anterior REMI, which she would not be a candidate for given her body habitus. Other surgeons she had consulted with are scheduled out for arthroplasty until April. I have reviewed and updated the patient's past medical history, past surgical history, social history, and family history. This is located both in the patient's note and their intake form that has been scanned into the medical record for today's visit. 14 point review of systems was reviewed per signed intake sheet and is otherwise negative except asnoted above. Objective: Body mass index is 40.11 kg/m??. 05/17/2016 7:56 AM 02/04/2025 1:17 PM Vitals Systolic 124 Diastolic 80 Heart Rate 65 Height (cm) 163.8 cm 162.6 cm Weight (kg) 117.14 kg 106 kg BMI 43.64 kg/m2 40.11 kg/m2 BSA (m2) 2.31 m2 2.19 m2 Visit Report Report Right hip- Globally TTP about the hip Hypersensitivity to palpation + FADIR, + BENNETT Positive limp with ambulation Neurovascular intact distally My independent interpretation of radiographic testing shows mild degenerative changes about the bilateral hip with fairly preserved joint space. New Patient Under 50: XR Hip (AP Pelvis Standing with Stephon Marker / Frog Leg Lateral Standing / 45-Degree Brothers / False Profile Standing) Result Date: 02/04/2025 Mild degenerative changes of the bilateral hip. CRITICAL RESULT: No. COMMUNICATION: Per this written report. Drafted by Des Lynn MD on 02/04/2025 1:43 PM Final report signed by Des Lynn MD on 02/04/2025 1:45 PM Notes reviewed: Outside Orthopaedics Results of tests reviewed: MRI Assessment and plan: This problem is chronic with some progression. Subchondral insufficiency fracture, right hip- discussed with patient that typically our protocol is to have patients protected weight bear to the affected lower extremity as management of subchondral insufficiency fractures. The patient previously discussed REMI with outside surgeons. We discussed she does not have end stage OA of the affected hip. If she were to proceed with surgical discussion,we discussed that there are reservations regarding REMI given her current medication regimen. The patient is currently taking Percocet 7.5 mg QID and there are concerns regarding post-operative pain control. We discussed referral to a Ketamine clinic to remedy this in order to wean her down to [place]. She is not interested in this at this time. We placed order for new crutches here today. She prefers to follow up as needed. documented in this encounter Plan of Treatment Not on file documented as of this encounter Visit Diagnoses Diagnosis Subchondral insufficiency fracture of condyle of right femur, initial encounter- Primary documented in this encounter Additional Health Concerns Assessment Noted Time A fall risk assessment has been complete d for the patient 02/04/2025 1:24 PM EDT A Body Mass Index follow-up plan has been documented for the patient 02/04/2025 2:14 PM EDT documented as of this encounter Care Teams Electro Mechanical Technician Relationship Specialty Start Date End Date Marely Gonzalez MD [address] [facility] [address] [place] [address] PCP - General 01/28/25 documented as of this encounter
--- OUTSIDE RECORDS SUMMARY | 2025-02-05 07:45 | XMS_ITS | Encounter Summary ---
Author Organization [facility] Address [address] [place] [address] Care Team Providers Care Meter Record Clerk Name Role Phone Marely Gonzalez MD Primary Care Provider + [phone] Dorita Paulino MD Unavailable [phone] Duane Graves RN Unavailable Unavailable Sindy Oneill HALL WORKER Unavailable [phone] Source Comments This information has been disclosed [...] release of HIV test results or diagnoses. [id number] Health Reason for Visit * Reason Comments New Patient Visit/ Consultation Rt hip Encounter Details Date Type Department Care Team (Late st Contact Info) Description 02/05/2025 8:45 AM EDT Office Visit [facility] [address] [place] [address] Weston Culp MD [address] [facility] [address] [place] [address] Right hip pain (Primary Dx) Social History [...] on file documented as of this encounter Progress Notes * Weston Culp MD - 02/05/2025 8:45 AM EDT Patient seen and evaluated. The patient has severe hip pain. They have failed conservative treatment. We have already tried ice, anti-inflammatories, activity modification. The patient has had an intra-articular shot. The symptomatology is worsening. Previous abductor repair with Dr. Cole and now she needs a hip replacement because she has an MRI scan showing osteonecrosis with subchondral fracture of the femoral head. 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 On she has a BMI of 39. physical examination the patient easily flexes to 90 degrees. Minimal rangeof motion with rotation. FADIR and BENNETT maneuvers reproduce the patient's symptomatology. The patient has a perfused sensate foot. X-rays today show arthritis of the hip. There is obliteration of the joint space with osteophytes and subchondral cysts. MRI scan as above no Impression: End-stage arthritis of the hip Plan: The patient is failed conservative treatment. They are frustrated. I recommended right total hip arthroplasty. We discussed risk benefits. Alternatives of surgery. We discussed expected outcomes and postoperative recovery. She patient back date of operation. We did discuss risks, benefits and alternatives to surgery. Risk were discussed to include but not limited to bleeding, infection, damage to nerves or vessels, chronic pain, worsening condition, need for reoperation, instability/dislocation, stiffness, medical complications, and DVT. We discussed the possibility of anterolateral numbness with irritation or injury to the lateral femoral cutaneous nerve. The patient understands and wishes to proceed and we will see the patient back the date of surgery. documented in this encounter Plan of Treatment Upcoming Encounters Date Type Department Care Team (Latest Contact Info) Description 03/30/2025 12:35 PM EST Hospital Encounter [facility] Same Day Surgery [address] [place] [address] Weston Culp MD [address] [facility] [address] [place] [phone] 03/30/2025 12:35 PM EST - 03/30/2025 2:55 PM EST Surgery [facility] Same Day Surgery [address] [place] [phone] Weston Culp MD [address] [facility] [address] [place] [phone] RIGHT TOTAL HIP ARTHROPLASTY Scheduled Procedures Name Priority Associated Diagnoses Date/Ti me ARTHROPLASTY HIP TOTAL ANTERIOR APPROACH Closed fracture of head of right femur with delayed healing 03/30/2025 12:35 PM EST documented as of this encounter Visit Diagnoses Diagnosis Right hip pain- Primary Pain in joint, pelvic region and thigh Closed fracture of head of right femur with delayed healing documented in this encounter Additional Health Concerns Assessment Noted Time PHQ-9 Depression Total Score: 2 11/08/19 18 1:00 PM EDT documented as of this encounter Care Teams Meter Record Clerk Relationship Specialty Start Date End Date Marely Gonzalez MD [address] [facility] [place] [address] PCP - General Family Medicine 06/19/16 Dortia Paulino MD [address] [facility] [place] [address] Surgeon Surgical Oncology 10/09/17 Duane Graves, NILSON Registered Nurse 11/28/17 Sindy Oneill, NIKKY [address] [place] [phone] Nurse Practitioner Oncology 12/04/17 documented as of this encounter
--- OUTSIDE RECORDS SUMMARY | 2025-02-05 12:20 | XMS_ITS | Encounter Summary ---
Author Organization [place] [place] [address] [place] [address] Care Team Providers Care Cleater Name Role Phone Go Campos MD Unavailable [phone] Marely Gonzalez MD Primary Care Provider + Flavio Arreguin MD Unavailable [phone] Reason for Visit * Reason Comments Cough Encounter Details Date Type Department Care Team (Late st Contact Info) Description 02/05/2025 1:20 PM EDT Telemedicine [facility] [address] [facility] [address] [place] [phone] Marely Gonzalez MD [address] [facility] [address] [place] [phone] Viral URI with cough (Primary Dx) Social History Tobacco Use Types [...] Refills Last Filled Start Date End Date Brompheniramine-Ps eudoeph-DM 2-30-10 mg/5 mL Oral SyrupIndications:V iral URI with cough Take 5 mL by mouth nightly as needed for Other (cough). 118 mL 02/05/2025 5 benzonatate (TESSALON) 200 mg Oral CapsuleIndications :Viral URI with cough Take 1 Capsule by mouth 3 times daily as needed for Cough for up to 10 days. 30 Capsule 02/05/2025 5 documented in this encounter Progress Notes * Marely Gonzalez MD - 02/05/2025 1:20 PM EDT Patient presented today for routine care follow-up through a video visit. Patient has reviewed the terms and conditions of service as part of the registration for today's visit. A video visit does not replace a pazb-lb-kiuq exam and further services may be necessary. We are conducting her video visit in a private space and this video visit is being conducted in accordance with state telehealth/video visit regulations. HPI: Cough This is a new problem. The current episode started in the past 7 days. The problem has been unchanged. The problem occurs constantly. The cough is Non- productive. Associated symptoms include nasal congestion and postnasal drip. Pertinent negatives include no chest pain, chills, ear pain, fever, headaches, rhinorrhea, sore throat, shortness of breath, sweats or wheezing. Nothing aggravates the symptoms. Treatments tried: bromfed. The treatment provided mild relief. Cough on and off for the last few days Worse overnight and more cough Review of Systems Constitutional: Negative for activity change, appetite change, chills and fever. HENT: Positive for postnasal drip. Negative for ear pain, rhinorrhea and sore throat. Respiratory: Positive for cough. Negative for shortness of breath and wheezing. Cardiovascular: Negative for chest pain. Neurological: Negative for headaches. Psychiatric/Behavioral: Negative for sleep disturbance. Exam: Constitutional: NAD, appropriately groomed. Appears comfortable. HENT: No gross deformities. Voice normal. No facial swelling noted. Eyes: Extra occular movements grossly intact. Visible portions of the eyes appear normal. No redness or discharge visible via casual video inspection. Cardiopulmonary: Does not appear in cardiopulmonary distress. Easy respirations w/o labored breathing. No audible gross wheezing or breathlessness. Neuro: Alert and oriented. Conversational. No gross deficits or facial droop appreciated on video evaluation. Psych: Appropriate mood and affect. Normal conversation and thought content. Assessment Diagnoses and all orders for this visit: Viral URI with cough - benzonatate (TESSALON) 200 mg Oral Capsule; Take 1 Capsule by mouth 3 times daily as needed for Cough for up to 10 days. Dispense: 30 Capsule; Refill: 0 - Bxoecezkjatpdgl-Pheiuonzy-VD 2-30-10 mg/5 mL Oral Syrup; Take 5 mL by mouth nightly as needed forOther (cough). Dispense: 118 mL; Refill: 0 - Increase water and rest - Motrin/tylenol as needed - Mucinex 1200 mg twice daily - Steam 3-4 times daily - humidifier in bedroom - elevate head to sleep documented in this encounter Miscellaneous Notes * Patient Instructions - Marely Gonzalez MD - 02/05/2025 1:20 PM EDT You may be contacted by mail or e-mail to participate in a patient satisfaction survey regarding your office visit today. We value your opinion and depend on your feedback to make improvements and provide you with the best possible experience while receiving high quality medical treatment. Your time in completing this survey is greatly appreciated. Viral URI with cough - benzonatate (TESSALON) 200 mg Oral Capsule; Take 1 Capsule by mouth 3 times daily as needed for Cough for up to 10 days. Dispense: 30 Capsule; Refill: 0 - Ylpfofhzunifbxm-Udjwbhfeh-UO 2-30-10 mg/5 mL Oral Syrup; Take 5 mL by mouth nightly as needed forOther (cough). Dispense: 118 mL; Refill: 0 - Increase water and rest - Motrin/tylenol as needed - Mucinex 1200 mg twice daily - Steam 3-4 times daily - humidifier in bedroom - elevate head to sleep documented in this encounter Plan of Treatment Upcoming Encounters Date Type Department Care Team (Late st Contact Info) Description 03/03/2025 9:20 AM EST Office Visit [facility] [address] [facility] [address] [place] [address] Katherine Silverman PA-C [address] [facility] [address] [place] [address] documented as of this encounter Goals Goal Patient Goal Type Associated Problems Recent Progress Patient-Stated? Author Maintain a healthy diet, exercise regularly and maintain an ideal body weight General No Bernie Hooks MA Stay Tobacco Free Lifestyle No Bernie Hooks MA documented as of this encounter Visit Diagnoses Diagnosis Viral URI with cough- Primary Acute upper respiratory infections of unspecified site documented in this encounter Discontinued Medications Medication Sig Discontinue Reason Start Date End Da te Brompheniramine-Pseudoep h-DM 2-30-10 mg/5 mL Oral Syrup Take 5 mL by mouth nightly as needed for Other (cough). Reorder 12/30/2024 02/05/2025 documented as of this encounter Care Teams Cleater Relationship Specialty Start Date End Date Go Campos MD [address] [place] [address] PCP - OBGYN Obstetrics & Gynecology 06/02/11 Marely Gonzalez MD [address] [place] [address] PCP - General Family Medicine 01/07/13 Flavio Arreguin MD [address] [place] [address] Pain Medicine-Pain Medicine 10/20/21 documented as of this encounter
--- OUTSIDE RECORDS SUMMARY | 2025-02-16 10:40 | XMS_ITS | Encounter Summary ---
Author Organization [facility] [place] [address] Care Team Providers Care Hr Leader Name Role Phone Go Campos MD Unavailable [phone] Marely Gonzalez MD Primary Care Provider + Flavio Arreguin MD Unavailable [phone] Reason for Visit * Reason Comments Cough Encounter Details Date Type Department Care Team (Late st Contact Info) Description 02/16/2025 10:40 AM EST Office Visit SEP [facility] [address] [facility] [address] [place] [address] Marely Gonzalez MD [address] [facility] [address] [place] [phone] Thrush of mouth and esophagus (HCC) (Primary Dx); Vitamin D deficiency; Acute cough; Sore throat; PND (post-nasal drip) Social History Tobacco Use Types Packs/Day Years [...] Sign Reading Time Taken Comments Blood Pressure 128/86 02/16/2025 10:55 AM EST Pulse 81 02/16/2025 10:55 AM EST Temperature 36.4 C (97.6 F) 02/16/2025 10:55 AM EST Respiratory Rate 20 02/16/2025 10:5 5 AM EST Oxygen Saturation 97% 02/16/2025 10: 55 AM EST Inhaled Oxygen Concentration - - Weight 104.5 kg (230 lb 6.4 oz) 025 10:55 AM EST Height 162.6 cm (5' 4 ) 02/16/2025 10:5 5 AM EST Body Mass Index 39.55 02/16/2025 10:55 AM EST documented in this encounter Functional Status * Is the person deaf or does he/she have serious difficulty hearing? Answer Date of Assessment Author No 05/11/2024 10:08 AM EST Nnamdi Choudhury LPN * Is the person blind or [...] Refills Last Filled Start Date End Date clotrimazole (MYCELEX) 10 mg MM TrocheIndications: Thrush of mouth and esophagus (HCC) Take 1 Tablet by mouth 5 times daily for 10 days. 50 Tablet 02/16/2025 cetirizine (ZYRTEC) 10 mg Oral TabletIndications: PND (post-nasal drip) Take 1 Tablet by mouth daily. 30 Tablet 2 02/16/2025 azelastine (ASTELIN) 137 mcg (0.1 %) Nasl [place], Non-AerosolIndicat ions:PND (post-nasal drip) 2 Sprays in each nostril 2 times daily. Use in each nostril as directed 30 mL 11 02/16/2025 ergocalciferol (VITAMIN D) 1,250 mcg (50,000 unit) Oral CapsuleIndications :Vitamin D deficiency Take 1 Capsule by mouth once a week. 4 Capsule 2 02/16/2025 documented in this encounter Progress Notes * Marely Gonzalez MD - 02/16/2025 10:40 AM ESTAssociated Problem(s): Vitamin D deficiency Orders: ??? ergocalciferol (VITAMIN D) 1,250 mcg (50,000 unit) Oral Capsule; Take 1 Capsule by mouth once aweek. * Marely Gonzalez MD - 02/16/2025 10:40 AM EST Vitals: 02/16/25 1055 BP: (!) 128/86 BP Location: Left arm Patient Position: Sitting Pulse: 81 Resp: 20 Temp: 97.6 ??F (36.4 ??C) TempSrc: Temporal SpO2: 97% Weight: 230 lb 6.4 oz (104.5 kg) Height: 5' 4 (1.626 m) Body mass index is 39.55 kg/m??. SUBJECTIVE: Chief Complaint Patient presents with ??? Cough HPI: Cough This is a new problem. The current episode started in the past 7 days (02/09/2025). The problem hasbeen gradually worsening. The cough is Productive of brown sputum. Associated symptoms include ear congestion, ear pain, headaches, nasal congestion, postnasal drip and a sore throat. Pertinent negati ves include no chills, fever, shortness of breath or wheezing. Associated symptoms comments: rash on tongue, . Treatments tried: advil cold and sinus, tylenol, nystatin ( a little left) The treatmentprovided mild relief. Patient states she thinks she has thrush on her tongue. 1 week of sx with occasional productive cough Review of Systems Constitutional: Positive for fatigue. Negative for activity change, appetite change, chills, diaphoresis and fever. HENT: Positive for congestion, ear pain, postnasal drip and sore throat. Tongue pain and burning Respiratory: Positive for cough. Negative for shortness of breath and wheezing. Neurological: Positive for headaches. OBJECTIVE: Physical Exam Vitals and nursing note reviewed. Constitutional: General: She is not in acute distress. Appearance: Normal appearance. She is obese. She is not ill-appearing, toxic- appearing or diaphoretic. HENT: Head: Normocephalic and atraumatic. Right Ear: Tympanic membrane normal. Left Ear: Tympanic membrane normal. Nose: Congestion and rhinorrhea present. Mouth/Throat: Mouth: Mucous membranes are moist. Pharynx: Posterior oropharyngeal erythema present. No oropharyngeal exudate. Comments: Whitish plaque on tongue that wipes off Eyes: Extraocular Movements: Extraocular movements intact. Pupils: Pupils are equal, round, and reactive to light. Cardiovascular: Rate and Rhythm: Normal rate and regular rhythm. Heart sounds: Normal heart sounds. Pulmonary: Effort: Pulmonary effort is normal. No respiratory distress. Breath sounds: Normal breath sounds. No wheezing or rhonchi. Musculoskeletal: General: Normal range of motion. Cervical back: Normal range of motion and neck supple. Right lower leg: No edema. Left lower leg: No edema. Lymphadenopathy: Cervical: No cervical adenopathy. Skin: General: Skin is warm. Neurological: General: No focal deficit present. Mental Status: She is alert and oriented to person, place, and time. Mental status is at baseline. Psychiatric: Mood and Affect: Mood normal. Behavior: Behavior normal. Thought Content: Thought content normal. Judgment: Judgment normal. Results for orders placed or performed in visit on 02/16/25 POCT CEPHEID SARS COV-2 RNA + FLU A/B + RSV Result Value Ref Range SARS COV-2 RNA Negative Negative, Invalid INFLUENZA A Negative Negative, Invalid INFLUENZA B Negative Negative, Invalid RSV Negative Negative, Invalid Lot Number Expiration Date SeriAl # Control Line Yes YES/NO POCT CEPHEID STREP A DNA Result Value Ref Range STREP A DNA Negative Negative, Invalid Lot Number Expiration Date SeriAl # Control Line Yes YES/NO Assessment & Plan Vitamin D deficiency Orders: ??? ergocalciferol (VITAMIN D) 1,250 mcg (50,000 unit) Oral Capsule; Take 1 Capsule by mouth once aweek. Acute cough Orders: ??? POCT CEPHEID SARS COV-2 RNA + FLU A/B + RSV Sore throat Orders: ??? POCT CEPHEID STREP A DNA Thrush of mouth and esophagus (HCC) If not tolerated call for nystatin and viscous lidocaine Orders: ??? clotrimazole (MYCELEX) 10 mg MM Jean; Take 1 Tablet by mouth 5 times daily for 10 days. PND (post-nasal drip) Orders: ??? azelastine (ASTELIN) 137 mcg (0.1 %) Nasl [place], Non-Aerosol; 2 Sprays in each nostril 2 times daily. Use in each nostril as directed ??? cetirizine (ZYRTEC) 10 mg Oral Tablet; Take 1 Tablet by mouth daily. documented in this encounter Miscellaneous Notes * Patient Instructions - Marely Gonzalez MD - 02/16/2025 10:40 AM EST You may be contacted by mail or e-mail to participate in a patient satisfaction survey regarding your office visit today. We value your opinion and depend on your feedback to make improvements and provide you with the best possible experience while receiving high quality medical treatment. Your time in completing this survey is greatly appreciated. Thrush of mouth and esophagus (HCC) If not tolerated call for nystatin and viscous lidocaine Orders: clotrimazole (MYCELEX) 10 mg MM Jean; Take 1 Tablet by mouth 5 times daily for 10 days. PND (post-nasal drip) Orders: azelastine (ASTELIN) 137 mcg (0.1 %) Nasl [place], Non-Aerosol; 2 Sprays in each nostril 2 times daily. Use in each nostril as directed cetirizine (ZYRTEC) 10 mg Oral Tablet; Take 1 Tablet by mouth daily. documented in this encounter Plan of Treatment Upcoming Encounters Date Type Department Care Team (Late st Contact Info) Description 03/03/2025 9:20 AM EST Office Visit [facility] [address] [facility] [address] [place] [phone] Katherine Silverman PA-C [address] [address] documented as of this encounter Goals Goal Patient Goal Type Associated Problems Recent Progress Patient-Stated? Author Maintain a healthy diet, exercise regularly and maintain an ideal body weight General No Bernie Hooks MA Stay Tobacco Free Lifestyle No Bernie Hooks MA documented as of this encounter Procedures Procedure Name Priority Date/Time Associated Diagnosis Comments POCT CEPHEID SARS COV-2 RNA + FLU A/B + RSV Routine 02/16/2025 11:26 AM EST Acute cough POCT CEPHEID STREP A DNA Routine 02/16/2025 11:13 AM EST Sore throat documented in this encounter Results * POCT CEPHEID SARS COV-2 RNA + FLU A/B + RSV (02/16/2025 11:26 AM EST) SARS COV-2 RNA Negative Negative, Invalid SEP OFFICE INFLUENZA A Negative Negative, Invalid SEP OFFICE INFLUENZA B Negative Negative, Invalid SEP OFFICE RSV Negative Negative, Invalid SEP OFFICE Lot Number SEP OFFICE Expiration Date SEP OFFICE SeriAl # SEP OFFICE Control Line Yes YES/NO SEP OFFICE 02/16/2025 11:2 6 AM EST Marely Gonzalez MD POINT OF CARE TEST ORDER ROBERTO Final Result SEP OFFICE * POCT CEPHEID STREP A DNA (02/16/2025 11:13 AM EST) STREP A DNA Negative Negative, Invalid SEP OFFICE Lot Number SEP OFFICE Expiration Date SEP OFFICE SeriAl # SEP OFFICE Control Line Yes YES/NO SEP OFFICE 02/16/2025 11:1 3 AM EST Marely Gonzalez MD POINT OF CARE TEST ORDER ROBERTO Final Result Performing Organization Address City/[facility]/ZIP Co de Phone Number SEP OFFICE documented in this encounter Visit Diagnoses Diagnosis Thrush of mouth and esophagus (HCC)- Primary Candidiasis of the esophagus Vitamin D deficiency Unspecified vitamin D deficiency Acute cough Sore throat Acute pharyngitis PND (post-nasal drip) Postnasal drip documented in this encounter Discontinued Medications Medication Sig Discontinue Reason Start Date End Da te ergocalciferol (VITAMIN D) 1,250 mcg (50,000 unit) Oral CapsuleIndications:Cyn min D deficiency Take 1 Capsule by mouth once a week. Reorder 01/15/2024 02/16/2025 Brompheniramine-Pseudoe ph-DM 2-30-10 mg/5 mL Oral SyrupIndications:Viral URI with cough Take 5 mL by mouth nightly as needed for Other (cough). DELETE-Therapy completed 02/05/2025 02/16/2025 fish oil OTC (OMEGA-3 DHA-EPA 300 MG) 300-1,000 mg Oral Capsule, Delayed Release(E.C.)Indication s:Sjogren's syndrome, with unspecified organ involvement Take 2 g by mouth daily. DELETE-Therapy completed 02/16/2025 progesterone (PROMETRIUM) 200 mg Oral Capsule DELETE-Therapy completed 12/14/2021 02/16/2025 valACYclovir (VALTREX) 500 mg Oral TabletIndications:Recur rent cold sores Take 1 Tablet by mouth daily. DELETE-Therapy completed 03/08/2023 02/16/2025 ondansetron (ZOFRAN-ODT) 4 mg Oral Tablet, Rapid DissolveIndications:Flu -like symptoms Take 1 Tablet by mouth every 6 hours as needed for Nausea. DELETE-Therapy completed 06/04/2024 02/16/2025 mupirocin (BACTROBAN) 2 % Top OintmentIndications:Romario al sore Apply topically 3 times daily. DELETE-Therapy completed 09/09/2024 02/16/2025 olmesartan-hydrochlorot hiazide (BENICAR HCT) 40-25 mg Oral TabletIndications:Essen tial hypertension Take 1 Tablet by mouth daily. DELETE-Therapy completed 12/11/2024 02/16/2025 documented as of this encounter Care Teams Hr Leader Relationship Specialty Start Date End Date Go Campos MD [address] [place] [address] PCP - OBGYN Obstetrics & Gynecology 06/02/11 Marely Gonzalez MD [address] [place] [address] PCP - General Family Medicine 01/07/13 Flavio Arreguin MD [address] [place] [address] Pain Medicine-Pain Medicine 10/20/21 documented as of this encounter
[2025-02-20 20:52] LABS: Coronavirus 19, PCR Not Detected (NotDetected); Influenza A, PCR Not Detected (NotDetected); Influenza B, PCR Not Detected (NotDetected)
--- OUTSIDE RECORDS SUMMARY | 2025-02-22 10:49 | XMS_ITS | Encounter Summary ---
Author Organization [facility] Address [address] [place] [address] Care Team Providers Care Analytical Research Chemist Name Role Phone Marely Gonzalez MD Primary Care Provider [phone]- [phone] Dorita Paulino MD Unavailable [phone] Duane Graves RN Unavailable Unavailable Sindy Oneill CONCRETE FINISHING MACHINE OPERATOR Unavailable [phone] Source Comments This information has been disclosed [...] release of HIV test results or diagnoses. [id number] Health Encounter Details Date Type Department Care Team (Late st Contact Info) Description 02/08/2025 Telephone [facility] [place] [facility] [address] [place] [phone] Serina Tate RN Social History Tobacco Use Types Packs/Day Years [...] encounter Miscellaneous Notes * Telephone Encounter - Serina Tate RN - 02/08/2025 12:12 PM EDT SURGERY SCREENING - TOTAL JOINTS Patient: Landy Arizmendi : 1975 Age: 49 y.o. BMI: 39.3 Surgeon: Dr. Weston Culp Joint: HIp Side: Right Hospital: [facility] Current Pain Level: 12/23 PCP: Marely Gonzalez MD Pain Mgmt Physician: [facility] Allergies: Metals? no Tobacco Use: Yes: amount 3-5 cigs/day Types: cigarettes Marijuana or other recreational drugs: None Alcohol consumption: none Dental: Any broken decaying, or abscessed teeth or generalized mouth pain: no Diabetic: no Last A1c: No results found for: HGBA1C Cardiac History: HTN [x] Yes [] No HLD [] Yes [x] No CAD [] Yes [x] No High Cholesterol [] Yes [x] No CHF [] Yes [x] No Afib [] Yes [x] No NM [] Yes [x] No Murmur [] Yes [x] No PPM [] Yes [x] No Defibrilator [] Yes [x] No Stents [] Yes [x] No CABG [] Yes [x] No Valve disease/valve replacement [] Yes [x] No Vascular/Peripheral/Arterial Disease [] Yes [x] No Other [] Yes [x] No Printing Table Worker: 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 treats Anticoagulation: [x] None [] Coumadin/Warfarin [] ASA 81 mg [] Plavix [] ASA 325 mg [] Eliquis [] Pradaxa [] Lovenox [] Xarelto [] Arixtra [] Aggrenox Pulmonary History: Asthma [] Yes [x] No Emphysema [] Yes [x] No COPD [] Yes [x] No Pulmonary HTN [] Yes [x] No Sarcoidosis [] Yes [x] No Pulmonary fibrosis [] Yes [x] No TB [] Yes [x] No Blood clot [] Yes [x] No Sleep Apnea [] Yes [x] No Other [] Yes [x] No Inhalers: no Sleep Apnea: no Neuro History: CVA [] Yes [x] No TIA [] Yes [x] No Seizure [] Yes [x] No Head trauma [] Yes [x] No MS [] Yes [x] No Migraine Headache [x] Yes [] No Other [] Yes [x] No GI History: History of post op ilieus [] Yes [x] No Hepatitis [] Yes [x] No Liver disease/Cirrhosis [] Yes [x] No Reflux/GERD [] Yes [x] No History of post op nausea/vomiting [x] Yes [] No Other [] Yes [x] No History: Chronic kidney disease-stage 1 [] Yes [x] No ESRD [] Yes [x] No Chronic kidney disease-stage 2 [] Yes [x] No BPH [] Yes [x] No Chronic kidney disease-stage 3 [] Yes [x] No Frequent UTI [] Yes [x] No Dialysis-peritoneal/hemodialysis [] Yes [x] No Urinary retention [] Yes [x] No Other [] Yes [x] No Blood Disorders: Chronic anemia (Hgb <10g/dL) [] Yes [x] No Sickle cell [] Yes [x] No Clotting disorder [] Yes [x] No Leukemia [] Yes [x] No Thrombocytopenia (platelets <75) [] Yes [x] No HIV/AIDS [] Yes [x] No Other [] Yes [x] No Orthopaedic History: Spinal stenosis [] Yes [x] No Prior hip joint replacement [] Yes [x] No Low back pain [x] Yes [] No Prior knee joint replacement [] Yes [x] No Other [] Yes [x] No Other History: Lupus [x] Yes [] No Rheumatoid arthritis [] Yes [x] No Chronic steroid use [] Yes [x] No Cancer of any type [] Yes [x] No Chronic pressure ulcers [] Yes [x] No Family history of malignant hyperthermia [] Yes [x] No Other Sjogrens [x] Yes [] No Psychosocial History (Hx of Mental Illness): Anxiety [] Yes [x] No Depression [] Yes [x] No Bipolar [] Yes [x] No Schizoaffective disorder [] Yes [x] No Other [] Yes [x] No Home: lives with family Family support (name): Jin Schmitz Relationship: fiance Stairs into home: 5 Stairs to bedroom: [place] ADLs: with assistance Currently using [facility] agency: yes Patient does not have a preference with a home care agency so referral made to, and accepted by, [facility] per physician preference. Transportation: yes Hospitalization in last 6 months: no History of falls in last 6 months: no Admission to SNF in last 6 months: no Assistive devices at home: walker rolling, crutches Prescriptions for assistive devices given: shower chair; raised toilet Can patient ambulate without assistive device: no documented in this encounter Plan of Treatment Upcoming Encounters Date Type Department Care Team (Latest Contact Info) Description 03/30/2025 12:35 PM EST Hospital Encounter [facility] Same Day Surgery [address] [place] [phone] Weston Culp MD [address] [phone] 03/30/2025 12:35 PM EST - 03/30/2025 2:55 PM EST Surgery [facility] Same Day Surgery [address] [place] [phone] Weston Culp MD [address] [place] [phone] RIGHT TOTAL HIP ARTHROPLASTY Scheduled Procedures Name [...] documented as of this encounter Care Teams Analytical Research Chemist Relationship Specialty Start Date End Date Marely Gonzalez MD [address] [facility] [place] [address] PCP - General Family Medicine 06/19/16 Dorita Paulino MD [address] [facility] [place] [address] Surgeon Surgical Oncology 10/09/17 Duane Graves, RN Registered Nurse 11/28/17 Sindy Oneill, CONCRETE FINISHING MACHINE OPERATOR [address] [place] [phone] Nurse Practitioner Oncology 12/04/17 documented as of this encounter
--- OUTSIDE RECORDS SUMMARY | 2025-02-22 10:49 | XMS_ITS | Encounter Summary ---
Author Organization [facility] Address [address] [place] [address] Care Team Providers Care Roll Tension Tester Name Role Phone Marely Gonzalez MD Primary Care Provider [phone] Dorita Paulino MD Unavailable [phone] Duane Graves RN Unavailable Unavailable Sindy Oneill FRESH FOODS CLERK Unavailable [phone] Source Comments This information has been disclosed [...] release of HIV test results or diagnoses. [id number] Reason for Referral * Therapy (Routine) - New Request Specialty Diagnoses / Procedures Referred By Contac t Referred To Contact Physical Therapy Diagnoses Subchondral insufficiency fracture of femoral condyle, right, initial encounter ([facility]) [facility] Orthopaedics at [address] [place] [address] Phone: tel: fax: Referral ID Status Reason Start Date Expiration Date V isits Requested Visits Authorized [id number] New Request 02/10/2025 08/09/2025 1 1 Scheduling Instructions [facility] orders: detention; PT/OT Surgical Procedure: Right Total Hip Replacement, anterior approach, on 03/30/[address] Weston Culp at [facility]. SOC date: 04/01/2025 Correction: Change surgical dressing with one provided to patient from hospital on POD #7 Report any signs or symptoms of infection to Nurse Navigator at [phone] Physical Therapy: Evaluate and treat as indicated by diagnosis-modalities of choice; exercises of choice. FWB status. Goals: Decrease pain and swelling Increase ROJM and flexibility Increase strength and endurance PT three times per week for 2 weeks Encounter Details Date Type Department Care Team (Late st Contact Info) Description 02/10/2025 Orders Only [facility] Orthopaedics at [place] [facility] [address] [facility] [address] [place] [phone] Serina Tate RN Subchondral insufficiency fracture of femoral condyle, right, initial encounter ([facility]) (Primary Dx) Social History Tobacco Use Types [...] Description 03/30/2025 12:35 PM EST Hospital Encounter [facility] Same Day Surgery [address] [place] [phone] Weston Culp MD [address] [phone] 03/30/2025 12:35 PM EST - 03/30/2025 2:55 PM EST Surgery [facility] Same Day Surgery [address] [place] [phone] Weston Culp MD [address] [phone] RIGHT TOTAL HIP ARTHROPLASTY Scheduled Procedures Name Priority Associated Diagnoses Date/Ti me ARTHROPLASTY HIP TOTAL ANTERIOR APPROACH Closed fracture of head of right femur with delayed healing 03/30/2025 12:35 PM EST Scheduled Referrals Name Type Priority Associated Diagnoses Orde r Schedule Physical Therapy - Post-Op Outpatient Referral Routine Subchondral insufficiency fracture of femoral condyle, right, initial encounter ([facility]) Ordered: 02/10/2025 documented as of this encounter Visit Diagnoses Diagnosis Subchondral insufficiency fracture of femoral condyle, right, initial encounter ([facility])- Primary Closed fracture of head of right femur with delayed healing documented in this encounter Additional Health Concerns Assessment Noted Time PHQ-9 Depression Total Score: 2 11/08/19 18 1:00 PM EDT documented as of this encounter Care Teams Roll Tension Tester Relationship Specialty Start Date End Date Marely Gonzalez MD [address] [facility] [place] [address] PCP - General Family Medicine 06/19/16 Dorita Paulino MD [address] [facility] [place] [address] Surgeon Surgical Oncology 10/09/17 Duane Graves, RN Registered Nurse 11/28/17 Sindy Oneill, FRESH FOODS CLERK [address] [place] [phone] Nurse Practitioner Oncology 12/04/17 documented as of this encounter
--- OUTSIDE RECORDS SUMMARY | 2025-02-22 10:49 | XMS_ITS | Clinical Summary ---
Author Organization [facility] Address [address] [place] [id number] Care Team Providers Care Associate Software Development Engineer Name Role Phone Marely Gonzalez MD Primary Care Provider [phone] Dorita Paulino MD Unavailable [phone] Duane Graves RN Unavailable Unavailable Sindy Oneill INSTRUCTOR WATCH [employer]SEM[employer] Unavailable [phone] Source Comments This information has been disclosed [...] therelease of HIV test results or diagnoses. [id number] Allergies Active Allergy Reactions Criticality Noted Date [...] Trimethoprim Other (See Comments) 01/27/2024 Medications ergocalciferol (ERGOCALCIFEROL) 50,000 unit capsule Take by mouth. 03/03/20 18 Active busPIRone (BUSPAR) 5 MG tablet Take 1 tablet (5 mg total) by mouth 2 times a day. Active proMETHazine (PHENERGAN) 25 MG tablet Take 1 tablet (25 mg total) by mouth every 6 hours as needed for Nausea. 30 tablet 08/16/19 22 Active diclofenac (VOLTAREN) 50 MG EC tablet Take 1 tablet (50 mg total) by mouth 2 times a day. 60 tablet 10/27/19 23 Active oxyCODONE-acetamin ophen (PRIMLEV) 7.5-300 mg per tablet Take 1 tablet by mouth every 6 hours as needed for Pain. Active aspirin 325 MG tablet Take 1 tablet (325 mg total) by mouth daily. 14 tablet 11/13/19 23 Active naloxone (NARCAN) 4 mg/actuation Eitzen Apply 1 spray in one nostril if needed. Call 911. May repeat dose in other nostril if no response in 3 minutes. 2 each 1 11/13/19 23 Active senna-docusate (SENNOSIDES-DOCUSA TE SODIUM) 8.6-50 mg per tablet Take 1 tablet by mouth every 12 hours as needed for Constipation. 60 tablet 11/13/19 23 Active proMETHazine (PHENERGAN) 25 MG tablet Take 1 tablet (25 mg total) by mouth every 6 hours as needed for Nausea. 30 tablet 11/14/19 23 Active ibuprofen (MOTRIN) 800 MG tablet Take 1 tablet (800 mg total) by mouth every 8 hours as needed for Pain. 60 tablet 1 11/14/19 23 Active acetaminophen (TYLENOL) 325 MG tablet Take 2 tablets (650 mg total) by mouth every 6 hours as needed. Do not exceed 3000 mg in one day 90 tablet 1 11/14/19 23 Active ketorolac (TORADOL) 10 mg tabletIndications: Left hip pain Take 1 tablet (10 mg total) by mouth 3 times a day. 15 tablet 07/15/19 Active diazePAM (VALIUM) 5 MG tabletIndications: anxiety Take 1 tab 30 min prior to MRI. May take additional tab immediately before MRI. Indications: anxiety 2 tablet 01/23/20 25 025 Active chlorhexidine (ANTISEPTIC SKIN CLNSR,CHLORHE,) 4 % external liquidIndications: Primary osteoarthritis of right hip Apply topically daily for 5 days. Shower with Hibiclens 4% soap daily, beginning 5 days prior to surgery. 120 mL 02/17/20 025 Hospital, Clinic, or Other Facility Administered Medication Ordered Dose Route Frequency Start Date End Date Status betamethasone acetate-betamethasone sodium phosphate (CELESTONE) injection 6 mgIndications:Right hip pain 6 mg IAtc Once 12/07/2022 Active triamcinolone acetonide (KENALOG-40) injection 80 mgIndications:Right hip pain 80 mg OTHER Once 02/02/2025 02/02/2025 Ended BUPivacaine HCl (MARCAINE) 0.5 % (5 mg/mL) injection 15 mgIndications:Right hip pain 15 mg SubQ Once 02/02/2025 02/02/2025 Ended lidocaine (PF) 2% (20 mg/mL) Soln 20 mgIndications:Primary osteoarthritis of right hip 20 mg IDrm Once as needed 02/16/2025 02/16/2025 Ended Active Problems Problem Noted Date Diagnosed Date Closed fracture of head of right femur with cal yed healing 02/16/2025 Insufficiency fracture of femur 12/22/2024 Right hip pain 12/04/2024 S/P hip arthroscopy 08/30/2021 Tear of right gluteus medius tendon 10/14/2018 Overview (10/14/2018): Added automatically from request for surgery [id number] Fibroadenoma of left breast 11/11/2017 Overview (11/11/2017): Added automatically from request for surgery [id number] Right shoulder pain 01/23/2017 Shoulder impingement 01/23/2017 [...] (11/12/2017): Overview: Cardiology consult Anticipate angio today Encounters Date Type Department Care Team Description 02/16/2025 Orders Only [facility] Orthopaedics at [facility] [address] [facility] [address] [place] [address] Weston Culp MD Primary osteoarthritis of right hip (Primary Dx) 02/15/2025 Chart Note [facility] Orthopaedics at [facility] [address] [place] [phone] Serina Tate RN Faxed pre op PT pre hab Rx to [facility] main PT fax line at 02/10/2025 Chart Note [facility] Orthopaedics at [facility] [address] [place] [phone] Serina Tate RN Faxed post op PT orders to [facility] at at this 02/10/2025 Orders Only [facility] Orthopaedics at [facility] [address] [place] [phone] Serina Tate RN Subchondral insufficiency fracture of femoral condyle, right, initial encounter ([facility]) (Primary Dx) 02/10/2025 Orders Only [facility] Orthopaedics at [facility] [address] [facility] [address] [address] [place] [phone] Serina Tate RN Subchondral insufficiency fracture of femoral condyle, right, initial encounter ([facility]) (Primary Dx) 02/08/2025 Orders Only [facility] Orthopaedics at [facility] [address] [facility] [address] [place] [phone] Serina Tate RN Subchondral insufficiency fracture of femoral condyle, right, initial encounter ([facility] (Primary Dx) 02/08/2025 Telephone [facility] Orthopaedics at [facility] [address] [facility] [address] [place] [phone] Serina Tate RN 02/05/2025 8:45 AM EDT Office Visit [facility] Orthopaedics at [place] [address] [place] [address] Weston Culp MD Right hip pain (Primary Dx) 02/03/2025 1:59 PM EDT - 02/03/2025 11:59 PM EDT Hospital Encounter [facility] Radiology [address] [place] [phone] System, Provider Not In Discharge Disposition: Home or Self Care WITHOUT Home Care Services 02/02/2025 9:45 AM EDT Office Visit [facility] Orthopaedics [place] [address] [place] [phone] Venkatesh Cole MD Insufficiency fracture of femur, right, initial encounter ([facility]) (Primary Dx); Right hip pain; Greater trochanteric pain syndrome of left lower extremity 02/01/2025 3:30 PM EDT - 02/01/2025 11:59 PM EDT Hospital Encounter [facility] Radiology [address] [place] [phone] System, Provider Not In Discharge Disposition: Home or Self Care WITHOUT Home Care Services 01/27/2025 Orders Only EXTERNAL PROV RESULTS [address] [place] [address] System, Provider Not In 01/26/2025 Chart Note [facility] Orthopaedics [place] [address] [place] [phone] Venkatesh Cole MD Precert Required: Yes 01/25/2025 Chart Note [facility] Orthopaedics at [address] [place] [address] Venkatesh Cole MD Precert Required: Yes 01/22/2025 9:45 AM EDT Office Visit [facility] Orthopaedics [facility] [address] [place] [phone] Derrick Morrissey PA Utz, Christopher, MD Right hip pain (Primary Dx) 01/22/2025 8:45 AM EDT - 01/22/2025 11:59 PM EDT Hospital Encounter [facility] [address] [place] [address] [address] [place] [phone] Venkatesh Cole MD Right hip pain Discharge Disposition: Home or Self Care WITHOUT Home Care Services 01/22/2025 Telephone [facility] Orthopaedics [facility] [address] [place] [phone] Venkatesh Cole MD 01/22/2025 Results Follow-Up [facility] Orthopaedics [facility] [address] [facility] [address] [place] [phone] Cailin Brumfield PA Comprehensive metabolic panel, Vitamin D 25 hydroxy, TSH (Thyroid Stimulating Hormone), T4, free 01/19/2025 4:05 PM EDT [facility] [address] [place] [phone] Cailin Brumfield PA Postmenopausal osteoporosis; Vitamin D deficiency; History of fracture 01/19/2025 2:20 PM EDT Office Visit [facility] Orthopaedics [facility] [address] [place] [phone] Cailin Brumfield PA Postmenopausal osteoporosis (Primary Dx); Vitamin D deficiency; History of fracture 01/13/2025 Telephone [facility] Orthopaedics at [facility] [address] [place] [phone] Marely Collins MA 01/06/2025 4:43 PM EDT - 01/06/2025 11:59 PM EDT Hospital Encounter [facility] Radiology [address] [place] [phone] System, Provider Not In Discharge Disposition: Home or Self Care WITHOUT Home Care Services 12/31/2024 Telephone [facility] Orthopaedics at [place] [address] [place], [place] [address] [place] [address] Venkatesh Cole MD 12/28/2024 Chart Note [facility] Orthopaedics [place] [address] [place] [address] Derrick Morrissey PA FMLA and STD paperwork has been sent to [employer] and the 12/22/2024 12:55 PM EDT Office Visit [facility] [place] [address] [place] [address] Derrick Morrissey PA Right hip pain (Primary Dx); Insufficiency fracture of femur, right, initial encounter ([facility]) 12/21/2024 Orders Only EXTERNAL PROV RESULTS [address] [place] [address] System, Provider Not In 12/21/2024 Orders Only [facility] Sports Medicine at [facility] [address] [facility] [address] [place] [phone] Derrick Morrissey PA Right hip pain (Primary Dx); Anxiety 12/21/2024 Telephone [facility] Orthopaedics at [facility] [address] [facility] [address] [place] [phone] Serina Tate RN 12/21/2024 Telephone [facility] Orthopaedics at [place] [address] [place], [place] [address] [place] [address] Venkatesh Cole MD 12/17/2024 Orders Only EXTERNAL PROV RESULTS [address] [place] [address] System, Provider Not In 12/15/2024 Chart Note [facility] Orthopaedics at [address] [place] [address] Derrick Morrissey PA Spoke to patient, Mary and Kirstie from [employer]! The order has been 12/15/2024 Telephone [facility] Orthopaedics [address] [place] [address] Derrick Morrissey PA Appointment 12/15/2024 Chart Note [facility] Orthopaedics [address] [place] [address] Derrick Morrissey PA MRI/CT Type: MRI Right Hip WO 12/10/2024 Chart Note [facility] Orthopaedics [address] [place] [address] Derrick Morrissey PA Attempted to reach Leola del cid to update the auth to [employer]!! 12/10/2024 Chart Note [facility] Orthopaedics [address] [place] [address] Derrick Morrissey PA Patient called and requested the MRI to be faxed to [facility] 12/09/2024 Telephone [facility] Orthopaedics at [facility] [address] [place] [address] Lilibeth Pedroza MA 12/08/2024 Chart Note [facility] Orthopaedics at [facility] [address] [place] [phone] Martha Mckee MA Completed PA Via: Charleenre 12/04/2024 12:56 PM EDT - 12/04/2024 11:59 PM EDT Hospital Encounter [facility] Ortho Radiology at [facility] [address] [facility] [address] [place] [address] Derrick Morrissey PA Right hip pain Discharge Disposition: Home or Self Care WITHOUT Home Care Services 12/04/2024 12:50 PM EDT Office Visit [facility] Orthopaedics at [facility] [address] [place] [address] Derrick Morrissey PA Right hip pain (Primary Dx) from Last 3 Months Immunizations Immunization Administration Dates Next Due Influenza, [...] 93% 11/12/2022 3 :05 PM EDT Weight 103.9 kg (229 lb) 02/02/2025 10:16 AM EDT Height 162.6 cm (5' 4 ) 01/30/2023 9:30 AM EDT Body Mass Index 39.31 01/30/2023 9:30 AM EDT Plan of Treatment Upcoming Encounters Date Type Department Care Team (Latest Contact Info) Description 03/30/2025 12:35 PM EST Hospital Encounter [facility] Same Day Surgery [address] [place] [address] Weston Culp MD [address] [facility] [address] [place] [address] 03/30/2025 12:35 PM EST - 03/30/2025 2:55 PM EST Surgery [facility] Same Day Surgery [address] [place] [phone] Weston Culp MD [address] [facility] [address] [place] [address] RIGHT TOTAL HIP ARTHROPLASTY Scheduled Procedures Name Priority Associated Diagnoses Date/Ti me ARTHROPLASTY HIP TOTAL ANTERIOR APPROACH Closed fracture of head of right femur with delayed healing 03/30/2025 12:35 PM EST Health Maintenance Due Date Last Done Comments ASCVD Assessment 1975 Abnormal Colonoscopy Follow Up 1975 Depression Monitoring (PHQ-9) 1975 Diabetes Screening 1975 Hepatitis C Screening ([facility] [place]) 1976 HIV Screening 1994 Immunization: Hepatitis B (1 of 3 - 19+ 3-dose series) 07/16/1995 Cervical Cancer Screening/Pa p Smear (MyChart) 2006 Mammogram (MyChart) 11/08/2019 11/07/2017, 7 Immunization: Pneumococcal ( 2 of 2 - PCV) 05/14/2020 05/14/2019, 11/06/2018, 09/11/2018, Additional history exists Cologuard (FIT-DNA) 2021 Colonoscopy 2021 Colorectal Cancer Screening (MyChart) 2021 Stool Testing (gFOBT) 2021 Tobacco Cessation Readiness 07/25/2022 07/25/2021 Immunization: DTaP/Tdap/Td ( 3 - Td or Tdap) 09/13/2022 09/13/2012, 03/15/1992 Immunization: COVID-19 ( season) 2024 12/02/2020, 11/11/2020 Immunization: Influenza (MyC wells) (#1) 2024 05/14/2019, 11/06/2018, 09/11/2018, Additional history exists Medical Devices Implanted Type Area Command Center Officer Device Identifier Shelf Expiration Date Model / Serial / Lot Uvalde Sut 5.5mm 3 Ft Healicoil Ulbrd Shldr Preld Cobraid Regenesorb Blk Serge - [id number] Implanted:Qty: 1 on 11/12/2022 by Venkatesh Cole MD at [facility] Plate Right: Hip [employer] 02/08/2023 [id number] / / [id number] Uvalde Sut 5.5mm Multifix S Ult Kntls Peek - [id number] Implanted:Qty: 1 on 11/12/2022 by Venkatesh Cole MD at [facility] Plate Right: Hip [employer] 08/16/2025 [id number] / / [id number] Uvalde Sut 5.5mm 3 Ft Healicoil Ulbrd Shldr Preld Cobraid Regenesorb Blk Serge - [id number] Implanted:Qty: 1 on 11/12/2022 by Venkatesh Cole MD at [facility] Plate Right: Hip [employer] 08/27/2023 [id number] / / [id number] Uvalde Sut 5.5mm Multifix S Ult Kntls Peek - [id number] Implanted:Qty: 1 on 11/12/2022 by Venkatesh Cole MD at [facility] Plate Right: Hip [employer] 11/08/2024 [id number] / / [id number] Procedures Procedure Name Priority Date/Time Associated Diagnosis Comments MR HIP OUTSIDE EXAM Routine 02/03/2025 1 :59 PM EDT MR HIP OUTSIDE EXAM Routine 02/01/2025 3 :30 PM EDT EXTERNAL - MR LOWER EXTREMITY JOINT; WITHOUT CONTRAST MATERIAL 01/28/2025 7:22 AM EDT XR HIP RIGHT 2-3 VIEWS INCLUDING AP PELVIS Routine 01/22/2025 10:24 AM EDT Right hip pain T4, FREE Routine 01/19/2025 4:12 PM EDT Postmenopausal osteoporosis Vitamin D deficiency History of fracture TSH Routine 01/19/2025 4:12 PM EDT Postmenopausal osteoporosis Vitamin D deficiency History of fracture VITAMIN D 25 HYDROXY Routine 01/19/2025 4:12 PM EDT Postmenopausal osteoporosis Vitamin D deficiency History of fracture COMPREHENSIVE METABOLIC PANEL Routine 01/19/2025 4:12 PM EDT Postmenopausal osteoporosis Vitamin D deficiency History of fracture MR HIP OUTSIDE EXAM Routine 01/06/2025 4 :43 PM EDT EXTERNAL - MR LOWER EXTREMITY JOINT; WITHOUT CONTRAST MATERIAL 12/21/2024 4:14 PM EDT EXTERNAL - MR LOWER EXTREMITY JOINT; WITHOUT CONTRAST MATERIAL 12/21/2024 1:30 PM EDT XR HIP RIGHT 2-3 VIEWS INCLUDING AP PELVIS Routine 12/04/2024 1:05 PM EDT Right hip pain MAMMO DIAGNOSTIC DIGITAL BILATERAL INCL CAD Routine 11/07/2017 2:43 PM EDT Abnormal breast exam from Last 3 Months or Most Recently Relevant to Health Maintenance Results * MR Hip Outside Exam (02/03/2025 1:59 PM EDT) Only the most recent of3 resultswithin the time period is included. Narrative 02/03/2025 1:59 PM EDT Images associated with this accession number were presented to us for comparison to an examination performed here. us Provider Not In System IMG MRI ORDERABLES Final Result * External - MR lower extremity joint; without contrast material (01/28/2025 7:22 AM EDT) Only the most recent of3 resultswithin the time period is included. Anatomical Region Laterality Modality Magnetic Resonan ce 01/28/2025 7:22 AM EDT Narrative 01/28/2025 7:39 AM EDT [email or web address] Patient Name: Landy Arizmendi Patient : 1975 Referring Physician: Venkatesh Cole Exam Date: 01/27/2025 Exam Description: MR Right Hip w/o Contrast HISTORY: Right hip pain. TECHNICAL FACTORS: Long- and short-axis fat- and water-weighted images were performed. COMPARISON: 12/21/2024 MRI. FINDINGS: Pprogressive severe marrow edema femoral head with geographic qualities raising the possibility of osteonecrosis with the complication of subchondral fracture. Specifically, the posterior margin the femoral head shows areas of spared edema that are geographic in nature (series 601, image 14) and the subchondral marrow changes anteriorly both have geographic features suggesting necrosis as well which may be complicated by a subchondral stress insufficiency fracture (series 601, image 16 and series 301, image 20). The articular surface is thinned both femoral head and acetabulum with possible small full-thickness chondral defect now evident 2-3 mm in diameter (series 601, image 15) at the apex of the femoral head. Capsulitis has progressed, severe with severe surrounding soft tissue swelling including extending into the external rotators of the hip. Acetabular marrow changes are more pronounced posteriorly but have resolved anteriorly. The acetabular contour is a developmental variation. Extensive labral tearing and fraying. Postoperative changes greater trochanter posteriorly with small focal bursitis. Defer to history. No significant arthritis. No labral tear or paralabral cyst. Remaining hip adductors are intact. Remaining hip flexors are intact. Remaining hip extensors are intact. Remaining hip abductor tendons are intact. Remaining tendons are intact. Remaining muscles are unremarkable. No acute OCD. No large loose body. No AVN. Other: Neurovascular bundles are unremarkable. Portions of the sacrum imaged at the film edge are unremarkable. Remaining pelvic content demonstrated is unremarkable. CONCLUSION: Pprogressive severe marrow edema femoral head with geographic qualities raising the possibility of osteonecrosis with the complication of subchondral fracture. Thank you for the opportunity to provide your interpretation. Ha Oliveira MD A: TG/ac 01/28/2025 7:22 AM EST Procedure Note Unknown, Attending Provider - 01/28/2025 [email or web address] Patient Name: Landy Arizmendi Patient : 1975 Referring Physician: Venkatesh Cole Exam Date: 01/27/2025 Exam Description: MR Right Hip w/o Contrast HISTORY: Right hip pain. TECHNICAL FACTORS: Long- and short-axis fat- and water-weighted imageswere performed. COMPARISON: 12/21/2024 MRI. FINDINGS: Pprogressive severe marrow edema femoral head with geographicqualities raising the possibility of osteonecrosis with the complicationof subchondral fracture. Specifically, the posterior margin the femoralhead shows areas of spared edema that are geographic in nature (series 601, image 14) and the subchondralmarrow changes anteriorly both have geographic features suggestingnecrosis as well which may be complicated by a subchondral stressinsufficiency fracture (series 601, image 16 and series 301, image 20). The articular surface is thinned both femoral headand acetabulum with possible small full-thickness chondral defect nowevident 2-3 mm in diameter (series 601, image 15) at the apex of thefemoral head. Capsulitis has progressed, severe with severe surrounding soft tissue swelling including extendinginto the external rotators of the hip. Acetabular marrow changes are more pronounced posteriorly but haveresolved anteriorly. The acetabular contour is a developmental variation.Extensive labral tearing and fraying. Postoperative changes greater trochanter posteriorly with small focalbursitis. Defer to history. No significant arthritis. No labral tear or paralabral cyst. Remaining hip adductors are intact. Remaining hip flexors are intact. Remaining hip extensors are intact. Remaining hip abductor tendons are intact. Remaining tendons are intact. Remaining muscles are unremarkable. No acute OCD. No large loose body. No AVN. Other: Neurovascular bundles are unremarkable. Portions of the sacrum imaged at the film edge are unremarkable. Remaining pelvic content demonstrated is unremarkable. CONCLUSION: Pprogressive severe marrow edema femoral head with geographic qualitiesraising the possibility of osteonecrosis with the complication ofsubchondral fracture. Thank you for the opportunity to provide your interpretation. Ha Oliveira MD A: Alice 01/28/2025 7:22 AM EST Venkatesh Cole MD IMG MRI ORDERABLES Final Resu lt * X-ray Hip Right 2-3 vws incl AP Pelvis (01/22/2025 10:24 AM EDT) Only the most recent of2 resultswithin the time period is included. Anatomical Region Laterality Modality Hip, Pelvis Radiographic [...] IMG DIAGNOSTIC IMAGING ORDERA BLES Final Result * (ABNORMAL) Vitamin D 25 hydroxy (01/19/2025 4:12 PM EDT) Vit D, 25-Hydroxy 26.0(L) 30.0 - 100.0 ng/mL 01/19/2025 6:29 PM EDT HEALTH [facility] Comment: Vitamin D deficiency has been defined by the [place] of Medicine (IOM) and an Endocrine Society [...] [facility] BLOOD ORDERABLES Final Resul t [facility] [address] * TSH (Thyroid Stimulating Hormone) (01/19/2025 4:12 PM EDT) TSH 1.54 0.45 - 4.12 uIU/mL 01/19/2025 6:06 PM EDT [facility] Serum 01/19/2025 4:12 PM EDT 01/19/2025 4:59 PM EDT us Cailin [facility] BLOOD ORDERABLES Final Resul t [facility] [address] * T4, free (01/19/2025 4:12 PM EDT) Free T4 0.85 0.61 - 1.76 ng/dL 01/19/2025 6:08 PM EDT HEALTH LAB Comment:Biotin megadosing (c onsumption >300 mcg/day) may falsely elevate free T4. When indicated, discontinue megadosing for 1 week and repeat testing. Serum 01/19/2025 4:12 PM EDT 01/19/2025 4:59 PM EDT us Cialin [facility] BLOOD ORDERABLES Final Resul t [facility] [address] [facility] [place] [address], [facility] * Comprehensive metabolic panel (01/19/2025 4:12 PM EDT) Sodium 139 133 - 146 mmol/L 01/19/2025 5:56 PM EDT [facility] Potassium 4.3 3.5 - 5.3 mmol/L 01/19/2025 5:56 PM EDT [facility] Chloride 102 98 - 110 mmol/L 01/19/2025 5:56 PM EDT [facility] CO2 31 21 - 33 mmol/L 01/19/2025 5:56 PM EDT [facility] Anion Gap 6 3 - 16 mmol/L 01/19/2025 5:56 PM EDT [facility] BUN 13 7 - 25 mg/dL 01/19/2025 5:56 PM EDT [facility] Creatinine 0.62 0.60 - 1.30 mg/dL 01/19/2025 5:56 PM EDT [facility] Glucose 80 70 - 100 mg/dL 01/19/2025 5:56 PM EDT [facility] Calcium 9.8 8.6 - 10.3 mg/dL 01/19/2025 5:56 PM EDT [facility] Total Bilirubin 0.3 0.0 - 1.5 mg/dL 01/19/2025 5:56 PM EDT [facility] AST 15 13 - 39 U/L 01/19/2025 5:56 PM EDT [facility] ALT 16 7 - 52 U/L 01/19/2025 5:56 PM EDT [facility] Alkaline Phosphatase 79 36 - 125 U/L 01/19/2025 5:56 PM EDT [facility] Total Protein 7.6 6.4 - 8.9 g/dL 01/19/2025 5:56 PM EDT [facility] Albumin 4.2 3.5 - 5.7 g/dL 01/19/2025 5:56 [address] ED[address] [facility] Osmolality, Calculated 287 278 - 305 mOsm/kg 01/19/2025 5:56 PM EDT [facility] EGFR >90 01/19/2025 5:56 [address] ED[address] [facility] Comment: As of 2021, the estimated [...] MACK LAB BLOOD ORDERABLES Final Resul t [facility] [address] [facility] [place] [address], [facility] * Mammo Diagnostic Bilateral incl CAD (11/07/2017 [...] Relevant to Health Maintenance Insurance [employer] MDCD [facility] Care Teams Associate Software Development Engineer Relationship Specialty Start Date End Date Marely Gonzalez MD [address] [facility] [place] [address] PCP - General Family Medicine 06/19/16 Dorita Paulino MD [address] [facility] [place] [address] Surgeon Surgical Oncology 10/09/17 Duane Graves, NILSON Registered Nurse 11/28/17 Sindy Oneill, INSTRUCTOR WATCH ASSEMBLY [address] [place] [phone] Nurse Practitioner Oncology 12/04/17
--- OUTSIDE RECORDS SUMMARY | 2025-02-22 10:49 | XMS_ITS | Encounter Summary ---
Author Organization [facility] Address [address] [place] [address] Care Team Providers Care Kier Drier Name Role Phone Marely Gonzalez MD Primary Care Provider +- [phone] Dorita Paulino MD Unavailable [phone] Duane Graves RN Unavailable Unavailable Sindy Oneill IRRIGATION SYSTEM INSTALLER Unavailable [phone] Source Comments This information has been disclosed [...] release of HIV test results or diagnoses. [id number] Health Encounter Details Date Type Department Care Team (Late st Contact Info) Description 01/13/2025 Telephone [facility] Orthopaedics at [facility] Office [address] [place] [address] [place] [phone] Marely Collins MA Social History Tobacco Use Types Packs/Day Years [...] encounter Miscellaneous Notes * Telephone Encounter - Marely Collins MA - 01/13/2025 12:46 PM EDT Received a vm from patient stating she was referred to Cailin Brumfield for a bone health appointment andwould like to schedule. I returned patients call and scheduled her an appointment. Patient repeated the Date and Time with me then verbalized understanding. Call complete documented in this encounter Plan of Treatment Upcoming Encounters Date Type Department Care Team (Latest Contact Info) Description 03/30/2025 12:35 PM EST Hospital Encounter [facility] Same Day Surgery [address] [place] [phone] Weston Culp MD 222 [facility] [address] [place] [phone] 03/30/2025 12:35 PM EST - 03/30/2025 2:55 PM EST Surgery [facility] Same Day Surgery [address] [place] [phone] Weston Culp MD 222 [facility] [address] [place] [phone] RIGHT TOTAL HIP ARTHROPLASTY Scheduled Procedures Name [...] documented as of this encounter Care Teams Kier Drier Relationship Specialty Start Date End Date Marely Gonzalez MD 1 [facility] [place] [address] PCP - General Family Medicine 06/19/16 Dorita Paulino MD 1 [facility] [place] [address] Surgeon Surgical Oncology 10/09/17 Duane Graves, NILSON Registered Nurse 11/28/17 Sidny Oneill, IRRIGATION SYSTEM INSTALLER [address] [place] [address] [place] [address] Nurse Practitioner Oncology 12/04/17 documented as of this encounter
--- OUTSIDE RECORDS SUMMARY | 2025-02-22 10:49 | XMS_ITS | Clinical Summary ---
Author Organization [facility] are Address [address] [place] [address] Phone Care Team Providers Care Tapper Bit Name Role Phone Katherine Bhardwaj Unavailable [phone] Conditions or Problems No information available. Medications No information available. Medications Administered No information available. Allergies, Adverse Reactions, Alerts No information available. Results No information available. Plan of Care No information available. Procedures No information available. Vital Signs No information available. Immunizations No information available. Advance Directives No information available.
--- OUTSIDE RECORDS SUMMARY | 2025-02-22 10:49 | XMS_ITS | Encounter Summary ---
Author Organization [facility] Address [facility] [place] [address] Care Team Providers Care Electric Tripper Machine Operator Name Role Phone Marely Gonzalez MD Primary Care Provider + [phone] Dorita Paulino MD Unavailable [phone] Duane Graves RN Unavailable Unavailable Sindy Oneill PLATFORM SUPERVISOR Unavailable [phone] Source Comments This information has been disclosed [...] release of HIV test results or diagnoses. [id number] Health Encounter Details Date Type Department Care Team (Late st Contact Info) Description 12/28/2024 Chart Note [facility] Orthopaedics at [facility] [address] [facility] [address] [place] [address] Derrick Morrissey PA 222 [facility] [address] [place] [address] FMLA and STD paperwork has been sent to [employer] and the Social History Tobacco Use Types Packs/Day Years [...] as of this encounter Progress Notes * Cuong Trent - 12/28/2024 2:14 PM EDT FMLA and STD paperwork has been sent to [employer] management and the patient. documented in this encounter Plan of Treatment Upcoming Encounters Date Type Department Care Team (Latest Contact Info) Description 03/30/2025 12:35 PM EST Hospital Encounter [facility] Same Day Surgery [address] [place] [phone] Weston Culp MD [address] [phone] 03/30/2025 12:35 PM EST - 03/30/2025 2:55 PM EST Surgery [facility] Same Day Surgery [address] [place] [phone] Weston Culp MD [address] [phone] RIGHT TOTAL HIP ARTHROPLASTY Scheduled Procedures Name [...] documented as of this encounter Care Teams Electric Tripper Machine Operator Relationship Specialty Start Date End Date Marely Gonzalez MD 1 [facility] [place] [address] PCP - General Family Medicine 06/19/16 Dorita Paulino MD [address] [place] [address] Surgeon Surgical Oncology 10/09/17 Duane Graves, RN Registered Nurse 11/28/17 Sindy Oneill, PLATFORM SUPERVISOR [facility] [facility] [place] [phone] Nurse Practitioner Oncology 12/04/17 documented as of this encounter
--- OUTSIDE RECORDS SUMMARY | 2025-02-22 10:49 | XMS_ITS | Encounter Summary ---
Author Organization [facility] Address [facility] [place] [address] Care Team Providers Care Experimental Plastics Fabricator Name Role Phone Marely Gonzalez MD Primary Care Provider + [phone] Dorita Paulino MD Unavailable [phone] Duane Graves RN Unavailable Unavailable Sindy Oneill STENCIL CUTTER MACHINE Unavailable [phone] Source Comments This information has been disclosed [...] release of HIV test results or diagnoses. [id number] Health Encounter Details Date Type Department Care Team (Late st Contact Info) Description 12/31/2024 Telephone [facility] Orthopaedics at [address] [phone] Venkatesh Cole MD [address] [facility] [address] [place] [address] Social History Tobacco Use Types Packs/Day Years [...] encounter Miscellaneous Notes * Telephone Encounter - Casandra Lopez MA - 12/31/2024 1:16 PM EDT Pt called tried to get the DEXA scan but is not in the system documented in this encounter Plan of Treatment Upcoming Encounters Date Type Department Care Team (Latest Contact Info) Description 03/30/2025 12:35 PM EST Hospital Encounter [facility] Same Day Surgery [address] [place] [phone] Weston Culp MD 222 [facility] [address] [place] [phone] 03/30/2025 12:35 PM EST - 03/30/2025 2:55 PM EST Surgery [facility] Same Day Surgery [address] [place] [phone] Weston Culp MD 222 [facility] [address] [place] [phone] RIGHT TOTAL HIP ARTHROPLASTY Scheduled Procedures Name [...] documented as of this encounter Care Teams Experimental Plastics Fabricator Relationship Specialty Start Date End Date Marely Gonzalez MD 1 [facility] [place] [address] PCP - General Family Medicine 06/19/16 Dorita Paulino MD 1 [facility] [place] [address] Surgeon Surgical Oncology 10/09/17 Duane Graves, NILSON Registered Nurse 11/28/17 Sindy Oneill, NIKKY [address] [place] [address] [place] [phone] Nurse Practitioner Oncology 12/04/17 documented as of this encounter
--- OUTSIDE RECORDS SUMMARY | 2025-02-22 10:49 | XMS_ITS | Encounter Summary ---
Author Organization [facility] Address [address] [place] [address] Care Team Providers Care Parts Professional Name Role Phone Marely Gonzalez MD Primary Care Provider +- [phone] Dorita Paulino MD Unavailable [phone] Duane Graves RN Unavailable Unavailable Sindy Oneill CHIEF RISK OFFICER Unavailable [phone] Source Comments This information has been disclosed [...] release of HIV test results or diagnoses. [id number] Health Encounter Details Date Type Department Care Team (Late st Contact Info) Description 02/08/2025 Orders Only [facility] at [facility] [address] [place] [address] [address] [place] [phone] Serina Tate RN Subchondral insufficiency fracture of femoral condyle, right, initial encounter ([facility]) (Primary Dx) Social History Tobacco Use Types [...] Description 03/30/2025 12:35 PM EST Hospital Encounter [facility] Same Day Surgery [address] [place] [phone] Weston Culp MD 222 [facility] [address] [place] [phone] 03/30/2025 12:35 PM EST - 03/30/2025 2:55 PM EST Surgery [facility] Same Day Surgery [address] [place] [phone] Weston Culp MD 222 [facility] [address] [place] [phone] RIGHT TOTAL HIP ARTHROPLASTY Scheduled Procedures Name Priority Associated Diagnoses Date/Ti me ARTHROPLASTY HIP TOTAL ANTERIOR APPROACH Closed fracture of head of right femur with delayed healing 03/30/2025 12:35 PM EST documented as of this encounter Visit Diagnoses Diagnosis Subchondral insufficiency fracture of femoral condyle, right, initial encounter ([facility])- Primary Closed fracture of head of right femur with delayed healing documented in this encounter Additional Health Concerns Assessment Noted Time PHQ-9 Depression Total Score: 2 11/08/19 18 1:00 PM EDT documented as of this encounter Care Teams Parts Professional Relationship Specialty Start Date End Date Marely Gonzalez MD [address] [facility] [address] [place] [phone] PCP - General Family Medicine 06/19/16 Dorita Paulino MD 1 [facility] [place] [address] Surgeon Surgical Oncology 10/09/17 Duane Graves, NILSON Registered Nurse 11/28/17 Sindy Oneill, CHIEF RISK OFFICER [address] [place] [phone] Nurse Practitioner Oncology 12/04/17 documented as of this encounter
--- OUTSIDE RECORDS SUMMARY | 2025-02-22 10:49 | XMS_ITS | Encounter Summary ---
Author Organization [facility] Address [address] [place] [address] Care Team Providers Care Occ Therapist Name Role Phone Marely Gonzalez MD Primary Care Provider +- [phone] Dorita Paulino MD Unavailable [phone] Duane Graves RN Unavailable Unavailable Sindy Oneill AUTOMATION MECHANIC Unavailable [phone] Source Comments This information has been disclosed [...] release of HIV test results or diagnoses. [id number] Reason for Referral * Imaging/Cardiovascular Scan (Routine) - New Request Specialty Diagnoses / Procedures Referred By Contac t Referred To Contact Radiology Procedures MR Hip Outside Exam System, Provider Not In [address] [address] Referral ID Status Reason Start Date Expiration Date V isits Requested Visits Authorized [id number] New Request 01/06/2025 07/05/2025 1 1 Encounter Details Date Type Department Care Team (Late st Contact Info) Description 12/17/2024 Orders Only EXTERNAL PROV RESULTS [address] [place] [phone] System, Provider Not In Social History Tobacco Use Types Packs/Day Years [...] Description 03/30/2025 12:35 PM EST Hospital Encounter [facility] Same Day Surgery [address] [place] [phone] Weston Culp MD [address] [phone] 03/30/2025 12:35 PM EST - 03/30/2025 2:55 PM EST Surgery [facility] Same Day Surgery [address] [place] [phone] Weston Culp MD 222 [facility] [address] [place] [phone] RIGHT TOTAL HIP ARTHROPLASTY Scheduled Procedures Name Priority Associated Diagnoses Date/Ti me ARTHROPLASTY HIP TOTAL ANTERIOR APPROACH Closed fracture of head of right femur with delayed healing 03/30/2025 12:35 PM EST documented as of this encounter Results * MR Hip Outside [...] documented as of this encounter Care Teams Occ Therapist Relationship Specialty Start Date End Date Marely Gonzalez MD [address] [place] [address] [place] [address] PCP - General Family Medicine 06/19/16 Dorita Paulino MD [address] [place] [address] [address] [place], [place] [phone] Surgeon Surgical Oncology 10/09/17 Duane Graves, NILSON Registered Nurse 11/28/17 Sindy Oneill, NIKKY [address] [place] [address] [place] [phone] Nurse Practitioner Oncology 12/04/17 documented as of this encounter
--- OUTSIDE RECORDS SUMMARY | 2025-02-22 10:49 | XMS_ITS | Encounter Summary ---
Author Organization [facility] Address [address] [place] [address] Care Team Providers Care Family Engagement Specialist Name Role Phone Marely Gonzalez MD Primary Care Provider +- [phone] Dorita Paulino MD Unavailable [phone] Duane Graves RN Unavailable Unavailable Sindy Oneill FREIGHT SERVICE INSPECTOR Unavailable [phone] Source Comments This information has been disclosed [...] release of HIV test results or diagnoses. [id number] Reason for Referral * Imaging/Cardiovascular Scan (Routine) - New Request Specialty Diagnoses / Procedures Referred By Contac t Referred To Contact Radiology Procedures MR Hip Outside Exam System, Provider Not In [address] [address] Referral ID Status Reason Start Date Expiration Date V isits Requested Visits Authorized [id number] New Request 02/01/2025 07/31/2025 1 1 Encounter Details Date Type Department Care Team (Late st Contact Info) Description 12/21/2024 Orders Only EXTERNAL PROV RESULTS [address] [place] [phone] System, Provider Not In Social History Tobacco [...] 03/30/2025 12:35 PM EST Hospital Encounter [facility] Same Day Surgery [address] [place] [phone] Weston Culp MD [address] [phone] 03/30/2025 12:35 PM EST - 03/30/2025 2:55 PM EST Surgery [facility] Same Day Surgery [address] [place] [phone] Weston Culp MD 222 [facility] [address] [place] [phone] RIGHT TOTAL HIP ARTHROPLASTY Scheduled Procedures Name [...] documented as of this encounter Care Teams Family Engagement Specialist Relationship Specialty Start Date End Date Marely Gonzalez MD [address] [place] [address] [place] [address] PCP - General Family Medicine 06/19/16 Dorita Paulino MD [address] [place] [address] [place], [place] [phone] Surgeon Surgical Oncology 10/09/17 Duane Graves, NILSON Registered Nurse 11/28/17 Sindy Oneill, NIKKY [address] [place] [address] [place] [address] Nurse Practitioner Oncology 12/04/17 documented as of this encounter
--- OUTSIDE RECORDS SUMMARY | 2025-02-22 10:49 | XMS_ITS | Encounter Summary ---
Author Organization [facility] Address [address] [place] [address] Care Team Providers Care Derrick Man Name Role Phone Marely Gonzalez MD Primary Care Provider [phone]- [phone] Dorita Paulino MD Unavailable [phone] Duane Graves RN Unavailable Unavailable Sindy Oneill LEATHER FLESHER Unavailable [phone] Source Comments This information has been disclosed [...] release of HIV test results or diagnoses. [id number] Reason for Referral * Therapy (Routine) - New Request Specialty Diagnoses / Procedures Referred By Per t Referred To Contact Physical Therapy Diagnoses Subchondral insufficiency fracture of femoral condyle, right, initial encounter ([facility]) [facility] Orthopaedics at [address] [place] [phone] Phone: tel: fax: Referral ID Status Reason Start Date Expiration Date V isits Requested Visits Authorized [id number] New Request 02/10/2025 08/09/2025 1 1 Scheduling Instructions Dx: Osteonecrosis and Subchondral fx right femoral head. Surgical Procedure: Right Total Hip Replacement, anterior approach, on 03/30/[address] Weston Culp at [facility]. Physical Therapy: Evaluate and treat as indicated by diagnosis-modalities of choice; exercises of choice. FWB status. Goals: Decrease pain and swelling Increase ROJM and flexibility Increase strength and endurance One or two pre op pre hab PT visits. Encounter Details Date Type Department Care Team (Late st Contact Info) Description 02/10/2025 Orders Only [facility] Orthopaedics at [facility] 222 [facility] [address] [place] [phone] Serina Tate RN Subchondral insufficiency fracture of femoral condyle, right, initial encounter ([facility]) (Primary Dx) Social History Tobacco Use Types [...] Description 03/30/2025 12:35 PM EST Hospital Encounter [facility] Same Day Surgery [address] [place] [phone] Weston Culp MD [address] [phone] 03/30/2025 12:35 PM EST - 03/30/2025 2:55 PM EST Surgery [facility] Same Day Surgery [address] [place] [phone] Weston Culp MD [address] [phone] RIGHT TOTAL HIP ARTHROPLASTY Scheduled Procedures Name Priority Associated Diagnoses Date/Ti me ARTHROPLASTY HIP TOTAL ANTERIOR APPROACH Closed fracture of head of right femur with delayed healing 03/30/2025 12:35 PM EST Scheduled Referrals Name Type Priority Associated Diagnoses Orde r Schedule Physical Therapy Outpatient Referral Routine Subchondral insufficiency fracture of femoral condyle, right, initial encounter ([facility]) Ordered: 02/10/2025 documented as of this encounter Visit Diagnoses Diagnosis Subchondral insufficiency fracture of femoral condyle, right, initial encounter ([facility])- Primary Closed fracture of head of right femur with delayed healing documented in this encounter Additional Health Concerns Assessment Noted Time PHQ-9 Depression Total Score: 2 11/08/19 18 1:00 PM EDT documented as of this encounter Care Teams Derrick Man Relationship Specialty Start Date End Date Marely Gonzalez MD 1 [facility] [place] [address] PCP - General Family Medicine 06/19/16 Dorita Paulino MD 1 [facility] [place] [address] Surgeon Surgical Oncology 10/09/17 Duane Graves, NILSON Registered Nurse 11/28/17 Sindy Oneill, LEATHER FLESHER [address] [place] [phone] Nurse Practitioner Oncology 12/04/17 documented as of this encounter
--- OUTSIDE RECORDS SUMMARY | 2025-02-22 10:50 | XMS_ITS | Encounter Summary ---
Author Organization [facility] Address [address] [place], [place] [address] Care Team Providers Care Councilperson Name Role Phone Marely Gonzalez MD Primary Care Provider Alan Villanueva MD Unavailable [phone] Dixie Doss MD Unavailable [phone] Angela Lee Unavailable [phone] Link Flores MD Unavailable [phone] Adamaris Ladd RN Unavailable [phone] Katrina Ruiz MD Unavailable Verenice Luevano RN Unavailable [phone] Encounter Details Date Type Department Care Team (Latest Contact Info) Description 08/28/2018 Preop Surgical Orders [facility] Physicians - Obstetrics & Gynecology, [place] [address] [place] [address] Dixie Doss MD [address] [place] [address] Prolapse of posterior vaginal wall; Female stress incontinence; Sterilization consult Social History Tobacco Use Types Packs/Day Years Used Date Smoking Tobacco: Former Cigarettes 0.5 12.7 S tarted: 06/02/2012 Smokeless Tobacco: Never Alcohol Use Standard Drinks/Week Comments No 0 (1 standard drink = 0.6 oz pur e alcohol) Comments No Sex and Gender Information Value Date Recorded Sex Assigned at Not on file Legal Sex Female 7:15 PM EST Gender Identity Not on file Sexual Orientation Not on file 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 file Not on file Not on file documented as of this encounter Plan of Treatment Not on file documented as of this encounter Results * CBC (COMPLETE BLOOD COUNT) (09/12/2018 2:25 PM EDT) WBC 7.7 3.8 - 10.8 10*3/uL [facility] RBC 4.23 3.80 - 5.10 10*6/uL [facility] Hemoglobin 13.6 11.7 - 15.5 g/dL [facility] Hematocrit Blood 39.4 35.0 - 45.0 % [facility] MCV 93.1 80.0 - 100.0 fL [facility] MCH 32.2 27.0 - 33.0 pg [facility] MCHC 34.6 32.0 - 36.0 g/dL [facility] RDW 13.1 11.0 - 15.0 % [facility] Platelets 259 140 - 400 10*3/uL [facility] MPV 9.0 7.5 - 11.5 fL [facility] Whole Blood (Blood) 09/12/2018 2:25 PM EDT 09/12/2018 2:22 PM EDT us Dixie Doss MD HEMATOLOGY ORDERABLES Fin al Result Performing Organization Address City/State/[facility] de Phone Number [facility] [address] documented in this encounter Visit Diagnoses Diagnosis Prolapse of posterior vaginal wall Unspecified prolapse of vaginal kruger Female stress incontinence Sterilization consult Other general counseling and advice for contraceptive management documented in this encounter Care Teams Councilperson Relationship Specialty Start Date End Date Marely Gonzalez MD PCP - General Family Medicine 03/01/22 Alan Villanueva MD Family Medicine 05/31/14 Dixie Doss MD [address] [facility] [place] [address] [place] [address] Obstetrics & Gynecology 07/26/20 Angela Lee PA [address] [facility] [address] [place] [address] [phone] Physician Human Resources Trainee Urology 10/28/20 Link Flores MD [address] [facility] [place] [address] [phone] Female Pelvic Medicine and Reconstructive Surgery 12/12/20 Adamaris Ladd RN [address] [place] [address] Registered Nurse 12/28/20 Katrina Ruiz MD [address] [place] [address] Resident Obstetrics & Gynecology 03/01/21 Verenice Luevano RN [address] [place] [address] Registered Nurse 03/01/21 documented as of this encounter
--- OUTSIDE RECORDS SUMMARY | 2025-02-22 10:50 | XMS_ITS | Encounter Summary ---
Author Organization [facility] Address [address] [place] [address] Care Team Providers Care Line Out Worker Name Role Phone Marely Gonzalez MD Primary Care Provider +- [phone] Dorita Paulino MD Unavailable [phone] Duane Graves RN Unavailable Unavailable Sindy Oneill ENTRY DRIVER OPERATOR Unavailable [phone] Source Comments This information has been disclosed [...] release of HIV test results or diagnoses. [id number] Health Encounter Details Date Type Department Care Team (Late st Contact Info) Description 02/15/2025 Chart Note [facility] at [place] [facility] [address] [place] [address] [address] [place] [phone] Serina Tate RN Faxed pre op PT pre hab Rx to [facility] main PT fax line at Social History Tobacco Use Types Packs/Day Years [...] as of this encounter Progress Notes * Serina Tate RN - 02/15/2025 9:04 AM EST Faxed pre op PT pre hab Rx to [facility] main PT fax line at [phone]. Confirmation received. documented in this encounter Plan of Treatment Upcoming Encounters Date Type Department Care Team (Latest Contact Info) Description 03/30/2025 12:35 PM EST Hospital Encounter [facility] Same Day Surgery [address] [place] [phone] Weston Culp MD 222 [facility] [address] [place] [phone] 03/30/2025 12:35 PM EST - 03/30/2025 2:55 PM EST Surgery [facility] Same Day Surgery [address] [place] [phone] Weston Culp MD [address] [phone] RIGHT TOTAL HIP ARTHROPLASTY Scheduled Procedures [...] documented as of this encounter Care Teams Line Out Worker Relationship Specialty Start Date End Date Marely Gonzalez MD 1 [facility] [place] [address] PCP - General Family Medicine 06/19/16 Dorita Paulino MD 1 [facility] [place] [address] Surgeon Surgical Oncology 10/09/17 Duane Graves, NILSON Registered Nurse 11/28/17 Sindy Oneill, ENTRY DRIVER OPERATOR [facility] [place] [phone] Nurse Practitioner Oncology 12/04/17 documented as of this encounter
--- OUTSIDE RECORDS SUMMARY | 2025-02-22 10:50 | XMS_ITS | Encounter Summary ---
Author Organization [place] [address] Care Team Providers Care Forest Fire Prevention Specialist Name Role Phone Go Campos MD Unavailable [phone] Marely Gonzalez MD Primary Care Provider + Flavio Arreguin MD Unavailable [phone] Encounter Details Date Type Department Care Team (Late st Contact Info) Description 01/24/2018 Lab Requisition [facility] [place] [address] Maggi Crouch, PROFESSIONAL FIGHTER [address] [place], [place] [phone] Encounter for general adult medical examination without [...] of Assessment Author No 07/12/2017 9:23 AM EDNereyda Wharton MA * Is the person blind or does he/she have serious difficulty seeing even when wearing glasses? Answer Date of Assessment Author No 07/12/2017 9:23 AM Nereyda Rhodes MA * Does this person have serious difficulty walking or climbing stairs? Answer Date of Assessment Author No 07/12/2017 9:23 AM Nereyda Rhodes MA * Does this person have difficulty [...] 03/03/2025 9:20 AM EST Office Visit [facility] [address] [facility] [address] [place] [phone] Katherine Silverman PA-C [address] [address] documented as of this encounter [...] general adult medical examination without abnormal findings MASTER WELDER CYTOLOGY REQUEST (PAP ONLY) Routine 01/22/2018 12:00 PM EDT Encounter for general adult medical examination without abnormal findings documented in this encounter Results * HPV HIGH RISK (01/24/2018 12:06 PM EDT) HPV HR Not Detected Not Detected 01/26/2018 11:17 AM EDT [facility] Thin Prep SPECIMEN FROM UTERINE CERVIX / Unknown 01/24/2018 12:06 PM EDT 01/24/2018 3:06 PM EDT Narrative [facility] - 01/26/2018 11:17 AM EDT This test [...] MICROBIOLOGY - GENERAL ORDER ROBERTO Final Result [facility] [address] [facility] , [place] [address] * MASTER WELDER CYTOLOGY REQUEST (PAP ONLY) (01/22/2018 12:00 PM EDT) CASE REPORT Gynecologic Cytology Report Case: [id number] Authorizing Provider: Maggi Crouch APRN Collected: 01/22/2018 1200 First Screen: Stacey Lindo CT Received: 01/25/2018 0905 Specimen: LIQUID-BASED PAP - CERVICAL/ENDOCERV ICAL, Cervix, Endocervical 01/28/2018 3:09 PM EDT [facility] PAP FINAL DIAGNOSIS Negative for intraepithelial lesion or malignancy 01/28/2018 3:09 PM EDT [facility] at 1509 EDT MICROSCOPIC DESCRIPTION Microscopic examination is performed and the findings corroborate the diagnosis. 01/28/2018 3:09 PM EDT [facility] PAP SMEAR ADEQUACY Satisfactory for evaluation 01/28/2018 3:09 PM EDT [facility] PAP ORGANISMS NOTED Fungal organisms present consistent with hailey. 01/28/2018 3:09 PM EDT [facility] ENDOCERVICAL T-ZONE Transformation zone present 01/28/2018 3:09 PM EDT [facility] EMBEDDED IMAGES 8 3:09 PM EDT [facility] PAP DISCLAIMER The Pap Smear is a screening test that aids in the detection of cervical cancer and cancer precursors. Both false positive and false negative results can occur. The test should be used at regular intervals, and positive results should be confirmed before definitive therapy. Processed using the ThinPrep Social Research Assistant Automated cytology screening device (MoSo). 01/28/2018 3:09 PM EDT [facility] Thin Prep ENDOCERVICAL STRUCTURE / Unknown 01/22/2018 12:00 PM EDT 01/25/2018 9:05 AM EDT us Maggi Crouch PROFESSIONAL FIGHTER CYTOLOGY ORDERABLES Final Re sult [place] [phone] documented in this encounter Visit Diagnoses Diagnosis [...] PM EST R/O COVID-19 04/11/2022 04/11/2022 04/11/2022 7:4 9 AM EST R/O COVID-19 04/21/2022 04/21/2022 04/21/2022 3:55 PM EST COVID-19 03/20/2023 03/20/2023 04/09/2023 10:1 2 PM EST INFLUENZA 01/15/2024 01/15/2024 01/29/2024 10:1 3 PM EDT INFLUENZA 02/26/2024 02/26/2024 03/11/2024 10:1 2 PM EST COVID-19 03/20/2024 03/20/2024 04/09/2024 10:1 3 PM EST COVID-19 06/04/2024 06/04/2024 06/24/2024 10:1 2 PM EDT Assessment Noted Time PHQ-9 Depression Total Score: 2 07/13/19 18 9:23 AM EDT PHQ-2 Depression Total Score: 2 07/13/19 18 9:23 AM EDT documented as of this encounter Care Teams Forest Fire Prevention Specialist Relationship Specialty Start Date End Date Go Campos MD [address] [place] [address] PCP - OBGYN Obstetrics & Gynecology 06/02/11 Marely Gonzalez MD [address] [place] [address] PCP - General Family Medicine 01/07/13 Flavio Arreguin MD [address] [place] [phone] Pain Medicine-Pain Medicine 10/20/21 documented as of this encounter
--- OUTSIDE RECORDS SUMMARY | 2025-02-22 10:50 | XMS_ITS | Encounter Summary ---
Author Organization [facility] Address [address] [place] [address] Care Team Providers Care Electrical Tester Battery Name Role Phone Marely Gonzalez MD Primary Care Provider + [phone] Dorita Paulino MD Unavailable [phone] Duane Graves RN Unavailable Unavailable Sindy Oneill KINDERGARTEN TEACHER Unavailable [phone] Source Comments This information has been disclosed [...] release of HIV test results or diagnoses. [id number] Health Encounter Details Date Type Department Care Team (Late st Contact Info) Description 01/22/2025 Telephone [facility] Orthopaedics at [address] [place] [address] Venkatesh Cole MD [address] [facility] [address] [place] [address] Social History Tobacco Use Types [...] encounter Miscellaneous Notes * Telephone Encounter - Ariana Gunter MA - 01/22/2025 3:28 PM EDT The following message was sent to me via the escalated call line. Please call the patient to advise. Landy Arizmendi said she had faxed FMLA/ADA paperwork last week to be filled out ([employer]), as well as yesterday and its due Saturday (01/25). She also wants her MRI to go to [email or web address] (order from today 01/22) and I could not get ahold of [facility]. The [employer] [facility] fax is [phone]. Thank you. Jeet number is [phone]. documented in this encounter Plan of Treatment Upcoming Encounters Date Type Department Care Team (Latest Contact Info) Description 03/30/2025 12:35 PM EST Hospital Encounter [facility] Same Day Surgery [address] [place] [phone] Weston Culp MD [address] [place] [phone] 03/30/2025 12:35 PM EST - 03/30/2025 2:55 PM EST Surgery [facility] Same Day Surgery [address] [place] [phone] Weston Culp MD [address] [place] [phone] RIGHT TOTAL HIP ARTHROPLASTY Scheduled Procedures Name [...] as of this encounter Care Teams Electrical Tester Battery Relationship Specialty Start Date End Date Marely Gonzalez MD 1 [facility] [place] [id number] PCP - General Family Medicine 06/19/16 Dorita Paulino MD 1 [facility] [place] [id number] Surgeon Surgical Oncology 10/09/17 Duane Graves, NILSON Registered Nurse 11/28/17 Sindy Oneill, KINDERGARTEN TEACHER [address] [place] [address] [place] [phone] Nurse Practitioner Oncology 12/04/17 documented as of this encounter
--- OUTSIDE RECORDS SUMMARY | 2025-02-22 10:50 | XMS_ITS | Encounter Summary ---
Author Organization [facility] Address [address] [place] [address] Care Team Providers Care Rice Dryer Mechanic Name Role Phone Marely Gonzalez MD Primary Care Provider + [phone] Dorita Paulino MD Unavailable [phone] Duane Graves RN Unavailable Unavailable Sindy Oneill ORANGE PICKER Unavailable [phone] Source Comments This information has been disclosed [...] release of HIV test results or diagnoses. [id number] Health Encounter Details Date Type Department Care Team (Latest Contact Info) Description 01/22/2025 Results Follow-Up [facility] Orthopaedics at [place] [facility] [address] [facility] [address] [place] [address] Cailin Brumfield PA 222 [facility] [address] [place] [address] Comprehensive metabolic panel, Vitamin D 25 hydroxy, TSH (Thyroid Stimulating Hormone), T4, free Social History Tobacco Use Types Packs/Day Years [...] Description 03/30/2025 12:35 PM EST Hospital Encounter [facility] Same Day Surgery [address] [place] [phone] Weston Culp MD 222 [facility] [address] [place] [phone] 03/30/2025 12:35 PM EST - 03/30/2025 2:55 PM EST Surgery [facility] Same Day Surgery [address] [place] [phone] Weston Culp MD 222 [facility] [address] [place] [phone] RIGHT TOTAL HIP ARTHROPLASTY Scheduled Procedures [...] documented as of this encounter Care Teams Rice Dryer Mechanic Relationship Specialty Start Date End Date Marely Gonzalez MD [address] [facility] [place] [address] PCP - General Family Medicine 06/19/16 Dorita Paulino MD [address] [facility] [place] [address] Surgeon Surgical Oncology 10/09/17 Duane Graves, NILSON Registered Nurse 11/28/17 Sindy Oneill, ORANGE PICKER [address] [place] [phone] Nurse Practitioner Oncology 12/04/17 documented as of this encounter
--- OUTSIDE RECORDS SUMMARY | 2025-02-22 10:50 | XMS_ITS | Clinical Summary ---
Author Organization [facility] Address [address] [place] [address] Phone Care Team Providers Care Guest Relations Manager Name Role Phone Go Campos MD Unavailable Marely Gonzalez MD Primary Care Provider + Flavio Arregiun MD Unavailable [phone] Allergies Active Allergy Reactions Criticality Noted [...] represent a complete record from that organization. busPIRone (BUSPAR) 10 mg Oral TabletIndication s:Generalized anxiety disorder Take 1 Tablet by mouth 3 times daily as needed for anxiety. 90 Tablet 1 3 Active oxyCODONE-acetam inophen (PERCOCET) 7.5-325 mg Oral Tablet TAKE 1 TABLET BY MOUTH 4 TIMES DAILY FOR 30 DAYS. DNF UNTIL 05/29/24 5 Active pantoprazole (PROTONIX) 40 mg Oral Tablet, Delayed Release (E.C.)Indication s:Epigastric abdominal pain,Acute superficial gastritis without hemorrhage Take 1 Tablet by mouth daily. 90 Tablet 1 5 Active sucralfate (CARAFATE) 100 mg/mL Oral Suspension Take 10 mL by mouth 3 times daily as needed. 414 mL 5 Active amLODIPine (NORVASC) 5 mg Oral TabletIndication s:Essential hypertension Take 1 Tablet by mouth daily. 90 Tablet 1 5 Active ergocalciferol (VITAMIN D) 1,250 mcg (50,000 unit) Oral CapsuleIndicatio ns:Vitamin D deficiency Take 1 Capsule by mouth once a week. 4 Capsule 2 5 Active azelastine (ASTELIN) 137 mcg (0.1 %) Nasl Castana, Non-AerosolIndic ations:PND (post-nasal drip) 2 Sprays in each nostril 2 times daily. Use in each nostril as directed 30 mL 11 5 Active cetirizine (ZYRTEC) 10 mg Oral TabletIndication s:PND (post-nasal drip) Take 1 Tablet by mouth daily. 30 Tablet 2 5 Active clotrimazole (MYCELEX) 10 mg MM TrocheIndication s:Thrush of mouth and esophagus (HCC) Take 1 Tablet by mouth 5 times daily for 10 days. 50 Tablet 5 025 Active progesterone (PROMETRIUM) 200 mg Oral Capsule 2 025 Discontinu ed(DELETE- Therapy completed) valACYclovir (VALTREX) 500 mg Oral TabletIndication s:Recurrent cold sores Take 1 Tablet by mouth daily. 90 Tablet 1 3 025 Discontinu ed(DELETE- Therapy completed) fish oil OTC (OMEGA-3 DHA-EPA 300 MG) 300-1,000 mg Oral Capsule, Delayed Release(E.C.)Ind ications:Sjogren 's syndrome, with unspecified organ involvement Take 2 g by mouth daily. 025 Discontinu ed(DELETE- Therapy completed) ergocalciferol (VITAMIN D) 1,250 mcg (50,000 unit) Oral CapsuleIndicatio ns:Vitamin D deficiency Take 1 Capsule by mouth once a week. 4 Capsule 2 4 025 Discontinu ed(Reorder ) ondansetron (ZOFRAN-ODT) 4 mg Oral Tablet, Rapid DissolveIndicati ons:Flu-like symptoms Take 1 Tablet by mouth every 6 hours as needed for Nausea. 30 Tablet 5 025 Discontinu ed(DELETE- Therapy completed) mupirocin (BACTROBAN) 2 % Top OintmentIndicati ons:Nasal sore Apply topically 3 times daily. 15 g 5 025 Discontinu ed(DELETE- Therapy completed) olmesartan-hydro chlorothiazide (BENICAR HCT) 40-25 mg Oral TabletIndication s:Essential hypertension Take 1 Tablet by mouth daily. 90 Tablet 1 5 025 Discontinu ed(DELETE- Therapy completed) Brompheniramine- Pseudoeph-DM 2-30-10 mg/5 mL Oral Syrup Take 5 mL by mouth nightly as needed for Other (cough). 118 mL 5 025 Discontinu ed(Reorder ) nystatin (MYCOSTATIN) 100,000 unit/mL Oral SuspensionIndica tions:Thrush, oral Take 5 mL by mouth 4 times daily for 14 days. 280 mL 5 025 benzonatate (TESSALON) 200 mg Oral CapsuleIndicatio ns:Viral URI with cough Take 1 Capsule by mouth 3 times daily as needed for Cough for up to 10 days. 30 Capsule 5 025 Brompheniramine- Pseudoeph-DM 2-30-10 mg/5 mL Oral SyrupIndications :Viral URI with cough Take 5 mL by mouth nightly as needed for Other (cough). 118 mL 10/24 025 Discontinu ed(DELETE- Therapy completed) Active Problems Patient Care Coordination No te [...] hip 11/18/2023 Overweight 11/18/2023 Chronic pain 11/18/2023 Assessment & Plan (01/01/2025 8:25 PM EDT): Goals: - maintain lowest amount of pain medication to manage ADLs comfortably - sees Pain management Orders: AMB REFERRAL TO RHEUMATOLOGY half-way (current) use of opiate analgesic 09/2022 Assessment & Plan (01/01/2025 8:25 PM EDT): Orders: AMB REFERRAL TO RHEUMATOLOGY Displacement of lumbar inter vertebral disc without myelopathy 02/07/2022 Fibromyalgia 02/07/2022 Assessment & Plan (01/01/2025 8:25 PM EDT): Orders: AMB REFERRAL TO RHEUMATOLOGY Assessment & Plan (09/09/2024 1:00 PM EDT): [...] (03/20/2023): Added automatically from request for surgery [id number] Vitamin D deficiency 02/28/2018 Assessment & Plan (02/16/2025 11:31 AM EST): Orders: ergocalciferol (VITAMIN D) 1,250 mcg (50,000 unit) Oral Capsule; Take 1 Capsule by mouth once a week. Assessment & Plan (01/16/2024 4:15 PM EDT): Orders: ergocalciferol (VITAMIN D) 1,250 mcg (50,000 unit) Oral Capsule; Take 1 Capsule by mouth once a week. Sjogren's syndrome 09/03/2016 Assessment & Plan (01/01/2025 8:25 PM EDT): Orders: AMB REFERRAL TO RHEUMATOLOGY Assessment & Plan (09/09/2024 1:00 PM EDT): Orders: COMPREHENSIVE METABOLIC PANEL; Future CBC WITH DIFF; Future methylPREDNISolone acetate (DEPO-Medrol) injection 80 mg URINALYSIS; Future labs ordered Recommend to follow up with Rheum- discussed the importance of seeing a sweatband maker to control symptoms Assessment & Plan (01/16/2024 [...] Add on klonopin prn D/W pt not fci medicine Increase zoloft to 100mg daily Resolved [...] Date Type Department Care Team Description 02/16/2025 10:40 AM EST Office Visit [facility] [address] [facility] [address] [place] [address] Marely Gonzalez MD Thrush of mouth and esophagus (HCC) (Primary Dx); Vitamin D deficiency; Acute cough; Sore throat; PND (post-nasal drip) 02/15/2025 Telephone [facility] [address] [address] Marely Gonzalez MD Appointment Needed (My chart video visit ) 02/05/2025 1:20 PM EDT Telemedicine [facility] [address] [address] Marely Gonzalez MD Viral URI with cough (Primary Dx) 02/05/2025 Travel 01/09/2025 3:15 PM EDT Telemedicine [facility] Video Visits [address] [place] [address] Ninfa Taylor APRN Thrush, oral (Primary Dx) 01/09/2025 Travel 01/09/2025 Nurse Triage [facility] Nurse Now [address] [place] [address] [phone] RN 12/30/2024 8:30 AM EDT Office Visit [facility] [address] [address] Derrick Cline APRN Sjogren syndrome with inflammatory arthritis (Primary Dx); Fibromyalgia; seamer (current) use of opiate analgesic; Chronic pain syndrome; Acute cough; Acute bacterial sinusitis; Right hip pain 12/15/2024 Telephone [facility] [address] [address] Marely Gonzalez MD Other (CT of the head is approved [id number]) 12/11/2024 2:17 PM EDT - 12/11/2024 11:59 PM EDT Hospital Encounter [facility] [place] [facility] [address] [place] [address] Katherine Silverman PA-C Dizziness; Nonintractable headache, unspecified chronicity pattern, unspecified headache type Discharge Disposition: Home or Self Care 12/11/2024 11:20 AM EDT Office Visit [facility] [address] [address] Katherine Silverman PA-C Dizziness (Primary Dx); Nonintractable headache, unspecified chronicity pattern, unspecified headache type; Essential hypertension 12/11/2024 Results Follow-Up [facility] [address] [facility] [address] [place] [phone] Katherine Silverman PA-C CT HEAD WO CONTRAST 12/03/2024 11:06 AM EDT - 12/03/2024 1:22 PM EDT [facility] [address] [place] [address] Miah Waters MD Right hip pain (Primary Dx) Discharge Disposition: Home or Self Care 12/03/2024 Travel 11/30/2024 Nurse Triage [facility] [address] [facility] [address] [place] [phone] Marely Gonzalez MD from Last 3 Months Immunizations Immunization Administration [...] Multiple Livin g Live Births 6 4 4 1 1 4 4 Date Outcome GA Total Labor Labor/2nd/3rd Weight Sex Type Anes PTL Gabriela A1 A5 Name Clin Comments:System Genera robert. Please review and update details. 1992 Term 41w 0d 7 lb 12 oz (3.515 kg) F Vag-Sp ont None Livin g Mica Delivery Location:[facility] 1994 Term 42w 0d 8 lb 5 oz (3.771 kg) F Vag-Sp ont None Livin g Victo minnie Delivery Location:[facility] 2000 Term 38w 0d 6 lb (2.722 kg) M CS-LTr anv Spinal Livin g Austi n Complications:Placenta Previ a Delivery Location:[facility] Comments:complete prev ia 2012 Term 39w 0d 6 lb 5 oz (2.863 kg) F Epidur al N Livin g 9 [facility] Location:[place] [address] SAB 8w0 d OTHER Last Filed Vital Signs Vital Sign Reading [...] Mass Index 39.55 02/16/2025 10:55 AM EST Plan of Treatment Upcoming Encounters Date Type Department Care Team (Late st Contact Info) Description 03/03/2025 9:20 AM EST Office Visit [facility] [address] [facility] [address] [place] [address] Katherine Silverman PA-C [address] [place] [address] [place] [address] Health Maintenance Due Date Last Done Comments [...] 09/13/2022 09/13/2012, 03/15/1992 COVID-19 Vaccine ( - 2024- season) 2024 12/02/2020, 11/11/2020 Influenza Vaccine (#1) 2024 , 05/14/2019, 11/06/2018, Additional history exists Meningococcal B Vaccine Aged Out No l onger eligible based on patient's age to complete this topic Goals Goal Patient Goal Type Associated Problems Recent Progress Patient-Stated? Author Maintain a healthy diet, exercise regularly and maintain an ideal body weight General No Bernie oHoks MA Stay Tobacco Free Lifestyle No Bernie Hooks MA Procedures Procedure Name Priority Date/Time Associated Diagnosis Comments POCT CEPHEID SARS COV-2 RNA + FLU A/B + RSV Routine 02/16/2025 11:26 AM EST Acute cough POCT CEPHEID STREP A DNA Routine 02/16/2025 11:13 AM EST Sore throat CT HEAD WO CONTRAST STAT 12/11/2024 2 :36 PM EDT Dizziness Nonintractable headache, unspecified chronicity pattern, unspecified headache type XR HIP RIGHT AP LATERAL W AP PELVIS INGRID 12/03/2024 11:31 AM EDT from Last 3 Months Results * POCT CEPHEID SARS COV-2 RNA [...] ORDER ROBERTO Final Result SEP OFFICE * CT HEAD WO CONTRAST (12/11/2024 2:36 PM EDT) Anatomical Region Laterality Modality Head Computed Tomogra phy 12/11/2024 2:36 PM EDT Impressions 12/11/2024 2:56 PM EDT No acute intracranial abnormality. - Note: Radiology results need to be interpreted within a comprehensive clinical context. If you have questions about the radiology report, please contact the office of the ordering clinician. Narrative 12/11/2024 2:[address] HEAD WO CONTRAST 12/11/2024 2:36 PM CLINICAL HISTORY: G24-Lrxwzadsp and [id number]-MUE-71-CM R51.9-Headache, [id number]-98-CM. COMPARISON: 11/09/2024 PROCEDURE COMMENTS: Routine noncontrast head CT with multiplanar reconstructions. Dose 1 : CT DLP Total : 765.07 mGycm DLP Spiral Max : 759.16 mGycm Maximum CTDI Vol : 48.38 mGy FINDINGS: Ventricular size and configuration normal. No evidence of acute stroke, mass, or hemorrhage. No evidence of fracture or extra-axial collection. Included paranasal sinuses, mastoids, and orbits unremarkable. Procedure Note Wilberto Taylor MD - 12/11/2024 CT HEAD WO CONTRAST 12/11/2024 2:36 PM CLINICAL HISTORY: L85-Uvxwwcgaz and auwpjrbyk-BHD-43-CM R51.9-Headache, ebhvqoxwehx-ENE-27-CM. COMPARISON: 11/09/2024 PROCEDURE COMMENTS: Routine noncontrast head CT with multiplanar reconstructions. Dose 1 : CT DLP Total : 765.07 mGycm DLP Spiral Max : 759.16 mGycm Maximum CTDI Vol : 48.38 mGy FINDINGS: Ventricular size and configuration normal. No evidence of acute stroke,mass, or hemorrhage. No evidence of fracture or extra-axial collection. Included paranasal sinuses, mastoids, and orbits unremarkable. IMPRESSION: No acute intracranial abnormality. - Note: Radiology results need to be interpreted within a comprehensiveclinical context. If you have questions about the radiology report, please contactthe office of the ordering clinician. us Katherine Silverman PA-C IMG CT ORDERABLES Fi nal Result * XR HIP RIGHT AP LATERAL W AP PELVIS (12/03/2024 11:31 AM EDT) Anatomical Region Laterality Modality Hip Radiographic Hilda ging 12/03/2024 11:3 1 AM EDT Impressions 12/03/2024 11:44 AM EDT No acute abnormality of the hip or pelvis. - Note: Radiology results need to be interpreted within a comprehensive clinical context. If you have questions about the radiology report, please contact the office of the ordering clinician. Narrative 12/03/2024 11:44 AM EDT XR HIP RIGHT AP LATERAL W AP PELVIS, 12/03/2024 11:31 AM CLINICAL HISTORY: -Pain COMPARISON: 10/25/2021 PROCEDURE COMMENTS: AP view of the pelvis with AP and frog-leg views of the hip. FINDINGS: Bony structure of the pelvis and hips intact. No acute fracture or dislocation. Joint spaces overall well-maintained for age. No periostitis. Procedure Note Juvenal Andre MD - 12/03/2024 XR HIP RIGHT AP LATERAL W AP PELVIS, 12/03/2024 11:31 AM CLINICAL HISTORY: -Pain COMPARISON: 10/25/2021 PROCEDURE COMMENTS: AP view of the pelvis with AP and frog-leg views ofthe hip. FINDINGS: Bony structure of the pelvis and hips intact. No acute fracture ordislocation. Joint spaces overall well-maintained for age. No periostitis. IMPRESSION: No acute abnormality of the hip or pelvis. - Note: Radiology results need to be interpreted within a comprehensiveclinical context. If you have questions about the radiology report, please contactthe office of the ordering clinician. Miah Waters MD IMG DIAGNOSTIC IMAGING ORDCrow RODRIGUEZ Final Result from Last 3 Months Insurance [facility] [place] [address] [employer] [facility] [place] [address] Advance Directives For more information, please contact: [phone] * Full Code (Latest Code Status on File) Date Activated Date Inactivated Comments 05/14/2014 11:26 PM 05/15/2014 9:48 PM * Full Code Date Activated Date Inactivated Comments 09/19/2012 7:03 PM 09/21/2012 9:13 PM Care Teams Guest Relations Manager Relationship Specialty Start Date End Date Go Campos MD [address] [place] [address] PCP - OBGYN Obstetrics & Gynecology 06/02/11 Marely Gonzalez MD [address] [place] [address] PCP - General Family Medicine 01/07/13 Flavio Arreguin MD [address] [place] [address] Pain Medicine-Pain Medicine 10/20/21
--- OUTSIDE RECORDS SUMMARY | 2025-02-22 10:50 | XMS_ITS | Encounter Summary ---
Author Organization [facility] Address [address] [place] [address] Care Team Providers Care Tire Building Supervisor Name Role Phone Marely Gonzalez MD Primary Care Provider + [phone] Dorita Paulino MD Unavailable [phone] Duane Graves RN Unavailable Unavailable Sindy Oneill PURCHASE ORDER CHECKER Unavailable [phone] Source Comments This information has been disclosed [...] release of HIV test results or diagnoses. [id number] Reason for Referral * Support Services (Routine) - No Authorization Required Specialty Diagnoses / Procedures Referred By Contact Referred To Contact Pre-Admission Testing Diagnoses Primary osteoarthritis of right hip Weston Culp MD [address] [place] [address] [place] [phone] Phone: tel:[phone] fax:[phone] [facility] [address] [place] [phone] Phone: tel: fax: Referral ID Status Reason Start Date Expiration Date Visits Requested Visits Authorized [id number] No Authorization Required 02/16/2025 08/15/2025 1 1 * Surgical (Routine) - New Request Specialty Diagnoses / Procedures Referred By Per iraheta Referred To Contact Surgery Diagnoses Primary osteoarthritis of right hip Procedures Case request operating room: RIGHT TOTAL HIP ARTHROPLASTY Weston Culp MD [address] [facility] [address] [place] [phone] Phone: tel: fax: Referral ID Status Reason Start Date Expiration Date V isits Requested Visits Authorized [id number] New Request 02/16/2025 08/15/2025 1 1 Encounter Details Date Type Department Care Team (Late st Contact Info) Description 02/16/2025 Orders Only [facility] Orthopaedics at [facility] [address] [place] [address] [place] [phone] Weston Culp MD [address] [place] [phone] Primary osteoarthritis of right hip (Primary Dx) Social History Tobacco Use Types [...] Description 03/30/2025 12:35 PM EST Hospital Encounter [facility] [address] [place] [address] Weston Culp MD [address] [facility] [facility] [address] [place] [phone] 03/30/2025 12:35 PM EST - 03/30/2025 2:55 PM EST Surgery [facility] [address] [place] [address] Weston Culp MD [address] [phone] RIGHT TOTAL HIP ARTHROPLASTY Scheduled Orders Name Type Priority Associated Diagnoses Orde r Schedule Basic metabolic panel Lab Routine Primary osteoarthritis of right hip 1 Occurrences starting 02/16/2025 until 08/31/2025 ABO/Rh Blood Bank Routine Primary osteoarthritis of right hip 1 Occurrences starting 02/16/2025 until 02/16/2026 Antibody screen Blood Bank Routine Primary osteoarthritis of right hip 1 Occurrences starting 02/16/2025 until 02/16/2026 CBC Lab Routine Primary osteoarthritis of right hip 1 Occurrences starting 02/16/2025 until 08/31/2025 Differential Lab Routine Primary osteoarthritis of right hip 1 Occurrences starting 02/16/2025 until 08/31/2025 MRSA/Staph Aureus DNA-Screen Only Microbiology Routine Primary osteoarthritis of right hip 1 Occurrences starting 02/16/2025 until 02/16/2026 Protime-INR Lab Routine Primary osteoarthritis of right hip 1 Occurrences starting 02/16/2025 until 08/31/2025 APTT, No Anticoagulant Lab Routine Primary osteoarthritis of right hip 1 Occurrences starting 02/16/2025 until 08/31/2025 Scheduled Procedures Name Priority Associated Diagnoses Date/Ti me ARTHROPLASTY HIP TOTAL ANTERIOR APPROACH Closed fracture of head of right femur with delayed healing 03/30/2025 12:35 PM EST Scheduled Referrals Name Type Priority Associated Diagnoses Orde r Schedule [facility] visit with PA/CAR WORKER HELPER for H&P Outpatient Referral Routine Primary osteoarthritis of right hip Ordered: 02/16/2025 documented as of this encounter Visit Diagnoses Diagnosis Primary osteoarthritis of right hip- Primary Closed fracture of head of right femur with delayed healing documented in this encounter Additional Health Concerns Assessment Noted Time PHQ-9 Depression Total Score: 2 11/08/19 18 1:00 PM EDT documented as of this encounter Care Teams Tire Building Supervisor Relationship Specialty Start Date End Date Marely Gonzalez MD [address] [facility] [address] PCP - General Family Medicine 06/19/16 Dorita Paulino MD [address] [place] [address] PHILLIP Alexis [address] Surgeon Surgical Oncology 10/09/17 Duane Graves, NILSON Registered Nurse 11/28/17 Sindy Oneill, PURCHASE ORDER CHECKER [address] [place] [address] [place] [address] Nurse Practitioner Oncology 12/04/17 documented as of this encounter
--- OUTSIDE RECORDS SUMMARY | 2025-02-22 10:50 | XMS_ITS | Encounter Summary ---
Author Organization [facility] [place] [address] Care Team Providers Care Ux Ui Designer Name Role Phone Go Campos MD Unavailable [phone] Marely Gonzalez MD Primary Care Provider + Flavio Arreguin MD Unavailable Encounter Details Date Type Department Care Team (Latest Contact Info) Description 02/05/2025 Travel Social History Tobacco Use Types Packs/Day [...] 03/03/2025 9:20 AM EST Office Visit [facility] [address] [facility] [address] [place] [phone] Katherine Silverman PA-C [address] [facility] [address] [place] [address] documented as of this encounter Goals Goal Patient Goal Type Associated Problems Recent Progress Patient-Stated? Author Maintain a healthy diet, exercise regularly and maintain an ideal body weight General No Bernie Hooks MA Stay Tobacco Free Lifestyle No Bernie Hooks MA documented as of this encounter Visit Diagnoses Not on filedocumented in this encounter Care Teams Ux Ui Designer Relationship Specialty Start Date End Date Go Campos MD [address] [place] [address] PCP - OBGYN Obstetrics & Gynecology 06/02/11 Marely Gonzalez MD [address] [place] [address] PCP - General Family Medicine 01/07/13 Flavio Arreguin MD [address] [place] [address] Pain Medicine-Pain Medicine 10/20/21 documented as of this encounter
--- OUTSIDE RECORDS SUMMARY | 2025-02-22 10:50 | XMS_ITS | Encounter Summary ---
Author Organization [facility] Address [address] [place], [place] [address] Care Team Providers Care Research And Development Scientist Name Role Phone Marely Gonzalez MD Primary Care Provider Alan Villanueva MD Unavailable [phone] Dixie Doss MD Unavailable [phone] Angela Lee Unavailable [phone] Link Flores MD Unavailable [phone] Adamaris Ladd RN Unavailable [phone] Katrina Ruiz MD Unavailable Verenice Luevano RN Unavailable [phone] Reason for Visit * Reason Onset Date Comments Scheduling 09/25/2018 Encounter Details Date Type Department Care Team (Late st Contact Info) Description 09/25/2018 Telephone [facility] Physicians - Obstetrics & Gynecology, [place] [address] [place] [address] Dixie Doss MD [address] [place] [address] Scheduling Social History Tobacco Use [...] 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 [place] [address] Female Pelvic Medicine and Reconstructive Surgery 12/12/20 Adamaris Ladd RN [address] [place] [address] Registered Nurse 12/28/20 Katrina Ruiz MD [address] [place] [address] Resident Obstetrics & Gynecology 03/01/21 Verenice Luevano RN [address] [place] [address] Registered Nurse 03/01/21 documented as of this encounter
--- OUTSIDE RECORDS SUMMARY | 2025-02-22 10:50 | XMS_ITS | Encounter Summary ---
Author Organization [place] [address] Care Team Providers Care Merchandise Displayer Name Role Phone Go Campos MD Unavailable [phone] Marely Gonzalez MD Primary Care Provider + Flavio Arreguin MD Unavailable [phone] Reason for Visit * Reason Onset Date Comments Other 12/15/2024 CT of the head i s approved [id number] Encounter Details Date Type Department Care Team (Late st Contact Info) Description 12/15/2024 Telephone [facility] [address] [facility] [address] [place] [address] Marely Gonzalez MD [address]30 [facility] [address] [place] [address] Other (CT of the head is approved [id number]) Social History Tobacco Use Types Packs/Day Years [...] Entry Date Author No 05/11/2024 10:08 AM EST Nnamdi Choudhury LPN documented in this encounter Miscellaneous Notes * Telephone Encounter - Eleni Génesis - 12/15/2024 1:13 PM EDT Select the most appropriate reason for this telephone message: Other Who is calling (name & relationship to patient if not the patient): Kiya Jeffries What is needed OR why are they calling: CT scan was approved When is this needed by: NA Where does this information need to go: NA Return Method of Communication: N/A Additional information:CT Scan for head or brain was approved / Auth number [id number]/Jorge will be faxing over info. documented in this encounter Plan of Treatment Upcoming Encounters Date Type Department Care Team (Late st Contact Info) Description 03/03/2025 9:20 AM EST Office Visit [facility] [address] [facility] [address] [place] [address] Katherine Silverman PA-C 830 [facility] [address] [place] [address] documented as of this encounter Goals Goal Patient Goal Type Associated Problems Recent Progress Patient-Stated? Author Maintain a healthy diet, exercise regularly and maintain an ideal body weight General No Bernie Hooks MA Stay Tobacco Free Lifestyle No Bernie Hooks MA documented as of this encounter Visit Diagnoses Not on filedocumented in this encounter Care Teams Merchandise Displayer Relationship Specialty Start Date End Date Go Campos MD [address] [place] [address] PCP - OBGYN Obstetrics & Gynecology 06/02/11 Marely Gonzalez MD [address] [place] [address] PCP - General Family Medicine 01/07/13 Flavio Arreguin MD [address] [place] [address] Pain Medicine-Pain Medicine 10/20/21 documented as of this encounter
--- OUTSIDE RECORDS SUMMARY | 2025-02-22 10:50 | XMS_ITS | Clinical Summary ---
Author Organization [facility] Address [address] [place] [address], [address] [place] [address] Care Team Providers Care Warehouse Packaging Supervisor Name Role Phone Marely Gonzalez MD [...] 5:32 AM 06/12/2014 3:27 PM Care Teams Warehouse Packaging Supervisor Relationship Specialty Start Date End Date Marely Gonzalez MD PCP - General 04/07/15
--- OUTSIDE RECORDS SUMMARY | 2025-02-22 10:50 | XMS_ITS | Encounter Summary ---
Author Organization [facility] Address [address] [place] [address] Care Team Providers Care Plastic Cablemaking Machine Operator Name Role Phone Marely Gonzalez MD Primary Care Provider [phone] Dorita Paulino MD Unavailable [phone] Duane Graves RN Unavailable Unavailable Sindy Oneill AUDITING MANAGER Unavailable [phone] Source Comments This information has been disclosed [...] release of HIV test results or diagnoses. [id number] Health Encounter Details Date Type Department Care Team (Late st Contact Info) Description 02/10/2025 Chart Note [facility] 222 [facility] [address] [place] [address] Serina Tate, NILSON Faxed post op PT orders to [facility] at at this Social History Tobacco Use Types Packs/Day Years [...] Progress Notes * Serina Tate RN - 02/10/2025 12:30 PM EDT Faxed post op PT orders to [facility] at at this time Fax confirmation received. documented in this encounter Plan of Treatment Upcoming Encounters Date Type Department Care Team (Latest Contact Info) Description 03/30/2025 12:35 PM EST Hospital Encounter [facility] Same Day Surgery [address] [place] [phone] Weston Culp MD [address] [phone] 03/30/2025 12:35 PM EST - 03/30/2025 2:55 PM EST Surgery [facility] Same Day Surgery [address] [place] [phone] Weston Culp MD [address] [phone] RIGHT TOTAL HIP ARTHROPLASTY Scheduled Procedures Name [...] documented as of this encounter Care Teams Plastic Cablemaking Machine Operator Relationship Specialty Start Date End Date Marely Gonzalez MD 1 [facility] [place] [address] PCP - General Family Medicine 06/19/16 Dorita Paulino MD [address] [place] [address] [place] [address] Surgeon Surgical Oncology 10/09/17 Duane Graves, RN Registered Nurse 11/28/17 Sindy Oneill, NIKKY [address] [place] [address] [place] [phone] Nurse Practitioner Oncology 12/04/17 documented as of this encounter
--- OUTSIDE RECORDS SUMMARY | 2025-02-22 10:50 | XMS_ITS | Encounter Summary ---
Author Organization [facility] Address [address] [place] [address] Care Team Providers Care Carton Forming Machine Operator Name Role Phone Marely Gonzalez MD Primary Care Provider +- [phone] Dorita Paulino MD Unavailable [phone] Duane Graves RN Unavailable Unavailable Sindy Oneill SPINNING MACHINE OPERATOR Unavailable [phone] Source Comments This information has been disclosed [...] release of HIV test results or diagnoses. [id number] Reason for Referral * Imaging/Cardiovascular Scan (Routine) - New Request Specialty Diagnoses / Procedures Referred By Contac t Referred To Contact Radiology Procedures MR Hip Outside Exam System, Provider Not In [address] [address] Referral ID Status Reason Start Date Expiration Date V isits Requested Visits Authorized [id number] New Request 02/03/2025 08/02/2025 1 1 Encounter Details Date Type Department Care Team (Late st Contact Info) Description 01/27/2025 Orders Only EXTERNAL PROV RESULTS [address] [place] [address] [phone] System, Provider Not In Social History Tobacco [...] Description 03/30/2025 12:35 PM EST Hospital Encounter [facility] Same Day Surgery [address] [place] [phone] Weston Culp MD [address] [phone] 03/30/2025 12:35 PM EST - 03/30/2025 2:55 PM EST Surgery [facility] Same Day Surgery [address] [place] [phone] Weston Culp MD 222 [facility] [address] [place] [phone] RIGHT TOTAL HIP ARTHROPLASTY Scheduled Procedures Name [...] documented as of this encounter Care Teams Carton Forming Machine Operator Relationship Specialty Start Date End Date Marely Gonzalez MD [address] [place] [address] [place] [address] PCP - General Family Medicine 06/19/16 Dorita Paulino MD [address] [place] [address] [place] [address] Surgeon Surgical Oncology 10/09/17 Duane Graves, NILSON Registered Nurse 11/28/17 Sindy Oneill, NIKKY [address] [place] [phone] Nurse Practitioner Oncology 12/04/17 documented as of this encounter
--- OUTSIDE RECORDS SUMMARY | 2025-02-22 10:50 | XMS_ITS | Encounter Summary ---
Author Organization [place] [address] Care Team Providers Care Tow Truck Driver Name Role Phone Go Campos MD Unavailable [phone] Marely Gonzalez MD Primary Care Provider + Flavio Arreguin MD Unavailable [phone] Encounter Details Date Type Department Care Team (Late st Contact Info) Description 12/11/2024 Results Follow-Up [facility] 830 [facility] [address] [place] [phone] Katherine Silverman PA-C [address] [facility] [address] [place] [phone] HEAD WO CONTRAST Social History Tobacco Use Types Packs/Day Years [...] EST Office Visit [facility] [address] [facility] [address] [place] [address] Katherine Silverman PA-C [address]30 [facility] [address] [place] [address] documented as of this encounter Goals Goal Patient Goal Type Associated Problems Recent Progress Patient-Stated? Author Maintain a healthy diet, exercise regularly and maintain an ideal body weight General No Bernie Hooks MA Stay Tobacco Free Lifestyle No Bernie Hooks MA documented as of this encounter Visit Diagnoses Not on filedocumented in this encounter Care Teams Tow Truck Driver Relationship Specialty Start Date End Date Go Campos MD [address] [place] [address] PCP - OBGYN Obstetrics & Gynecology 06/02/11 Marely Gonzalez MD [address] [place] [address] PCP - General Family Medicine 01/07/13 Flavio Arreguin MD [address] [place] [address] Pain Medicine-Pain Medicine 10/20/21 documented as of this encounter
--- OUTSIDE RECORDS SUMMARY | 2025-02-22 10:50 | XMS_ITS | Encounter Summary ---
Author Organization [facility] Address [address] [place] [address] Care Team Providers Care Reworker Name Role Phone Marely Gonzalez MD Primary Care Provider + [phone] Dorita Paulino MD Unavailable [phone] Duane Graves RN Unavailable Unavailable Sindy Oneill TIRE SERVICE SUPERVISOR Unavailable [phone] Source Comments This information has been disclosed [...] release of HIV test results or diagnoses. [id number] Health Encounter Details Date Type Department Care Team (Late st Contact Info) Description 01/25/2025 Chart Note [facility] Orthopa[facility]ics at [facility] [address] [facility] [address] [place] [address] Venkatesh Cole MD 4917 [facility] [address] [place] [address] Precert Required: Yes Social History Tobacco Use Types Packs/Day Years [...] encounter Progress Notes * Cuong Trent - 01/25/2025 12:03 PM EDT Images from the original note were not included. Precert Required: Yes In-Network: Yes CPT Code: 94454 DX Code: M25.551 Status: Pending Case #: [id number] Preferred Location: [facility] documented in this encounter Plan of Treatment Upcoming Encounters Date Type Department Care Team (Latest Contact Info) Description 03/30/2025 12:35 PM EST Hospital Encounter [facility] Same Day Surgery [address] [place] [phone] Weston Culp MD 222 [facility] [address] [place] [phone] 03/30/2025 12:35 PM EST - 03/30/2025 2:55 PM EST Surgery [facility] Same Day Surgery [address] [place] [phone] Weston Culp MD [address] [place] [address] [place] [phone] RIGHT TOTAL HIP ARTHROPLASTY Scheduled Procedures Name [...] documented as of this encounter Care Teams Reworker Relationship Specialty Start Date End Date Marely Gonzalez MD 1 [facility] [place] [address] PCP - General Family Medicine 06/19/16 Dorita Paulino MD [address] [facility] [place] [address] Surgeon Surgical Oncology 10/09/17 Duane Graves, RN Registered Nurse 11/28/17 Sindy Oneill, NIKKY [address] [place] [address] [place] [address] Nurse Practitioner Oncology 12/04/17 documented as of this encounter
--- OUTSIDE RECORDS SUMMARY | 2025-02-22 10:50 | XMS_ITS | Encounter Summary ---
Author Organization [place] [address] Care Team Providers Care Ingredient Mixer Name Role Phone Go Campos MD Unavailable [phone] Marely Gonzalez MD Primary Care Provider + Flavio Arreguin MD Unavailable [phone] Reason for Visit * Reason Onset Date Comments Appointment Needed 02/15/2025 My chart vide o visit Encounter Details Date Type Department Care Team (Late st Contact Info) Description 02/15/[address] [facility] 830 [facility] [address] [place] [phone] Marely Gonzalez MD 831 [facility] [address] [place] [phone] Appointment Needed (My chart video visit ) Social History Tobacco Use Types Packs/Day Years [...] encounter Miscellaneous Notes * Telephone Encounter - Holly Clark, Clerical Staff - 02/15/2025 2:02 PM EST Scheduled * Telephone Encounter - Rhonda Pearce MA - 02/15/2025 1:48 PM EST Please schedule * Telephone Encounter - Caroline Angela - 02/15/2025 12:24 PM EST Select the most appropriate reason for this telephone message: Appointment Needed Who is Calling: Patient Return Method of Communication: Phone Call Provider Preference: Any Available Type of Appt Needed: MyChart Video Visit Detailed Reason for Appt: possible thrush on tongue / white patches painful to eat x 5 days Is the caller rescheduling an existing appointment: No Requested Timeframe: Today Reason Scheduling Assistance is Needed: -no appts available with provider preference in time frame needed Additional Information: N/A documented in this encounter Plan of Treatment Upcoming Encounters Date Type Department Care Team (Late st Contact Info) Description 03/03/2025 9:20 AM EST Office Visit [facility] 830 [facility] [address] [place] [phone] Katherine Silverman PA-C 830 [facility] [address] [place] [address] documented as of this encounter Goals Goal Patient Goal Type Associated Problems Recent Progress Patient-Stated? Author Maintain a healthy diet, exercise regularly and maintain an ideal body weight General No Bernie Hooks MA Stay Tobacco Free Lifestyle No Bernie Hooks MA documented as of this encounter Visit Diagnoses Not on filedocumented in this encounter Care Teams Ingredient Mixer Relationship Specialty Start Date End Date Go Campos MD [address] [place] [address] PCP - OBGYN Obstetrics & Gynecology 06/02/11 Marely Gonzalez MD [address] [place] [address] PCP - General Family Medicine 01/07/13 Flavio Arreguin MD [address] [place] [address] Pain Medicine-Pain Medicine 10/20/21 documented as of this encounter
--- OUTSIDE RECORDS SUMMARY | 2025-02-22 10:50 | XMS_ITS | Encounter Summary ---
Author Organization [facility] Address [address] [place] [address] Care Team Providers Care Jig Mill Operator Name Role Phone Marely Gonzalez MD Primary Care Provider + [phone] Dorita Paulino MD Unavailable [phone] Duane Graves RN Unavailable Unavailable Sindy Oneill CARBON DIOXIDE OPERATOR Unavailable [phone] Source Comments This information has been disclosed [...] release of HIV test results or diagnoses. [id number] Health Encounter Details Date Type Department Care Team (Late st Contact Info) Description 01/26/2025 Chart Note [facility] Orthopaedics at [facility] 7[address] [facility] [address] [place] [address] Venkatesh Cole MD 4101 [facility] 300 [place] [address] Precert Required: Yes Social History [...] encounter Progress Notes * Cuong Trent - 01/26/2025 9:23 AM EDT Images from the original note were not included. Precert Required: Yes In-Network: Yes CPT Code: 81943 DX Code: M25.551 Status: Approved Auth #: [id number] Dates: 01/25/2025-03/26/2025 Preferred Location: [facility] [place] documented in this encounter Plan of Treatment Upcoming Encounters Date Type Department Care Team (Latest Contact Info) Description 03/30/2025 12:35 PM EST Hospital Encounter [facility] Same Day Surgery [address] [place] [phone] Weston Culp MD [address] [phone] 03/30/2025 12:35 PM EST - 03/30/2025 2:55 PM EST Surgery [facility] Same Day Surgery [address] [place] [phone] Weston Culp MD [address] [place] [phone] RIGHT TOTAL HIP ARTHROPLASTY Scheduled Procedures Name [...] documented as of this encounter Care Teams Jig Mill Operator Relationship Specialty Start Date End Date Marely Gonzalez MD 1 [facility] [place] [address] PCP - General Family Medicine 06/19/16 Dorita Paulino MD [address] [place] [address] [place] [address] Surgeon Surgical Oncology 10/09/17 Duane Graves, NILSON Registered Nurse 11/28/17 Sindy Oneill, CARBON DIOXIDE OPERATOR [address] [place] [address] [place] [address] Nurse Practitioner Oncology 12/04/17 documented as of this encounter
--- OUTSIDE RECORDS SUMMARY | 2025-02-22 10:51 | XMS_ITS | Encounter Summary ---
Author Organization [facility] [place] [address] Care Team Providers Care Mental Health Program Manager Name Role Phone Go Campos MD Unavailable [phone] Marely Gonzalez MD Primary Care Provider + Flavio Arreguin MD Unavailable [phone] Encounter Details Date Type Department Care Team (Latest Contact Info) Description 01/09/2025 Travel Social History Tobacco Use Types Packs/Day [...] 03/03/2025 9:20 AM EST Office Visit [facility]P [facility] 830 [facility] [address] [place] [phone] Katherine Silverman PA-C 830 [facility] [address] [place] [address] documented as of this encounter Goals Goal Patient Goal Type Associated Problems Recent Progress Patient-Stated? Author Maintain a healthy diet, exercise regularly and maintain an ideal body weight General No Bernie Hooks MA Stay Tobacco Free Lifestyle No Bernie Hooks MA documented as of this encounter Visit Diagnoses Not on filedocumented in this encounter Care Teams Mental Health Program Manager Relationship Specialty Start Date End Date Go Campos MD [address] [place] [address] PCP - OBGYN Obstetrics & Gynecology 06/02/11 Marely Gonzalez MD [address] [place] [address] PCP - General Family Medicine 01/07/13 Flavio Arreguin MD [address] [place] [address] Pain Medicine-Pain Medicine 10/20/21 documented as of this encounter
--- OUTSIDE RECORDS SUMMARY | 2025-02-22 10:51 | XMS_ITS | Encounter Summary ---
Author Organization [facility] Address [address] [place] [address] Care Team Providers Care Blueprinting Machine Operator Name Role Phone Marely Gonzalez MD Primary Care Provider + Encounter Details Date Type Department Care Team (Late st Contact Info) Description 12/17/2024 Orders Only External Location [address] [place] [address] Provider, External Social History Tobacco Use Types Packs/Day Years [...] Name Priority Date/Time Associated Diagnosis Comments MR OUTSIDE IMAGES 12/17/2024 3:09 PM EDT documented in this encounter Results * MR transfer of outside films (12/17/2024 3:09 PM EDT) Anatomical Region Laterality Modality Magnetic Resonan ce 12/17/2024 3:09 PM EDT us External Provider IMG MRI PROCEDURES Edited Resu lt - Final documented in this encounter Visit Diagnoses Not on filedocumented in this encounter Care Teams Blueprinting Machine Operator Relationship Specialty Start Date End Date Marely Gonzalez MD [address] [facility] [address] [place] [address] PCP - General 01/28/25 documented as of this encounter
--- OUTSIDE RECORDS SUMMARY | 2025-02-22 10:51 | XMS_ITS | Encounter Summary ---
Author Organization [facility] Address [address] [place] [address] Care Team Providers Care Executive Producer Promos Name Role Phone Marely Gonzalez MD Primary Care Provider + Encounter Details Date Type Department Care Team (Late st Contact Info) Description 04/16/2016 Orders Only External Location [address] [place] [address] Provider, External Social History Tobacco Use Types Packs/Day Years Used Date Smoking Tobacco: Never Assessed Comments Unknown Sex and Gender Information Value Date Recorded Sex Assigned at Not on file Legal Sex Female 6:17 PM EDT Gender Identity Not on file Sexual Orientation Not on file documented as of this encounter Plan of Treatment Not on file documented as of this encounter Procedures Procedure Name Priority Date/Time Associated Diagnosis Comments MR OUTSIDE IMAGES 04/16/2016 4:55 PM EST documented in this encounter Results * MR transfer of outside films (04/16/2016 4:55 PM EST) Anatomical Region Laterality Modality Magnetic Resonan ce 04/16/2016 4:55 PM EST us External Provider IMG MRI PROCEDURES Final Resul t documented in this encounter Visit Diagnoses Not on filedocumented in this encounter Care Teams Executive Producer Promos Relationship Specialty Start Date End Date Marely Gonzalez MD [address] [facility] [address] [place] [address] PCP - General 01/28/25 documented as of this encounter
--- OUTSIDE RECORDS SUMMARY | 2025-02-22 10:51 | XMS_ITS | Encounter Summary ---
Author Organization [facility] Address [address] [place] [address] Care Team Providers Care Cash Control Specialist Name Role Phone Marely Gonzalez MD Primary Care Provider Alan Villanueva MD Unavailable [phone] Dixie Doss MD Unavailable [phone] Angela Lee Unavailable [phone] Link Flores MD Unavailable [phone] Adamaris Ladd RN Unavailable [phone] Katrina Ruiz MD Unavailable Verenice Luevano RN Unavailable [phone] Encounter Details Date Type Department Care Team (Latest Contact Info) Description 12/28/2020 Preop Surgical Orders [facility] Physicians - Urogynecology, [address] Medical Office [address] [place] [address] Adamaris Ladd, RN [address] [place] [address] Female pelvic pain (Primary Dx) Social History [...] 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 [address] [place] [address] Female Pelvic Medicine and Reconstructive Surgery 12/12/20 Adamaris Ladd RN [address] [place] [address] Registered Nurse 12/28/20 Katrina Ruiz MD [address] [place] [address] Resident Obstetrics & Gynecology 03/01/21 Verenice Luevano, RN [address] [place] 887349 Registered Nurse 03/01/21 documented as of this encounter
--- OUTSIDE RECORDS SUMMARY | 2025-02-22 10:51 | XMS_ITS | Encounter Summary ---
Author Organization [facility] Address [address] [place] [address] Care Team Providers Care Telecom Field Technician Name Role Phone Marely Gonzalez MD Primary Care Provider [phone] Dorita Paulino MD Unavailable [phone] Duane Graves RN Unavailable Unavailable Sindy Oneill CONTENT MANAGEMENT CONSULTANT Unavailable [phone] Source Comments This information has been disclosed [...] release of HIV test results or diagnoses. [id number] Health Encounter Details Date Type Department Care Team (Late st Contact Info) Description 09/18/2016 Orders Only [facility] [address] [place] [address] Marely Gonzalez MD [address] [place] [address] [place] [address] Left breast lump (Primary Dx) Social History [...] Description 03/30/2025 12:35 PM EST Hospital Encounter [facility] Same Day Surgery [address] [place] [phone] Weston Culp MD [address] [facility] [address] [place] [phone] 03/30/2025 12:35 PM EST - 03/30/2025 2:55 PM EST Surgery [facility] Same Day Surgery [address] [place] [phone] Weston Culp MD [address] [facility] [address] [place] [phone] RIGHT TOTAL HIP ARTHROPLASTY Scheduled Procedures Name [...] written form. She was taken to the contact lens lathe operator to schedule an appointment for the [...] mammograms were double read with CAD image tool drawing checker. Targeted left breast ultrasound. Breast Density: [...] Left breast lump- Primary Left breast lump Closed fracture of head of right femur with delayed healing documented in this encounter Care Teams Telecom Field Technician Relationship Specialty Start Date End Date Marely Gonzalez MD [address] [place] [address] [place] Alexis [address] PCP - General Family Medicine 06/19/16 Dorita Paulino MD [address] [place] [address] [place] [address] Surgeon Surgical Oncology 10/09/17 Duane Graves, NILSON Registered Nurse 11/28/17 Sindy Oneill, CONTENT MANAGEMENT CONSULTANT [address] [place] [address] Nurse Practitioner Oncology 12/04/17 documented as of this encounter
--- OUTSIDE RECORDS SUMMARY | 2025-02-22 10:51 | XMS_ITS | Encounter Summary ---
Author Organization [facility] Address [address] [place] [address] Care Team Providers Care Lining Layer Name Role Phone Marely Gonzalez MD Primary Care Provider + [phone] Dorita Paulino MD Unavailable [phone] Duane Graves RN Unavailable Unavailable Sindy Oneill STERILE SUPERVISOR Unavailable [phone] Source Comments This information has been disclosed [...] release of HIV test results or diagnoses. [id number] Health Encounter Details Date Type Department Care Team (Late st Contact Info) Description 06/22/2016 Orders Only [facility] Office [address] [facility] [address] [place] [address] Arnulfo Sanchez MD [address] [facility] [address] [place] [address] Social History Tobacco Use Types [...] Description 03/30/2025 12:35 PM EST Hospital Encounter [facility] Same Day Surgery [address] [place] [phone] Weston Culp MD [address] [facility] [address] [place] [phone] 03/30/2025 12:35 PM EST - 03/30/2025 2:55 PM EST Surgery [facility] Same Day Surgery [address] [place] [phone] Weston Culp MD [address] [facility] [address] [place] [phone] RIGHT TOTAL HIP ARTHROPLASTY Scheduled Procedures Name Priority Associated Diagnoses Date/Ti me ARTHROPLASTY HIP TOTAL ANTERIOR APPROACH Closed fracture of head of right femur with delayed healing 03/30/2025 12:35 PM EST documented as of this encounter Procedures Procedure Name Priority Date/Time Associated Diagnosis Comments [facility] EXTERNAL IMAGING 06/22/2016 4:55 PM EST documented in this encounter Results * [facility] External Imaging (06/22/2016 4:55 PM EST) Anatomical Region Laterality Modality Radiographic Hilda ging 06/22/2016 4:55 PM EST Narrative 06/23/2016 6:45 PM EST MRI SHOULDER RIGHT WO CONTRAST 06/22/2016 4:55 PM HISTORY: Chronic right shoulder pain M25.511-Pain in right [id number]-[id number]-CM G89.29-Other chronic rifa-SCU-39-CM TECHNIQUE: Routine MRI of the right shoulder [...] Chronic right shoulder pain M25.511-Pain in right ebnfcduj-TLJ-05-CM G89.29-Other chronic kvsk-EHM-34-CM TECHNIQUE: Routine MRI of the right shoulder [...] compatible with moderatebursitis. 3. Interval subacromial decompression. us Arnulfo Sanchez MD IMG DIAGNOSTIC IMAGING ORDERABLE S Final Result documented in this encounter Visit Diagnoses Not on filedocumented in this encounter Care Teams Lining Layer Relationship Specialty Start Date End Date Vormbrock, Marely, MD [address] [facility] PHILLIP Alexis [phone] PCP - General Family Medicine 06/19/16 Dorita Paulino MD 1 [facility] [place] [address] Surgeon Surgical Oncology 10/09/17 Duane Graves, NILSON Registered Nurse 11/28/17 Sindy Oneill, NIKKY [address] [place] [phone] Nurse Practitioner Oncology 12/04/17 documented as of this encounter
--- OUTSIDE RECORDS SUMMARY | 2025-02-22 10:51 | XMS_ITS | Clinical Summary ---
Author Organization [facility] Address [address] [place] [address] Care Team Providers Care School Leader Name Role Phone Marely Gonzalez MD Primary Care Provider Alan Villanueva MD Unavailable [phone] Dixie Doss MD Unavailable [phone] Angela Lee Unavailable [phone] Link Flores MD Unavailable [phone] Adamaris Ladd RN Unavailable [phone] Katrina Ruiz MD Unavailable Verenice Luevano RN Unavailable [phone] Allergies Active Allergy Reactions Criticality Noted [...] the patient, Quantity 1 box, Lot Number [id number], Expiration 01-02 42.5 g 0 Active Additional Information Patient not taking.Reported on 12/15/2024 OTHER - SEE EPIC ADMIN INSTRUCTIONS Testosterone pellets Active estradioL (ESTRACE) 0.01 % (0.1 mg/gram) Cream Insert 0.5 g into vaginal area every other night at bedtime as directed. 0.5 g 3 1 Active Additional Information Patient not taking.Reported on 12/15/2024 estrogens, conjugated, (Premarin) 0.625 mg/gram Cream Insert 0.5 g into vagina daily. 42.5 g 1 Active Additional Information Patient not taking.Reported on 12/15/2024 OTHER - SEE EPIC ADMIN INSTRUCTIONS Estradiol vaginal cream 0.02% in versabase, use 1 g per vagina 2 times per week, dispense one month supply 8 Each 6 1 Active Additional Information Patient not taking.Reported on 12/15/2024 mirabegron (Myrbetriq) 50 mg Tablet Sustained Release 24 hr Take 1 Tablet (50 mg total) by mouth daily. 56 Tablet 1 Active Additional Information Patient not taking.Reported on 12/15/2024 estrogens, conjugated, (Premarin) 0.625 mg/gram Cream Insert 0.5 g into vagina daily. 42.5 g 1 Active Additional Information Patient not taking.Reported on 12/15/2024 naproxen (NAPROSYN) 500 mg tablet Take 1 Tablet (500 mg total) by mouth 2 times daily (with meals). 20 Tablet 1 Active Additional Information Patient not taking.Reported on 12/15/2024 mirabegron (Myrbetriq) 50 mg Tablet Sustained Release 24 hr Take 1 Tablet (50 mg total) by mouth daily. 56 Tablet 2 Active Additional Information Patient not taking.Reported on 12/15/2024 oxybutynin (DITROPAN-XL) 10 mg CR tablet Take 1 Tablet (10 mg) by mouth every evening. 30 Tablet 2 Active Additional Information Patient not taking.Reported on 12/15/2024 pantoprazole (PROTONIX) 40 mg Tablet, Delayed Release (E.C.) Take 40 mg by mouth daily. 5 Active oxyCODONE-Acetam inophen (PERCOCET) 7.5-325 mg per tablet TAKE 1 TABLET BY MOUTH 4 TIMES DAILY. DNF UNTIL 09/25/24 5 Active ergocalciferol (ERGOCALCIFEROL) 1,250 mcg (50,000 unit) Capsule Take 50,000 Units by mouth. Active sucralfate (CARAFATE) 100 mg/mL suspension TAKE 10 ML BY MOUTH 3 TIMES DAILY NEEDED. SHAKE WELL 5 Active brompheniramine- pseudoephedrine- DM (Bromfed DM) 2-30-10 mg/5 mL Syrup Take 5 mL by mouth every 6 hours as needed. 120 mL 5 Active Active Problems Problem Noted Date Diagnosed Date Female pelvic pain 12/28/2020 Overview (12/28/2020): Added automatically from request for surgery [id number] Morbid obesity 09/18/2018 Menorrhagia 09/17/2018 Stress incontinence 09/17/2018 Prolapse of posterior vaginal wall 08/28/2018 Female stress incontinence 08/28/2018 Sterilization consult 08/28/2018 Encounters Date Type Department Care Team Description 12/21/[address] [phone] Urgent Care, Amb Nurse, RN Medications Refill 12/15/2024 10:10 AM EDT Office Visit The [address] [phone] Alan Stephens DO Acute URI (Primary Dx) from Last 3 Months Immunizations Immunization Administration Dates Next Due Influenza [...] or ex-partner? No 12/11/2021 Social Connection and Isolation Panel Answer Date Recorded In a typical week, how many times do you talk on the phone with family, friends, or neighbors? More than three times a week 12/11/2021 How often do you get togethe r with friends or relatives? More than three times a week 12/11/2021 How often do you attend [facility] or faith services? More than 4 times per year 12/11/2021 Do you belong to any clubs o r organizations such as orthodox groups, unions, fraBringMeThat or athletic groups, or school groups? No [...] Date Recorded PHQ-9 Auto Total 0 12/11/2021 [facility] - Occupational Stress Questionnaire Answer Date [...] place to sleep or slept in a half-way (including now)? 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 Not on file Not on file Last Filed Vital Signs Vital Sign Reading Time Taken Comments Blood Pressure 122/84 12/15/2024 10:17 AM EDT Pulse 67 12/15/2024 10:17 AM EDT Temperature 36.7 C (98 F) 12/15/2024 10:17 AM EDT Respiratory Rate 16 03/01/2022 9:09 AM EST Oxygen Saturation 97% 12/15/2024 10:17 AM EDT Inhaled Oxygen Concentration - - Weight 101.6 kg (224 lb) 12/15/2024 10:17 AM EDT Height 162.6 cm (5' 4 ) 12/15/2024 10:17 AM EDT Body Mass Index 38.45 12/15/2024 10:17 AM EDT Plan of Treatment Health Maintenance Due Date Last Done Comments Cologuard 1976 Colonoscopy 1976 Colorectal Cancer Screening 1976 FIT 1976 Lipid Screening 1994 Tetanus Vaccination (Every 1 0 Years) 09/13/2022 09/13/2012 BMI Counseling 04/15/2024 Depression Screening 04/15/2024 COVID-19 Vaccine (2024-2 6 season) 2024 Influenza Vaccination (#1) 12/14/202405/14, 11/06/2018, 09/11/2018, Additional history exists Influenza Vaccination (Yearly) Discontinued 0 05/14/2019, 11/06/2018, 09/11/2018, Additional history exists Procedures Procedure Name Priority Date/Time Associated Diagnosis Comments POC FONG ID NOW - PCR COVID Routine 12/15/2024 10:42 AM EDT Acute URI from Last 3 Months Results * POC FONG ID NOW - PCR COVID (12/15/2024 10:42 AM EDT) SCRCOVID Not Detected 12/15/2024 10:4 2 AM EDT Alan Stephens DO AMB POINT OF CARE Final Result from Last 3 Months Insurance [employer] [place] MED[employer] [place] MED[employer] [place] [employer] Advance Directives For more information, please contact: [phone] * Full Code (Latest Code Status on File) Date Activated Date Inactivated Comments 09/17/2018 8:47 PM 09/27/2018 4:02 PM No automated chest compression devices for VAD Patients Care Teams School Leader Relationship Specialty Start Date End Date Marely Gonzalez MD PCP - General Family Medicine 03/01/22 Alan Villanueva MD Family Medicine 05/31/14 Dixie Doss MD [address] [facility] [place] [address] Obstetrics & Gynecology 07/26/20 Angela Lee PA [address] [place] [address] Physician Field Investigator Urology 10/28/20 Link Flores MD [address] [place] [address] Female Pelvic Medicine and Reconstructive Surgery 12/12/20 Adamaris Ladd RN [address] [place] [address] Registered Nurse 12/28/20 Katrina Ruiz MD [address] [place] [address] Resident Obstetrics & Gynecology 03/01/21 Verenice Luevano, RN [address] [place] [address] Registered Nurse 03/01/21
--- OUTSIDE RECORDS SUMMARY | 2025-02-22 10:51 | XMS_ITS | Encounter Summary ---
Author Organization Healthcare Address [address] [place] [address] Care Team Providers Care Neurology Stroke Physician Name Role Phone Marely Gonzalez MD Primary Care Provider + Encounter Details Date Type Department Care Team (Latest Contact Info) Description 02/04/2025 Travel Social History Tobacco Use Types Packs/Day [...] documented as of this encounter Care Teams Neurology Stroke Physician Relationship Specialty Start Date End Date Marely Gonzalez MD 0 [facility] [address] [place] [phone] PCP - General 01/28/25 documented as of this encounter
--- OUTSIDE RECORDS SUMMARY | 2025-02-22 10:51 | XMS_ITS | Encounter Summary ---
Author Organization Healthcare Address [address] [place] [address] Care Team Providers Care Hand Spinner Name Role Phone Marely Gonzalez MD Primary Care Provider + Encounter Details Date Type Department Care Team (Late st Contact Info) Description 01/27/2025 Orders Only External Location [address] [place] [address] Provider, External Social History Tobacco Use Types [...] Date/Time Associated Diagnosis Comments MR OUTSIDE IMAGES 01/27/2025 3:34 PM EDT documented in this encounter Results * MR transfer of outside films (01/27/2025 3:34 PM EDT) Anatomical Region Laterality Modality Magnetic Resonan ce 01/27/2025 3:34 PM EDT us External Provider IMG MRI PROCEDURES Edited Resu lt - Final documented in this encounter Visit Diagnoses Not on filedocumented in this encounter Care Teams Hand Spinner Relationship Specialty Start Date End Date Marely Gonzalez MD [address] [facility] [address] [place] [address] PCP - General 01/28/25 documented as of this encounter
--- OUTSIDE RECORDS SUMMARY | 2025-02-22 10:51 | XMS_ITS | Encounter Summary ---
Author Organization Healthcare Address [address] [place] [address] Care Team Providers Care County Supervisor Name Role Phone Marely Gonzalez MD Primary Care Provider + Encounter Details Date Type Department Care Team (Late st Contact Info) Description 04/16/2016 Orders Only External Location [address] [place] [address] Provider, External Social History Tobacco Use Types [...] Associated Diagnosis Comments MR OUTSIDE IMAGES 04/16/2016 4:16 PM EST documented in this encounter Results * MR transfer of outside films (04/16/2016 4:16 PM EST) Anatomical Region Laterality Modality Magnetic Resonan ce 04/16/2016 4:16 PM EST us External Provider IMG MRI PROCEDURES Final Resul t documented in this encounter Visit Diagnoses Not on filedocumented in this encounter Care Teams County Supervisor Relationship Specialty Start Date End Date Marely Gonzalez MD [address] [facility] [address] [place] [address] PCP - General 01/28/25 documented as of this encounter
--- OUTSIDE RECORDS SUMMARY | 2025-02-22 10:51 | XMS_ITS | Encounter Summary ---
Author Organization [facility] [address] [place] [address] Care Team Providers Care Reaming Press Operator Name Role Phone Go Campos MD Unavailable [phone] Marely Gonzalez MD Primary Care Provider + Flavio Arreguin MD Unavailable [phone] Reason for Visit * Reason Onset Date Comments Thrush 01/09/2025 Encounter Details Date Type Department Care Team (Late st Contact Info) Description 01/09/2025 Nurse Triage [facility] [address] [place] [address], NILSON Social History Tobacco Use Types Packs/Day Years [...] encounter Miscellaneous Notes * Telephone Encounter - Ita Lane RN - 01/09/2025 1:39 PM EDT Nurse Triage Call -Chief Complaint: woke up this morning, with thrush white on tongue and throat . is on antibiotics,hard to get around as she has fracture on femoral head. hard to swallow, feels like its in throat too -Reported by: Patient -Vitals: No vitals obtained on this call -Disposition per protocol: see pcp when office is open -Scheduled an appointment with [facility] -Follow up/Concerns: vv made for pt Reason for Disposition [1] White patches that stick to tongue or inner cheek AND [2] can be wiped off Protocols used: Mouth Mivlvebi-Z-XH documented in this encounter Plan of Treatment Upcoming Encounters Date Type Department Care Team (Late st Contact Info) Description 03/03/2025 9:20 AM EST Office Visit [facility] [address] [facility] [address] [place] [phone] Katherine Silverman PA-C [address] [facility] [address] [place] [address] documented as of this encounter Goals Goal Patient Goal Type Associated Problems Recent Progress Patient-Stated? Author Maintain a healthy diet, exercise regularly and maintain an ideal body weight General No Bernie Hooks MA Stay Tobacco Free Lifestyle No Bernie Hooks MA documented as of this encounter Visit Diagnoses Not on filedocumented in this encounter Care Teams Reaming Press Operator Relationship Specialty Start Date End Date Go Campos MD [address] [place] [address] PCP - OBGYN Obstetrics & Gynecology 06/02/11 Marely Gonzalez MD [address] [place] [address] PCP - General Family Medicine 01/07/13 Flavio Arreguin MD [address] [place] [phone] Pain Medicine-Pain Medicine 10/20/21 documented as of this encounter
--- OUTSIDE RECORDS SUMMARY | 2025-02-22 10:51 | XMS_ITS | Clinical Summary ---
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 Active busPIRone (Buspar) 5 MG tablet Take 1 tablet by mouth twice a day. Active oxyCODONE-acetam inophen (Percocet) 7.5-325 MG tablet TAKE 1 TABLET BY MOUTH 4 TIMES DAILY. DNF UNTIL 01/23/25 05/29/2024 Active pantoprazole (Protonix) 40 MG EC tablet Take 1 tablet by mouth daily. Active Encounters Date Type Department Care Team Description 02/04/2025 1:20 PM EDT Office Visit Medical Office Building [facility] [address] [facility], [address] [place] [address] Angela Mckeon PA Subchondral insufficiency fracture of condyle of right femur, initial encounter (Primary Dx) 02/04/2025 1:03 PM EDT - 02/04/2025 11:59 PM EDT Hospital Encounter Medical Office Building Radiology [address] [place] [address] Hip pain, right Discharge Disposition: Home or Self Care 02/04/2025 Travel 01/27/2025 Orders Only External Location [address] [place] [address] Provider, External 12/17/2024 Orders Only External Location [address] [place] [phone] Provider, External from Last 3 Months Family History Medical [...] Mass Index 40.11 02/04/2025 1:17 PM EDT Plan of Treatment Health Maintenance Due Date Last Done Comments [facility]-Depression Screening 1976 [facility]-HIV Screening 1976 [facility]-Hepatitis C Screening 1976 [facility]-/Child/Adol SDOH Screenings 1976 [facility]- SDOH Screenings 1994 [facility]-Adult SDOH Screenings 1994 [facility]-Hepatitis B Vaccines (1 of 3 - 19+ 3-dose series) 07/16/1995 [facility]-Pap Smear 1997 [facility]-Cervical Cancer Screening 2006 [facility]-HPV/Cotest 2006 CT Colonography 2021 Colonoscopy 2021 FIT-DNA 2021 FIT 2021 FOBT 2021 Sigmoidoscopy 2021 [facility]-Colorectal Cancer Screening 2021 [facility]-DTaP,Tdap,and Td Vaccines (3 - Td or Tdap) 09/13/2022 09/13/2012, 03/15/1992 ISK-PADEL-51 Vaccine (3 - season) 2024 12/02/2020, 11/11/2020 [facility]-Influenza Vaccine (#1) 12/14/202405/14, 11/06/2018, 09/11/2018, Additional history exists [facility]-Zoster Vaccines (1 of 2) 2026 [facility]-Hepatitis A Vaccines Aged Out 01/22/2018 No longer eligible based on patient's age to complete this topic [facility]-Pneumococcal Vaccine: Pediatrics (0 to 5 Years) and At-Risk Patients (6 to 49 Years) Aged Out 05/14/2019, 11/06/2018, 09/11/2018, Additional history exists No longer eligible based on patient's age to complete this topic [facility]-Obesity Intervention Completed 02/04/2025 HPV Vaccines Aged Out No longer eligi [...] on patient's age to complete this topic Procedures Procedure Name Priority Date/Time Associated Diagnosis Comments XR HIP RIGHT 4+ VIEWS Routine 02/04/2025 1:08 PM EDT Hip pain, right MR OUTSIDE IMAGES 01/27/2025 3:3 4 PM EDT MR OUTSIDE IMAGES 12/17/2024 3:0 9 PM EDT from Last 3 Months Results * New Patient Under 50: XR [...] MACK IMG XR PROCEDURES Final Resul t * MR transfer of outside films (01/27/2025 3:34 PM EDT) Only the most recent of2 resultswithin the time period is included. Anatomical Region Laterality Modality Magnetic Resonan ce 01/27/2025 3:34 PM EDT External Provider IMG MRI PROCEDURES Edited Resu lt - Final from Last 3 Months [facility] [employer] Medicaid Dental Care Teams Pipe Fitter Maintenance Relationship Specialty Start Date End Date Marely Gonzalez MD [address] [facility] [address] [place] [address] PCP - General 01/28/25
== END 2025-02-20 23:59 ==
LOC: LAB.DROPOF 02-22 10:35
PROVIDERS: Visit Provider Nurse Practitioner Family
DX: J06.9 Acute upper respiratory infection, unspecified (principal)
CPT/HCPCS: 87631